=== PATIENT | male | born 1930 | race Caucasian/White ===

== ENCOUNTER 2017-03-02 16:04 | Inpatient (IN) ==
[2017-03-02] MEDS ORDERED: 0.9 % SODIUM CHLORIDE 1,000 ML IV ONE ×2 (16:24→17:22)
--- NOTE | 2017-03-02 16:38 | Emergency Department Note ---
Dizziness HPI - General Chief Complaint: Syncope Stated Complaint: fall Time Seen by Provider: 03/02/17 16:14 Source: patient Mode of arrival: ambulatory Limitations: no limitations - History of Present Illness HPI Narrative: 86-year-old male with a history of dizziness and lightheadedness morning there was no actual syncope but when he tried to stand up became very lightheaded lightheaded and diaphoretic and the color expert arrived. Rise in A. fib RVR approximately blood pressures are decreased at 70 systolically. He is alert and oriented at this time denies any chest pain, been feeling tired all day yesterday and sleep. has been dizzy for months he states but this morning he was more light headed and he became very diaphoretic and lightheaded when color expert to them up. Denies any chest pain to have a history of severe COPD retention and chronic renal insufficiency - Related Data Home Medications Medication Instructions Recorded Confirmed aspirin 81 mg tablet,delayed 81 mg PO .QOD tab 05/26/16 02/28/17 release Lisinopril [Zestril] 20 mg PO DAILY 03/02/17 03/02/17 Previous Rx's Medication Instructions Recorded ipratropium bromide 0.03 % nasal 2 spray INTRANASAL TID #30 ml 03/29/16 spray cyanocobalamin (vit B-12) 1,000 1,000 mcg IM QMONTH #30 ml 07/01/16 mcg/mL injection solution albuterol sulfate HFA 90 2 puff INHALATION .Q4-6H PRN #18 g 07/27/16 mcg/actuation aerosol inhaler budesonide-formoterol HFA 160 2 inh INHALATION BID #10.2 g 07/27/16 mcg-4.5 mcg/actuation aerosol inhaler levothyroxine 25 mcg tablet 25 mcg PO QDAY #90 tab 08/08/16 ipratropium-albuterol 0.5 mg-3 3 ml INHALATION QID PRN #360 ml 09/21/16 mg(2.5 mg base)/3 mL nebulization soln CPAP and supplies #1 each 09/23/16 citalopram 20 mg tablet 10 mg PO QDAY #60 tab 01/06/17 furosemide 20 mg tablet 20 mg PO BID #60 tab 01/16/17 omeprazole 20 mg capsule,delayed 20 mg PO ACB #30 cap 01/16/17 release simvastatin 20 mg tablet 20 mg PO QDAY #90 tab 01/16/17 tamsulosin 0.4 mg capsule 0.4 mg PO QDAY #60 cap 02/28/17 Allergies Allergy/AdvReac Type Severity Reaction Status Date / Time adhesive tape Allergy Severe Blister Verified 02/28/17 15:32 hydrocodone [HYDROCODONE] Allergy Intermediate Hallucinati Verified 02/28/17 15: 32 ons/RASH ciprofloxacin [From CIPRO] AdvReac Severe TENDON Verified 02/28/17 15:32 DETERIORATION fentanyl [FENTANYL] AdvReac Intermediate Hallucinations Verified 02/28/17 15:32 (DURAGESIC) Oxycodone [OXYCODONE] AdvReac Intermediate Itching Verified 02/28/17 15:32 Review of Systems All systems ED: reviewed and negative except as stated. Constitutional: Denies: fever, chills Eyes: Denies: eye pain ENT ED: Denies: ear pain Cardiovascular: Denies: chest pain, palpitations, dyspnea on exertion Respiratory: Reports: cough. Denies: shortness of breath Gastrointestinal: Denies: abdominal pain, nausea, vomiting Genitourinary: Denies: dysuria, frequency, urgency Integumentary: Denies: rash, lesions Neurological: Denies: headache, weakness Psychiatric: Denies: anxiety, depression Endocrine: Denies: fatigue Hematological/Lymphatic: Denies: easy bleeding Allergic/Immunologic: Denies: facial swelling Past Medical History - Past Medical History Medical history: Reports: cancer (renal), COPD, coronary artery disease, GERD, hyperlipidemia, hypertension, renal disease, thyroid disease, other (PETROS, carotid stenosis, psoriasis) Psychiatric history: Reports: no psych history Surgical history ED: Reports: angioplasty/stent, cataract, cholecystectomy, hip replacement (right), orthopedic, other (shoulder, cervical discectomy), other ( cochlear implant, nephrectomy) Family history: Reports: CVA/Stroke (mother) - Social History smoking status: Heavy tobacco smoker Packyears: 40 Alcohol use: Reports: Occasionally, Recent Drug use: Reports: none Physical Exam Limitations: no limitations General appearance: alert Head: atraumatic, normocephalic Eye: Present: normal appearance, PERRL ENT: normal exam, normal oropharynx, mucous membranes dry, other (augustine left ear cochlear implant) Neck: Present: normal inspection, full ROM. Absent: trachea midline Chest: Present: normal inspection, symmetric chest wall rise. Absent: tenderness Respiratory: Present: normal lung sounds bilaterally. Absent: respiratory distress, wheezes, stridor Cardiovascular: Present: regular rate, normal rhythm. Absent: bradycardia, tachycardia, irregular rhythm Abdominal: Present: soft. Absent: distention, tenderness, guarding, rebound, rigidity Extremities: Present: normal inspection, full ROM. Absent: tenderness Back: Present: normal inspection, full ROM. Absent: tenderness, CVA tenderness (R), CVA tenderness (L) Patient oriented to: Present: person, place, time Speech: Present: fluid speech Motor strength - LUE: 4/5 Motor strength - RUE: 4/5 Motor strength - LLE: 4/5 Motor strength - RLE: 4/5 Upper motor neuron exam: Babinski sign: Absent bilaterally Sensory exam upper extremity: Normal: light touch Sensory exam lower extremity: Normal: light touch DTR: 2+: patellar (L), patellar (R) Coma Scale Eye Opening: Spontaneous Coma Scale Motor Response: Obeys Commands Coma Scale Verbal Response: Oriented Coma Scale Total: 15 Psychiatric: Present: normal affect, normal mood Skin: Present: warm Course Vital Signs Temperature 98.0 F 03/02/17 16:05 Pulse Rate 131 H 03/02/17 16:05 Respiratory Rate 20 03/02/17 16:05 Blood Pressure 76/63 03/02/17 16:05 Pulse Oximetry (%) 97 03/02/17 16:05 Temperature 98.0 F 03/02/17 16:05 Pulse Rate 103 H 03/02/17 17:59 Respiratory Rate 16 03/02/17 17:59 Blood Pressure 85/59 03/02/17 17:46 Pulse Oximetry (%) 98 03/02/17 17:59 Dizziness - MDM Narrative Medical decision making narrative: Arrived with atrial fibrillation RVR. Blood pressures systolically 70 and 80 initially. And IV fluids. And amiodarone 150 mg IV followed by drip heart rate is come down to 100 blood pressure holding systolically at 101. flu test neg, wbc 2.5 12.4 hct 35.5 lactic 1.8 na 140 potasium 4.0 bun 53 cr 2.3 Adrienne contacted patient to be admitted - Lab Data Result diagrams: 03/02/17 17:05 03/02/17 17:04 Lab Results 03/02/17 03/02/17 03/02/17 Range/Units 17:04 17:04 17:04 WBC (4.5-11.0) K/mcL RBC (4.50-5.90) M/mcL Hgb (13.5-16.5) g/dL Hct (41.0-55.0) % POC Hct 34.0 L (41.0-55.0) % MCV (80.0-100.0) fL MCH (26.0-34.0) pg MCHC (31.0-36.0) g/dL RDW (11.5-14.5) % Plt Count (140-440) K/mcL MPV (7.4-10.4) fL Gran % (38.0-78.0) % Lymph % (Auto) (15.5-49.0) % Anson % (Auto) (1.0-12.0) % Eos % (Auto) (0.0-7.0) % Baso % (Auto) (0.0-2.0) % Gran # (1.8-8.0) K/mcL Lymph # (Auto) (1.5-4.8) K/mcL Anson # (Auto) (0.1-0.9) K/mcL Eos # (Auto) (0.0-0.7) K/mcL Baso # (Auto) (0.0-0.3) K/mcL VBG Lactic Acid 1.8 (0.5-2.2) mmol/L POC Sodium 140 (133-145) mmol/L Sodium 139 (133-145) mmol/L POC Potassium 4.0 (3.3-5.1) mmol/L Potassium 4.0 (3.3-5.1) mmol/L POC Chloride 105 (96-108) mmol/L Chloride 103 (96-108) mmol/L Carbon Dioxide 20 L (22-30) mmol/L POC Total CO2 23 (22-30) mmol/L Anion Gap 16.0 (8-16) POC BUN 48 H (8-23) mg/dl BUN 53 H (8-23) mg/dl Creatinine 2.3 H (0.7-1.2) mg/dl POC Creatinine 2.6 H (0.7-1.2) mg/dl GFR Calculation 25 Glucose 92 (70-105) mg/dL POC Glucose 90 (70-105) mg/dL Calcium 7.7 L (8.6-10.4) mg/dl POC WB Ioniz Calcium 1.07 L (1.16-1.32) mmol/L Magnesium 1.9 (1.6-2.5) mg/dL Total Bilirubin 0.5 (0.0-1.0) mg/dL AST 47 H (0-37) U/l ALT 19 (0-40) U/l Alkaline Phosphatase 53 (39-117) U/L Total Creatine Kinase 255 H (24-195) IU/L CK-MB (CK-2) 6.5 H (0-4.9) ng/ml Troponin T 0.05 H* (0-0.03) ng/ml NT-Pro-B Natriuret Pep 1474.0 H (0-450) pg/ml Total Protein 5.4 L (5.9-8.4) gm/dL Albumin 3.1 L (3.2-5.2) gm/dL Globulin 2.3 (2.2-3.7) gm/dL Albumin/Globulin Ratio 1.3 (1.0-2.3) Ethyl Alcohol (<0.010) gm/dl 03/02/17 03/02/17 Range/Units 17:04 17:05 WBC 2.5 L (4.5-11.0) K/mcL RBC 3.56 L (4.50-5.90) M/mcL Hgb 12.4 L (13.5-16.5) g/dL Hct 35.5 L (41.0-55.0) % POC Hct (41.0-55.0) % MCV 99.6 (80.0-100.0) fL MCH 34.7 H (26.0-34.0) pg MCHC 34.8 (31.0-36.0) g/dL RDW 12.7 (11.5-14.5) % Plt Count 131 L (140-440) K/mcL MPV 8.8 (7.4-10.4) fL Gran % 56.6 (38.0-78.0) % Lymph % (Auto) 24.6 (15.5-49.0) % Anson % (Auto) 18.4 H (1.0-12.0) % Eos % (Auto) 0.3 (0.0-7.0) % Baso % (Auto) 0.1 (0.0-2.0) % Gran # 1.4 L (1.8-8.0) K/mcL Lymph # (Auto) 0.6 L (1.5-4.8) K/mcL Anson # (Auto) 0.5 (0.1-0.9) K/mcL Eos # (Auto) 0 (0.0-0.7) K/mcL Baso # (Auto) 0 (0.0-0.3) K/mcL VBG Lactic Acid (0.5-2.2) mmol/L POC Sodium (133-145) mmol/L Sodium (133-145) mmol/L POC Potassium (3.3-5.1) mmol/L Potassium (3.3-5.1) mmol/L POC Chloride (96-108) mmol/L Chloride (96-108) mmol/L Carbon Dioxide (22-30) mmol/L POC Total CO2 (22-30) mmol/L Anion Gap (8-16) POC BUN (8-23) mg/dl BUN (8-23) mg/dl Creatinine (0.7-1.2) mg/dl POC Creatinine (0.7-1.2) mg/dl GFR Calculation Glucose (70-105) mg/dL POC Glucose (70-105) mg/dL Calcium (8.6-10.4) mg/dl POC WB Ioniz Calcium (1.16-1.32) mmol/L Magnesium (1.6-2.5) mg/dL Total Bilirubin (0.0-1.0) mg/dL AST (0-37) U/l ALT (0-40) U/l Alkaline Phosphatase (39-117) U/L Total Creatine Kinase (24-195) IU/L CK-MB (CK-2) (0-4.9) ng/ml Troponin T (0-0.03) ng/ml NT-Pro-B Natriuret Pep (0-450) pg/ml Total Protein (5.9-8.4) gm/dL Albumin (3.2-5.2) gm/dL Globulin (2.2-3.7) gm/dL Albumin/Globulin Ratio (1.0-2.3) Ethyl Alcohol < 0.010 (<0.010) gm/dl Disposition Pt seen by ORDER DETAILER/PA only: No Clinical Impression: Atrial fibrillation with RVR Disposition: Xfer As Inpt ([facility]) Condition: Fair Referrals: Jack Browning MD [Primary Care Provider] -
[2017-03-02] MEDS ORDERED: AMIODARONE 150 MG/3 ML VIAL IV ONE (16:40)
[2017-03-02] MEDS ORDERED: AMIODARONE 360 MG in PREMIX 1 BAG IV ONE (16:41)
[2017-03-02] MEDS ORDERED: AMIODARONE 150 MG in DEXTROSE 5% IN WATER 100 ML IV ONE ×2 (17:00→17:15)
[2017-03-02 17:21] LABS: Basophils # (Auto) 0 K/mcL (0.0-0.3); Basophils % (Auto) 0.1 % (0.0-2.0); Eosinophils # (Auto) 0 K/mcL (0.0-0.7); Eosinophils % (Auto) 0.3 % (0.0-7.0); Granulocytes % (Auto) 56.6 % (38.0-78.0); Lymphocytes # (Auto) 0.6 K/mcL (1.5-4.8); Lymphocytes % (Auto) 24.6 % (15.5-49.0); Mean Cell Volume 99.6 fL (80.0-100.0); Mean Corpuscular HGB Conc 34.8 g/dL (31.0-36.0); Mean Corpuscular Hemoglobin 34.7 pg (26.0-34.0); Monocytes # (Auto) 0.5 K/mcL (0.1-0.9); Monocytes % (Auto) 18.4 % (1.0-12.0); Platelet Count 131 K/mcL (140-440); RBC 3.56 M/mcL (4.50-5.90); Red Cell Distribution Width 12.7 % (11.5-14.5)
--- NOTE | 2017-03-02 17:21 | XRay Report ---
CLINICAL INFORMATION: Syncope COMPARISON: None. FINDINGS: Heart size, mediastinum and pulmonary vessels are normal. Minor bibasilar scarring or atelectasis noted. No infiltrates or effusions. Lungs volumes are elevated suggesting chronic bronchitis or asthma. IMPRESSION: Findings suggestive of chronic bronchitis or asthma with minor bibasilar scarring or atelectasis. No acute disease Interpreted and Authenticated by: Carlos Mobley 03/02/17
[2017-03-02 17:40] LABS: ALT/SGPT 19 U/l (0-40); Albumin 3.1 gm/dL (3.2-5.2); Albumin/Globulin Ratio 1.3 (1.0-2.3); Alkaline Phosphatase 53 U/L (39-117); Blood Urea Nitrogen 53 mg/dl (8-23); Creatine Kinase 255 IU/L (24-195); Creatine Kinase MB 6.5 ng/ml (0-4.9)
[2017-03-02 20:21] LABS: Appearance,Urine HAZY; Bacteria,Urine 0 /hpf (0); Bilirubin,Urine NEG (NEG); Color,Urine YELLOW; Glucose,Urine (UA) NEGATIVE (NEG); Leukocyte Esterase,Urine NEG /uL (NEG); Mucus,Urine MOD /hpf (0); Protein,Urine NEG (NEG); Specific Gravity,Urine 1.013 (1.000-1.035); Sperm,Urine PRESENT /hpf (ABSENT); Urine Blood 0.03 mg/dL (<0.03); Urine Hyaline Cast 32 /lpf (0-2); Urine RBC 2 /hpf (0-1); Urine Squamous Epithelial Cell 2 /hpf (0-4); Urine Transitional Epi Cells < 1 /hpf (0-2); Urine WBC 3 /hpf (0-4); Urobilinogen,Urine NEG (NEG)
[2017-03-02] MEDS ORDERED: MAGNESIUM SULFATE 2 GM/50 ML BAG IV PRN (21:37)
[2017-03-02] MEDS ORDERED: OSELTAMIVIR PHOSPHATE 75 MG CAPSULE PO ONE (21:37)
[2017-03-02] MEDS ORDERED: ACETAMINOPHEN 325 MG TABLET PO PRN (21:37)
[2017-03-02] MEDS ORDERED: ACETAMINOPHEN 1,000 MG/100 ML BOTTLE IV PRN (21:37)
[2017-03-02] MEDS ORDERED: ONDANSETRON 4 MG/2 ML VIAL IV PRN (21:37)
[2017-03-02] MEDS ORDERED: IPRATROPIUM/ALBUTEROL 3 ML AMPUL.NEB NEB PRN (22:04)
[2017-03-02] MEDS ORDERED: ALBUTEROL SULFATE 1 PUFF INHALER INH PRN (22:04)
[2017-03-02] MEDS: 0.9 % SODIUM CHLORIDE 1,000 ML IV SCH (22:25)
[2017-03-02] MEDS: HEPARIN 5,000 UNIT/ML VIAL SQ SCH (22:45)
[2017-03-02] MEDS: SENNOSIDES/DOCUSATE SODIUM 1 TAB TABLET PO SCH ×2 (22:46→22:54)
[2017-03-02] MEDS: 0.9 % SODIUM CHLORIDE 10 ML SYRINGE IV SCH (22:46)
[2017-03-02] MEDS: DOCUSATE SODIUM 100 MG CAPSULE PO SCH ×2 (22:46→22:54)
[2017-03-02] MEDS: OSELTAMIVIR PHOSPHATE 75 MG CAPSULE PO SCH (22:46)
--- NOTE | 2017-03-03 | History and Physical Report ---
DATE OF ADMISSION: 03/02/2017 DATE OF ADMISSION: 03/02/2017 REASON FOR ADMISSION: Worsening shortness of breath. PRIMARY CARE PHYSICIAN: Anurag Browning MD HISTORY OF CHIEF COMPLAINT: The patient is an 86-year-old who lives with his Michael in the [place] and has been in his baseline state of health until over the last few days. The patient has been getting progressively weak, short of breath, unable to function. The patient has had dramatic decline in effort tolerance. He endorses to cough along with weakness, diffuse pain, and low grade fever. This morning the patient has been fairly lightheaded and dizzy and unable to ambulate with a remarkable decline in functional status and worsening shortness of breath. EMS was called and was brought into [facility] Emergency Room with atrial fibrillation with RVR. The patient was started on rate controlled modality with amiodarone in light of hypotension with systolics around 80s. After crystalloid administration and amiodarone load patient's heart rate improved to around 100. Influenza A came back positive. Hospitalist Service was consulted in light of atrial fibrillation with RVR and influenza. Initial workup was significant for white count of 2.5 along with creatinine of 2.6 and elevated troponin of 0.05. Hospitalist Service was consulted. At the time of evaluation, the patient is alert. He is moderately distressed from shortness of breath. He remarkably wheezy and unable to talk in full sentences. He, however, denies sick contacts, diarrhea, dysuria, joint pain, swelling, or rash. He further denies chest pain, shaking chills, headache, photophobia, vision changes. REVIEW OF SYSTEMS: Ten-point review of system was performed and is negative except the ones discussed above. PAST MEDICAL HISTORY: 1. Hypothyroidism. 2. COPD. 3. Obstructive sleep apnea. 4. Anxiety disorder. 5. GERD. 6. Hyperlipidemia. 7. BPH. CURRENT MEDICATIONS: 1. Simvastatin 20. 2. Tamsulosin 0.4. 3. Omeprazole 20. 4. Furosemide 20 mg twice a day. 5. Citalopram 20. 6. DuoNebs every 4 hours. 7. Levothyroxine 25. 8. Budesonide/formoterol inhaled twice a day. 9. Albuterol inhaled every 4-6 hours as needed. 10. Ipratropium bromide intranasal 3 times a day. 11. Lisinopril 20. 12. Aspirin 81. SOCIAL HISTORY: and lives with his and has three kids who live out of town. Denies history of substance abuse. Occasional alcohol use. The patient carries over 50-bcsl-ithe history of smoking. FAMILY HISTORY: Significant for mother with reported CVA. SURGICAL HISTORY: 1. History of right hip replacement. 2. Cholecystectomy. 3. Cataract surgery. 4. Angioplasty/stent placement. 5. Cervical discectomy. 6. Cochlear implant. 7. Nephrectomy. PHYSICAL EXAMINATION: GENERAL: The patient is remarkably short of breath, in moderate distress. BMI 21.9. Height 5 feet 8 inches. VITAL SIGNS: Blood pressure, respiration rate 18, temperature 98, pulse down from 131 to 100 and prior to admission until the patient converted to sinus. Respiratory rate 18, sats 98 percent on 2 liters of oxygen. HEENT: Pupils symmetric. Oral cavity is dry. No ear or nose discharge. Head is normocephalic and atraumatic. NECK: No lymphadenopathy. HEART: S1, S2, currently in sinus. Regular ESM grade 1. CHEST: Diminished breath sounds at bases with late inspiratory crackles. ABDOMEN: Soft and nontender. LOWER EXTREMITIES: No cyanosis or clubbing. No joint swelling. SKIN: No suspicious lesions. PSYCHIATRIC: Anxious, but alert and cooperative. NEURO: Nonfocal, moving all four extremities. Minimally confused, abnormal higher function. LABS AND IMAGING: White count 2.5, hemoglobin 12.4, platelets 131. Lactic acid 1.8. Sodium 139, potassium 4, creatinine 2.3, BUN 53, I Roderick 1.07, CK-MB 6.5. Troponin 0.05. CK 255. UA unremarkable. Alcohol level negative. X-ray chest suggestive of chronic bronchitis with minor bibasilar atelectasis/infiltrate. INITIAL EKG: Atrial fibrillation, converted to sinus. ASSESSMENT AND PLAN: An 86-year-old admitted with atrial rapid ventricular response, acute influenza A, pneumonia, with mental status change. 1. Acute influenza. Continue Tamiflu and supportive management, crystalloids and analgesics, antipyretics. 2. Acute mental status changes secondary to acute influenza. Continue close monitoring. 3. Atrial fibrillation, rapid ventricular response, status post amiodarone, converted to sinus. Continue telemetry monitoring for persistent arrhythmias. 4. Deconditioning weakness and shortness of breath. Continue bronchodilators, pulmonary toilet and physical therapy. 5. Other prior medical issues, including history of hypertension. Restart amlodipine once patient is hemodynamically stable and systolics over 130s. 6. History of coronary artery disease. Continue aspirin and statin. 7. History of chronic obstructive pulmonary disease. Continue albuterol/budesonide. continue home CPAP. 8. Anxiety disorder. Continue citalopram. 9. Benign prostatic hypertrophy. Continue tamsulosin. PLAN FOR TODAY: 1. Admit as inpatient in light of mental status change, influenza, afib, RVR. 2. Telemonitoring. 3. Preexisting medical condition management as above. 4. Supportive management, PT and OT. AA:jay Job ID: [id number] Doc ID: [id number] Flip Pena MD MTDD
[2017-03-03] MEDS: IPRATROPIUM/ALBUTEROL 3 ML AMPUL.NEB NEB PRN ×2 (03:16→15:35)
[2017-03-03] MEDS: 0.9 % SODIUM CHLORIDE 10 ML SYRINGE IV SCH ×3 (05:58→20:44)
[2017-03-03 06:00] LABS: Mean Cell Volume 100.3 fL (80.0-100.0); Mean Corpuscular HGB Conc 34.2 g/dL (31.0-36.0); Mean Corpuscular Hemoglobin 34.3 pg (26.0-34.0); Platelet Count 142 K/mcL (140-440); RBC 3.44 M/mcL (4.50-5.90); Red Cell Distribution Width 12.9 % (11.5-14.5)
[2017-03-03 06:14] LABS: ALT/SGPT 19 U/l (0-40); Albumin/Globulin Ratio 1.4 (1.0-2.3); Alkaline Phosphatase 53 U/L (39-117); Bilirubin,Direct < 0.2 mg/dL (0.0-0.3); Blood Urea Nitrogen 52 mg/dl (8-23); Gamma Glutamyl Transpeptidase 15 U/L (8-61); Uric Acid 11.3 mg/dL (2.5-8.0)
[2017-03-03 06:36] LABS: Band Neutrophils % 6 % (0-10); Lymphocytes % 23 % (15-49); Macrocytosis 1+ (NONE SEEN); Metamyelocytes % 1 % (0-0); Monocytes % (Manual) 3 % (1-12); Platelet Estimate NORMAL (NORMAL); RBC Morphology ABNORM (NORMAL); Segmented Neutrophils % 49 % (38-78)
[2017-03-03] MEDS: OMEPRAZOLE 20 MG CAPSULE PO SCH (07:59)
[2017-03-03] MEDS: LEVOTHYROXINE 25 MCG TABLET PO SCH (07:59)
--- NOTE | 2017-03-03 09:00 | Internal Med Progress Note ---
Medical - PN: Subj Patient information: Note initiated : 03/03/17 at 8:57 am Service Date, if different from initiated Date: [] Patient: Carlos Zuniga 87 y/o M admitted on 03/02/17 for fall. Chief Complaint: [] Interval history: 03/02-patient admitted with worsening shortness of breath confusion,dizziness weakness and high-grade fever. influenza A positive. Initially in A. fib with RVR with hypotension and subsequently started on amiodarone in the ER with conversion to sinus rhythm. patient demonstrate fluctuating mental status with confusion. Patient was subsequently admitted to telemetry in light of acute influenza with mental status change H fibrillation with RVR. 03/03-patient remains persistently confused MAXIMUM TEMPERATURE 101. Tachycardia around 110 but in sinus. Status post amiodarone in the ED. On Tamiflu. Continue physical therapy/OT. droplet precautions. restart pre- existing home medications once able to tolerate by mouth and follow commands. no CP/SOB or cardiac arrhythmias on telemetry - Constitutional Vitals: Vital Signs Temp Pulse Resp BP Pulse Ox 99.0 F H 64 18 106/60 95 03/03/17 03:22 03/02/17 21:49 03/03/17 03:22 03/03/17 04:11 03/03/17 04:16 Period Temp Pulse Resp BP Sys/Rhodes Pulse Ox Last 24 Hr 98.0 F-99.0 F 46-131 12-22 75-145/47-75 92-100 Intake and Output 03/02/17 03/03/17 03/03/17 21:59 05:59 13:59 Intake Total 1122 / 1122 1000 / 1000 Output Total 150 / 150 Balance 112 / 1122 850 / 850 Weight 144 lb Intake & Output: Intake & Output 03/02/17 03/03/17 03/03/17 21:59 05:59 13:59 Intake Total 1122 / 1122 1000 / 1000 Output Total 150 / 150 Balance 1122 / 1122 850 / 850 Weight 144 lb Intake: IV 112 / 1122 1000 / 1000 Sodium Chloride 0.9% 1,000 ml @ 1000 / 1000 Wide Open IV BOLUS ONE Rx#: [id number] Cordarone 150 mg In Dextrose 5% 103 / 103 in Water 100 ml @ 600 mls/hr IV ONCE ONE Rx#:[id number] Nexterone 360 mg In Premix 1 Bag @ 0.5 MG/MIN 16.66 mls/hr IV .Q12H1M ONE Rx#:[id number] Output: Void Amount 150 / 150 General appearance: no acute distress Exam: confused Fluctuating mental status no anxiety Nonlabored breathing tachycardia on telemetry now in sinus Minimal lymphedema Medical - PN: Obj Da - Labs CBC & Chem 7: 03/03/17 04:15 03/03/17 04:15 Labs: Abnormal Lab Results 03/03/17 03/03/17 03/02/17 04:15 04:15 19:40 WBC 2.5 L RBC 3.44 L Hgb 11.8 L Hct 34.5 L POC Hct MCV 100.3 H MCH 34.3 H Plt Count [place] % (Auto) Gran # Lymph # (Auto) Metamyelocytes % 1 H Reactive Lymphocytes 18 H RBC Morphology Abnorm A Macrocytosis 1+ A Carbon Dioxide 18 L POC BUN BUN 52 H Creatinine 2.1 H POC Creatinine Glucose 122 H Uric Acid 11.3 H Calcium 7.6 L POC WB Ioniz Calcium AST 49 H Lactate Dehydrogenase 269 H Total Creatine Kinase CK-MB (CK-2) Troponin T NT-Pro-B Natriuret Pep Total Protein 5.2 L Albumin 3.0 L Urine Occult Blood 0.03 A Urine RBC 2 H Hyaline Casts 32 H Urine Sperm Present A 03/02/17 03/02/17 03/02/17 17:05 17:04 17:04 WBC 2.5 L RBC 3.56 L Hgb 12.4 L Hct 35.5 L POC Hct 34.0 L MCV MCH 34.7 H Plt Count 131 L [place] % (Auto) 18.4 H Gran # 1.4 L Lymph # (Auto) 0.6 L Metamyelocytes % Reactive Lymphocytes RBC Morphology Macrocytosis Carbon Dioxide 20 L POC BUN 48 H BUN 53 H Creatinine 2.3 H POC Creatinine 2.6 H Glucose Uric Acid Calcium 7.7 L POC WB Ioniz Calcium 1.07 L AST 47 H Lactate Dehydrogenase Total Creatine Kinase 255 H CK-MB (CK-2) 6.5 H Troponin T 0.05 H* NT-Pro-B Natriuret Pep 1474.0 H Total Protein 5.4 L Albumin 3.1 L Urine Occult Blood Urine RBC Hyaline Casts Urine Sperm Meds: Medications Acetaminophen (Tylenol) 650 mg PO Q4-6HP PRN PRN Reason: PAIN/FEVER > 101 Albuterol Sulfate (Ventolin) 2 puff INH Q4-6HP PRN PRN Reason: Shortness Of Breath Albuterol/Ipratropium (Duoneb) 3 ml NEB Q4HP PRN PRN Reason: Shortness Of Breath Last Admin: 03/03/17 03:16 Dose: 3 ml Citalopram Hydrobromide (Celexa) 10 mg PO QDAY [facility] Docusate Sodium (Colace) 100 mg PO BID [facility] Last Admin: 03/02/17 22:54 Dose: Not Given Furosemide (Lasix) 20 mg PO BID [facility] Heparin Sodium (Porcine) (Heparin) 5,000 unit SQ Q12 [facility] Last Admin: 03/02/17 22:45 Dose: Not Given Magnesium Sulfate (Magnesium Sulfate) 2 gm in 50 mls @ 50 mls/hr IV UD PRN PRN Reason: MG = or < 1.7 Sodium Chloride (Sodium Chloride 0.9%) 1,000 mls @ 50 mls/hr IV .Q20H [facility] Stop: 03/05/17 09:36 Last Admin: 03/02/17 22:25 Dose: 50 mls/hr Acetaminophen (Ofirmev) 1,000 mg in 100 mls @ 200 mls/hr IV Q6HP PRN PRN Reason: PAIN/FEVER > 101 Ipratropium [place] (Atrovent 0.03% Nasal [place]) 2 spray CHRIS TID [facility] Iron Carb/Multivit/Amelia/Folic Acid (Multivitamin W/Minerals) 1 tab PO DAILY [facility] Levothyroxine Sodium (Synthroid) 25 mcg PO QAMAC [facility] Last Admin: 03/03/17 07:59 Dose: 25 mcg Lisinopril (Zestril) 20 mg PO DAILY [facility] Omeprazole (Prilosec) 20 mg PO ACB [facility] Last Admin: 03/03/17 07:59 Dose: 20 mg Ondansetron HCl (Zofran) 4 mg IV Q4-6HP PRN PRN Reason: Nausea And Vomiting Oseltamivir Phosphate (Tamiflu) 75 mg PO BID [facility] Last Admin: 03/02/17 22:46 Dose: 75 mg Budesonide/Formoterol Fumarate [Symbicort] 160-4.5 Mcg Inhaler 2 dose INH BID [facility] Senna/Docusate Sodium (Senna Plus Tablet) 1 tab PO HS [facility] Last Admin: 03/02/17 22:54 Dose: Not Given Simvastatin (Zocor) 20 mg PO HS [facility] Sodium Chloride (Saline Flush) 10 ml IV Q8 [facility] Last Admin: 03/03/17 05:58 Dose: Not Given Trazodone HCl (Desyrel) 50 mg PO HSP PRN PRN Reason: Insomnia Medical - PN: A/P - Time Spent With Patient Total time spent is greater than 50% in coordination of care (as documented) at patient's floor/unit and/or counseling patient: 25 - 35 minutes (1) Influenza A Status: Acute Assessment and plan: * acute influenza A-on conservative management with Tamiflu crystalloids antipyretics and rest * Acute change in mental status secondary to above-continue close monitoring/ frequent reorientation * A. fib with RVR converted to sinus post amiodarone * Severe deconditioning continue physical therapy * History of CAD on aspirin and statin * History of COPD on bronchodilators. start CPAP at night once patient more lucid and following commands * History of Anxiety restart citalopramin 24 hours * BPH continue tamsulosin * Full code for now.needs to be readdressed once patient more lucid. Obtain post form from PCP office plan * supportive management * Telemetry monitoring for arrhythmias * Physical therapy * Contact precautions * Pre-existing medical condition management to start home medications once able to tolerate by mouth and more alert following commands * Case management to arrange SNF transfer if indicated Current Visit: Yes Medical - PN: Qual - VTE Deep Vein Thrombosis/Pulmonary Embolism Present on Admission: No
[2017-03-03] MEDS: DOCUSATE SODIUM 100 MG CAPSULE PO SCH ×2 (09:47→20:42)
[2017-03-03] MEDS: LISINOPRIL 20 MG TABLET PO SCH (09:47)
[2017-03-03] MEDS: MULTIVIT,THER IRON,CA,FA & MIN 1 TABLET PO SCH (09:47)
[2017-03-03] MEDS: OSELTAMIVIR PHOSPHATE 75 MG CAPSULE PO SCH ×2 (09:47→20:43)
[2017-03-03] MEDS: CITALOPRAM 20 MG TABLET PO SCH (09:47)
[2017-03-03] MEDS: HEPARIN 5,000 UNIT/ML VIAL SQ SCH ×2 (09:47→20:43)
[2017-03-03] MEDS: IPRATROPIUM 0.03% NASAL SPRAY BOTTLE 30ML NAS SCH (10:03)
[2017-03-03] MEDS: Budesonide/Formoterol Fumarate [Symbicort] 160-4.5 mcg Inhaler INH SCH ×2 (10:03→20:44)
[2017-03-03] MEDS: MAGNESIUM HYDROXIDE 30 ML ORAL.SUSP PO PRN (17:01)
[2017-03-03] MEDS: 0.9 % SODIUM CHLORIDE 1,000 ML IV SCH (19:03)
[2017-03-03] MEDS: SIMVASTATIN 20 MG TABLET PO SCH (20:42)
[2017-03-03] MEDS: SENNOSIDES/DOCUSATE SODIUM 1 TAB TABLET PO SCH (20:42)
[2017-03-03] MEDS: traZODone HCL 50 MG TABLET PO PRN (20:42)
[2017-03-03] MEDS: IPRATROPIUM 0.06% NASAL SPRAY BOTTLE 30ML NAS SCH (20:42)
[2017-03-03] MEDS ORDERED: LORazepam 2 MG/ML VIAL IV ONE (23:56)
[2017-03-04] MEDS ORDERED: LORazepam 2 MG/ML VIAL ONE ×2 (00:07→21:41)
[2017-03-04] MEDS: 0.9 % SODIUM CHLORIDE 10 ML SYRINGE IV SCH ×3 (05:45→23:27)
[2017-03-04 05:48] LABS: ALT/SGPT 17 U/l (0-40); Albumin/Globulin Ratio 1.4 (1.0-2.3); Alkaline Phosphatase 50 U/L (39-117); Bilirubin,Direct < 0.2 mg/dL (0.0-0.3); Blood Urea Nitrogen 37 mg/dl (8-23); Gamma Glutamyl Transpeptidase 17 U/L (8-61); Uric Acid 9.9 mg/dL (2.5-8.0)
[2017-03-04] MEDS: OMEPRAZOLE 20 MG CAPSULE PO SCH (08:16)
[2017-03-04] MEDS: LEVOTHYROXINE 25 MCG TABLET PO SCH (08:16)
[2017-03-04] MEDS: IPRATROPIUM/ALBUTEROL 3 ML AMPUL.NEB NEB PRN ×2 (08:35→13:30)
[2017-03-04 08:58] LABS: Basophils # (Auto) 0 K/mcL (0.0-0.3); Basophils % (Auto) 0.3 % (0.0-2.0); Eosinophils # (Auto) 0 K/mcL (0.0-0.7); Eosinophils % (Auto) 0.6 % (0.0-7.0); Lymphocytes # (Auto) 0.8 K/mcL (1.5-4.8); Lymphocytes % (Auto) 32.5 % (15.5-49.0); Mean Corpuscular HGB Conc 34.4 g/dL (31.0-36.0); Mean Corpuscular Hemoglobin 34.4 pg (26.0-34.0); Monocytes # (Auto) 0.4 K/mcL (0.1-0.9); Monocytes % (Auto) 14.6 % (1.0-12.0); Platelet Count 119 K/mcL (140-440); RBC 3.45 M/mcL (4.50-5.90); Red Cell Distribution Width 12.6 % (11.5-14.5)
[2017-03-04] MEDS ORDERED: AZITHROMYCIN 500 MG in DEXTROSE 5% IN WATER 250 ML IV ONE (09:39)
[2017-03-04] MEDS: IPRATROPIUM 0.03% NASAL SPRAY BOTTLE 30ML NAS SCH (09:57)
[2017-03-04] MEDS: 0.9 % SODIUM CHLORIDE 1,000 ML IV SCH (10:00)
--- NOTE | 2017-03-04 11:08 | Internal Med Progress Note ---
Medical - PN: Subj Patient information: Note initiated : 03/04/17 at 11:06 am Service Date, if different from initiated Date: [] Patient: Carlos Zuniga 87 y/o M admitted on 03/02/17 for Fall/RVR, Influenza A , Pneumonia. Chief Complaint: [] Interval history: 03/02-patient admitted with worsening shortness of breath confusion,dizziness weakness and high-grade fever. influenza A positive. Initially in A. fib with RVR with hypotension and subsequently started on amiodarone in the ER with conversion to sinus rhythm. patient demonstrate fluctuating mental status with confusion. Patient was subsequently admitted to telemetry in light of acute influenza with mental status change H fibrillation with RVR. 03/03-patient remains persistently confused MAXIMUM TEMPERATURE 101. Tachycardia around 110 but in sinus. Status post amiodarone in the ED. On Tamiflu. Continue physical therapy/OT. droplet precautions. restart pre- existing home medications once able to tolerate by mouth and follow commands. no CP/SOB or cardiac arrhythmias on telemetry Mar 04 Patient seen examined, , patient is afebrile this AM, patient was confused and agitated last night, but slept well after ativan. This AM drowsy and did not talk to me, the patient hemodynamically is stable. Exam has delta exp wheezing at rest after duoneb treatment. Will get X ray chest, start on steroids and zithromax for copd exacerbation? Pertinent ROS: unable - Constitutional Vitals: Vital Signs Temp Pulse Resp BP Pulse Ox 98.3 F 64 20 157/80 96 03/04/17 08:34 03/04/17 08:50 03/04/17 08:50 03/04/17 08:34 03/04/17 08:34 Period Temp Pulse Resp BP Sys/Rhodes Pulse Ox Last 24 Hr 97.3 F-98.4 F 62-88 16-20 109-160/45-80 88-100 Intake and Output 03/03/17 03/04/17 03/04/17 21:59 05:59 13:59 Intake Total 360 / 360 120 / 120 0 / 0 Output Total 250 / 250 1000 / 1000 0 / 0 Balance 110 / 110 -880 / -880 0 / 0 Weight 182 lb 8 oz Intake & Output: Intake & Output 03/03/17 03/04/17 03/04/17 21:59 05:59 13:59 Intake Total 360 / 360 120 / 120 0 / 0 Output Total 250 / 250 1000 / 1000 0 / 0 Balance 110 / 110 -880 / -880 0 / 0 Weight 182 lb 8 oz Intake: Oral 360 / 360 120 / 120 0 / 0 Output: Urine Catheter Amount 1000 / 1000 Void Amount 250 / 250 0 / 0 Exam: Constitutional; Afebrile, drowsy, Eyes- No icterus, No periorbital swelling Ears- Ext ear normal Neck- Midline trachea, supple Respiratory system: Air Entry equal on both sides, delta diminished air entry, delta exp wheezing. CVS- Rate rhythm regular, S1,S2 heard, no gallop, no rub. Abdomen- Soft nontender abdomen, no organomegaly, no tenderness, no guarding or rigidity, [employer]ER- AOOx0 sleepy, Medical - PN: Obj Da - Labs CBC & Chem 7: 03/04/17 08:25 03/04/17 04:00 Labs: Abnormal Lab Results 03/04/17 03/04/17 03/03/17 08:25 04:00 04:15 WBC 2.5 L 2.5 L RBC 3.45 L 3.44 L Hgb 11.9 L 11.8 L Hct 34.5 L 34.5 L POC Hct MCV 100.3 H MCH 34.4 H 34.3 H Plt Count 119 L [place] % (Auto) 14.6 H Gran # 1.3 L Lymph # (Auto) 0.8 L Metamyelocytes % 1 H Reactive Lymphocytes 18 H RBC Morphology Abnorm A Macrocytosis 1+ A Chloride 109 H Carbon Dioxide POC BUN BUN 37 H Creatinine 1.6 H POC Creatinine Glucose Uric Acid 9.9 H Calcium 8.0 L POC WB Ioniz Calcium AST 38 H Lactate Dehydrogenase Total Creatine Kinase CK-MB (CK-2) Troponin T NT-Pro-B Natriuret Pep Total Protein 5.2 L Albumin 3.0 L Urine Occult Blood Urine RBC Hyaline Casts Urine Sperm 03/03/17 03/02/17 03/02/17 04:15 19:40 17:05 WBC 2.5 L RBC 3.56 L Hgb 12.4 L Hct 35.5 L POC Hct MCV MCH 34.7 H Plt Count 131 L [place] % (Auto) 18.4 H Gran # 1.4 L Lymph # (Auto) 0.6 L Metamyelocytes % Reactive Lymphocytes RBC Morphology Macrocytosis Chloride Carbon Dioxide 18 L POC BUN BUN 52 H Creatinine 2.1 H POC Creatinine Glucose 122 H Uric Acid 11.3 H Calcium 7.6 L POC WB Ioniz Calcium AST 49 H Lactate Dehydrogenase 269 H Total Creatine Kinase CK-MB (CK-2) Troponin T NT-Pro-B Natriuret Pep Total Protein 5.2 L Albumin 3.0 L Urine Occult Blood 0.03 A Urine RBC 2 H Hyaline Casts 32 H Urine Sperm Present A 03/02/17 03/02/17 17:04 17:04 WBC RBC Hgb Hct POC Hct 34.0 L MCV MCH Plt Count [place] % (Auto) Gran # Lymph # (Auto) Metamyelocytes % Reactive Lymphocytes RBC Morphology Macrocytosis Chloride Carbon Dioxide 20 L POC BUN 48 H BUN 53 H Creatinine 2.3 H POC Creatinine 2.6 H Glucose Uric Acid Calcium 7.7 L POC WB Ioniz Calcium 1.07 L AST 47 H Lactate Dehydrogenase Total Creatine Kinase 255 H CK-MB (CK-2) 6.5 H Troponin T 0.05 H* NT-Pro-B Natriuret Pep 1474.0 H Total Protein 5.4 L Albumin 3.1 L Urine Occult Blood Urine RBC Hyaline Casts Urine Sperm Meds: Medications Acetaminophen (Tylenol) 650 mg PO Q4-6HP PRN PRN Reason: PAIN/FEVER > 101 Albuterol Sulfate (Ventolin) 2 puff INH Q4-6HP PRN PRN Reason: Shortness Of Breath Albuterol/Ipratropium (Duoneb) 3 ml NEB Q4HP PRN PRN Reason: Shortness Of Breath Last Admin: 03/04/17 08:35 Dose: 3 ml Citalopram Hydrobromide (Celexa) 10 mg PO QDAY [facility] Last Admin: 03/03/17 09:47 Dose: 10 mg Docusate Sodium (Colace) 100 mg PO BID [facility] Last Admin: 03/03/17 20:42 Dose: 100 mg Furosemide (Lasix) 20 mg PO BID [facility] Heparin Sodium (Porcine) (Heparin) 5,000 unit SQ Q12 [facility] Last Admin: 03/03/17 20:43 Dose: 5,000 unit Magnesium Sulfate (Magnesium Sulfate) 2 gm in 50 mls @ 50 mls/hr IV UD PRN PRN Reason: MG = or < 1.7 Sodium Chloride (Sodium Chloride 0.9%) 1,000 mls @ 50 mls/hr IV .Q20H [facility] Stop: 03/05/17 09:36 Last Admin: 03/03/17 19:03 Dose: Not Given Acetaminophen (Ofirmev) 1,000 mg in 100 mls @ 200 mls/hr IV Q6HP PRN PRN Reason: PAIN/FEVER > 101 Azithromycin 250 mg/ Dextrose 250 mls @ 250 mls/hr IV Q24H [facility] Stop: 03/08/17 09:59 Ipratropium [place] (Atrovent 0.06% Nasal Srpay) 2 spray CHRIS TID [facility] Last Admin: 03/03/17 20:42 Dose: 2 spr Iron Carb/Multivit/[place]/Folic Acid (Multivitamin W/Minerals) 1 tab PO DAILY [facility] Last Admin: 03/03/17 09:47 Dose: 1 tab Levothyroxine Sodium (Synthroid) 25 mcg PO QAMAC [facility] Last Admin: 03/04/17 08:16 Dose: 25 mcg Lisinopril (Zestril) 20 mg PO DAILY [facility] Last Admin: 03/03/17 09:47 Dose: 20 mg Magnesium Hydroxide (Milk Of Magnesia) 30 ml PO DAILYP PRN PRN Reason: Constipation Last Admin: 03/03/17 17:01 Dose: 30 ml Methylprednisolone Sodium Succinate (Solu-Medrol) 62.5 mg IV Q8 [facility] Omeprazole (Prilosec) 20 mg PO ACB [facility] Last Admin: 03/04/17 08:16 Dose: 20 mg Ondansetron HCl (Zofran) 4 mg IV Q4-6HP PRN PRN Reason: Nausea And Vomiting Oseltamivir Phosphate (Tamiflu) 75 mg PO BID [facility] Last Admin: 03/03/17 20:43 Dose: 75 mg Budesonide/Formoterol Fumarate [Symbicort] 160-4.5 Mcg Inhaler 2 dose INH BID [facility] Last Admin: 03/03/17 20:44 Dose: 2 dose Senna/Docusate Sodium (Senna Plus Tablet) 1 tab PO HS [facility] Last Admin: 03/03/17 20:42 Dose: 1 tab Simvastatin (Zocor) 20 mg PO HS [facility] Last Admin: 03/03/17 20:42 Dose: 20 mg Sodium Chloride (Saline Flush) 10 ml IV Q8 [facility] Last Admin: 03/04/17 05:45 Dose: Not Given Trazodone HCl (Desyrel) 50 mg PO HSP PRN PRN Reason: Insomnia Last Admin: 03/03/17 20:42 Dose: 50 mg Medical - PN: A/P - Time Spent With Patient Total time spent is greater than 50% in coordination of care (as documented) at patient's floor/unit and/or counseling patient: - Narrative A/P Narrative: A/P Acute INfluenza A: on tamiflu, continue same Acute c opd exacerbtion: Duonebs, repeat Chest x ray, zithromax and sterois ( steroids and antibiotics started today) Afib with RVR: rate controlled after amiodarone, given in the ER, monitor on tele walker cytopenmia: due to viral infection, get peripheral smear. Altered mental status: ABG does not show significnt co2 retention, likely a factor of flu and delirum, plan to get CT head if does not improve CAD/ HTN/ HLD: Resume statin, aspirin, and lisinopril, Hypothyroidsim: on levothyroxine, continue same yoan on ckd, creat is improving today is 1.6 Anxiety ,on citalopram continue same. BPH on flomax, continue same, h/o urinary retention needing straight cath, bladder scan q6 for now. Contiue contact precautions DVT heq sq Cardiac Diet Full Code Medical - PN: Qual - VTE Deep Vein Thrombosis/Pulmonary Embolism Present on Admission: No
[2017-03-04] MEDS: methylPREDNISolone SOD SUCC 125 MG/2 ML VIAL IV SCH ×3 (11:09→23:27)
--- NOTE | 2017-03-04 11:48 | XRay Report ---
CLINICAL INFORMATION: Shortness of breath COMPARISON: 03/02/2017 FINDINGS: The heart is now mildly enlarged and mediastinum is unremarkable. Pulmonary vessels are mildly distended there is mild interstitial edema throughout both lungs. Small infiltrate involving the left base IMPRESSION: 1. Mild CHF - new 2. Small patchy left base - new Interpreted and Authenticated by: Carlos Mobley 03/04/17
[2017-03-04] MEDS: MULTIVIT,THER IRON,CA,FA & MIN 1 TABLET PO SCH (11:52)
[2017-03-04] MEDS: OSELTAMIVIR PHOSPHATE 75 MG CAPSULE PO SCH ×2 (11:52→21:36)
[2017-03-04] MEDS: DOCUSATE SODIUM 100 MG CAPSULE PO SCH ×2 (11:52→21:36)
[2017-03-04] MEDS: LISINOPRIL 20 MG TABLET PO SCH (11:53)
[2017-03-04] MEDS: HEPARIN 5,000 UNIT/ML VIAL SQ SCH ×2 (11:53→21:35)
[2017-03-04] MEDS: FUROSEMIDE 20 MG TABLET PO SCH ×2 (11:53→21:36)
[2017-03-04] MEDS: CITALOPRAM 20 MG TABLET PO SCH (11:53)
[2017-03-04] MEDS: IPRATROPIUM 0.06% NASAL SPRAY BOTTLE 30ML NAS SCH ×3 (11:54→21:37)
[2017-03-04] MEDS: Budesonide/Formoterol Fumarate [Symbicort] 160-4.5 mcg Inhaler INH SCH ×2 (11:54→21:36)
[2017-03-04] MEDS: TAMSULOSIN 0.4 MG CAPSULE PO SCH (12:46)
[2017-03-04] MEDS: SENNOSIDES/DOCUSATE SODIUM 1 TAB TABLET PO SCH (21:36)
[2017-03-04] MEDS: SIMVASTATIN 20 MG TABLET PO SCH (21:36)
[2017-03-05] MEDS: IPRATROPIUM/ALBUTEROL 3 ML AMPUL.NEB NEB PRN ×3 (01:38→17:00)
[2017-03-05] MEDS: 0.9 % SODIUM CHLORIDE 10 ML SYRINGE IV SCH ×5 (05:45→22:33)
[2017-03-05] MEDS: methylPREDNISolone SOD SUCC 125 MG/2 ML VIAL IV SCH ×3 (05:46→22:33)
[2017-03-05 06:53] LABS: ALT/SGPT 21 U/l (0-40); Albumin 3.4 gm/dL (3.2-5.2); Albumin/Globulin Ratio 1.4 (1.0-2.3); Alkaline Phosphatase 58 U/L (39-117); Bilirubin,Direct < 0.2 mg/dL (0.0-0.3); Blood Urea Nitrogen 29 mg/dl (8-23); Gamma Glutamyl Transpeptidase 24 U/L (8-61); Uric Acid 8.8 mg/dL (2.5-8.0)
[2017-03-05] MEDS: LORazepam 2 MG/ML VIAL IV PRN ×2 (08:00→18:34)
[2017-03-05] MEDS: LEVOTHYROXINE 25 MCG TABLET PO SCH (08:14)
[2017-03-05] MEDS: OMEPRAZOLE 20 MG CAPSULE PO SCH (08:14)
[2017-03-05] MEDS: AZITHROMYCIN 250 MG TABLET PO SCH (08:20)
[2017-03-05] MEDS: LISINOPRIL 20 MG TABLET PO SCH (08:20)
[2017-03-05] MEDS: OSELTAMIVIR PHOSPHATE 75 MG CAPSULE PO SCH ×2 (08:20→21:32)
[2017-03-05] MEDS: FUROSEMIDE 20 MG TABLET PO SCH ×2 (08:20→21:31)
[2017-03-05] MEDS: MULTIVIT,THER IRON,CA,FA & MIN 1 TABLET PO SCH (08:20)
[2017-03-05] MEDS: HEPARIN 5,000 UNIT/ML VIAL SQ SCH ×2 (08:21→21:30)
[2017-03-05] MEDS: DOCUSATE SODIUM 100 MG CAPSULE PO SCH ×2 (08:21→21:30)
[2017-03-05] MEDS: CITALOPRAM 20 MG TABLET PO SCH (08:21)
[2017-03-05] MEDS: TAMSULOSIN 0.4 MG CAPSULE PO SCH (08:21)
[2017-03-05] MEDS: Budesonide/Formoterol Fumarate [Symbicort] 160-4.5 mcg Inhaler INH SCH ×2 (08:59→21:31)
[2017-03-05] MEDS: IPRATROPIUM 0.06% NASAL SPRAY BOTTLE 30ML NAS SCH ×3 (08:59→21:30)
[2017-03-05] MEDS ORDERED: AZITHROMYCIN 250 MG in DEXTROSE 5% IN WATER 250 ML IV SCH (09:00)
--- NOTE | 2017-03-05 09:51 | Internal Med Progress Note ---
Medical - PN: Subj Patient information: Note initiated : 03/05/17 at 9:48 am Service Date, if different from initiated Date: [] Patient: Carlos Zuniga 87 y/o M admitted on 03/02/17 for Fall/RVR, Influenza A , Pneumonia. Chief Complaint: [] Interval history: 03/02-patient admitted with worsening shortness of breath confusion,dizziness weakness and high-grade fever. influenza A positive. Initially in A. fib with RVR with hypotension and subsequently started on amiodarone in the ER with conversion to sinus rhythm. patient demonstrate fluctuating mental status with confusion. Patient was subsequently admitted to telemetry in light of acute influenza with mental status change H fibrillation with RVR. 03/03-patient remains persistently confused MAXIMUM TEMPERATURE 101. Tachycardia around 110 but in sinus. Status post amiodarone in the ED. On Tamiflu. Continue physical therapy/OT. droplet precautions. restart pre- existing home medications once able to tolerate by mouth and follow commands. no CP/SOB or cardiac arrhythmias on telemetry Mar 04 Patient seen examined, , patient is afebrile this AM, patient was confused and agitated last night, but slept well after ativan. This AM drowsy and did not talk to me, the patient hemodynamically is stable. Exam has delta exp wheezing at rest after duoneb treatment. Will get X ray chest, start on steroids and zithromax for copd exacerbation? Mar 05 Patient seen examined, sitting in the chair comfortably, planning to hav breakfast, aoox1, quite confused, but was able to answer some questions, not able to hold a meaning ful conversation. Labs show pancytopenia, path smear is neg, seems to be improving clinically. Chest X ray shows mild CHF, ? left infiltrates mild? Pertinent ROS: Denies headache, dizziness Denies chest pain, palpitations Denies cough or shortness of breath Denies abdominal pain, nausea or vomiting. not sure how reliable ROS is - Constitutional Vitals: Vital Signs Temp Pulse Resp BP Pulse Ox 97.2 F 74 28 H 142/58 92 03/05/17 07:34 03/05/17 07:02 03/05/17 07:34 03/05/17 07:34 03/05/17 07:34 Period Temp Pulse Resp BP Sys/Rhodes Pulse Ox Last 24 Hr 97.2 F-98.4 F 62-74 16-28 141-194/58-97 92-99 Intake and Output 03/04/17 03/05/17 03/05/17 21:59 05:59 13:59 Intake Total 410 / 410 150 / 150 Output Total 1400 / 1400 275 / 275 Balance -990 / -990 -125 / -125 Weight 181 lb 6.4 oz Intake & Output: Intake & Output 03/04/17 03/05/17 03/05/17 21:59 05:59 13:59 Intake Total 410 / 410 150 / 150 Output Total 1400 / 1400 275 / 275 Balance -990 / -990 -125 / -125 Weight 181 lb 6.4 oz Intake: Oral 410 / 410 150 / 150 Output: Urine Catheter Amount 700 / 700 275 / 275 Void Amount 700 / 700 Uretheral (Garza) 700 / 700 Other: Meal Dinner Percent of Meal Consumed 25% Feeding Ability Total Assistance # Bowel Movements 1 Exam: Constitutional; Afebrile, cooperative, alert, not in distress. Eyes- No icterus, , No periorbital swelling Ears- Ext ear normal, hearing hard to conversation. (needs to use hearing aids) Neck- Midline trachea, supple Respiratory system: Air Entry equal on both sides, poor entry delta, delta mild exp wheezing, improved since yesterday. CVS- Rate rhythm regular, S1,S2 heard, no gallop, no rub. Abdomen- Soft nontender abdomen, no organomegaly, no tenderness, no guarding or rigidity, TEST ENG- AOOx1, moving all extremities, no gross focal deficit noted. Medical - PN: Obj Da - Labs CBC & Chem 7: 03/04/17 08:25 03/05/17 04:10 Labs: Abnormal Lab Results 03/05/17 03/04/17 03/04/17 04:10 08:25 04:00 WBC 2.5 L RBC 3.45 L Hgb 11.9 L Hct 34.5 L POC Hct MCV MCH 34.4 H Plt Count 119 L [place] % (Auto) 14.6 H Gran # 1.3 L Lymph # (Auto) 0.8 L Metamyelocytes % Reactive Lymphocytes RBC Morphology Macrocytosis Chloride 109 H Carbon Dioxide POC BUN BUN 29 H 37 H Creatinine 1.5 H 1.6 H POC Creatinine Glucose 143 H Uric Acid 8.8 H 9.9 H Calcium 8.3 L 8.0 L POC WB Ioniz Calcium AST 38 H Lactate Dehydrogenase Total Creatine Kinase CK-MB (CK-2) Troponin T NT-Pro-B Natriuret Pep Total Protein 5.8 L 5.2 L Albumin 3.0 L Urine Occult Blood Urine RBC Hyaline Casts Urine Sperm 03/03/17 03/03/17 03/02/17 04:15 04:15 19:40 WBC 2.5 L RBC 3.44 L Hgb 11.8 L Hct 34.5 L POC Hct MCV 100.3 H MCH 34.3 H Plt Count [place] % (Auto) Gran # Lymph # (Auto) Metamyelocytes % 1 H Reactive Lymphocytes 18 H RBC Morphology Abnorm A Macrocytosis 1+ A Chloride Carbon Dioxide 18 L POC BUN BUN 52 H Creatinine 2.1 H POC Creatinine Glucose 122 H Uric Acid 11.3 H Calcium 7.6 L POC WB Ioniz Calcium AST 49 H Lactate Dehydrogenase 269 H Total Creatine Kinase CK-MB (CK-2) Troponin T NT-Pro-B Natriuret Pep Total Protein 5.2 L Albumin 3.0 L Urine Occult Blood 0.03 A Urine RBC 2 H Hyaline Casts 32 H Urine Sperm Present A 03/02/17 03/02/17 03/02/17 17:05 17:04 17:04 WBC 2.5 L RBC 3.56 L Hgb 12.4 L Hct 35.5 L POC Hct 34.0 L MCV MCH 34.7 H Plt Count 131 L [place] % (Auto) 18.4 H Gran # 1.4 L Lymph # (Auto) 0.6 L Metamyelocytes % Reactive Lymphocytes RBC Morphology Macrocytosis Chloride Carbon Dioxide 20 L POC BUN 48 H BUN 53 H Creatinine 2.3 H POC Creatinine 2.6 H Glucose Uric Acid Calcium 7.7 L POC WB Ioniz Calcium 1.07 L AST 47 H Lactate Dehydrogenase Total Creatine Kinase 255 H CK-MB (CK-2) 6.5 H Troponin T 0.05 H* NT-Pro-B Natriuret Pep 1474.0 H Total Protein 5.4 L Albumin 3.1 L Urine Occult Blood Urine RBC Hyaline Casts Urine Sperm Meds: Medications Acetaminophen (Tylenol) 650 mg PO Q4-6HP PRN PRN Reason: PAIN/FEVER > 101 Albuterol Sulfate (Ventolin) 2 puff INH Q4-6HP PRN PRN Reason: Shortness Of Breath Albuterol/Ipratropium (Duoneb) 3 ml NEB Q4HP PRN PRN Reason: Shortness Of Breath Last Admin: 03/05/17 06:59 Dose: 3 ml Azithromycin (Zithromax) 250 mg PO DAILY [facility] Stop: 03/08/17 09:01 Last Admin: 03/05/17 08:20 Dose: 250 mg Citalopram Hydrobromide (Celexa) 10 mg PO QDAY [facility] Last Admin: 03/05/17 08:21 Dose: 10 mg Docusate Sodium (Colace) 100 mg PO BID [facility] Last Admin: 03/05/17 08:21 Dose: 100 mg Furosemide (Lasix) 20 mg PO BID [facility] Last Admin: 03/05/17 08:20 Dose: 20 mg Heparin Sodium (Porcine) (Heparin) 5,000 unit SQ Q12 [facility] Last Admin: 03/05/17 08:21 Dose: 5,000 unit Magnesium Sulfate (Magnesium Sulfate) 2 gm in 50 mls @ 50 mls/hr IV UD PRN PRN Reason: MG = or < 1.7 Acetaminophen (Ofirmev) 1,000 mg in 100 mls @ 200 mls/hr IV Q6HP PRN PRN Reason: PAIN/FEVER > 101 Ipratropium [place] (Atrovent 0.06% Nasal Srpay) 2 spray CHRIS TID [facility] Last Admin: 03/05/17 08:59 Dose: 2 spr Iron Carb/Multivit/[place]/Folic Acid (Multivitamin W/Minerals) 1 tab PO DAILY [facility] Last Admin: 03/05/17 08:20 Dose: 1 tab Levothyroxine Sodium (Synthroid) 25 mcg PO QAMAC [facility] Last Admin: 03/05/17 08:14 Dose: 25 mcg Lisinopril (Zestril) 20 mg PO DAILY [facility] Last Admin: 03/05/17 08:20 Dose: 20 mg Lorazepam (Ativan) 0 mg IV Q6HP PRN PRN Reason: ANXIETY/SEDATION Last Admin: 03/05/17 08:00 Dose: 0.5 mg Magnesium Hydroxide (Milk Of Magnesia) 30 ml PO DAILYP PRN PRN Reason: Constipation Last Admin: 03/03/17 17:01 Dose: 30 ml Methylprednisolone Sodium Succinate (Solu-Medrol) 62.5 mg IV Q8 [facility] Last Admin: 03/05/17 05:46 Dose: 62.5 mg Omeprazole (Prilosec) 20 mg PO ACB [facility] Last Admin: 03/05/17 08:14 Dose: 20 mg Ondansetron HCl (Zofran) 4 mg IV Q4-6HP PRN PRN Reason: Nausea And Vomiting Oseltamivir Phosphate (Tamiflu) 75 mg PO BID [facility] Last Admin: 03/05/17 08:20 Dose: 75 mg Budesonide/Formoterol Fumarate [Symbicort] 160-4.5 Mcg Inhaler 2 dose INH BID [facility] Last Admin: 03/05/17 08:59 Dose: 2 dose Senna/Docusate Sodium (Senna Plus Tablet) 1 tab PO HS [facility] Last Admin: 03/04/17 21:36 Dose: 1 tab Simvastatin (Zocor) 20 mg PO HS [facility] Last Admin: 03/04/17 21:36 Dose: 20 mg Sodium Chloride (Saline Flush) 10 ml IV Q8 [facility] Last Admin: 03/05/17 05:45 Dose: 10 ml Tamsulosin HCl (Flomax) 0.4 mg PO DAILY [facility] Last Admin: 03/05/17 08:21 Dose: 0.4 mg Trazodone HCl (Desyrel) 50 mg PO HSP PRN PRN Reason: Insomnia Last Admin: 03/03/17 20:42 Dose: 50 mg Medical - PN: A/P - Time Spent With Patient Total time spent is greater than 50% in coordination of care (as documented) at patient's floor/unit and/or counseling patient: - Narrative A/P Narrative: A/P Acute INfluenza A: on tamiflu, continue same Acute copd exacerbtion: Duonebs, steroids and zithormax, ? pna on x ray, Afib with RVR: s/p amiodarone, given in the ER, monitor on tele, rate well controlled walker cytopenia: due to viral infection, path smear is neg, Altered mental status: hospital delirum, / ICU delirum at baseline has dementia it seems. Monitor closely. CAD/ HTN/ HLD: Resume statin, aspirin, and lisinopril, Hypothyroidism: on levothyroxine, continue same yoan on ckd, creat is improving today is 1. 5 Anxiety ,on citalopram continue same. BPH on flomax, continue same, h/o urinary retention needing frequent straight cath, garza in place now. Continue contact precautions DVT heq sq Cardiac Diet Full Code Medical - PN: Qual - VTE Deep Vein Thrombosis/Pulmonary Embolism Present on Admission: No
[2017-03-05] MEDS: SENNOSIDES/DOCUSATE SODIUM 1 TAB TABLET PO SCH (21:31)
[2017-03-05] MEDS: SIMVASTATIN 20 MG TABLET PO SCH (21:32)
[2017-03-05] MEDS ORDERED: FUROSEMIDE 20 MG/2 ML VIAL IV ONE (21:59)
[2017-03-06] MEDS: methylPREDNISolone SOD SUCC 125 MG/2 ML VIAL IV SCH ×3 (05:49→23:17)
[2017-03-06] MEDS: 0.9 % SODIUM CHLORIDE 10 ML SYRINGE IV SCH ×3 (05:49→23:18)
[2017-03-06 06:05] LABS: ALT/SGPT 25 U/l (0-40); Albumin 3.5 gm/dL (3.2-5.2); Albumin/Globulin Ratio 1.4 (1.0-2.3); Alkaline Phosphatase 55 U/L (39-117); Bilirubin,Direct < 0.2 mg/dL (0.0-0.3); Blood Urea Nitrogen 30 mg/dl (8-23); Gamma Glutamyl Transpeptidase 23 U/L (8-61)
[2017-03-06] MEDS: IPRATROPIUM/ALBUTEROL 3 ML AMPUL.NEB NEB PRN (07:45)
[2017-03-06] MEDS: LEVOTHYROXINE 25 MCG TABLET PO SCH (08:13)
[2017-03-06] MEDS: OMEPRAZOLE 20 MG CAPSULE PO SCH (08:13)
[2017-03-06 08:29] LABS: Basophils # (Auto) 0 K/mcL (0.0-0.3); Basophils % (Auto) 0 % (0.0-2.0); Eosinophils # (Auto) 0.1 K/mcL (0.0-0.7); Eosinophils % (Auto) 2.1 % (0.0-7.0); Granulocytes % (Auto) 86.7 % (38.0-78.0); Lymphocytes # (Auto) 0.4 K/mcL (1.5-4.8); Lymphocytes % (Auto) 6.2 % (15.5-49.0); Mean Cell Volume 99.5 fL (80.0-100.0); Mean Corpuscular HGB Conc 34.5 g/dL (31.0-36.0); Mean Corpuscular Hemoglobin 34.3 pg (26.0-34.0); Monocytes # (Auto) 0.3 K/mcL (0.1-0.9); Platelet Count 131 K/mcL (140-440); RBC 3.75 M/mcL (4.50-5.90); Red Cell Distribution Width 12.5 % (11.5-14.5)
--- NOTE | 2017-03-06 08:56 | XRay Report ---
HISTORY: Reason for Exam:shortness of breath FINDINGS: There is mild pulmonary fibrosis in both lung bases. The suspected congestive heart failure seen on 03/04/17 is no longer present. The patchy infiltrate described in the left lung base on the prior study is scar tissue which has remained stable since 02/25/16. The heart size is normal. There is no pulmonary vascular congestion or pleural effusion. IMPRESSION: Chronic mild pulmonary fibrosis, predominantly involving the lung bases Interpreted and Authenticated by: Wilson Joyce 03/06/17
[2017-03-06] MEDS: LISINOPRIL 20 MG TABLET PO SCH (09:15)
[2017-03-06] MEDS: CITALOPRAM 20 MG TABLET PO SCH (09:15)
[2017-03-06] MEDS: AZITHROMYCIN 250 MG TABLET PO SCH (09:15)
[2017-03-06] MEDS: FUROSEMIDE 20 MG TABLET PO SCH ×2 (09:15→23:39)
[2017-03-06] MEDS: HEPARIN 5,000 UNIT/ML VIAL SQ SCH ×2 (09:16→23:39)
[2017-03-06] MEDS: TAMSULOSIN 0.4 MG CAPSULE PO SCH (09:16)
[2017-03-06] MEDS: DOCUSATE SODIUM 100 MG CAPSULE PO SCH ×2 (09:16→23:39)
[2017-03-06] MEDS: MULTIVIT,THER IRON,CA,FA & MIN 1 TABLET PO SCH (09:17)
[2017-03-06] MEDS: OSELTAMIVIR PHOSPHATE 75 MG CAPSULE PO SCH ×2 (09:17→23:40)
[2017-03-06] MEDS: LORazepam 2 MG/ML VIAL IV PRN (10:11)
[2017-03-06] MEDS: Budesonide/Formoterol Fumarate [Symbicort] 160-4.5 mcg Inhaler INH SCH ×2 (10:15→23:40)
[2017-03-06] MEDS: IPRATROPIUM 0.06% NASAL SPRAY BOTTLE 30ML NAS SCH ×3 (10:15→23:38)
--- NOTE | 2017-03-06 11:28 | Internal Med Progress Note ---
Medical - PN: Subj Patient information: Note initiated : 03/06/17 at 11:25 am Service Date, if different from initiated Date: [] Patient: Carlos Zuniga 87 y/o M admitted on 03/02/17 for Fall/RVR, Influenza A , Pneumonia. Chief Complaint: [] Interval history: 03/02-patient admitted with worsening shortness of breath confusion,dizziness weakness and high-grade fever. influenza A positive. Initially in A. fib with RVR with hypotension and subsequently started on amiodarone in the ER with conversion to sinus rhythm. patient demonstrate fluctuating mental status with confusion. Patient was subsequently admitted to telemetry in light of acute influenza with mental status change H fibrillation with RVR. 03/03-patient remains persistently confused MAXIMUM TEMPERATURE 101. Tachycardia around 110 but in sinus. Status post amiodarone in the ED. On Tamiflu. Continue physical therapy/OT. droplet precautions. restart pre- existing home medications once able to tolerate by mouth and follow commands. no CP/SOB or cardiac arrhythmias on telemetry Mar 04 Patient seen examined, , patient is afebrile this AM, patient was confused and agitated last night, but slept well after ativan. This AM drowsy and did not talk to me, the patient hemodynamically is stable. Exam has delta exp wheezing at rest after duoneb treatment. Will get X ray chest, start on steroids and zithromax for copd exacerbation? Mar 05 Patient seen examined, sitting in the chair comfortably, planning to hav breakfast, aoox1, quite confused, but was able to answer some questions, not able to hold a meaning ful conversation. Labs show pancytopenia, path smear is neg, seems to be improving clinically. Chest X ray shows mild CHF, ? left infiltrates mild? mar 06 patient seen examined, drowsy this AM opens eyes to verbal commands, but did not talk much with me, agitated overnight, trying to get out of bed and trying to remove lines and catheters.Plan to start him on respiridone 0.25mg bid. The patient chest x ray today shows delta fibrosis? no chf, monitor Pertinent ROS: unable to get ROS - Constitutional Vitals: Vital Signs Temp Pulse Resp BP Pulse Ox 98.2 F 65 22 149/99 95 03/06/17 04:40 03/06/17 07:45 03/06/17 07:45 03/05/17 21:16 03/06/17 04:40 Period Temp Pulse Resp BP Sys/Rhodes Pulse Ox Last 24 Hr 97.2 F-98.2 F 62-65 18-25 145-179/62-99 95-97 Intake and Output 03/05/17 03/06/17 03/06/17 21:59 05:59 13:59 Intake Total 560 / 560 360 / 360 300 / 300 Output Total 1175 / 1175 1450 / 1450 Balance -615 / -615 -1090 / -1090 300 / 300 Weight 177 lb 1.6 oz Intake & Output: Intake & Output 03/05/17 03/06/17 03/06/17 21:59 05:59 13:59 Intake Total 560 / 560 360 / 360 300 / 300 Output Total 1175 / 1175 1450 / 1450 Balance -615 / -615 -1090 / -1090 300 / 300 Weight 177 lb 1.6 oz Intake: Oral 560 / 560 360 / 360 300 / 300 Output: Urine Catheter Amount 1175 / 1175 1450 / 1450 Other: Meal Dinner Breakfast Percent of Meal Consumed 25% 75% Feeding Ability Total Assistance Exam: Constitutional; Afebrile, drowsy, confused. Eyes- No icterus, , No periorbital swelling Ears- Ext ear normal, uses hearing aid, very hard of hearing. Neck- Midline trachea, supple Respiratory system: Air Entry equal on both sides, delta diminished air entry, delta exp wheezing. worse today. CVS- Rate rhythm regular, S1,S2 heard, no gallop, no rub. Abdomen- Soft nontender abdomen, no organomegaly, no tenderness, no guarding or rigidity, [employer]- AOOx0, moving all extremities, no gross focal deficit noted. Medical - PN: Obj Da - Labs CBC & Chem 7: 03/06/17 07:44 03/06/17 03:40 Labs: Abnormal Lab Results 03/06/17 03/06/17 03/05/17 07:44 03:40 04:10 WBC RBC 3.75 L Hgb 12.9 L Hct 37.3 L MCH 34.3 H Plt Count 131 L Gran % 86.7 H Lymph % (Auto) 6.2 L [place] % (Auto) Gran # Lymph # (Auto) 0.4 L Chloride BUN 30 H 29 H Creatinine 1.5 H 1.5 H Glucose 139 H 143 H Uric Acid 9.0 H 8.8 H Calcium 8.3 L AST Lactate Dehydrogenase 279 H Total Protein 5.8 L Albumin 03/04/17 03/04/17 08:25 04:00 WBC 2.5 L RBC 3.45 L Hgb 11.9 L Hct 34.5 L MCH 34.4 H Plt Count 119 L Gran % Lymph % (Auto) [place] % (Auto) 14.6 H Gran # 1.3 L Lymph # (Auto) 0.8 L Chloride 109 H BUN 37 H Creatinine 1.6 H Glucose Uric Acid 9.9 H Calcium 8.0 L AST 38 H Lactate Dehydrogenase Total Protein 5.2 L Albumin 3.0 L Meds: Medications Acetaminophen (Tylenol) 650 mg PO Q4-6HP PRN PRN Reason: PAIN/FEVER > 101 Albuterol Sulfate (Ventolin) 2 puff INH Q4-6HP PRN PRN Reason: Shortness Of Breath Albuterol/Ipratropium (Duoneb) 3 ml NEB Q4HP PRN PRN Reason: Shortness Of Breath Last Admin: 03/06/17 07:45 Dose: 3 ml Azithromycin (Zithromax) 250 mg PO DAILY [facility] Stop: 03/08/17 09:01 Last Admin: 03/06/17 09:15 Dose: 250 mg Citalopram Hydrobromide (Celexa) 10 mg PO QDAY [facility] Last Admin: 03/06/17 09:15 Dose: 10 mg Docusate Sodium (Colace) 100 mg PO BID [facility] Last Admin: 03/06/17 09:16 Dose: 100 mg Furosemide (Lasix) 20 mg PO BID [facility] Last Admin: 03/06/17 09:15 Dose: 20 mg Heparin Sodium (Porcine) (Heparin) 5,000 unit SQ Q12 [facility] Last Admin: 03/06/17 09:16 Dose: 5,000 unit Magnesium Sulfate (Magnesium Sulfate) 2 gm in 50 mls @ 50 mls/hr IV UD PRN PRN Reason: MG = or < 1.7 Acetaminophen (Ofirmev) 1,000 mg in 100 mls @ 200 mls/hr IV Q6HP PRN PRN Reason: PAIN/FEVER > 101 Ipratropium [place] (Atrovent 0.06% Nasal Srpay) 2 spray CHRIS TID [facility] Last Admin: 03/06/17 10:15 Dose: 2 spr Iron Carb/Multivit/[place]/Folic Acid (Multivitamin W/Minerals) 1 tab PO DAILY [facility] Last Admin: 03/06/17 09:17 Dose: 1 tab Levothyroxine Sodium (Synthroid) 25 mcg PO QAMAC [facility] Last Admin: 03/06/17 08:13 Dose: 25 mcg Lisinopril (Zestril) 20 mg PO DAILY [facility] Last Admin: 03/06/17 09:15 Dose: 20 mg Lorazepam (Ativan) 0 mg IV Q6HP PRN PRN Reason: ANXIETY/SEDATION Last Admin: 03/06/17 10:11 Dose: 0.25 mg Magnesium Hydroxide (Milk Of Magnesia) 30 ml PO DAILYP PRN PRN Reason: Constipation Last Admin: 03/03/17 17:01 Dose: 30 ml Methylprednisolone Sodium Succinate (Solu-Medrol) 62.5 mg IV Q8 [facility] Last Admin: 03/06/17 05:49 Dose: 62.5 mg Omeprazole (Prilosec) 20 mg PO ACB [facility] Last Admin: 03/06/17 08:13 Dose: 20 mg Ondansetron HCl (Zofran) 4 mg IV Q4-6HP PRN PRN Reason: Nausea And Vomiting Oseltamivir Phosphate (Tamiflu) 75 mg PO BID [facility] Last Admin: 03/06/17 09:17 Dose: 75 mg Budesonide/Formoterol Fumarate [Symbicort] 160-4.5 Mcg Inhaler 2 dose INH BID [facility] Last Admin: 03/06/17 10:15 Dose: Not Given Risperidone (Risperdal) 0.25 mg PO BID [facility] Senna/Docusate Sodium (Senna Plus Tablet) 1 tab PO HS [facility] Last Admin: 03/05/17 21:31 Dose: Not Given Simvastatin (Zocor) 20 mg PO HS [facility] Last Admin: 03/05/17 21:32 Dose: Not Given Sodium Chloride (Saline Flush) 10 ml IV Q8 [facility] Last Admin: 03/06/17 05:49 Dose: 10 ml Tamsulosin HCl (Flomax) 0.4 mg PO DAILY [facility] Last Admin: 03/06/17 09:16 Dose: 0.4 mg Trazodone HCl (Desyrel) 50 mg PO HSP PRN PRN Reason: Insomnia Last Admin: 03/03/17 20:42 Dose: 50 mg Medical - PN: A/P - Time Spent With Patient Total time spent is greater than 50% in coordination of care (as documented) at patient's floor/unit and/or counseling patient: - Narrative A/P Narrative: A/P Acute INfluenza A: on tamiflu, continue same, day 4 today Acute copd exacerbtion: Duonebs, steroids and zithormax, ? no pna on x ray today , worse today than yesterday, continue with present treatment. Afib with RVR: s/p amiodarone, given in the ER, monitor on tele, rate well controlled walker cytopenia: due to viral infection, path smear is neg, continue to monitor. wbc normal today, platlet counts improved. Altered mental status: hospital delirum, / ICU delirum at baseline has dementia it seems. Monitor closely. start on risperidone 0.25mg bid. CAD/ HTN/ HLD: Resume statin, aspirin, and lisinopril, Hypothyroidism: on levothyroxine, continue same yoan on ckd, creat is improving today is 1. 5 Anxiety ,on citalopram continue same. BPH on flomax, continue same, h/o urinary retention needing frequent straight cath, garza in place now. Continue contact precautions DVT heq sq Cardiac Diet Full Code Medical - PN: Qual - VTE Deep Vein Thrombosis/Pulmonary Embolism Present on Admission: No
[2017-03-06] MEDS: risperiDONE 0.25 MG TABLET PO SCH ×2 (17:23→23:40)
[2017-03-06] MEDS ORDERED: FUROSEMIDE 20 MG/2 ML VIAL IV ONE ×2 (22:34→23:23)
[2017-03-06] MEDS: SIMVASTATIN 20 MG TABLET PO SCH (23:40)
[2017-03-06] MEDS: SENNOSIDES/DOCUSATE SODIUM 1 TAB TABLET PO SCH (23:40)
[2017-03-07] MEDS: methylPREDNISolone SOD SUCC 125 MG/2 ML VIAL IV SCH ×3 (06:01→22:25)
[2017-03-07] MEDS: 0.9 % SODIUM CHLORIDE 10 ML SYRINGE IV SCH ×3 (06:02→22:26)
[2017-03-07 06:07] LABS: ALT/SGPT 32 U/l (0-40); Albumin 3.7 gm/dL (3.2-5.2); Albumin/Globulin Ratio 1.5 (1.0-2.3); Alkaline Phosphatase 56 U/L (39-117); Bilirubin,Direct < 0.2 mg/dL (0.0-0.3); Blood Urea Nitrogen 36 mg/dl (8-23); Gamma Glutamyl Transpeptidase 25 U/L (8-61); Uric Acid 9.5 mg/dL (2.5-8.0)
[2017-03-07] MEDS: LEVOTHYROXINE 25 MCG TABLET PO SCH (07:02)
[2017-03-07] MEDS: OMEPRAZOLE 20 MG CAPSULE PO SCH (07:02)
[2017-03-07] MEDS: Budesonide/Formoterol Fumarate [Symbicort] 160-4.5 mcg Inhaler INH SCH ×2 (09:00→20:06)
[2017-03-07] MEDS: IPRATROPIUM 0.06% NASAL SPRAY BOTTLE 30ML NAS SCH ×3 (09:00→20:06)
--- NOTE | 2017-03-07 11:38 | Internal Med Progress Note ---
Medical - PN: Subj Patient information: Note initiated : 03/07/17 at 11:35 am Service Date, if different from initiated Date: [] Patient: Carlos Zuniga 87 y/o M admitted on 03/02/17 for Fall/RVR, Influenza A , Pneumonia. Chief Complaint: [] Interval history: 03/02-patient admitted with worsening shortness of breath confusion,dizziness weakness and high-grade fever. influenza A positive. Initially in A. fib with RVR with hypotension and subsequently started on amiodarone in the ER with conversion to sinus rhythm. patient demonstrate fluctuating mental status with confusion. Patient was subsequently admitted to telemetry in light of acute influenza with mental status change H fibrillation with RVR. 03/03-patient remains persistently confused MAXIMUM TEMPERATURE 101. Tachycardia around 110 but in sinus. Status post amiodarone in the ED. On Tamiflu. Continue physical therapy/OT. droplet precautions. restart pre- existing home medications once able to tolerate by mouth and follow commands. no CP/SOB or cardiac arrhythmias on telemetry Mar 04 Patient seen examined, , patient is afebrile this AM, patient was confused and agitated last night, but slept well after ativan. This AM drowsy and did not talk to me, the patient hemodynamically is stable. Exam has delta exp wheezing at rest after duoneb treatment. Will get X ray chest, start on steroids and zithromax for copd exacerbation? Mar 05 Patient seen examined, sitting in the chair comfortably, planning to hav breakfast, aoox1, quite confused, but was able to answer some questions, not able to hold a meaning ful conversation. Labs show pancytopenia, path smear is neg, seems to be improving clinically. Chest X ray shows mild CHF, ? left infiltrates mild? mar 06 patient seen examined, drowsy this AM opens eyes to verbal commands, but did not talk much with me, agitated overnight, trying to get out of bed and trying to remove lines and catheters.Plan to start him on respiridone 0.25mg bid. The patient chest x ray today shows delta fibrosis? no chf, monitor 03/07-persistent confusion. During my evaluation patient was disoriented to time place and person. He said his will be coming today from [place]. I reviewed labs which appears stable with white count of 6.2, and anemia normal bicarbonate profile with a creatinine down to 1.5.patient has been afebrile overnight. Currently on 3 L oxygen up from 2. He is sitting up in chair eating breakfast but has had intermittent episodes of agitation and confusion last night. Interval chest imaging only shows pulmonary fibrosis. Currently on Tamiflu/azithromycin.plan is to continue frequent reorientation/bright lights and avoidsedative hypnotics.continue risperidone. MRI today for further evaluation of mental status change. Also case discussed with patient's daughter Suzie on phone. Informed of clinical deterioration and discuss labs and imaging and hospital course. Also informed of treatment plan including MRI/possible lumbar puncture studies. - Constitutional Vitals: Vital Signs Temp Pulse Resp BP Pulse Ox 98.7 F 57 L 18 165/83 95 03/07/17 07:28 03/07/17 07:28 03/07/17 07:26 03/07/17 07:28 03/07/17 07:28 Period Temp Pulse Resp BP Sys/Rhodes Pulse Ox Last 24 Hr 98.1 F-98.7 F 57 16-24 165-176/80-83 93-95 Intake and Output 03/06/17 03/07/17 03/07/17 21:59 05:59 13:59 Intake Total 200 / 200 0 / 0 Output Total 1050 / 1050 1550 / 1550 Balance -1050 / -1050 -1350 / -1350 0 / 0 Weight 165 lb 14.4 oz Intake & Output: Intake & Output 03/06/17 03/07/17 03/07/17 21:59 05:59 13:59 Intake Total 200 / 200 0 / 0 Output Total 1050 / 1050 1550 / 1550 Balance -1050 / -1050 -1350 / -1350 0 / 0 Weight 165 lb 14.4 oz Intake: Oral 200 / 200 0 / 0 Output: Urine Catheter Amount 1050 / 1050 1550 / 1550 Other: # Bowel Movements 0 General appearance: cooperative, no acute distress Exam: confused however no signs of agitation on 3 L oxygen nonlabored breathing Minimal lymphedema no telemetry events Medical - PN: Obj Da - Labs CBC & Chem 7: 03/06/17 07:44 03/07/17 03:57 Labs: Abnormal Lab Results 03/07/17 03/06/17 03/06/17 03:57 07:44 03:40 RBC 3.75 L Hgb 12.9 L Hct 37.3 L MCH 34.3 H Plt Count 131 L Gran % 86.7 H Lymph % (Auto) 6.2 L Lymph # (Auto) 0.4 L Carbon Dioxide 33 H BUN 36 H 30 H Creatinine 1.5 H 1.5 H Glucose 128 H 139 H Uric Acid 9.5 H 9.0 H Calcium Lactate Dehydrogenase 253 H 279 H Total Protein 03/05/17 04:10 RBC Hgb Hct MCH Plt Count Gran % Lymph % (Auto) Lymph # (Auto) Carbon Dioxide BUN 29 H Creatinine 1.5 H Glucose 143 H Uric Acid 8.8 H Calcium 8.3 L Lactate Dehydrogenase Total Protein 5.8 L Meds: Medications Acetaminophen (Tylenol) 650 mg PO Q4-6HP PRN PRN Reason: PAIN/FEVER > 101 Albuterol Sulfate (Ventolin) 2 puff INH Q4-6HP PRN PRN Reason: Shortness Of Breath Albuterol/Ipratropium (Duoneb) 3 ml NEB Q4HP PRN PRN Reason: Shortness Of Breath Last Admin: 03/06/17 07:45 Dose: 3 ml Azithromycin (Zithromax) 250 mg PO DAILY [facility] Stop: 03/08/17 09:01 Last Admin: 03/06/17 09:15 Dose: 250 mg Citalopram Hydrobromide (Celexa) 10 mg PO QDAY [facility] Last Admin: 03/06/17 09:15 Dose: 10 mg Docusate Sodium (Colace) 100 mg PO BID [facility] Last Admin: 03/06/17 23:39 Dose: Not Given Furosemide (Lasix) 20 mg PO BID [facility] Last Admin: 03/06/17 23:39 Dose: Not Given Heparin Sodium (Porcine) (Heparin) 5,000 unit SQ Q12 [facility] Last Admin: 03/06/17 23:39 Dose: Not Given Magnesium Sulfate (Magnesium Sulfate) 2 gm in 50 mls @ 50 mls/hr IV UD PRN PRN Reason: MG = or < 1.7 Acetaminophen (Ofirmev) 1,000 mg in 100 mls @ 200 mls/hr IV Q6HP PRN PRN Reason: PAIN/FEVER > 101 Ipratropium [place] (Atrovent 0.06% Nasal Srpay) 2 spray CHRIS TID [facility] Last Admin: 03/06/17 23:38 Dose: Not Given Iron Carb/Multivit/[place]/Folic Acid (Multivitamin W/Minerals) 1 tab PO DAILY [facility] Last Admin: 03/06/17 09:17 Dose: 1 tab Levothyroxine Sodium (Synthroid) 25 mcg PO QAMAC [facility] Last Admin: 03/07/17 07:02 Dose: 25 mcg Lisinopril (Zestril) 20 mg PO DAILY [facility] Last Admin: 03/06/17 09:15 Dose: 20 mg Lorazepam (Ativan) 0 mg IV Q6HP PRN PRN Reason: ANXIETY/SEDATION Last Admin: 03/06/17 10:11 Dose: 0.25 mg Magnesium Hydroxide (Milk Of Magnesia) 30 ml PO DAILYP PRN PRN Reason: Constipation Last Admin: 03/03/17 17:01 Dose: 30 ml Methylprednisolone Sodium Succinate (Solu-Medrol) 62.5 mg IV Q8 [facility] Last Admin: 03/07/17 06:01 Dose: 62.5 mg Omeprazole (Prilosec) 20 mg PO ACB [facility] Last Admin: 03/07/17 07:02 Dose: 20 mg Ondansetron HCl (Zofran) 4 mg IV Q4-6HP PRN PRN Reason: Nausea And Vomiting Oseltamivir Phosphate (Tamiflu) 75 mg PO BID [facility] Last Admin: 03/06/17 23:40 Dose: Not Given Budesonide/Formoterol Fumarate [Symbicort] 160-4.5 Mcg Inhaler 2 dose INH BID [facility] Last Admin: 03/06/17 23:40 Dose: Not Given Risperidone (Risperdal) 0.25 mg PO BID [facility] Last Admin: 03/06/17 23:40 Dose: Not Given Senna/Docusate Sodium (Senna Plus Tablet) 1 tab PO HS [facility] Last Admin: 03/06/17 23:40 Dose: Not Given Simvastatin (Zocor) 20 mg PO HS [facility] Last Admin: 03/06/17 23:40 Dose: Not Given Sodium Chloride (Saline Flush) 10 ml IV Q8 [facility] Last Admin: 03/07/17 06:02 Dose: 10 ml Tamsulosin HCl (Flomax) 0.4 mg PO DAILY [facility] Last Admin: 03/06/17 09:16 Dose: 0.4 mg Trazodone HCl (Desyrel) 50 mg PO HSP PRN PRN Reason: Insomnia Last Admin: 03/03/17 20:42 Dose: 50 mg Medical - PN: A/P - Time Spent With Patient Total time spent is greater than 50% in coordination of care (as documented) at patient's floor/unit and/or counseling patient: 25 - 35 minutes (1) Influenza A Status: Acute Assessment and plan: * Acute influenza A-continuing conservative management with Tamiflu crystalloids antipyretics and rest * hypoxic respiratory insufficiency currently on 3 L oxygen. Possibly secondary influenza however interval chest imaging shows pulmonary fibrosis without infiltrates. * COPD exacerbation on steroids/bronchodilators/Zithromax * Acute change in mental status secondary to above-continue close monitoring/ frequent reorientation. MRI brain today. Lumbar puncture if MRI negative. On risperidone 25 twice a day * A. fib with RVR converted to sinus post amiodarone * pancytopenia clinically improving.secondary to influenza * Severe deconditioning continue physical therapy * History of CAD on aspirin and statin * History of Anxiety on Celexa * BPH continue tamsulosin * Full code for now.needs to be readdressed once patient more lucid. Obtain polst form from PCP office plan * MRI brain * Blood cultures * telemetry monitoring * CSF studies his MRI negative * Physical therapy * pre-existing medical condition management on home meds Current Visit: Yes Medical - PN: Qual - VTE Deep Vein Thrombosis/Pulmonary Embolism Present on Admission: No
[2017-03-07] MEDS: DOCUSATE SODIUM 100 MG CAPSULE PO SCH ×2 (12:22→20:03)
[2017-03-07] MEDS: CITALOPRAM 20 MG TABLET PO SCH (12:22)
[2017-03-07] MEDS: FUROSEMIDE 20 MG TABLET PO SCH ×2 (12:22→20:03)
[2017-03-07] MEDS: risperiDONE 0.25 MG TABLET PO SCH ×2 (12:22→20:03)
[2017-03-07] MEDS: AZITHROMYCIN 250 MG TABLET PO SCH (12:23)
[2017-03-07] MEDS: TAMSULOSIN 0.4 MG CAPSULE PO SCH (12:23)
[2017-03-07] MEDS: LISINOPRIL 20 MG TABLET PO SCH (12:23)
[2017-03-07] MEDS: MULTIVIT,THER IRON,CA,FA & MIN 1 TABLET PO SCH (12:23)
[2017-03-07] MEDS: HEPARIN 5,000 UNIT/ML VIAL SQ SCH ×2 (12:24→20:03)
[2017-03-07] MEDS: OSELTAMIVIR PHOSPHATE 75 MG CAPSULE PO SCH ×2 (12:24→20:03)
[2017-03-07] MEDS: SENNOSIDES/DOCUSATE SODIUM 1 TAB TABLET PO SCH (20:03)
[2017-03-07] MEDS: SIMVASTATIN 20 MG TABLET PO SCH (20:03)
[2017-03-07] MEDS: traZODone HCL 50 MG TABLET PO PRN (22:26)
[2017-03-08] MEDS: methylPREDNISolone SOD SUCC 125 MG/2 ML VIAL IV SCH (05:43)
[2017-03-08] MEDS: 0.9 % SODIUM CHLORIDE 10 ML SYRINGE IV SCH ×3 (05:43→20:48)
[2017-03-08] MEDS: LEVOTHYROXINE 25 MCG TABLET PO SCH (06:30)
[2017-03-08] MEDS: OMEPRAZOLE 20 MG CAPSULE PO SCH (06:30)
[2017-03-08] MEDS: TAMSULOSIN 0.4 MG CAPSULE PO SCH ×2 (06:46→07:29)
[2017-03-08] MEDS: risperiDONE 0.25 MG TABLET PO SCH ×3 (06:46→20:45)
[2017-03-08] MEDS: DOCUSATE SODIUM 100 MG CAPSULE PO SCH ×3 (06:46→22:34)
[2017-03-08] MEDS: CITALOPRAM 20 MG TABLET PO SCH ×2 (06:46→07:29)
[2017-03-08] MEDS: HEPARIN 5,000 UNIT/ML VIAL SQ SCH ×3 (06:47→22:34)
[2017-03-08] MEDS: FUROSEMIDE 20 MG TABLET PO SCH ×3 (06:47→20:46)
[2017-03-08] MEDS: AZITHROMYCIN 250 MG TABLET PO SCH ×2 (06:47→13:02)
[2017-03-08] MEDS: MULTIVIT,THER IRON,CA,FA & MIN 1 TABLET PO SCH ×2 (06:47→07:30)
[2017-03-08 07:14] LABS: ALT/SGPT 33 U/l (0-40); Albumin 3.2 gm/dL (3.2-5.2); Albumin/Globulin Ratio 1.1 (1.0-2.3); Alkaline Phosphatase 60 U/L (39-117); Bilirubin,Direct < 0.2 mg/dL (0.0-0.3); Blood Urea Nitrogen 43 mg/dl (8-23); Gamma Glutamyl Transpeptidase 25 U/L (8-61); Uric Acid 9.4 mg/dL (2.5-8.0)
[2017-03-08] MEDS: Budesonide/Formoterol Fumarate [Symbicort] 160-4.5 mcg Inhaler INH SCH ×2 (07:24→20:49)
[2017-03-08] MEDS: IPRATROPIUM 0.06% NASAL SPRAY BOTTLE 30ML NAS SCH ×3 (07:25→22:32)
[2017-03-08] MEDS: LISINOPRIL 20 MG TABLET PO SCH (07:31)
[2017-03-08] MEDS: OSELTAMIVIR PHOSPHATE 75 MG CAPSULE PO SCH ×2 (07:53→20:44)
[2017-03-08] MEDS: IPRATROPIUM/ALBUTEROL 3 ML AMPUL.NEB NEB PRN (07:53)
--- NOTE | 2017-03-08 09:04 | Internal Med Progress Note ---
Medical - PN: Subj Patient information: Note initiated : 03/08/17 at 9:02 am Service Date, if different from initiated Date: [] Patient: Carlos Zuniga 87 y/o M admitted on 03/02/17 for Fall/RVR, Influenza A , Pneumonia. Chief Complaint: [] Interval history: 03/02-patient admitted with worsening shortness of breath confusion,dizziness weakness and high-grade fever. influenza A positive. Initially in A. fib with RVR with hypotension and subsequently started on amiodarone in the ER with conversion to sinus rhythm. patient demonstrate fluctuating mental status with confusion. Patient was subsequently admitted to telemetry in light of acute influenza with mental status change H fibrillation with RVR. 03/03-patient remains persistently confused MAXIMUM TEMPERATURE 101. Tachycardia around 110 but in sinus. Status post amiodarone in the ED. On Tamiflu. Continue physical therapy/OT. droplet precautions. restart pre- existing home medications once able to tolerate by mouth and follow commands. no CP/SOB or cardiac arrhythmias on telemetry Mar 04 Patient seen examined, , patient is afebrile this AM, patient was confused and agitated last night, but slept well after ativan. This AM drowsy and did not talk to me, the patient hemodynamically is stable. Exam has delta exp wheezing at rest after duoneb treatment. Will get X ray chest, start on steroids and zithromax for copd exacerbation? Mar 05 Patient seen examined, sitting in the chair comfortably, planning to hav breakfast, aoox1, quite confused, but was able to answer some questions, not able to hold a meaning ful conversation. Labs show pancytopenia, path smear is neg, seems to be improving clinically. Chest X ray shows mild CHF, ? left infiltrates mild? mar 06 patient seen examined, drowsy this AM opens eyes to verbal commands, but did not talk much with me, agitated overnight, trying to get out of bed and trying to remove lines and catheters.Plan to start him on respiridone 0.25mg bid. The patient chest x ray today shows delta fibrosis? no chf, monitor 03/07-persistent confusion. During my evaluation patient was disoriented to time place and person. He said his will be coming today from [place]. I reviewed labs which appears stable with white count of 6.2, and anemia normal bicarbonate profile with a creatinine down to 1.5.patient has been afebrile overnight. Currently on 3 L oxygen up from 2. He is sitting up in chair eating breakfast but has had intermittent episodes of agitation and confusion last night. Interval chest imaging only shows pulmonary fibrosis. Currently on Tamiflu/azithromycin.plan is to continue frequent reorientation/bright lights and avoidsedative hypnotics.continue risperidone. MRI today for further evaluation of mental status change. Also case discussed with patient's daughter Suzie on phone. Informed of clinical deterioration and discuss labs and imaging and hospital course. Also informed of treatment plan including MRI/possible lumbar puncture studies. 03/08-patient doing well.no overnight events. No concerns per staff other than persistent confusion.no signs of agitation. Mister family friend in room. Discuss patient's baseline and friend confirm that patient has had a gradual deterioration in mental status over the last few months. Also reviewed her IV care doctor's office notes with cognitive decline over the last visit. MRI could not be performed due to cough. Implant. I don't see any signs of encephalitis/fever/photophobia and neck stiffness that would mandate a lumbar puncture study at this time. Transfer to medical floor on watch bed. Anticipate transfer her dementia care unit in 24-48 hours. Discontinue steroids - Constitutional Vitals: Vital Signs Temp Pulse Resp BP Pulse Ox 98.0 F 68 22 130/62 97 03/08/17 07:51 03/08/17 08:27 03/08/17 08:27 03/08/17 07:51 03/08/17 08:00 Period Temp Pulse Resp BP Sys/Rhodes Pulse Ox Last 24 Hr 98.0 F-99.3 F 57-70 18-23 130-198/61-76 91-97 Intake and Output 03/07/17 03/08/17 03/08/17 21:59 05:59 13:59 Intake Total 960 / 960 240 / 240 340 / 340 Output Total 700 / 700 1175 / 1175 Balance 260 / 260 -935 / -935 340 / 340 Weight 171 lb 11.2 oz Intake & Output: Intake & Output 03/07/17 03/08/17 03/08/17 21:59 05:59 13:59 Intake Total 960 / 960 240 / 240 340 / 340 Output Total 700 / 700 1175 / 1175 Balance 260 / 260 -935 / -935 340 / 340 Weight 171 lb 11.2 oz Intake: Oral 960 / 960 240 / 240 340 / 340 Output: Urine Catheter Amount 700 / 700 1175 / 1175 Other: Meal Dinner Breakfast Percent of Meal Consumed 100% 50% General appearance: cooperative, no acute distress Exam: alert but confused No anxiety nonlabored breathing Ambulating and participate in physical therapy no lymphedema Medical - PN: Obj Da - Labs CBC & Chem 7: 03/06/17 07:44 03/08/17 04:20 Labs: Abnormal Lab Results 03/08/17 03/07/17 03/06/17 04:20 03:57 07:44 RBC 3.75 L Hgb 12.9 L Hct 37.3 L MCH 34.3 H Plt Count 131 L Gran % 86.7 H Lymph % (Auto) 6.2 L Lymph # (Auto) 0.4 L Carbon Dioxide 33 H 33 H BUN 43 H 36 H Creatinine 1.5 H 1.5 H Glucose 136 H 128 H Uric Acid 9.4 H 9.5 H Phosphorus 2.6 L Lactate Dehydrogenase 253 H 03/06/17 03:40 RBC Hgb Hct MCH Plt Count Gran % Lymph % (Auto) Lymph # (Auto) Carbon Dioxide BUN 30 H Creatinine 1.5 H Glucose 139 H Uric Acid 9.0 H Phosphorus Lactate Dehydrogenase 279 H Meds: Medications Acetaminophen (Tylenol) 650 mg PO Q4-6HP PRN PRN Reason: PAIN/FEVER > 101 Albuterol Sulfate (Ventolin) 2 puff INH Q4-6HP PRN PRN Reason: Shortness Of Breath Albuterol/Ipratropium (Duoneb) 3 ml NEB Q4HP PRN PRN Reason: Shortness Of Breath Last Admin: 03/08/17 07:53 Dose: 3 ml Citalopram Hydrobromide (Celexa) 10 mg PO QDAY [facility] Last Admin: 03/08/17 07:29 Dose: Not Given Docusate Sodium (Colace) 100 mg PO BID [facility] Last Admin: 03/08/17 07:29 Dose: Not Given Furosemide (Lasix) 20 mg PO BID [facility] Last Admin: 03/08/17 07:29 Dose: Not Given Heparin Sodium (Porcine) (Heparin) 5,000 unit SQ Q12 [facility] Last Admin: 01/31/18 07:29 Dose: 5,000 unit Magnesium Sulfate (Magnesium Sulfate) 2 gm in 50 mls @ 50 mls/hr IV UD PRN PRN Reason: MG = or < 1.7 Acetaminophen (Ofirmev) 1,000 mg in 100 mls @ 200 mls/hr IV Q6HP PRN PRN Reason: PAIN/FEVER > 101 Ipratropium [place] (Atrovent 0.06% Nasal Srpay) 2 spray CHRIS TID [facility] Last Admin: 03/08/17 07:25 Dose: 2 spr Iron Carb/Multivit/[place]/Folic Acid (Multivitamin W/Minerals) 1 tab PO DAILY [facility] Last Admin: 03/08/17 07:30 Dose: Not Given Levothyroxine Sodium (Synthroid) 25 mcg PO QAMAC [facility] Last Admin: 03/08/17 06:30 Dose: 25 mcg Lisinopril (Zestril) 20 mg PO DAILY [facility] Last Admin: 03/08/17 07:31 Dose: 20 mg Magnesium Hydroxide (Milk Of Magnesia) 30 ml PO DAILYP PRN PRN Reason: Constipation Last Admin: 03/03/17 17:01 Dose: 30 ml Methylprednisolone Sodium Succinate (Solu-Medrol) 62.5 mg IV Q8 [facility] Last Admin: 03/08/17 05:43 Dose: 62.5 mg Omeprazole (Prilosec) 20 mg PO ACB [facility] Last Admin: 03/08/17 06:30 Dose: 20 mg Ondansetron HCl (Zofran) 4 mg IV Q4-6HP PRN PRN Reason: Nausea And Vomiting Oseltamivir Phosphate (Tamiflu) 75 mg PO BID [facility] Last Admin: 03/08/17 07:53 Dose: 75 mg Budesonide/Formoterol Fumarate [Symbicort] 160-4.5 Mcg Inhaler 2 dose INH BID [facility] Last Admin: 03/08/17 07:24 Dose: 2 dose Risperidone (Risperdal) 0.25 mg PO BID [facility] Last Admin: 03/08/17 07:30 Dose: Not Given Senna/Docusate Sodium (Senna Plus Tablet) 1 tab PO HS [facility] Last Admin: 03/07/17 20:03 Dose: 1 tab Simvastatin (Zocor) 20 mg PO HS [facility] Last Admin: 03/07/17 20:03 Dose: 20 mg Sodium Chloride (Saline Flush) 10 ml IV Q8 [facility] Last Admin: 03/08/17 05:43 Dose: 10 ml Tamsulosin HCl (Flomax) 0.4 mg PO DAILY [facility] Last Admin: 03/08/17 07:29 Dose: Not Given Trazodone HCl (Desyrel) 50 mg PO HSP PRN PRN Reason: Insomnia Last Admin: 03/07/17 22:26 Dose: 50 mg Medical - PN: A/P - Time Spent With Patient Total time spent is greater than 50% in coordination of care (as documented) at patient's floor/unit and/or counseling patient: 25 - 35 minutes (1) Influenza A Status: Acute Assessment and plan: * Acute influenza A-clinically resolved. Status post five-day Tamiflu * hypoxic respiratory insufficiency currently on 1 L oxygen. clinical improvement noted. Interval chest imaging resolution of infiltrates. * COPD exacerbation -continue bronchodilators. DC Zithromax today * Acute change in mental status- baseline cognitive dysfunction noted. current exacerbation secondary to hospitalization/influenza. Patient however nonagitated and rapidly reorients.MRI could not be performed due to cochlear implant. On risperidone 25 twice a day. no indications for lumbar puncture as low probability of encephalitis in the absence of fever photophobia, neck stiffness * A. fib with RVR converted to sinus post amiodarone * pancytopenia clinically improving.secondary to influenza * History of chronic kidney disease-creatinine 1.5 * Severe deconditioning ongoing physical therapy * History of CAD on aspirin and statin * History of Anxiety on Celexa * BPH continue tamsulosin * full code plan * DC antibiotics and steroids * transfer to medical floor * anticipate discharge to dementia care facility * pre-existing medical condition management on home meds Current Visit: Yes Medical - PN: Qual - VTE Deep Vein Thrombosis/Pulmonary Embolism Present on Admission: No
[2017-03-08] MEDS: MAGNESIUM HYDROXIDE 30 ML ORAL.SUSP PO PRN (09:17)
[2017-03-08] MEDS ORDERED: ACETAMINOPHEN 1,000 MG/100 ML BOTTLE IV PRN (12:19)
[2017-03-08] MEDS ORDERED: ONDANSETRON 4 MG/2 ML VIAL IV PRN (12:19)
[2017-03-08] MEDS ORDERED: MAGNESIUM HYDROXIDE 30 ML ORAL.SUSP PO PRN (12:19)
[2017-03-08] MEDS ORDERED: MAGNESIUM SULFATE 2 GM/50 ML BAG IV PRN (12:19)
[2017-03-08] MEDS ORDERED: IPRATROPIUM/ALBUTEROL 3 ML AMPUL.NEB NEB PRN (12:19)
[2017-03-08] MEDS ORDERED: ALBUTEROL SULFATE 1 PUFF INHALER INH PRN (12:19)
--- NOTE | 2017-03-08 15:24 | Cat Scan Report ---
History: Fell Findings: The brain was imaged without contrast at 2.5 mm intervals. No skull fracture is present. There is no intracranial hemorrhage or cerebral edema. Moderate atrophy is present above the tentorium and there is milder atrophy of the cerebellum. 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 Is also a small lacunar infarct in the left globus pallidus. The lesion in the globus pallidus was not seen on 11/09/16. The involvement in the external capsule, beneath the insula is a stable finding. Patchy areas of decreased attenuation are present in the centrum semiovale in the frontal and parietal lobes due to age-related ischemia or degeneration. This has remained stable. There is a cochlear implant in the left ear. The power pack is adjacent to left parietal bone and creates streak artifact. Patient has chronic sphenoid sinusitis with air-fluid levels. 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 Stable cerebral atrophy with white matter degeneration Interpreted and Authenticated by: Wilson Joyce 03/08/17
[2017-03-08] MEDS: traZODone HCL 50 MG TABLET PO PRN (20:46)
[2017-03-08] MEDS: SENNOSIDES/DOCUSATE SODIUM 1 TAB TABLET PO SCH (20:47)
[2017-03-08] MEDS: SIMVASTATIN 20 MG TABLET PO SCH (20:47)
[2017-03-08] MEDS ORDERED: LORazepam 2 MG/ML VIAL ONE (23:12)
[2017-03-08] MEDS ORDERED: LORazepam 2 MG/ML VIAL IV ONE (23:15)
[2017-03-09 05:57] LABS: Basophils # (Auto) 0 K/mcL (0.0-0.3); Basophils % (Auto) 0 % (0.0-2.0); Eosinophils # (Auto) 0 K/mcL (0.0-0.7); Eosinophils % (Auto) 0 % (0.0-7.0); Granulocytes % (Auto) 93.5 % (38.0-78.0); Lymphocytes # (Auto) 0.4 K/mcL (1.5-4.8); Lymphocytes % (Auto) 3.2 % (15.5-49.0); Mean Cell Volume 100.7 fL (80.0-100.0); Mean Corpuscular HGB Conc 34.1 g/dL (31.0-36.0); Mean Corpuscular Hemoglobin 34.3 pg (26.0-34.0); Monocytes # (Auto) 0.5 K/mcL (0.1-0.9); Monocytes % (Auto) 3.3 % (1.0-12.0); Platelet Count 169 K/mcL (140-440); RBC 3.76 M/mcL (4.50-5.90); Red Cell Distribution Width 12.5 % (11.5-14.5)
[2017-03-09] MEDS: 0.9 % SODIUM CHLORIDE 10 ML SYRINGE IV SCH ×3 (05:58→22:51)
[2017-03-09] MEDS: FUROSEMIDE 20 MG TABLET PO SCH ×3 (09:00→22:50)
[2017-03-09] MEDS: LEVOTHYROXINE 25 MCG TABLET PO SCH ×2 (09:00→11:05)
[2017-03-09] MEDS: risperiDONE 0.25 MG TABLET PO SCH ×3 (09:00→22:50)
[2017-03-09] MEDS: TAMSULOSIN 0.4 MG CAPSULE PO SCH ×2 (09:00→11:04)
[2017-03-09] MEDS: OSELTAMIVIR PHOSPHATE 75 MG CAPSULE PO SCH ×3 (09:00→22:50)
[2017-03-09] MEDS: CITALOPRAM 20 MG TABLET PO SCH ×2 (09:00→11:13)
[2017-03-09] MEDS: LISINOPRIL 20 MG TABLET PO SCH ×2 (09:00→11:13)
[2017-03-09] MEDS: MULTIVIT,THER IRON,CA,FA & MIN 1 TABLET PO SCH ×2 (09:00→11:07)
[2017-03-09] MEDS: OMEPRAZOLE 20 MG CAPSULE PO SCH ×2 (09:00→11:12)
[2017-03-09] MEDS: DOCUSATE SODIUM 100 MG CAPSULE PO SCH ×3 (09:00→22:50)
[2017-03-09] MEDS: 0.9 % SODIUM CHLORIDE 1,000 ML IV SCH ×2 (10:30→21:12)
--- NOTE | 2017-03-09 10:48 | XRay Report ---
HISTORY: Reason for Exam:Hypoxia, influenza FINDINGS: There is mild bibasilar pneumonia, left greater than right. This is superimposed upon underlying pulmonary fibrosis. The infiltrates are new since 03/06/17. There is no pleural effusion. The heart size, mediastinum and jaya are normal. IMPRESSION: Mild bibasilar pneumonia, left worse than right Interpreted and Authenticated by: Wilson Joyce 03/09/17
[2017-03-09] MEDS: HEPARIN 5,000 UNIT/ML VIAL SQ SCH ×2 (11:04→22:00)
[2017-03-09] MEDS: IPRATROPIUM 0.06% NASAL SPRAY BOTTLE 30ML NAS SCH ×3 (11:04→22:50)
[2017-03-09] MEDS: Budesonide/Formoterol Fumarate [Symbicort] 160-4.5 mcg Inhaler INH SCH ×2 (11:04→22:50)
[2017-03-09 11:16] LABS: ALT/SGPT 28 U/l (0-40); Albumin/Globulin Ratio 1.2 (1.0-2.3); Alkaline Phosphatase 56 U/L (39-117); Bilirubin,Direct < 0.2 mg/dL (0.0-0.3); Blood Urea Nitrogen 43 mg/dl (8-23); Gamma Glutamyl Transpeptidase 24 U/L (8-61); Uric Acid 9.3 mg/dL (2.5-8.0)
[2017-03-09 11:42] LABS: Appearance,Urine HAZY; Bacteria,Urine 0 /hpf (0); Bilirubin,Urine NEG (NEG); Color,Urine YELLOW; Glucose,Urine (UA) NEGATIVE (NEG); Leukocyte Esterase,Urine NEG /uL (NEG); Protein,Urine NEG (NEG); Specific Gravity,Urine 1.015 (1.000-1.035); Urine Blood 0.2 mg/dL (<0.03); Urine RBC 1 /hpf (0-1); Urine Squamous Epithelial Cell 0 /hpf (0-4); Urine WBC < 1 /hpf (0-4); Urobilinogen,Urine NEG (NEG)
[2017-03-09] MEDS: PIPERACILLIN SODIUM/TAZOBACTAM 2.25 GM in DEXTROSE 5% IN WATER 50 ML IV SCH ×3 (15:08→23:31)
--- NOTE | 2017-03-09 19:30 | Internal Med Progress Note ---
Medical - PN: Subj Patient information: Note initiated : 03/09/17 at 7:27 pm Service Date, if different from initiated Date: [] Patient: Carlos Zuniga 87 y/o M admitted on 03/02/17 for Fall/RVR, Influenza A , Pneumonia. Chief Complaint: follow up influenza Interval history: 03/02-patient admitted with worsening shortness of breath confusion,dizziness weakness and high-grade fever. influenza A positive. Initially in A. fib with RVR with hypotension and subsequently started on amiodarone in the ER with conversion to sinus rhythm. patient demonstrate fluctuating mental status with confusion. Patient was subsequently admitted to telemetry in light of acute influenza with mental status change H fibrillation with RVR. 03/03-patient remains persistently confused MAXIMUM TEMPERATURE 101. Tachycardia around 110 but in sinus. Status post amiodarone in the ED. On Tamiflu. Continue physical therapy/OT. droplet precautions. restart pre- existing home medications once able to tolerate by mouth and follow commands. no CP/SOB or cardiac arrhythmias on telemetry Mar 04 Patient seen examined, , patient is afebrile this AM, patient was confused and agitated last night, but slept well after ativan. This AM drowsy and did not talk to me, the patient hemodynamically is stable. Exam has delta exp wheezing at rest after duoneb treatment. Will get X ray chest, start on steroids and zithromax for copd exacerbation? Mar 05 Patient seen examined, sitting in the chair comfortably, planning to hav breakfast, aoox1, quite confused, but was able to answer some questions, not able to hold a meaning ful conversation. Labs show pancytopenia, path smear is neg, seems to be improving clinically. Chest X ray shows mild CHF, ? left infiltrates mild? mar 06 patient seen examined, drowsy this AM opens eyes to verbal commands, but did not talk much with me, agitated overnight, trying to get out of bed and trying to remove lines and catheters.Plan to start him on respiridone 0.25mg bid. The patient chest x ray today shows delta fibrosis? no chf, monitor 03/07-persistent confusion. During my evaluation patient was disoriented to time place and person. He said his will be coming today from [place]. I reviewed labs which appears stable with white count of 6.2, and anemia normal bicarbonate profile with a creatinine down to 1.5.patient has been afebrile overnight. Currently on 3 L oxygen up from 2. He is sitting up in chair eating breakfast but has had intermittent episodes of agitation and confusion last night. Interval chest imaging only shows pulmonary fibrosis. Currently on Tamiflu/azithromycin.plan is to continue frequent reorientation/bright lights and avoidsedative hypnotics.continue risperidone. MRI today for further evaluation of mental status change. Also case discussed with patient's daughter Suzie on phone. Informed of clinical deterioration and discuss labs and imaging and hospital course. Also informed of treatment plan including MRI/possible lumbar puncture studies. 03/08-patient doing well.no overnight events. No concerns per staff other than persistent confusion.no signs of agitation. Mister family friend in room. Discuss patient's baseline and friend confirm that patient has had a gradual deterioration in mental status over the last few months. Also reviewed her IV care doctor's office notes with cognitive decline over the last visit. MRI could not be performed due to cough. Implant. I don't see any signs of encephalitis/fever/photophobia and neck stiffness that would mandate a lumbar puncture study at this time. Transfer to medical floor on watch bed. Anticipate transfer her dementia care unit in 24-48 hours. Discontinue steroids 03/09 Became quite agitated Monday evening, almost swinging at the staff. Received 1 mg of lorazepam, is quiet throughout the night, quite somnolent throughout most of the day today. 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 Old ischemic changes. Oxygen requirements are increasing, white count up to 13,000 along with fevers overnight. Urinalysis unremarkable, chest radiograph showing bibasilar infiltrates now, not present on March 06. Antibiotics started. Updated his daughter Suzie on the phone. Concerned about prognosis of influenza with delirium at baseline over the last several days now superimposed pneumonia as a complication of influenza. - Constitutional Vitals: Vital Signs Temp Pulse Resp BP Pulse Ox 98.4 F 67 20 133/53 95 03/09/17 16:00 03/09/17 16:00 03/09/17 16:00 03/09/17 16:00 03/09/17 16:00 Period Temp Pulse Resp BP Sys/Rhodes Pulse Ox Last 24 Hr 98.1 F-99.0 F 60-68 18-20 113-140/49-61 91-95 Intake and Output 03/09/17 03/09/17 03/09/17 05:59 13:59 21:59 Intake Total 0 / 0 100 / 100 Output Total 500 / 500 525 / 525 Balance -500 / -500 0 / 0 -425 / -425 Weight 151 lb 6 oz Intake & Output: Intake & Output 03/09/17 03/09/17 03/09/17 05:59 13:59 21:59 Intake Total 0 / 0 100 / 100 Output Total 500 / 500 525 / 525 Balance -500 / -500 0 / 0 -425 / -425 Weight 151 lb 6 oz Intake: IV 100 / 100 Zosyn 2.25 gm In Dextrose 5% in 100 / 100 Water 50 ml @ 100 mls/hr IV Q6H [facility] Rx#:[id number] Oral 0 / 0 Output: Urine Catheter Amount 500 / 500 525 / 525 Other: Meal Lunch Percent of Meal Consumed 0% Exam: General: Quite somnolent, arouses somewhat to shaking and voice Chest: Few rales bibasilarly, respirations unlabored Cardiovascular: Regular, a bit distant Abdomen: Soft, no apparent tenderness Neuro: Quite somnolent, was moving all extremities equally last evening. Medical - PN: Obj Da - Labs CBC & Chem 7: 03/09/17 03:58 03/09/17 10:17 Labs: Abnormal Lab Results 03/09/17 03/09/17 03/09/17 10:44 10:17 03:58 WBC 13.8 H RBC 3.76 L Hgb 12.9 L Hct 37.9 L MCV 100.7 H MCH 34.3 H Gran % 93.5 H Lymph % (Auto) 3.2 L Gran # 12.9 H Lymph # (Auto) 0.4 L Carbon Dioxide 36 H BUN 43 H Creatinine 1.6 H Glucose 110 H Uric Acid 9.3 H Calcium 8.5 L Phosphorus Lactate Dehydrogenase Total Protein 5.6 L Albumin 3.0 L Urine Occult Blood 0.2 A 03/08/17 03/07/17 04:20 03:57 WBC RBC Hgb Hct MCV MCH Gran % Lymph % (Auto) Gran # Lymph # (Auto) Carbon Dioxide 33 H 33 H BUN 43 H 36 H Creatinine 1.5 H 1.5 H Glucose 136 H 128 H Uric Acid 9.4 H 9.5 H Calcium Phosphorus 2.6 L Lactate Dehydrogenase 253 H Total Protein Albumin Urine Occult Blood Meds: Medications Acetaminophen (Tylenol) 650 mg PO Q4-6HP PRN PRN Reason: PAIN/FEVER > 101 Albuterol Sulfate (Ventolin) 2 puff INH Q4-6HP PRN PRN Reason: Shortness Of Breath Albuterol/Ipratropium (Duoneb) 3 ml NEB Q4HP PRN PRN Reason: Shortness Of Breath Citalopram Hydrobromide (Celexa) 10 mg PO QDAY [facility] Last Admin: 03/09/17 09:00 Dose: Not Given Docusate Sodium (Colace) 100 mg PO BID [facility] Last Admin: 03/09/17 09:00 Dose: Not Given Furosemide (Lasix) 20 mg PO BID [facility] Last Admin: 03/09/17 09:00 Dose: Not Given Heparin Sodium (Porcine) (Heparin) 5,000 unit SQ Q12 [facility] Last Admin: 03/09/17 11:04 Dose: 5,000 unit Magnesium Sulfate (Magnesium Sulfate) 2 gm in 50 mls @ 50 mls/hr IV UD PRN PRN Reason: MG = or < 1.7 Acetaminophen (Ofirmev) 1,000 mg in 100 mls @ 200 mls/hr IV Q6HP PRN PRN Reason: PAIN/FEVER > 101 Sodium Chloride (Sodium Chloride 0.9%) 1,000 mls @ 100 mls/hr IV .Q10H [facility] Last Admin: 03/09/17 10:30 Dose: 100 mls/hr Piperacillin Sod/Tazobactam (Sod 2.25 gm/ Dextrose) 50 mls @ 100 mls/hr IV Q6H [facility] Last Infusion: 03/09/17 19:15 Dose: Infused Ipratropium [place] (Atrovent 0.06% Nasal Srpay) 2 spray CHRIS TID [facility] Last Admin: 03/09/17 15:08 Dose: 1 spray Iron Carb/Multivit/Operating Room Assistant/Folic Acid (Multivitamin W/Minerals) 1 tab PO DAILY [facility] Last Admin: 03/09/17 09:00 Dose: Not Given Levothyroxine Sodium (Synthroid) 25 mcg PO QAMAC [facility] Last Admin: 03/09/17 09:00 Dose: Not Given Lisinopril (Zestril) 20 mg PO DAILY [facility] Last Admin: 03/09/17 09:00 Dose: Not Given Magnesium Hydroxide (Milk Of Magnesia) 30 ml PO DAILYP PRN PRN Reason: Constipation Omeprazole (Prilosec) 20 mg PO ACB [facility] Last Admin: 03/09/17 09:00 Dose: Not Given Ondansetron HCl (Zofran) 4 mg IV Q4-6HP PRN PRN Reason: Nausea And Vomiting Oseltamivir Phosphate (Tamiflu) 75 mg PO BID [facility] Last Admin: 03/09/17 09:00 Dose: Not Given Budesonide/Formoterol Fumarate [Symbicort] 160-4.5 Mcg Inhaler 2 dose INH BID [facility] Last Admin: 03/09/17 11:04 Dose: 2 dose Risperidone (Risperdal) 0.25 mg PO BID [facility] Last Admin: 03/09/17 09:00 Dose: Not Given Senna/Docusate Sodium (Senna Plus Tablet) 1 tab PO HS [facility] Last Admin: 03/08/17 20:47 Dose: 1 tab Simvastatin (Zocor) 20 mg PO HS [facility] Last Admin: 03/08/17 20:47 Dose: 20 mg Sodium Chloride (Saline Flush) 10 ml IV Q8 [facility] Last Admin: 03/09/17 13:17 Dose: 10 ml Tamsulosin HCl (Flomax) 0.4 mg PO DAILY [facility] Last Admin: 03/09/17 09:00 Dose: Not Given Trazodone HCl (Desyrel) 50 mg PO HSP PRN PRN Reason: Insomnia Last Admin: 03/08/17 20:46 Dose: 50 mg - Imaging and cardiology Chest x-ray Status: image reviewed by me Additional comments: IMPRESSION: Mild bibasilar pneumonia, left worse than right CT scan - head Status: image reviewed by me Additional comments: Impression: -No skull fracture or evidence of acute brain injury -Small subacute infarct in left globus pallidus -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 -Stable cerebral atrophy with white matter degeneration Medical - PN: A/P - Time Spent With Patient Total time spent is greater than 50% in coordination of care (as documented) at patient's floor/unit and/or counseling patient: Greater than 35 minutes - Narrative A/P Narrative: A/P Acute Influenza A, POA: remains on Tamiflu Pneumonia/HAP as complication of influenza: begin vancomycin and Zosyn on 03/09 Acute copd exacerbtion: Improved. Duoneb, pulmocort; s/p steroids and azithromycin. Afib with RVR: s/p amiodarone, given in the ER, monitor on tele, rate well controlled [place]-cytopenia: due to viral infection; now developing leukocytosis and PNA; follow. Altered mental status: Hospital delirium/ICU delirium; some mild dementia at baseline, but driving and taking care of ADL's up until just before admission. Continue to monitor closely. Risperidone 0.25mg bid. CAD/ HTN/ HLD: Resume statin, aspirin, and lisinopril. Hypothyroidism: on levothyroxine, continue same ATTILA on CKD, resolved. Creatinine stable in 1.5-16. range, but BUN increasing--> begin IVF. Anxiety, on citalopram; continue same. BPH on Flomax, continue same, h/o urinary retention needing frequent straight cath, Fletcher in place now. DVT hep sq Cardiac Diet Full Code Medical - PN: Qual - VTE Deep Vein Thrombosis/Pulmonary Embolism Present on Admission: No
[2017-03-09] MEDS: SENNOSIDES/DOCUSATE SODIUM 1 TAB TABLET PO SCH (22:50)
[2017-03-09] MEDS: SIMVASTATIN 20 MG TABLET PO SCH (22:50)
[2017-03-10] MEDS: PIPERACILLIN SODIUM/TAZOBACTAM 2.25 GM in DEXTROSE 5% IN WATER 50 ML IV SCH ×3 (05:20→18:15)
[2017-03-10] MEDS: 0.9 % SODIUM CHLORIDE 10 ML SYRINGE IV SCH ×3 (05:41→21:55)
[2017-03-10 06:03] LABS: Mean Cell Volume 100.9 fL (80.0-100.0); Mean Corpuscular HGB Conc 33.5 g/dL (31.0-36.0); Mean Corpuscular Hemoglobin 33.8 pg (26.0-34.0); Platelet Count 178 K/mcL (140-440); RBC 3.87 M/mcL (4.50-5.90); Red Cell Distribution Width 12.7 % (11.5-14.5)
[2017-03-10 06:39] LABS: ALT/SGPT 25 U/l (0-40); Albumin 2.8 gm/dL (3.2-5.2); Albumin/Globulin Ratio 0.9 (1.0-2.3); Alkaline Phosphatase 63 U/L (39-117); Bilirubin,Direct < 0.2 mg/dL (0.0-0.3); Blood Urea Nitrogen 39 mg/dl (8-23); Gamma Glutamyl Transpeptidase 24 U/L (8-61); Uric Acid 7.9 mg/dL (2.5-8.0)
[2017-03-10 07:38] LABS: Lymphocytes % 5 % (15-49); Macrocytosis 1+ (NONE SEEN); Monocytes % (Manual) 3 % (1-12); Platelet Estimate NORMAL (NORMAL); RBC Morphology ABNORM (NORMAL); Segmented Neutrophils % 92 % (38-78)
[2017-03-10] MEDS: 0.9 % SODIUM CHLORIDE 1,000 ML IV SCH ×2 (08:29→18:19)
[2017-03-10] MEDS: LEVOTHYROXINE 25 MCG TABLET PO SCH (10:40)
[2017-03-10] MEDS: OSELTAMIVIR PHOSPHATE 75 MG CAPSULE PO SCH ×2 (10:42→19:48)
[2017-03-10] MEDS: FUROSEMIDE 20 MG TABLET PO SCH ×2 (10:43→19:48)
[2017-03-10] MEDS: CITALOPRAM 20 MG TABLET PO SCH (10:43)
[2017-03-10] MEDS: LISINOPRIL 20 MG TABLET PO SCH (10:46)
[2017-03-10] MEDS: OMEPRAZOLE 20 MG CAPSULE PO SCH (10:46)
[2017-03-10] MEDS: DOCUSATE SODIUM 100 MG CAPSULE PO SCH ×2 (10:47→19:48)
[2017-03-10] MEDS: TAMSULOSIN 0.4 MG CAPSULE PO SCH (10:47)
[2017-03-10] MEDS: HEPARIN 5,000 UNIT/ML VIAL SQ SCH ×2 (10:47→19:48)
[2017-03-10] MEDS: MULTIVIT,THER IRON,CA,FA & MIN 1 TABLET PO SCH (10:47)
[2017-03-10] MEDS: IPRATROPIUM 0.06% NASAL SPRAY BOTTLE 30ML NAS SCH ×3 (10:47→19:47)
[2017-03-10] MEDS: risperiDONE 0.25 MG TABLET PO SCH ×2 (10:48→19:48)
[2017-03-10] MEDS: Budesonide/Formoterol Fumarate [Symbicort] 160-4.5 mcg Inhaler INH SCH ×2 (10:48→19:47)
[2017-03-10] MEDS: traZODone HCL 50 MG TABLET PO PRN (19:48)
[2017-03-10] MEDS: SIMVASTATIN 20 MG TABLET PO SCH (19:48)
[2017-03-10] MEDS: SENNOSIDES/DOCUSATE SODIUM 1 TAB TABLET PO SCH (19:48)
--- NOTE | 2017-03-10 21:10 | Internal Med Progress Note ---
Medical - PN: Subj Patient information: Note initiated : 03/10/17 at 9:01 pm Service Date, if different from initiated Date: [] Patient: Carlos Zuniga 87 y/o M admitted on 03/02/17 for Fall/RVR, Influenza A , Pneumonia. Chief Complaint: follow-up influenza and pneumonia Interval history: 03/02-patient admitted with worsening shortness of breath confusion,dizziness weakness and high-grade fever. influenza A positive. Initially in A. fib with RVR with hypotension and subsequently started on amiodarone in the ER with conversion to sinus rhythm. patient demonstrate fluctuating mental status with confusion. Patient was subsequently admitted to telemetry in light of acute influenza with mental status change H fibrillation with RVR. 03/03-patient remains persistently confused MAXIMUM TEMPERATURE 101. Tachycardia around 110 but in sinus. Status post amiodarone in the ED. On Tamiflu. Continue physical therapy/OT. droplet precautions. restart pre- existing home medications once able to tolerate by mouth and follow commands. no CP/SOB or cardiac arrhythmias on telemetry Mar 04 Patient seen examined, , patient is afebrile this AM, patient was confused and agitated last night, but slept well after ativan. This AM drowsy and did not talk to me, the patient hemodynamically is stable. Exam has delta exp wheezing at rest after duoneb treatment. Will get X ray chest, start on steroids and zithromax for copd exacerbation? Mar 05 Patient seen examined, sitting in the chair comfortably, planning to hav breakfast, aoox1, quite confused, but was able to answer some questions, not able to hold a meaning ful conversation. Labs show pancytopenia, path smear is neg, seems to be improving clinically. Chest X ray shows mild CHF, ? left infiltrates mild? mar 06 patient seen examined, drowsy this AM opens eyes to verbal commands, but did not talk much with me, agitated overnight, trying to get out of bed and trying to remove lines and catheters.Plan to start him on respiridone 0.25mg bid. The patient chest x ray today shows delta fibrosis? no chf, monitor 03/07-persistent confusion. During my evaluation patient was disoriented to time place and person. He said his will be coming today from [place]. I reviewed labs which appears stable with white count of 6.2, and anemia normal bicarbonate profile with a creatinine down to 1.5.patient has been afebrile overnight. Currently on 3 L oxygen up from 2. He is sitting up in chair eating breakfast but has had intermittent episodes of agitation and confusion last night. Interval chest imaging only shows pulmonary fibrosis. Currently on Tamiflu/azithromycin.plan is to continue frequent reorientation/bright lights and avoidsedative hypnotics.continue risperidone. MRI today for further evaluation of mental status change. Also case discussed with patient's daughter Suzie on phone. Informed of clinical deterioration and discuss labs and imaging and hospital course. Also informed of treatment plan including MRI/possible lumbar puncture studies. 03/08-patient doing well.no overnight events. No concerns per staff other than persistent confusion.no signs of agitation. Mister family friend in room. Discuss patient's baseline and friend confirm that patient has had a gradual deterioration in mental status over the last few months. Also reviewed her IV care doctor's office notes with cognitive decline over the last visit. MRI could not be performed due to cough. Implant. I don't see any signs of encephalitis/fever/photophobia and neck stiffness that would mandate a lumbar puncture study at this time. Transfer to medical floor on watch bed. Anticipate transfer her dementia care unit in 24-48 hours. Discontinue steroids 03/09 Became quite agitated Monday evening, almost swinging at the staff. Received 1 mg of lorazepam, is quiet throughout the night, quite somnolent throughout most of the day today. 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 Old ischemic changes. Oxygen requirements are increasing, white count up to 13,000 along with fevers overnight. Urinalysis unremarkable, chest radiograph showing bibasilar infiltrates now, not present on March 06. Antibiotics started. Updated his daughter Suzie on the phone. Concerned about prognosis of influenza with delirium at baseline over the last several days now superimposed pneumonia as a complication of influenza. 03/10 Alert today, oriented to self. Was up to chair. Need assistance with lunch. Still quite confused though significantly improved from yesterday. Tolerating antibiotics. White count decreasing. - Constitutional Vitals: Vital Signs Temp Pulse Resp BP Pulse Ox 99.6 F H 64 20 155/64 95 03/10/17 15:00 03/10/17 03:35 03/10/17 15:00 03/10/17 15:00 03/10/17 15:00 Period Temp Pulse Resp BP Sys/Rhodes Pulse Ox Last 24 Hr 98.0 F-99.6 F 64-70 12-22 103-155/49-84 92-98 Intake and Output 03/10/17 03/10/17 03/10/17 05:59 13:59 21:59 Intake Total 50 / 50 1230 / 1230 1253 / 1253 Output Total 600 / 600 500 / 500 Balance -550 / -550 1230 / 1230 753 / 753 Weight 165 lb 9.6 oz Intake & Output: Intake & Output 03/10/17 03/10/17 03/10/17 05:59 13:59 21:59 Intake Total 50 / 50 1230 / 1230 1253 / 1253 Output Total 600 / 600 500 / 500 Balance -550 / -550 1230 / 1230 753 / 753 Weight 165 lb 9.6 oz Intake: IV 50 / 50 1050 / 1050 1083 / 1083 Sodium Chloride 0.9% 1,000 ml @ 1000 / 1000 983 / 983 100 mls/hr IV .Q10H [facility] Rx#: [id number] Zosyn 2.25 gm In Dextrose 5% in 50 / 50 50 / 50 100 / 100 Water 50 ml @ 100 mls/hr IV Q6H KAYLA Rx#:[id number] Oral 180 / 180 170 / 170 Output: Urine Catheter Amount 600 / 600 500 / 500 Other: Meal Lunch Dinner Percent of Meal Consumed 100% 95 Feeding Ability Total Assistance Needs Supervision Exam: General: Elderly, ill-appearing, sitting up in chair Chest: Bibasilar crackles, respirations mildly labored Cardiovascular: Regular, no edema Abdomen: Soft Neuro: Alert, hard of hearing. Responds to his name, focuses and tracks. Responses are often mumbled. Generally weak needing assistance to get up. Medical - PN: Obj Da - Labs CBC & Chem 7: 03/10/17 04:36 03/10/17 04:36 Labs: Abnormal Lab Results 03/10/17 03/10/17 03/09/17 04:36 04:36 10:44 WBC 12.0 H RBC 3.87 L Hgb 13.1 L Hct 39.1 L MCV 100.9 H MCH Gran % Lymph % (Auto) Gran # Lymph # (Auto) Seg Neutrophils % 92 H Lymphocytes % 5 L RBC Morphology Abnorm A Macrocytosis 1+ A Sodium 147 H Carbon Dioxide BUN 39 H Creatinine 1.5 H Glucose Uric Acid Calcium 8.3 L Phosphorus Total Protein 5.8 L Albumin 2.8 L Albumin/Globulin Ratio 0.9 L Urine Occult Blood 0.2 A 03/09/17 03/09/17 03/08/17 10:17 03:58 04:20 WBC 13.8 H RBC 3.76 L Hgb 12.9 L Hct 37.9 L MCV 100.7 H MCH 34.3 H Gran % 93.5 H Lymph % (Auto) 3.2 L Gran # 12.9 H Lymph # (Auto) 0.4 L Seg Neutrophils % Lymphocytes % RBC Morphology Macrocytosis Sodium Carbon Dioxide 36 H 33 H BUN 43 H 43 H Creatinine 1.6 H 1.5 H Glucose 110 H 136 H Uric Acid 9.3 H 9.4 H Calcium 8.5 L Phosphorus 2.6 L Total Protein 5.6 L Albumin 3.0 L Albumin/Globulin Ratio Urine Occult Blood Meds: Medications Acetaminophen (Tylenol) 650 mg PO Q4-6HP PRN PRN Reason: PAIN/FEVER > 101 Albuterol Sulfate (Ventolin) 2 puff INH Q4-6HP PRN PRN Reason: Shortness Of Breath Albuterol/Ipratropium (Duoneb) 3 ml NEB Q4HP PRN PRN Reason: Shortness Of Breath Citalopram Hydrobromide (Celexa) 10 mg PO QDAY [facility] Last Admin: 03/10/17 10:43 Dose: 10 mg Docusate Sodium (Colace) 100 mg PO BID [facility] Last Admin: 03/10/17 19:48 Dose: 100 mg Furosemide (Lasix) 20 mg PO BID [facility] Last Admin: 03/10/17 19:48 Dose: 20 mg Heparin Sodium (Porcine) (Heparin) 5,000 unit SQ Q12 [facility] Last Admin: 03/10/17 19:48 Dose: 5,000 unit Magnesium Sulfate (Magnesium Sulfate) 2 gm in 50 mls @ 50 mls/hr IV UD PRN PRN Reason: MG = or < 1.7 Acetaminophen (Ofirmev) 1,000 mg in 100 mls @ 200 mls/hr IV Q6HP PRN PRN Reason: PAIN/FEVER > 101 Sodium Chloride (Sodium Chloride 0.9%) 1,000 mls @ 100 mls/hr IV .Q10H [facility] Last Admin: 03/10/17 18:19 Dose: 100 mls/hr Piperacillin Sod/Tazobactam (Sod 2.25 gm/ Dextrose) 50 mls @ 100 mls/hr IV Q6H [facility] Last Infusion: 03/10/17 20:07 Dose: Infused Ipratropium [place] (Atrovent 0.06% Nasal Srpay) 2 spray CHRIS TID [facility] Last Admin: 03/10/17 19:47 Dose: 2 spray Iron Carb/Multivit/[place]/Folic Acid (Multivitamin W/Minerals) 1 tab PO DAILY [facility] Last Admin: 03/10/17 10:47 Dose: Not Given Levothyroxine Sodium (Synthroid) 25 mcg PO QAMAC [facility] Last Admin: 03/10/17 10:40 Dose: 25 mcg Lisinopril (Zestril) 20 mg PO DAILY [facility] Last Admin: 03/10/17 10:46 Dose: 20 mg Magnesium Hydroxide (Milk Of Magnesia) 30 ml PO DAILYP PRN PRN Reason: Constipation Omeprazole (Prilosec) 20 mg PO ACB [facility] Last Admin: 03/10/17 10:46 Dose: Not Given Ondansetron HCl (Zofran) 4 mg IV Q4-6HP PRN PRN Reason: Nausea And Vomiting Oseltamivir Phosphate (Tamiflu) 75 mg PO BID [facility] Last Admin: 03/10/17 19:48 Dose: 75 mg Budesonide/Formoterol Fumarate [Symbicort] 160-4.5 Mcg Inhaler 2 dose INH BID [facility] Last Admin: 03/10/17 19:47 Dose: 2 dose Risperidone (Risperdal) 0.25 mg PO BID [facility] Last Admin: 03/10/17 19:48 Dose: 0.25 mg Senna/Docusate Sodium (Senna Plus Tablet) 1 tab PO HS [facility] Last Admin: 03/10/17 19:48 Dose: Not Given Simvastatin (Zocor) 20 mg PO HS [facility] Last Admin: 03/10/17 19:48 Dose: 20 mg Sodium Chloride (Saline Flush) 10 ml IV Q8 [facility] Last Admin: 03/10/17 18:17 Dose: 10 ml Tamsulosin HCl (Flomax) 0.4 mg PO DAILY [facility] Last Admin: 03/10/17 10:47 Dose: Not Given Trazodone HCl (Desyrel) 50 mg PO HSP PRN PRN Reason: Insomnia Last Admin: 03/10/17 19:48 Dose: 50 mg Medical - PN: A/P - Time Spent With Patient Total time spent is greater than 50% in coordination of care (as documented) at patient's floor/unit and/or counseling patient: Greater than 35 minutes - Narrative A/P Narrative: A/P Acute Influenza A, present at admission: Will stop Tamiflu, has received full course Pneumonia/HAP as complication of influenza: Some improvement. Began vancomycin and Zosyn on 03/09 Acute copd exacerbtion: Improved. Duoneb, pulmocort; s/p steroids and azithromycin. Afib with RVR: s/p amiodarone, given in the ER, regular now, off tele. [place]on-cytopenia: due to viral infection; now developing leukocytosis and PNA; follow-->improvement 03/10. Altered mental status: Hospital delirium/ICU delirium; some mild dementia at baseline, but driving and taking care of ADL's up until just before admission. Continue to monitor closely. Risperidone 0.25mg bid. Avoid BZD as they oversedate. CAD/ HTN/ HLD: Resume statin, aspirin, and lisinopril. Hypothyroidism: on levothyroxine, continue same ATTILA on CKD, resolved. Creatinine stable in 1.5-16. range, but BUN increasing--> begin IVF. Anxiety, on citalopram; continue same. BPH on Flomax, continue same, h/o urinary retention needing frequent straight cath, Fletcher in place now. DVT hep sq Cardiac Diet Full Code Medical - PN: Qual - VTE Deep Vein Thrombosis/Pulmonary Embolism Present on Admission: No
[2017-03-11] MEDS: PIPERACILLIN SODIUM/TAZOBACTAM 2.25 GM in DEXTROSE 5% IN WATER 50 ML IV SCH ×4 (00:33→18:08)
[2017-03-11] MEDS: 0.9 % SODIUM CHLORIDE 1,000 ML IV SCH ×2 (02:13→07:14)
[2017-03-11] MEDS: 0.9 % SODIUM CHLORIDE 10 ML SYRINGE IV SCH ×3 (05:27→21:43)
[2017-03-11 05:40] LABS: Mean Cell Volume 100.7 fL (80.0-100.0); Mean Corpuscular HGB Conc 33.9 g/dL (31.0-36.0); Mean Corpuscular Hemoglobin 34.1 pg (26.0-34.0); Platelet Count 187 K/mcL (140-440); RBC 3.42 M/mcL (4.50-5.90); Red Cell Distribution Width 12.9 % (11.5-14.5)
[2017-03-11 06:04] LABS: ALT/SGPT 21 U/l (0-40); Albumin 2.6 gm/dL (3.2-5.2); Albumin/Globulin Ratio 0.9 (1.0-2.3); Alkaline Phosphatase 71 U/L (39-117); Bilirubin,Direct < 0.2 mg/dL (0.0-0.3); Blood Urea Nitrogen 38 mg/dl (8-23); Gamma Glutamyl Transpeptidase 24 U/L (8-61); Uric Acid 6.8 mg/dL (2.5-8.0)
[2017-03-11 07:35] LABS: Lymphocytes % 1 % (15-49); Macrocytosis 1+ (NONE SEEN); Monocytes % (Manual) 5 % (1-12); Platelet Estimate NORMAL (NORMAL); RBC Morphology ABNORM (NORMAL); Segmented Neutrophils % 94 % (38-78)
[2017-03-11] MEDS: 0.45 % SODIUM CHLORIDE 1,000 ML IV SCH ×2 (09:17→21:42)
[2017-03-11] MEDS ORDERED: POTASSIUM CHLORIDE 40 MEQ in DEXTROSE 5% IN WATER 500 ML IV ONE (09:30)
--- NOTE | 2017-03-11 09:41 | Internal Med Progress Note ---
Medical - PN: Subj Patient information: Note initiated : 03/11/17 at 9:39 am Service Date, if different from initiated Date: [] Patient: Carlos Zuniga 87 y/o M admitted on 03/02/17 for Fall/RVR, Influenza A , Pneumonia. Chief Complaint: f/u PNA, delirium Interval history: 03/02-patient admitted with worsening shortness of breath confusion,dizziness weakness and high-grade fever. influenza A positive. Initially in A. fib with RVR with hypotension and subsequently started on amiodarone in the ER with conversion to sinus rhythm. patient demonstrate fluctuating mental status with confusion. Patient was subsequently admitted to telemetry in light of acute influenza with mental status change H fibrillation with RVR. 03/03-patient remains persistently confused MAXIMUM TEMPERATURE 101. Tachycardia around 110 but in sinus. Status post amiodarone in the ED. On Tamiflu. Continue physical therapy/OT. droplet precautions. restart pre- existing home medications once able to tolerate by mouth and follow commands. no CP/SOB or cardiac arrhythmias on telemetry Mar 04 Patient seen examined, , patient is afebrile this AM, patient was confused and agitated last night, but slept well after ativan. This AM drowsy and did not talk to me, the patient hemodynamically is stable. Exam has delta exp wheezing at rest after duoneb treatment. Will get X ray chest, start on steroids and zithromax for copd exacerbation? Mar 05 Patient seen examined, sitting in the chair comfortably, planning to hav breakfast, aoox1, quite confused, but was able to answer some questions, not able to hold a meaning ful conversation. Labs show pancytopenia, path smear is neg, seems to be improving clinically. Chest X ray shows mild CHF, ? left infiltrates mild? mar 06 patient seen examined, drowsy this AM opens eyes to verbal commands, but did not talk much with me, agitated overnight, trying to get out of bed and trying to remove lines and catheters.Plan to start him on respiridone 0.25mg bid. The patient chest x ray today shows delta fibrosis? no chf, monitor 03/07-persistent confusion. During my evaluation patient was disoriented to time place and person. He said his will be coming today from [place]. I reviewed labs which appears stable with white count of 6.2, and anemia normal bicarbonate profile with a creatinine down to 1.5.patient has been afebrile overnight. Currently on 3 L oxygen up from 2. He is sitting up in chair eating breakfast but has had intermittent episodes of agitation and confusion last night. Interval chest imaging only shows pulmonary fibrosis. Currently on Tamiflu/azithromycin.plan is to continue frequent reorientation/bright lights and avoidsedative hypnotics.continue risperidone. MRI today for further evaluation of mental status change. Also case discussed with patient's daughter Suzie on phone. Informed of clinical deterioration and discuss labs and imaging and hospital course. Also informed of treatment plan including MRI/possible lumbar puncture studies. 03/08-patient doing well.no overnight events. No concerns per staff other than persistent confusion.no signs of agitation. Mister family friend in room. Discuss patient's baseline and friend confirm that patient has had a gradual deterioration in mental status over the last few months. Also reviewed her IV care doctor's office notes with cognitive decline over the last visit. MRI could not be performed due to cough. Implant. I don't see any signs of encephalitis/fever/photophobia and neck stiffness that would mandate a lumbar puncture study at this time. Transfer to medical floor on watch bed. Anticipate transfer her dementia care unit in 24-48 hours. Discontinue steroids 03/09 Became quite agitated Monday evening, almost swinging at the staff. Received 1 mg of lorazepam, is quiet throughout the night, quite somnolent throughout most of the day today. 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 Old ischemic changes. Oxygen requirements are increasing, white count up to 13,000 along with fevers overnight. Urinalysis unremarkable, chest radiograph showing bibasilar infiltrates now, not present on March 06. Antibiotics started. Updated his daughter Suzie on the phone. Concerned about prognosis of influenza with delirium at baseline over the last several days now superimposed pneumonia as a complication of influenza. 2/2 Alert today, oriented to self. Was up to chair. Need assistance with lunch. Still quite confused though significantly improved from yesterday. Tolerating antibiotics. White count decreasing. 2/3-restless at times last night, staff had him up walking in the halls, subsequently slept. Have blood in Fletcher bag yesterday, has cleared up, suspect Fletcher trauma. Patient dozing, arouses, does not know where he is. Mental status improved, but not near baseline. Still requiring some oxygen to maintain saturations. Still requiring close staff supervision. - Constitutional Vitals: Vital Signs Temp Pulse Resp BP Pulse Ox 97.9 F 68 16 149/68 100 03/11/17 07:00 03/10/17 23:44 03/11/17 07:00 03/11/17 07:00 03/11/17 07:00 Period Temp Pulse Resp BP Sys/Rhodes Pulse Ox Last 24 Hr 97.9 F-99.6 F 66-68 12-20 110-155/49-69 95-100 Intake and Output 03/10/17 03/11/17 03/11/17 21:59 05:59 13:59 Intake Total 1253 / 1253 350 / 350 1228 / 1228 Output Total 500 / 500 1400 / 1400 Balance 753 / 753 -1050 / -1050 1228 / 1228 Weight 166 lb 8 oz Intake & Output: Intake & Output 03/10/17 03/11/17 03/11/17 21:59 05:59 13:59 Intake Total 1253 / 1253 350 / 350 1228 / 1228 Output Total 500 / 500 1400 / 1400 Balance 753 / 753 -1050 / -1050 1228 / 1228 Weight 166 lb 8 oz Intake: IV 1083 / 1083 50 / 50 1228 / 1228 Sodium Chloride 0.9% 1,000 ml @ 983 / 983 1178 / 1178 100 mls/hr IV .Q10H KAYLA Rx#: [id number] Zosyn 2.25 gm In Dextrose 5% in 100 / 100 50 / 50 50 / 50 Water 50 ml @ 100 mls/hr IV Q6H KAYLA Rx#:[id number] Oral 170 / 170 300 / 300 Output: Urine Catheter Amount 500 / 500 1400 / 1400 Other: Meal Dinner Percent of Meal Consumed 95 Feeding Ability Needs Supervision Exam: General: Dozing, wakes, asks "what's going on" Chest: Coarse bilateral breath sounds with upper airway sounds Cardiovascular: Irregularly irregular, distant, partially covered by breath sounds Abdomen: Soft, nontender Extremities: Warm, no cyanosis or clubbing, trace edema Neuro: Sleeping, then awake, oriented to self. Medical - PN: Obj Da - Labs CBC & Chem 7: 02/03/18 03:52 03/11/17 03:52 Labs: Abnormal Lab Results 03/11/17 03/11/17 03/10/17 03:52 03:52 04:36 WBC RBC 3.42 L Hgb 11.7 L Hct 34.5 L MCV 100.7 H MCH 34.1 H Gran % Lymph % (Auto) Gran # Lymph # (Auto) Seg Neutrophils % 94 H Lymphocytes % 1 L RBC Morphology Abnorm A Macrocytosis 1+ A Sodium 149 H 147 H Potassium 3.1 L Carbon Dioxide BUN 38 H 39 H Creatinine 1.7 H 1.5 H Glucose 119 H Uric Acid Calcium 8.0 L 8.3 L Phosphorus 2.0 L Total Protein 5.6 L 5.8 L Albumin 2.6 L 2.8 L Albumin/Globulin Ratio 0.9 L 0.9 L Urine Occult Blood 03/10/17 03/09/17 03/09/17 04:36 10:44 10:17 WBC 12.0 H RBC 3.87 L Hgb 13.1 L Hct 39.1 L MCV 100.9 H MCH Gran % Lymph % (Auto) Gran # Lymph # (Auto) Seg Neutrophils % 92 H Lymphocytes % 5 L RBC Morphology Abnorm A Macrocytosis 1+ A Sodium Potassium Carbon Dioxide 36 H BUN 43 H Creatinine 1.6 H Glucose 110 H Uric Acid 9.3 H Calcium 8.5 L Phosphorus Total Protein 5.6 L Albumin 3.0 L Albumin/Globulin Ratio Urine Occult Blood 0.2 A 03/09/17 03:58 WBC 13.8 H RBC 3.76 L Hgb 12.9 L Hct 37.9 L MCV 100.7 H MCH 34.3 H Gran % 93.5 H Lymph % (Auto) 3.2 L Gran # 12.9 H Lymph # (Auto) 0.4 L Seg Neutrophils % Lymphocytes % RBC Morphology Macrocytosis Sodium Potassium Carbon Dioxide BUN Creatinine Glucose Uric Acid Calcium Phosphorus Total Protein Albumin Albumin/Globulin Ratio Urine Occult Blood Meds: Medications Acetaminophen (Tylenol) 650 mg PO Q4-6HP PRN PRN Reason: PAIN/FEVER > 101 Albuterol Sulfate (Ventolin) 2 puff INH Q4-6HP PRN PRN Reason: Shortness Of Breath Albuterol/Ipratropium (Duoneb) 3 ml NEB Q4HP PRN PRN Reason: Shortness Of Breath Citalopram Hydrobromide (Celexa) 10 mg PO QDAY [facility] Last Admin: 03/10/17 10:43 Dose: 10 mg Docusate Sodium (Colace) 100 mg PO BID [facility] Last Admin: 03/10/17 19:48 Dose: 100 mg Furosemide (Lasix) 20 mg PO BID [facility] Last Admin: 03/10/17 19:48 Dose: 20 mg Heparin Sodium (Porcine) (Heparin) 5,000 unit SQ Q12 [facility] Last Admin: 03/10/17 19:48 Dose: 5,000 unit Magnesium Sulfate (Magnesium Sulfate) 2 gm in 50 mls @ 50 mls/hr IV UD PRN PRN Reason: MG = or < 1.7 Acetaminophen (Ofirmev) 1,000 mg in 100 mls @ 200 mls/hr IV Q6HP PRN PRN Reason: PAIN/FEVER > 101 Piperacillin Sod/Tazobactam (Sod 2.25 gm/ Dextrose) 50 mls @ 100 mls/hr IV Q6H [facility] Last Infusion: 03/11/17 06:00 Dose: Infused Sodium Chloride (Sodium Chloride 0.45%) 1,000 mls @ 100 mls/hr IV .Q10H [facility] Last Admin: 03/11/17 09:17 Dose: 100 mls/hr Potassium Chloride 40 meq/ (Dextrose) 520 mls @ 130 mls/hr IV ONCE ONE Stop: 03/11/17 13:29 Last Admin: 03/11/17 09:37 Dose: 130 mls/hr Ipratropium [place] (Atrovent 0.06% Nasal Srpay) 2 spray CHRIS TID [facility] Last Admin: 03/10/17 19:47 Dose: 2 spray Iron Carb/Multivit/Assembler Product/Folic Acid (Multivitamin W/Minerals) 1 tab PO DAILY [facility] Last Admin: 03/10/17 10:47 Dose: Not Given Levothyroxine Sodium (Synthroid) 25 mcg PO QAMAC [facility] Last Admin: 03/10/17 10:40 Dose: 25 mcg Lisinopril (Zestril) 20 mg PO DAILY [facility] Last Admin: 03/10/17 10:46 Dose: 20 mg Magnesium Hydroxide (Milk Of Magnesia) 30 ml PO DAILYP PRN PRN Reason: Constipation Omeprazole (Prilosec) 20 mg PO ACB [facility] Last Admin: 03/10/17 10:46 Dose: Not Given Ondansetron HCl (Zofran) 4 mg IV Q4-6HP PRN PRN Reason: Nausea And Vomiting Oseltamivir Phosphate (Tamiflu) 75 mg PO BID [facility] Last Admin: 03/10/17 19:48 Dose: 75 mg Budesonide/Formoterol Fumarate [Symbicort] 160-4.5 Mcg Inhaler 2 dose INH BID [facility] Last Admin: 03/10/17 19:47 Dose: 2 dose Risperidone (Risperdal) 0.25 mg PO BID [facility] Last Admin: 03/10/17 19:48 Dose: 0.25 mg Senna/Docusate Sodium (Senna Plus Tablet) 1 tab PO HS [facility] Last Admin: 03/10/17 19:48 Dose: Not Given Simvastatin (Zocor) 20 mg PO HS [facility] Last Admin: 03/10/17 19:48 Dose: 20 mg Sodium Chloride (Saline Flush) 10 ml IV Q8 [facility] Last Admin: 03/11/17 05:27 Dose: Not Given Tamsulosin HCl (Flomax) 0.4 mg PO DAILY [facility] Last Admin: 03/10/17 10:47 Dose: Not Given Trazodone HCl (Desyrel) 50 mg PO HSP PRN PRN Reason: Insomnia Last Admin: 03/10/17 19:48 Dose: 50 mg Medical - PN: A/P - Narrative A/P Narrative: 87-year-old gentleman presented with worsening shortness of breath, increasing weakness. He had generalized weakness, diffuse pain and low-grade fever. He was hospitalized with acute influenza. Acute influenza A. Resolving. Status post Tamiflu therapy. Plan: Supportive care Pneumonia/healthcare acquired pneumonia. Suspected complication of influenza. Developed low-grade fevers, leukocytosis, radiograph from 2 days ago showed bibasilar infiltrates, new since March 06. White count improving on antibiotics. Plan: Continue vancomycin and Zosyn, antibiotic day 3 Acute exacerbation of COPD, present on admission, generally resolved. Remains on Pulmicort and DuoNeb. Status post steroids and azithromycin. Plan: Continue Pulmicort and DuoNeb. Delirium. Patient was confused and minimally at the time of presentation. Has developed delirium. Suspected multi-factorial, Hospital/ICU delirium, affect of acute infectious illness, delayed effects of benzodiazepines which she has received for agitation in the setting of prior ischemic cerebrovascular disease. CT of the head with intercurrent lacunar infarct since November, do not suspect that fully explains his symptoms. Plan: Supportive care, reorientation, risperidone 0.25 mg twice a day, avoid benzodiazepines. Atrial fibrillation with rapid ventricular response. Present in the emergency room. Received amiodarone, had improvement in rate control. Currently her regular today, rate controlled. Plan: Monitor [place]-cytopenia. Particularly leukopenia presentation, presumptively secondary to viral infection, resolved, subsequent leukocytosis due to pneumonia, which is now normalizing. Plan: Continue to monitor CAD/ HTN/ HLD: Resume statin, aspirin, and lisinopril. Hypothyroidism: on levothyroxine, continue same ATTILA on CKD, resolved. Creatinine stable in 1.5-16. range, but BUN increasing--> begin IVF. Anxiety, on citalopram; continue same. BPH on Flomax, continue same, h/o urinary retention needing frequent straight cath, Fletcher in place now. DVT hep sq Cardiac Diet Full Code Medical - PN: Qual - VTE Deep Vein Thrombosis/Pulmonary Embolism Present on Admission: No
[2017-03-11] MEDS: LEVOTHYROXINE 25 MCG TABLET PO SCH (11:07)
[2017-03-11] MEDS: IPRATROPIUM 0.06% NASAL SPRAY BOTTLE 30ML NAS SCH ×3 (11:07→21:43)
[2017-03-11] MEDS: CITALOPRAM 20 MG TABLET PO SCH (11:07)
[2017-03-11] MEDS: OMEPRAZOLE 20 MG CAPSULE PO SCH (11:07)
[2017-03-11] MEDS: TAMSULOSIN 0.4 MG CAPSULE PO SCH (11:08)
[2017-03-11] MEDS: DOCUSATE SODIUM 100 MG CAPSULE PO SCH ×3 (11:08→21:32)
[2017-03-11] MEDS: MULTIVIT,THER IRON,CA,FA & MIN 1 TABLET PO SCH (11:08)
[2017-03-11] MEDS: FUROSEMIDE 20 MG TABLET PO SCH ×3 (11:08→21:32)
[2017-03-11] MEDS: Budesonide/Formoterol Fumarate [Symbicort] 160-4.5 mcg Inhaler INH SCH ×2 (11:09→21:32)
[2017-03-11] MEDS: OSELTAMIVIR PHOSPHATE 75 MG CAPSULE PO SCH ×2 (11:10→21:32)
[2017-03-11] MEDS: LISINOPRIL 20 MG TABLET PO SCH ×2 (11:10→17:28)
[2017-03-11] MEDS: HEPARIN 5,000 UNIT/ML VIAL SQ SCH ×2 (11:39→21:39)
[2017-03-11] MEDS: risperiDONE 0.25 MG TABLET PO SCH ×3 (17:23→21:32)
[2017-03-11] MEDS: SENNOSIDES/DOCUSATE SODIUM 1 TAB TABLET PO SCH (21:32)
[2017-03-11] MEDS: SIMVASTATIN 20 MG TABLET PO SCH (21:32)
[2017-03-12] MEDS: PIPERACILLIN SODIUM/TAZOBACTAM 2.25 GM in DEXTROSE 5% IN WATER 50 ML IV SCH ×5 (00:10→23:44)
[2017-03-12 06:51] LABS: Mean Cell Volume 100.1 fL (80.0-100.0); Mean Corpuscular HGB Conc 33.7 g/dL (31.0-36.0); Mean Corpuscular Hemoglobin 33.7 pg (26.0-34.0); Platelet Count 214 K/mcL (140-440)
[2017-03-12] MEDS: LEVOTHYROXINE 25 MCG TABLET PO SCH (07:27)
[2017-03-12] MEDS: OMEPRAZOLE 20 MG CAPSULE PO SCH (07:27)
[2017-03-12] MEDS: 0.9 % SODIUM CHLORIDE 10 ML SYRINGE IV SCH ×2 (07:29→14:11)
[2017-03-12 07:46] LABS: ALT/SGPT 25 U/l (0-40); Albumin 2.8 gm/dL (3.2-5.2); Albumin/Globulin Ratio 0.9 (1.0-2.3); Alkaline Phosphatase 64 U/L (39-117); Bilirubin,Direct 0.3 mg/dL (0.0-0.3); Blood Urea Nitrogen 32 mg/dl (8-23); Gamma Glutamyl Transpeptidase 27 U/L (8-61); Uric Acid 5.2 mg/dL (2.5-8.0)
[2017-03-12] MEDS: LISINOPRIL 20 MG TABLET PO SCH (08:37)
[2017-03-12] MEDS: FUROSEMIDE 20 MG TABLET PO SCH (08:37)
[2017-03-12] MEDS: TAMSULOSIN 0.4 MG CAPSULE PO SCH (08:37)
[2017-03-12] MEDS: MULTIVIT,THER IRON,CA,FA & MIN 1 TABLET PO SCH (08:37)
[2017-03-12] MEDS: CITALOPRAM 20 MG TABLET PO SCH (08:37)
[2017-03-12] MEDS: Budesonide/Formoterol Fumarate [Symbicort] 160-4.5 mcg Inhaler INH SCH (08:38)
[2017-03-12] MEDS: IPRATROPIUM 0.06% NASAL SPRAY BOTTLE 30ML NAS SCH ×2 (08:38→17:14)
[2017-03-12] MEDS: HEPARIN 5,000 UNIT/ML VIAL SQ SCH (08:39)
[2017-03-12] MEDS: DOCUSATE SODIUM 100 MG CAPSULE PO SCH (08:39)
[2017-03-12] MEDS: risperiDONE 0.25 MG TABLET PO SCH (08:43)
[2017-03-12 09:02] LABS: Lymphocytes % 5 % (15-49); Macrocytosis 1+ (NONE SEEN); Monocytes % (Manual) 4 % (1-12); Platelet Estimate NORMAL (NORMAL); RBC Morphology ABNORM (NORMAL); Segmented Neutrophils % 91 % (38-78)
[2017-03-12] MEDS: 0.45 % SODIUM CHLORIDE 1,000 ML IV SCH ×3 (10:48→22:18)
--- NOTE | 2017-03-12 18:51 | Internal Med Progress Note ---
Medical - PN: Subj Patient information: Note initiated : 03/12/17 at 6:49 pm Service Date, if different from initiated Date: [] Patient: Carlos Zuniga 87 y/o M admitted on 03/02/17 for Fall/RVR, Influenza A , Pneumonia. Chief Complaint: f/u pneumonia, influenza Interval history: 03/02-patient admitted with worsening shortness of breath confusion,dizziness weakness and high-grade fever. influenza A positive. Initially in A. fib with RVR with hypotension and subsequently started on amiodarone in the ER with conversion to sinus rhythm. patient demonstrate fluctuating mental status with confusion. Patient was subsequently admitted to telemetry in light of acute influenza with mental status change H fibrillation with RVR. 03/03-patient remains persistently confused MAXIMUM TEMPERATURE 101. Tachycardia around 110 but in sinus. Status post amiodarone in the ED. On Tamiflu. Continue physical therapy/OT. droplet precautions. restart pre- existing home medications once able to tolerate by mouth and follow commands. no CP/SOB or cardiac arrhythmias on telemetry Mar 04 Patient seen examined, , patient is afebrile this AM, patient was confused and agitated last night, but slept well after ativan. This AM drowsy and did not talk to me, the patient hemodynamically is stable. Exam has delta exp wheezing at rest after duoneb treatment. Will get X ray chest, start on steroids and zithromax for copd exacerbation? Mar 05 Patient seen examined, sitting in the chair comfortably, planning to hav breakfast, aoox1, quite confused, but was able to answer some questions, not able to hold a meaning ful conversation. Labs show pancytopenia, path smear is neg, seems to be improving clinically. Chest X ray shows mild CHF, ? left infiltrates mild? mar 06 patient seen examined, drowsy this AM opens eyes to verbal commands, but did not talk much with me, agitated overnight, trying to get out of bed and trying to remove lines and catheters.Plan to start him on respiridone 0.25mg bid. The patient chest x ray today shows delta fibrosis? no chf, monitor 03/07-persistent confusion. During my evaluation patient was disoriented to time place and person. He said his will be coming today from [place]. I reviewed labs which appears stable with white count of 6.2, and anemia normal bicarbonate profile with a creatinine down to 1.5.patient has been afebrile overnight. Currently on 3 L oxygen up from 2. He is sitting up in chair eating breakfast but has had intermittent episodes of agitation and confusion last night. Interval chest imaging only shows pulmonary fibrosis. Currently on Tamiflu/azithromycin.plan is to continue frequent reorientation/bright lights and avoidsedative hypnotics.continue risperidone. MRI today for further evaluation of mental status change. Also case discussed with patient's daughter Suzie on phone. Informed of clinical deterioration and discuss labs and imaging and hospital course. Also informed of treatment plan including MRI/possible lumbar puncture studies. 03/08-patient doing well.no overnight events. No concerns per staff other than persistent confusion.no signs of agitation. Mister family friend in room. Discuss patient's baseline and friend confirm that patient has had a gradual deterioration in mental status over the last few months. Also reviewed her IV care doctor's office notes with cognitive decline over the last visit. MRI could not be performed due to cough. Implant. I don't see any signs of encephalitis/fever/photophobia and neck stiffness that would mandate a lumbar puncture study at this time. Transfer to medical floor on watch bed. Anticipate transfer her dementia care unit in 24-48 hours. Discontinue steroids 03/09 Became quite agitated Monday evening, almost swinging at the staff. Received 1 mg of lorazepam, is quiet throughout the night, quite somnolent throughout most of the day today. 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 Old ischemic changes. Oxygen requirements are increasing, white count up to 13,000 along with fevers overnight. Urinalysis unremarkable, chest radiograph showing bibasilar infiltrates now, not present on March 06. Antibiotics started. Updated his daughter Suzie on the phone. Concerned about prognosis of influenza with delirium at baseline over the last several days now superimposed pneumonia as a complication of influenza. 2/2 Alert today, oriented to self. Was up to chair. Need assistance with lunch. Still quite confused though significantly improved from yesterday. Tolerating antibiotics. White count decreasing. 2/3-restless at times last night, staff had him up walking in the halls, subsequently slept. Have blood in Fletcher bag yesterday, has cleared up, suspect Fletcher trauma. Patient dozing, arouses, does not know where he is. Mental status improved, but not near baseline. Still requiring some oxygen to maintain saturations. Still requiring close staff supervision. 2/-Remains restless at night at times. Walking and reorientation helped. During the day today, he is up in the chair, had times of lucidity. No real complaints. States he is in [place], he has a car out there, points out the window, and [place] - Constitutional Vitals: Vital Signs Temp Pulse Resp BP Pulse Ox 98.8 F 56 L 14 114/58 95 03/12/17 15:27 03/12/17 15:27 03/12/17 15:27 03/12/17 15:27 03/12/17 15:27 Period Temp Pulse Resp BP Sys/Rhodes Pulse Ox Last 24 Hr 97.2 F-98.9 F 56-120 14-30 114-144/58-89 95-99 Intake and Output 03/12/17 03/12/17 03/12/17 05:59 13:59 21:59 Intake Total 50 / 50 1350 / 1350 100 / 100 Output Total 1000 / 1000 800 / 800 Balance -950 / -950 1350 / 1350 -700 / -700 Weight 170 lb Intake & Output: Intake & Output 03/12/17 03/12/17 03/12/17 05:59 13:59 21:59 Intake Total 50 / 50 1350 / 1350 100 / 100 Output Total 1000 / 1000 800 / 800 Balance -950 / -950 1350 / 1350 -700 / -700 Weight 170 lb Intake: IV 50 / 50 1050 / 1050 50 / 50 Sodium Chloride 0.45% 1,000 ml 1000 / 1000 @ 100 mls/hr IV .Q10H KAYLA Rx#: [id number] Zosyn 2.25 gm In Dextrose 5% in 50 / 50 50 / 50 50 / 50 Water 50 ml @ 100 mls/hr IV Q6H KAYLA Rx#:[id number] Oral 300 / 300 50 / 50 Output: Urine Catheter Amount 1000 / 1000 800 / 800 Other: Meal Lunch Dinner Percent of Meal Consumed 10% 90 Feeding Ability Needs Supervision Assist with Tray Set Up Exam: General: Elderly, ill-appearing Chest: Few basal rales, otherwise clear Cardiovascular: Irregular, distant, no edema Abdomen: Soft nontender Neuro: Alert, oriented to self. Generally weak, is up walking with a walker with PT however. Medical - PN: Obj Da - Labs CBC & Chem 7: 03/12/17 03:50 03/12/17 03:50 Labs: Abnormal Lab Results 03/12/17 03/12/17 03/11/17 03:50 03:50 03:52 WBC RBC 3.70 L Hgb 12.5 L Hct 37.1 L MCV 100.1 H MCH Seg Neutrophils % 91 H Lymphocytes % 5 L RBC Morphology Abnorm A Macrocytosis 1+ A Sodium 146 H 149 H Potassium 3.1 L BUN 32 H 38 H Creatinine 1.5 H 1.7 H Glucose 119 H Calcium 8.0 L Phosphorus 1.7 L 2.0 L Total Bilirubin 1.1 H Total Protein 5.6 L Albumin 2.8 L 2.6 L Albumin/Globulin Ratio 0.9 L 0.9 L 03/11/17 03/10/17 03/10/17 03:52 04:36 04:36 WBC 12.0 H RBC 3.42 L 3.87 L Hgb 11.7 L 13.1 L Hct 34.5 L 39.1 L MCV 100.7 H 100.9 H MCH 34.1 H Seg Neutrophils % 94 H 92 H Lymphocytes % 1 L 5 L RBC Morphology Abnorm A Abnorm A Macrocytosis 1+ A 1+ A Sodium 147 H Potassium BUN 39 H Creatinine 1.5 H Glucose Calcium 8.3 L Phosphorus Total Bilirubin Total Protein 5.8 L Albumin 2.8 L Albumin/Globulin Ratio 0.9 L Microbiology 03/07/17 11:35 Blood Culture - Final Blood 03/07/17 11:28 Blood Culture - Final Blood Meds: Medications Acetaminophen (Tylenol) 650 mg PO Q4-6HP PRN PRN Reason: PAIN/FEVER > 101 Albuterol Sulfate (Ventolin) 2 puff INH Q4-6HP PRN PRN Reason: Shortness Of Breath Albuterol/Ipratropium (Duoneb) 3 ml NEB Q4HP PRN PRN Reason: Shortness Of Breath Citalopram Hydrobromide (Celexa) 10 mg PO QDAY [facility] Last Admin: 03/12/17 08:37 Dose: 10 mg Docusate Sodium (Colace) 100 mg PO BID [facility] Last Admin: 03/12/17 08:39 Dose: 100 mg Furosemide (Lasix) 20 mg PO BID [facility] Last Admin: 03/12/17 08:37 Dose: 20 mg Heparin Sodium (Porcine) (Heparin) 5,000 unit SQ Q12 [facility] Last Admin: 03/12/17 08:39 Dose: 5,000 unit Magnesium Sulfate (Magnesium Sulfate) 2 gm in 50 mls @ 50 mls/hr IV UD PRN PRN Reason: MG = or < 1.7 Acetaminophen (Ofirmev) 1,000 mg in 100 mls @ 200 mls/hr IV Q6HP PRN PRN Reason: PAIN/FEVER > 101 Piperacillin Sod/Tazobactam (Sod 2.25 gm/ Dextrose) 50 mls @ 100 mls/hr IV Q6H [facility] Last Admin: 03/12/17 17:34 Dose: 100 mls/hr Sodium Chloride (Sodium Chloride 0.45%) 1,000 mls @ 100 mls/hr IV .Q10H [facility] Last Admin: 03/12/17 17:13 Dose: Not Given Ipratropium [place] (Atrovent 0.06% Nasal Srpay) 2 spray CHRIS TID [facility] Last Admin: 03/12/17 17:14 Dose: Not Given Iron Carb/Multivit/Shrinking Machine Operator/Folic Acid (Multivitamin W/Minerals) 1 tab PO DAILY [facility] Last Admin: 03/12/17 08:37 Dose: 1 tab Levothyroxine Sodium (Synthroid) 25 mcg PO QAMAC [facility] Last Admin: 03/12/17 07:27 Dose: 25 mcg Lisinopril (Zestril) 20 mg PO DAILY [facility] Last Admin: 03/12/17 08:37 Dose: 20 mg Magnesium Hydroxide (Milk Of Magnesia) 30 ml PO DAILYP PRN PRN Reason: Constipation Omeprazole (Prilosec) 20 mg PO ACB [facility] Last Admin: 03/12/17 07:27 Dose: 20 mg Ondansetron HCl (Zofran) 4 mg IV Q4-6HP PRN PRN Reason: Nausea And Vomiting Budesonide/Formoterol Fumarate [Symbicort] 160-4.5 Mcg Inhaler 2 dose INH BID [facility] Last Admin: 03/12/17 08:38 Dose: 2 dose Risperidone (Risperdal) 0.25 mg PO BID [facility] Last Admin: 03/12/17 08:43 Dose: 0.25 mg Senna/Docusate Sodium (Senna Plus Tablet) 1 tab PO HS [facility] Last Admin: 03/11/17 21:32 Dose: Not Given Simvastatin (Zocor) 20 mg PO HS [facility] Last Admin: 03/11/17 21:32 Dose: Not Given Sodium Chloride (Saline Flush) 10 ml IV Q8 [facility] Last Admin: 03/12/17 14:11 Dose: Not Given Tamsulosin HCl (Flomax) 0.4 mg PO DAILY [facility] Last Admin: 03/12/17 08:37 Dose: 0.4 mg Trazodone HCl (Desyrel) 50 mg PO HSP PRN PRN Reason: Insomnia Last Admin: 03/10/17 19:48 Dose: 50 mg Medical - PN: A/P - Time Spent With Patient Total time spent is greater than 50% in coordination of care (as documented) at patient's floor/unit and/or counseling patient: 25 - 35 minutes - Narrative A/P Narrative: 87-year-old gentleman presented with worsening shortness of breath, increasing weakness. He had generalized weakness, diffuse pain and low-grade fever. He was hospitalized with acute influenza. Acute influenza A. Resolving. Status post Tamiflu therapy. Plan: Supportive care Pneumonia/healthcare acquired pneumonia. Suspected complication of influenza. Developed low-grade fevers, leukocytosis, radiograph from 3 days ago showed new bibasilar infiltrates since March 06. White count normalized on antibiotics. Plan: Continue vancomycin and Zosyn, antibiotic day 4 Delirium. Patient was confused and minimally at the time of presentation. Has developed delirium. Suspected multi-factorial, Hospital/ICU delirium, affect of acute infectious illness, delayed effects of benzodiazepines which she has received for agitation in the setting of prior ischemic cerebrovascular disease. CT of the head with intercurrent lacunar infarct since November, do not suspect that fully explains his symptoms. Plan: Supportive care, reorientation, risperidone 0.25 mg twice a day, avoid benzodiazepines. Acute exacerbation of COPD, present on admission, generally resolved. Remains on Pulmicort and DuoNeb. Status post steroids and azithromycin. Plan: Continue Pulmicort and DuoNeb. Atrial fibrillation with rapid ventricular response. Present in the emergency room. Received amiodarone, had improvement in rate control. Currently her regular today, rate controlled. Plan: Monitor [place]-cytopenia. Resolved. Particularly leukopenia presentation, presumptively secondary to viral infection, subsequent leukocytosis due to pneumonia, now normalized. Plan: Continue to monitor CAD/ HTN/ HLD: Resume statin, aspirin, and lisinopril. Hypothyroidism: on levothyroxine, continue same ATTILA on CKD, resolved. Creatinine stable in 1.5-16. range, but BUN increasing--> begin IVF. Anxiety, on citalopram; continue same. BPH on Flomax, continue same, h/o urinary retention needing frequent straight cath, Fletcher in place now. DVT hep sq Cardiac Diet Full Code Medical - PN: Qual - VTE Deep Vein Thrombosis/Pulmonary Embolism Present on Admission: No
[2017-03-13] MEDS: IPRATROPIUM 0.06% NASAL SPRAY BOTTLE 30ML NAS SCH ×4 (00:08→21:33)
[2017-03-13] MEDS: Budesonide/Formoterol Fumarate [Symbicort] 160-4.5 mcg Inhaler INH SCH ×3 (00:08→21:34)
[2017-03-13] MEDS: risperiDONE 0.25 MG TABLET PO SCH ×4 (00:10→21:34)
[2017-03-13] MEDS: traZODone HCL 50 MG TABLET PO PRN ×2 (00:10→18:49)
[2017-03-13] MEDS: FUROSEMIDE 20 MG TABLET PO SCH ×4 (00:11→21:34)
[2017-03-13] MEDS: HEPARIN 5,000 UNIT/ML VIAL SQ SCH ×4 (00:12→21:34)
[2017-03-13] MEDS: DOCUSATE SODIUM 100 MG CAPSULE PO SCH ×4 (00:12→21:33)
[2017-03-13] MEDS: SENNOSIDES/DOCUSATE SODIUM 1 TAB TABLET PO SCH ×3 (00:13→21:34)
[2017-03-13] MEDS: 0.9 % SODIUM CHLORIDE 10 ML SYRINGE IV SCH ×3 (00:13→18:11)
[2017-03-13] MEDS: SIMVASTATIN 20 MG TABLET PO SCH ×3 (00:13→21:35)
[2017-03-13 05:19] LABS: Mean Corpuscular HGB Conc 34.3 g/dL (31.0-36.0); Mean Corpuscular Hemoglobin 34.3 pg (26.0-34.0); Platelet Count 279 K/mcL (140-440); RBC 3.71 M/mcL (4.50-5.90); Red Cell Distribution Width 12.8 % (11.5-14.5)
[2017-03-13] MEDS: PIPERACILLIN SODIUM/TAZOBACTAM 2.25 GM in DEXTROSE 5% IN WATER 50 ML IV SCH ×3 (05:38→18:11)
[2017-03-13 05:49] LABS: ALT/SGPT 21 U/l (0-40); Albumin 2.6 gm/dL (3.2-5.2); Albumin/Globulin Ratio 0.8 (1.0-2.3); Alkaline Phosphatase 57 U/L (39-117); Bilirubin,Direct 0.2 mg/dL (0.0-0.3); Blood Urea Nitrogen 29 mg/dl (8-23); Gamma Glutamyl Transpeptidase 25 U/L (8-61); Uric Acid 4.8 mg/dL (2.5-8.0)
[2017-03-13] MEDS: 0.45 % SODIUM CHLORIDE 1,000 ML IV SCH ×2 (05:58→15:39)
[2017-03-13 06:26] LABS: Lymphocytes % 16 % (15-49); Monocytes % (Manual) 8 % (1-12); Platelet Estimate NORMAL (NORMAL); RBC Morphology NORMAL (NORMAL); Segmented Neutrophils % 76 % (38-78)
[2017-03-13] MEDS: OMEPRAZOLE 20 MG CAPSULE PO SCH (07:58)
[2017-03-13] MEDS: LEVOTHYROXINE 25 MCG TABLET PO SCH (07:58)
[2017-03-13] MEDS: MULTIVIT,THER IRON,CA,FA & MIN 1 TABLET PO SCH (08:55)
[2017-03-13] MEDS: TAMSULOSIN 0.4 MG CAPSULE PO SCH (08:55)
[2017-03-13] MEDS: CITALOPRAM 20 MG TABLET PO SCH (08:55)
[2017-03-13] MEDS: LISINOPRIL 20 MG TABLET PO SCH (10:12)
--- NOTE | 2017-03-13 11:45 | Internal Med Progress Note ---
Medical - PN: Subj Patient information: Note initiated : 03/13/17 at 11:41 am Service Date, if different from initiated Date: [] Patient: Carlos Zuniga 87 y/o M admitted on 03/02/17 for Fall/RVR, Influenza A , Pneumonia. Chief Complaint: follow-up pneumonia, delirium Interval history: 03/02-patient admitted with worsening shortness of breath confusion,dizziness weakness and high-grade fever. influenza A positive. Initially in A. fib with RVR with hypotension and subsequently started on amiodarone in the ER with conversion to sinus rhythm. patient demonstrate fluctuating mental status with confusion. Patient was subsequently admitted to telemetry in light of acute influenza with mental status change H fibrillation with RVR. 03/03-patient remains persistently confused MAXIMUM TEMPERATURE 101. Tachycardia around 110 but in sinus. Status post amiodarone in the ED. On Tamiflu. Continue physical therapy/OT. droplet precautions. restart pre- existing home medications once able to tolerate by mouth and follow commands. no CP/SOB or cardiac arrhythmias on telemetry Mar 04 Patient seen examined, , patient is afebrile this AM, patient was confused and agitated last night, but slept well after ativan. This AM drowsy and did not talk to me, the patient hemodynamically is stable. Exam has delta exp wheezing at rest after duoneb treatment. Will get X ray chest, start on steroids and zithromax for copd exacerbation? Mar 05 Patient seen examined, sitting in the chair comfortably, planning to hav breakfast, aoox1, quite confused, but was able to answer some questions, not able to hold a meaning ful conversation. Labs show pancytopenia, path smear is neg, seems to be improving clinically. Chest X ray shows mild CHF, ? left infiltrates mild? mar 06 patient seen examined, drowsy this AM opens eyes to verbal commands, but did not talk much with me, agitated overnight, trying to get out of bed and trying to remove lines and catheters.Plan to start him on respiridone 0.25mg bid. The patient chest x ray today shows delta fibrosis? no chf, monitor 03/07-persistent confusion. During my evaluation patient was disoriented to time place and person. He said his will be coming today from [place]. I reviewed labs which appears stable with white count of 6.2, and anemia normal bicarbonate profile with a creatinine down to 1.5.patient has been afebrile overnight. Currently on 3 L oxygen up from 2. He is sitting up in chair eating breakfast but has had intermittent episodes of agitation and confusion last night. Interval chest imaging only shows pulmonary fibrosis. Currently on Tamiflu/azithromycin.plan is to continue frequent reorientation/bright lights and avoidsedative hypnotics.continue risperidone. MRI today for further evaluation of mental status change. Also case discussed with patient's daughter Suzie on phone. Informed of clinical deterioration and discuss labs and imaging and hospital course. Also informed of treatment plan including MRI/possible lumbar puncture studies. 03/08-patient doing well.no overnight events. No concerns per staff other than persistent confusion.no signs of agitation. Mister family friend in room. Discuss patient's baseline and friend confirm that patient has had a gradual deterioration in mental status over the last few months. Also reviewed her IV care doctor's office notes with cognitive decline over the last visit. MRI could not be performed due to cough. Implant. I don't see any signs of encephalitis/fever/photophobia and neck stiffness that would mandate a lumbar puncture study at this time. Transfer to medical floor on watch bed. Anticipate transfer her dementia care unit in 24-48 hours. Discontinue steroids 03/09 Became quite agitated Monday evening, almost swinging at the staff. Received 1 mg of lorazepam, is quiet throughout the night, quite somnolent throughout most of the day today. 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 Old ischemic changes. Oxygen requirements are increasing, white count up to 13,000 along with fevers overnight. Urinalysis unremarkable, chest radiograph showing bibasilar infiltrates now, not present on March 06. Antibiotics started. Updated his daughter Suzie on the phone. Concerned about prognosis of influenza with delirium at baseline over the last several days now superimposed pneumonia as a complication of influenza. 2/2 Alert today, oriented to self. Was up to chair. Need assistance with lunch. Still quite confused though significantly improved from yesterday. Tolerating antibiotics. White count decreasing. 2/3-restless at times last night, staff had him up walking in the halls, subsequently slept. Have blood in Fletcher bag yesterday, has cleared up, suspect Fletcher trauma. Patient dozing, arouses, does not know where he is. Mental status improved, but not near baseline. Still requiring some oxygen to maintain saturations. Still requiring close staff supervision. 2/-Remains restless at night at times. Walking and reorientation helped. During the day today, he is up in the chair, had times of lucidity. No real complaints. States he is in [place], he has a car out there, points out the window, and [place]. 2-situation stabilizing. Lungs are getting clear, able to cough well and clear up her secretions. Continues to have times of impulsivity and agitation needing redirection, followed by times of lucidity. On risperidone 0.5 mg twice a day. Benzodiazepines of been avoided for the last several days, they profoundly sedate the patient. - Constitutional Vitals: Vital Signs Temp Pulse Resp BP Pulse Ox 98.2 F 74 18 88/64 94 03/13/17 08:00 03/13/17 08:00 03/13/17 08:00 03/13/17 08:00 03/13/17 08:00 Period Temp Pulse Resp BP Sys/Rhodes Pulse Ox Last 24 Hr 97.2 F-98.8 F 56-114 14-28 88-139/58-98 92-95 Intake and Output 03/12/17 03/13/17 03/13/17 21:59 05:59 13:59 Intake Total 150 / 150 1050 / 1050 1240 / 1240 Output Total 1025 / 1025 225 / 225 Balance -875 / -875 825 / 825 1240 / 1240 Weight 171 lb 4 oz 171 lb 4 oz Intake & Output: Intake & Output 03/12/17 03/13/17 03/13/17 21:59 05:59 13:59 Intake Total 150 / 150 1050 / 1050 1240 / 1240 Output Total 1025 / 1025 225 / 225 Balance -875 / -875 825 / 825 1240 / 1240 Weight 171 lb 4 oz 171 lb 4 oz Intake: IV 100 / 100 1050 / 1050 1040 / 1040 Sodium Chloride 0.45% 1,000 ml 1000 / 1000 990 / 990 @ 100 mls/hr IV .Q10H [facility] Rx#: [id number] Zosyn 2.25 gm In Dextrose 5% in 100 / 100 50 / 50 50 / 50 Water 50 ml @ 100 mls/hr IV Q6H [facility] Rx#:[id number] Oral 50 / 50 200 / 200 Output: Urine Catheter Amount 1025 / 1025 225 / 225 Other: Meal Dinner Breakfast Percent of Meal Consumed 90 25% Feeding Ability Assist with Tray Set Up Exam: General: Sleeping, arouses, pleasant Chest: Few scattered rhonchi, otherwise clear Cardiovascular: Irregular, bit distant, no edema Abdomen: Soft, nontender Neuro: Alert, oriented to self, occasionally displays periods of more awareness. Able to get up and work with PT Medical - PN: Obj Da - Labs CBC & Chem 7: 03/13/17 04:15 03/13/17 04:15 Labs: Abnormal Lab Results 03/13/17 03/13/17 03/12/17 04:15 04:15 03:50 RBC 3.71 L Hgb 12.7 L Hct 37.1 L MCV MCH 34.3 H Seg Neutrophils % Lymphocytes % RBC Morphology Macrocytosis Sodium 146 H Potassium Carbon Dioxide 31 H BUN 29 H 32 H Creatinine 1.5 H 1.5 H Glucose Calcium 8.2 L Phosphorus 1.7 L 1.7 L Total Bilirubin 1.1 H 1.1 H Total Protein Albumin 2.6 L 2.8 L Albumin/Globulin Ratio 0.8 L 0.9 L 03/12/17 03/11/17 03/11/17 03:50 03:52 03:52 RBC 3.70 L 3.42 L Hgb 12.5 L 11.7 L Hct 37.1 L 34.5 L MCV 100.1 H 100.7 H MCH 34.1 H Seg Neutrophils % 91 H 94 H Lymphocytes % 5 L 1 L RBC Morphology Abnorm A Abnorm A Macrocytosis 1+ A 1+ A Sodium 149 H Potassium 3.1 L Carbon Dioxide BUN 38 H Creatinine 1.7 H Glucose 119 H Calcium 8.0 L Phosphorus 2.0 L Total Bilirubin Total Protein 5.6 L Albumin 2.6 L Albumin/Globulin Ratio 0.9 L Meds: Medications Acetaminophen (Tylenol) 650 mg PO Q4-6HP PRN PRN Reason: PAIN/FEVER > 101 Albuterol Sulfate (Ventolin) 2 puff INH Q4-6HP PRN PRN Reason: Shortness Of Breath Albuterol/Ipratropium (Duoneb) 3 ml NEB Q4HP PRN PRN Reason: Shortness Of Breath Citalopram Hydrobromide (Celexa) 10 mg PO QDAY [facility] Last Admin: 03/13/17 08:55 Dose: 10 mg Docusate Sodium (Colace) 100 mg PO BID [facility] Last Admin: 03/13/17 08:56 Dose: 100 mg Furosemide (Lasix) 20 mg PO BID [facility] Last Admin: 03/13/17 10:12 Dose: Not Given Heparin Sodium (Porcine) (Heparin) 5,000 unit SQ Q12 [facility] Last Admin: 03/13/17 08:56 Dose: 5,000 unit Magnesium Sulfate (Magnesium Sulfate) 2 gm in 50 mls @ 50 mls/hr IV UD PRN PRN Reason: MG = or < 1.7 Acetaminophen (Ofirmev) 1,000 mg in 100 mls @ 200 mls/hr IV Q6HP PRN PRN Reason: PAIN/FEVER > 101 Piperacillin Sod/Tazobactam (Sod 2.25 gm/ Dextrose) 50 mls @ 100 mls/hr IV Q6H [facility] Last Infusion: 03/13/17 06:20 Dose: Infused Sodium Chloride (Sodium Chloride 0.45%) 1,000 mls @ 100 mls/hr IV .Q10H [facility] Last Infusion: 03/13/17 08:12 Dose: 0 mls/hr Ipratropium [place] (Atrovent 0.06% Nasal Srpay) 2 spray CHRIS TID [facility] Last Admin: 03/13/17 10:12 Dose: 2 spray Iron Carb/Multivit/[place]/Folic Acid (Multivitamin W/Minerals) 1 tab PO DAILY [facility] Last Admin: 03/13/17 08:55 Dose: 1 tab Levothyroxine Sodium (Synthroid) 25 mcg PO QAMAC [facility] Last Admin: 03/13/17 07:58 Dose: 25 mcg Lisinopril (Zestril) 20 mg PO DAILY [facility] Last Admin: 03/13/17 10:12 Dose: Not Given Magnesium Hydroxide (Milk Of Magnesia) 30 ml PO DAILYP PRN PRN Reason: Constipation Omeprazole (Prilosec) 20 mg PO ACB [facility] Last Admin: 03/13/17 07:58 Dose: 20 mg Ondansetron HCl (Zofran) 4 mg IV Q4-6HP PRN PRN Reason: Nausea And Vomiting Budesonide/Formoterol Fumarate [Symbicort] 160-4.5 Mcg Inhaler 2 dose INH BID [facility] Last Admin: 03/13/17 10:12 Dose: 2 dose Risperidone (Risperdal) 0.25 mg PO BID [facility] Last Admin: 03/13/17 08:55 Dose: 0.25 mg Senna/Docusate Sodium (Senna Plus Tablet) 1 tab PO [facility] Last Admin: 03/13/17 00:13 Dose: Not Given Simvastatin (Zocor) 20 mg PO HS [facility] Last Admin: 03/13/17 00:13 Dose: Not Given Sodium Chloride (Saline Flush) 10 ml IV Q8 [facility] Last Admin: 03/13/17 06:20 Dose: Not Given Tamsulosin HCl (Flomax) 0.4 mg PO DAILY [facility] Last Admin: 03/13/17 08:55 Dose: 0.4 mg Trazodone HCl (Desyrel) 50 mg PO HSP PRN PRN Reason: Insomnia Last Admin: 03/13/17 00:10 Dose: 50 mg Medical - PN: A/P - Narrative A/P Narrative: 87-year-old gentleman presented with worsening shortness of breath, increasing weakness. He had generalized weakness, diffuse pain and low-grade fever. He was hospitalized with acute influenza. Acute influenza A. Resolving. Status post Tamiflu therapy. Plan: Supportive care Pneumonia/healthcare acquired pneumonia. Suspected complication of influenza. Developed low-grade fevers, leukocytosis, radiograph from last , showed new bibasilar infiltrates since March 06. White count normalized on antibiotics. Plan: Continue vancomycin and Zosyn, antibiotic day 5 Delirium. Patient was confused and minimally at the time of presentation. Has developed delirium. Suspected multi-factorial, Hospital/ICU delirium, affect of acute infectious illness, delayed effects of benzodiazepines which she has received for agitation in the setting of prior ischemic cerebrovascular disease. CT of the head with intercurrent lacunar infarct since November, do not suspect that fully explains his symptoms. Plan: Supportive care, reorientation, risperidone 0.25 mg twice a day, avoid benzodiazepines (if needed suggest 0.25 mg lorazepam). Acute exacerbation of COPD, present on admission, generally resolved. Remains on Pulmicort and DuoNeb. Status post steroids and azithromycin. Plan: Continue Pulmicort and DuoNeb. Atrial fibrillation with rapid ventricular response. Present in the emergency room. Received amiodarone, had improvement in rate control. Currently irregular today, rate controlled. Plan: Monitor [place]-cytopenia. Resolved. Particularly leukopenia presentation, presumptively secondary to viral infection, subsequent leukocytosis due to pneumonia, now normalized. Plan: Continue to monitor CAD/ HTN/ HLD: Resume statin, aspirin, and lisinopril. Hypothyroidism: on levothyroxine, continue same ATTIAL on CKD, resolved. Creatinine stable in 1.5-16. range, but BUN increasing--> begin IVF. Anxiety, on citalopram; continue same. BPH on Flomax, continue same, h/o urinary retention needing frequent straight cath, Fletcher in place now. DVT hep sq Cardiac Diet Full Code Medical - PN: Qual - VTE Deep Vein Thrombosis/Pulmonary Embolism Present on Admission: No
[2017-03-14] MEDS: 0.9 % SODIUM CHLORIDE 10 ML SYRINGE IV SCH ×4 (00:08→23:48)
[2017-03-14] MEDS: PIPERACILLIN SODIUM/TAZOBACTAM 2.25 GM in DEXTROSE 5% IN WATER 50 ML IV SCH ×5 (00:08→23:48)
[2017-03-14] MEDS: IPRATROPIUM 0.06% NASAL SPRAY BOTTLE 30ML NAS SCH ×3 (09:08→20:05)
[2017-03-14] MEDS: Budesonide/Formoterol Fumarate [Symbicort] 160-4.5 mcg Inhaler INH SCH ×2 (09:08→20:02)
[2017-03-14] MEDS: HEPARIN 5,000 UNIT/ML VIAL SQ SCH ×2 (09:08→20:02)
[2017-03-14] MEDS: LEVOTHYROXINE 25 MCG TABLET PO SCH (09:09)
[2017-03-14] MEDS: TAMSULOSIN 0.4 MG CAPSULE PO SCH ×2 (09:09→20:03)
[2017-03-14] MEDS: CITALOPRAM 20 MG TABLET PO SCH (09:09)
[2017-03-14] MEDS: ACETAMINOPHEN 325 MG TABLET PO PRN (09:09)
[2017-03-14] MEDS: DOCUSATE SODIUM 100 MG CAPSULE PO SCH ×2 (09:09→20:03)
[2017-03-14] MEDS: OMEPRAZOLE 20 MG CAPSULE PO SCH (09:09)
[2017-03-14] MEDS: FUROSEMIDE 20 MG TABLET PO SCH ×2 (09:09→20:03)
[2017-03-14] MEDS: MULTIVIT,THER IRON,CA,FA & MIN 1 TABLET PO SCH (09:09)
[2017-03-14] MEDS: LISINOPRIL 20 MG TABLET PO SCH (09:16)
[2017-03-14] MEDS: risperiDONE 0.25 MG TABLET PO SCH ×2 (09:16→20:03)
[2017-03-14 10:12] LABS: Basophils # (Auto) 0 K/mcL (0.0-0.3); Basophils % (Auto) 0.3 % (0.0-2.0); Eosinophils # (Auto) 0.2 K/mcL (0.0-0.7); Eosinophils % (Auto) 3.7 % (0.0-7.0); Granulocytes % (Auto) 68.5 % (38.0-78.0); Lymphocytes % (Auto) 20.4 % (15.5-49.0); Mean Cell Volume 99.1 fL (80.0-100.0); Mean Corpuscular HGB Conc 34.3 g/dL (31.0-36.0); Monocytes # (Auto) 0.4 K/mcL (0.1-0.9); Monocytes % (Auto) 7.1 % (1.0-12.0); Platelet Count 248 K/mcL (140-440); RBC 3.38 M/mcL (4.50-5.90); Red Cell Distribution Width 12.8 % (11.5-14.5)
[2017-03-14 10:35] LABS: ALT/SGPT 37 U/l (0-40); Albumin 2.4 gm/dL (3.2-5.2); Albumin/Globulin Ratio 0.7 (1.0-2.3); Alkaline Phosphatase 54 U/L (39-117); Bilirubin,Direct 0.2 mg/dL (0.0-0.3); Blood Urea Nitrogen 29 mg/dl (8-23); Gamma Glutamyl Transpeptidase 31 U/L (8-61); Uric Acid 5.3 mg/dL (2.5-8.0)
--- NOTE | 2017-03-14 10:45 | Internal Med Progress Note ---
Medical - PN: Subj Patient information: Note initiated : 03/14/17 at 10:43 am Service Date, if different from initiated Date: [] Patient: Carlos Zuniga 87 y/o M admitted on 03/02/17 for Fall/RVR, Influenza A , Pneumonia. Chief Complaint: [] Interval history: 03/02-patient admitted with worsening shortness of breath confusion,dizziness weakness and high-grade fever. influenza A positive. Initially in A. fib with RVR with hypotension and subsequently started on amiodarone in the ER with conversion to sinus rhythm. patient demonstrate fluctuating mental status with confusion. Patient was subsequently admitted to telemetry in light of acute influenza with mental status change H fibrillation with RVR. 03/03-patient remains persistently confused MAXIMUM TEMPERATURE 101. Tachycardia around 110 but in sinus. Status post amiodarone in the ED. On Tamiflu. Continue physical therapy/OT. droplet precautions. restart pre- existing home medications once able to tolerate by mouth and follow commands. no CP/SOB or cardiac arrhythmias on telemetry Mar 04 Patient seen examined, , patient is afebrile this AM, patient was confused and agitated last night, but slept well after ativan. This AM drowsy and did not talk to me, the patient hemodynamically is stable. Exam has delta exp wheezing at rest after duoneb treatment. Will get X ray chest, start on steroids and zithromax for copd exacerbation? Mar 05 Patient seen examined, sitting in the chair comfortably, planning to hav breakfast, aoox1, quite confused, but was able to answer some questions, not able to hold a meaning ful conversation. Labs show pancytopenia, path smear is neg, seems to be improving clinically. Chest X ray shows mild CHF, ? left infiltrates mild? mar 06 patient seen examined, drowsy this AM opens eyes to verbal commands, but did not talk much with me, agitated overnight, trying to get out of bed and trying to remove lines and catheters.Plan to start him on respiridone 0.25mg bid. The patient chest x ray today shows delta fibrosis? no chf, monitor 03/07-persistent confusion. During my evaluation patient was disoriented to time place and person. He said his will be coming today from [place]. I reviewed labs which appears stable with white count of 6.2, and anemia normal bicarbonate profile with a creatinine down to 1.5.patient has been afebrile overnight. Currently on 3 L oxygen up from 2. He is sitting up in chair eating breakfast but has had intermittent episodes of agitation and confusion last night. Interval chest imaging only shows pulmonary fibrosis. Currently on Tamiflu/azithromycin.plan is to continue frequent reorientation/bright lights and avoidsedative hypnotics.continue risperidone. MRI today for further evaluation of mental status change. Also case discussed with patient's daughter Suzie on phone. Informed of clinical deterioration and discuss labs and imaging and hospital course. Also informed of treatment plan including MRI/possible lumbar puncture studies. 03/08-patient doing well.no overnight events. No concerns per staff other than persistent confusion.no signs of agitation. Mister family friend in room. Discuss patient's baseline and friend confirm that patient has had a gradual deterioration in mental status over the last few months. Also reviewed her IV care doctor's office notes with cognitive decline over the last visit. MRI could not be performed due to cough. Implant. I don't see any signs of encephalitis/fever/photophobia and neck stiffness that would mandate a lumbar puncture study at this time. Transfer to medical floor on watch bed. Anticipate transfer her dementia care unit in 24-48 hours. Discontinue steroids 03/09 Became quite agitated Monday evening, almost swinging at the staff. Received 1 mg of lorazepam, is quiet throughout the night, quite somnolent throughout most of the day today. 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 Old ischemic changes. Oxygen requirements are increasing, white count up to 13,000 along with fevers overnight. Urinalysis unremarkable, chest radiograph showing bibasilar infiltrates now, not present on March 06. Antibiotics started. Updated his daughter Suzie on the phone. Concerned about prognosis of influenza with delirium at baseline over the last several days now superimposed pneumonia as a complication of influenza. 2/2 Alert today, oriented to self. Was up to chair. Need assistance with lunch. Still quite confused though significantly improved from yesterday. Tolerating antibiotics. White count decreasing. 2/3-restless at times last night, staff had him up walking in the halls, subsequently slept. Have blood in Fletcher bag yesterday, has cleared up, suspect Fletcher trauma. Patient dozing, arouses, does not know where he is. Mental status improved, but not near baseline. Still requiring some oxygen to maintain saturations. Still requiring close staff supervision. 03/12-Remains restless at night at times. Walking and reorientation helped. During the day today, he is up in the chair, had times of lucidity. No real complaints. States he is in [place], he has a car out there, points out the window, and [place]. 03/13-situation stabilizing. Lungs are getting clear, able to cough well and clear up her secretions. Continues to have times of impulsivity and agitation needing redirection, followed by times of lucidity. On risperidone 0.5 mg twice a day. Benzodiazepines of been avoided for the last several days, they profoundly sedate the patient. 03/14: The patient seen examined, stable today, slept well last night, this AM was able to work with rehab, continues to have intermittent impulse issues, but no agitation so far. Remains on risperidone 0.25mg bid, which he seems to be tolerating well. Pertinent ROS: Denies headache, dizziness Denies chest pain, palpitations Denies cough or shortness of breath Denies abdominal pain, nausea or vomiting. - Constitutional Vitals: Vital Signs Temp Pulse Resp BP Pulse Ox 98.5 F 77 17 151/61 92 03/14/17 04:00 03/14/17 04:00 03/14/17 04:00 03/14/17 04:00 03/14/17 04:00 Period Temp Pulse Resp BP Sys/Rhodes Pulse Ox Last 24 Hr 98.3 F-99.0 F 66-77 12-20 116-151/52-76 92-96 Intake and Output 03/13/17 03/14/17 03/14/17 21:59 05:59 13:59 Intake Total 750 / 750 50 / 50 50 / 50 Output Total 0 / 0 525 / 525 Balance 750 / 750 -475 / -475 50 / 50 Weight 171 lb 9.6 oz Intake & Output: Intake & Output 03/13/17 03/14/17 03/14/17 21:59 05:59 13:59 Intake Total 750 / 750 50 / 50 50 / 50 Output Total 0 / 0 525 / 525 Balance 750 / 750 -475 / -475 50 / 50 Weight 171 lb 9.6 oz Intake: IV 50 / 50 50 / 50 50 / 50 Zosyn 2.25 gm In Dextrose 5% in 50 / 50 50 / 50 50 / 50 Water 50 ml @ 100 mls/hr IV Q6H [facility] Rx#:[id number] Oral 700 / 700 0 / 0 Output: Urine Catheter Amount 525 / 525 Void Amount 0 / 0 Exam: Constitutional; Afebrile, cooperative, alert, not in distress. Eyes- No icterus, , No periorbital swelling Ears- Ext ear normal, hearing hard to conversation. Neck- Midline trachea, supple Respiratory system: Air Entry equal on both sides, right basilar crackles, no wheeze. CVS- Rate rhythm regular, S1,S2 heard, no gallop, no rub. Abdomen- Soft nontender abdomen, no organomegaly, no tenderness, no guarding or rigidity, SIMULATION EDUCATOR- AOOx2, moving all extremities, no gross focal deficit noted. Medical - PN: Obj Da - Labs CBC & Chem 7: 03/14/17 09:00 03/14/17 09:00 Labs: Abnormal Lab Results 03/14/17 03/14/17 03/13/17 09:00 09:00 04:15 RBC 3.38 L Hgb 11.5 L Hct 33.4 L MCV MCH Lymph # (Auto) 1.0 L Seg Neutrophils % Lymphocytes % RBC Morphology Macrocytosis Sodium Carbon Dioxide 31 H 31 H BUN 29 H 29 H Creatinine 1.6 H 1.5 H Calcium 8.3 L 8.2 L Phosphorus 1.7 L Total Bilirubin 1.1 H AST 45 H Total Protein 5.7 L Albumin 2.4 L 2.6 L Albumin/Globulin Ratio 0.7 L 0.8 L 03/13/17 03/12/17 03/12/17 04:15 03:50 03:50 RBC 3.71 L 3.70 L Hgb 12.7 L 12.5 L Hct 37.1 L 37.1 L MCV 100.1 H MCH 34.3 H Lymph # (Auto) Seg Neutrophils % 91 H Lymphocytes % 5 L RBC Morphology Abnorm A Macrocytosis 1+ A Sodium 146 H Carbon Dioxide BUN 32 H Creatinine 1.5 H Calcium Phosphorus 1.7 L Total Bilirubin 1.1 H AST Total Protein Albumin 2.8 L Albumin/Globulin Ratio 0.9 L Meds: Medications Acetaminophen (Tylenol) 650 mg PO Q4-6HP PRN PRN Reason: PAIN/FEVER > 101 Last Admin: 03/14/17 09:09 Dose: 650 mg Albuterol Sulfate (Ventolin) 2 puff INH Q4-6HP PRN PRN Reason: Shortness Of Breath Albuterol/Ipratropium (Duoneb) 3 ml NEB Q4HP PRN PRN Reason: Shortness Of Breath Citalopram Hydrobromide (Celexa) 10 mg PO QDAY [facility] Last Admin: 03/14/17 09:09 Dose: 10 mg Docusate Sodium (Colace) 100 mg PO BID [facility] Last Admin: 03/14/17 09:09 Dose: 100 mg Furosemide (Lasix) 20 mg PO BID [facility] Last Admin: 03/14/17 09:09 Dose: 20 mg Heparin Sodium (Porcine) (Heparin) 5,000 unit SQ Q12 [facility] Last Admin: 03/14/17 09:08 Dose: 5,000 unit Magnesium Sulfate (Magnesium Sulfate) 2 gm in 50 mls @ 50 mls/hr IV UD PRN PRN Reason: MG = or < 1.7 Acetaminophen (Ofirmev) 1,000 mg in 100 mls @ 200 mls/hr IV Q6HP PRN PRN Reason: PAIN/FEVER > 101 Piperacillin Sod/Tazobactam (Sod 2.25 gm/ Dextrose) 50 mls @ 100 mls/hr IV Q6H [facility] Last Infusion: 03/14/17 06:00 Dose: Infused Ipratropium Radnor (Atrovent 0.06% Nasal Srpay) 2 spray CHRIS TID [facility] Last Admin: 03/14/17 09:08 Dose: 2 spray Iron Carb/Multivit/Sehili/Folic Acid (Multivitamin W/Minerals) 1 tab PO DAILY [facility] Last Admin: 03/14/17 09:09 Dose: 1 tab Levothyroxine Sodium (Synthroid) 25 mcg PO QAMAC [facility] Last Admin: 03/14/17 09:09 Dose: 25 mcg Lisinopril (Zestril) 20 mg PO DAILY [facility] Last Admin: 03/14/17 09:16 Dose: 20 mg Magnesium Hydroxide (Milk Of Magnesia) 30 ml PO DAILYP PRN PRN Reason: Constipation Omeprazole (Prilosec) 20 mg PO ACB [facility] Last Admin: 03/14/17 09:09 Dose: 20 mg Ondansetron HCl (Zofran) 4 mg IV Q4-6HP PRN PRN Reason: Nausea And Vomiting Budesonide/Formoterol Fumarate [Symbicort] 160-4.5 Mcg Inhaler 2 dose INH BID [facility] Last Admin: 03/14/17 09:08 Dose: 2 dose Risperidone (Risperdal) 0.25 mg PO BID [facility] Last Admin: 03/14/17 09:16 Dose: 0.25 mg Senna/Docusate Sodium (Senna Plus Tablet) 1 tab PO HS [facility] Last Admin: 03/13/17 21:34 Dose: Not Given Simvastatin (Zocor) 20 mg PO HS [facility] Last Admin: 03/13/17 21:35 Dose: Not Given Sodium Chloride (Saline Flush) 10 ml IV Q8 [facility] Last Admin: 03/14/17 05:24 Dose: 10 ml Tamsulosin HCl (Flomax) 0.4 mg PO DAILY [facility] Last Admin: 03/14/17 09:09 Dose: 0.4 mg Trazodone HCl (Desyrel) 50 mg PO HSP PRN PRN Reason: Insomnia Last Admin: 03/13/17 18:49 Dose: 50 mg Medical - PN: A/P - Time Spent With Patient Total time spent is greater than 50% in coordination of care (as documented) at patient's floor/unit and/or counseling patient: - Narrative A/P Narrative: 87-year-old gentleman presented with worsening shortness of breath, increasing weakness. He had generalized weakness, diffuse pain and low-grade fever. He was hospitalized with acute influenza. Acute influenza A. Resolving. Status post Tamiflu therapy. Plan: Supportive care Pneumonia/healthcare acquired pneumonia. Suspected complication of influenza. Developed low-grade fevers, leukocytosis, radiograph from last , showed new bibasilar infiltrates since March 06. White count normalized on antibiotics. Plan: Continue vancomycin and Zosyn, antibiotic day 6 today, last day of antibiotic tomorrow. Delirium. Patient was confused and minimally at the time of presentation. Has developed delirium. Suspected multi-factorial, Hospital/ICU delirium, affect of acute infectious illness, delayed effects of benzodiazepines which she has received for agitation in the setting of prior ischemic cerebrovascular disease. CT of the head with intercurrent lacunar infarct since November, do not suspect that fully explains his symptoms. Plan: Supportive care, reorientation, risperidone 0.25 mg twice a day, avoid benzodiazepines (if needed suggest 0.25 mg lorazepam). Pt seems to be doing well with current regime, and his stable. Acute exacerbation of COPD, present on admission, generally resolved. Remains on Pulmicort and DuoNeb. Status post steroids and azithromycin. Plan: Continue Pulmicort and DuoNeb., no wheezing on exam, Atrial fibrillation with rapid ventricular response. Present in the emergency room. Received amiodarone, had improvement in rate control. Currently irregular today, rate controlled. Plan: Monitor [place]-cytopenia. Resolved. Particularly leukopenia presentation, presumptively secondary to viral infection, subsequent leukocytosis due to pneumonia, now normalized. Plan: Continue to monitor CAD/ HTN/ HLD: Resume statin, aspirin, and lisinopril. Hypothyroidism: on levothyroxine, continue same ATTILA on CKD, resolved. Creatinine stable in 1.5-16. range, Anxiety, on citalopram; continue same. BPH on Flomax, continue same, h/o urinary retention needing frequent straight cath, Fletcher in place now. DVT hep sq Cardiac Diet Full Code Medical - PN: Qual - VTE Deep Vein Thrombosis/Pulmonary Embolism Present on Admission: No
[2017-03-14] MEDS: SIMVASTATIN 20 MG TABLET PO SCH (20:03)
[2017-03-14] MEDS: SENNOSIDES/DOCUSATE SODIUM 1 TAB TABLET PO SCH (20:03)
[2017-03-14] MEDS: traZODone HCL 50 MG TABLET PO PRN (20:04)
[2017-03-15] MEDS: PIPERACILLIN SODIUM/TAZOBACTAM 2.25 GM in DEXTROSE 5% IN WATER 50 ML IV SCH ×2 (05:32→11:13)
[2017-03-15] MEDS: 0.9 % SODIUM CHLORIDE 10 ML SYRINGE IV SCH ×2 (05:33→14:05)
[2017-03-15 05:53] LABS: Basophils # (Auto) 0 K/mcL (0.0-0.3); Basophils % (Auto) 0.2 % (0.0-2.0); Eosinophils # (Auto) 0.2 K/mcL (0.0-0.7); Eosinophils % (Auto) 2.8 % (0.0-7.0); Granulocytes % (Auto) 72.1 % (38.0-78.0); Lymphocytes # (Auto) 1.1 K/mcL (1.5-4.8); Mean Cell Volume 99.8 fL (80.0-100.0); Mean Corpuscular HGB Conc 33.8 g/dL (31.0-36.0); Mean Corpuscular Hemoglobin 33.7 pg (26.0-34.0); Monocytes # (Auto) 0.3 K/mcL (0.1-0.9); Monocytes % (Auto) 4.9 % (1.0-12.0); Platelet Count 298 K/mcL (140-440); RBC 3.62 M/mcL (4.50-5.90); Red Cell Distribution Width 12.5 % (11.5-14.5)
[2017-03-15 05:55] LABS: ALT/SGPT 56 U/l (0-40); Albumin 2.9 gm/dL (3.2-5.2); Albumin/Globulin Ratio 0.9 (1.0-2.3); Alkaline Phosphatase 63 U/L (39-117); Bilirubin,Direct 0.2 mg/dL (0.0-0.3); Blood Urea Nitrogen 30 mg/dl (8-23); Gamma Glutamyl Transpeptidase 43 U/L (8-61); Uric Acid 5.6 mg/dL (2.5-8.0)
[2017-03-15] MEDS: risperiDONE 0.25 MG TABLET PO SCH (08:53)
[2017-03-15] MEDS: IPRATROPIUM 0.06% NASAL SPRAY BOTTLE 30ML NAS SCH ×2 (08:53→15:43)
[2017-03-15] MEDS: HEPARIN 5,000 UNIT/ML VIAL SQ SCH (08:53)
[2017-03-15] MEDS: LISINOPRIL 20 MG TABLET PO SCH (08:54)
[2017-03-15] MEDS: ACETAMINOPHEN 325 MG TABLET PO PRN (08:54)
[2017-03-15] MEDS: OMEPRAZOLE 20 MG CAPSULE PO SCH (08:54)
[2017-03-15] MEDS: Budesonide/Formoterol Fumarate [Symbicort] 160-4.5 mcg Inhaler INH SCH (08:54)
[2017-03-15] MEDS: MULTIVIT,THER IRON,CA,FA & MIN 1 TABLET PO SCH (08:55)
[2017-03-15] MEDS: CITALOPRAM 20 MG TABLET PO SCH (08:55)
[2017-03-15] MEDS: TAMSULOSIN 0.4 MG CAPSULE PO SCH (08:55)
[2017-03-15] MEDS: LEVOTHYROXINE 25 MCG TABLET PO SCH (08:55)
[2017-03-15] MEDS: DOCUSATE SODIUM 100 MG CAPSULE PO SCH (08:55)
[2017-03-15] MEDS ORDERED: FUROSEMIDE 20 MG TABLET PO SCH (09:00)
--- NOTE | 2017-03-15 12:42 | Internal Med Progress Note ---
Medical - PN: Subj Patient information: Note initiated : 03/15/17 at 12:38 pm Service Date, if different from initiated Date: [] Patient: Carlos Zuniga 87 y/o M admitted on 03/02/17 for Fall/RVR, Influenza A , Pneumonia. Chief Complaint: [] Interval history: 03/02-patient admitted with worsening shortness of breath confusion,dizziness weakness and high-grade fever. influenza A positive. Initially in A. fib with RVR with hypotension and subsequently started on amiodarone in the ER with conversion to sinus rhythm. patient demonstrate fluctuating mental status with confusion. Patient was subsequently admitted to telemetry in light of acute influenza with mental status change H fibrillation with RVR. 03/03-patient remains persistently confused MAXIMUM TEMPERATURE 101. Tachycardia around 110 but in sinus. Status post amiodarone in the ED. On Tamiflu. Continue physical therapy/OT. droplet precautions. restart pre- existing home medications once able to tolerate by mouth and follow commands. no CP/SOB or cardiac arrhythmias on telemetry Mar 04 Patient seen examined, , patient is afebrile this AM, patient was confused and agitated last night, but slept well after ativan. This AM drowsy and did not talk to me, the patient hemodynamically is stable. Exam has delta exp wheezing at rest after duoneb treatment. Will get X ray chest, start on steroids and zithromax for copd exacerbation? Mar 05 Patient seen examined, sitting in the chair comfortably, planning to hav breakfast, aoox1, quite confused, but was able to answer some questions, not able to hold a meaning ful conversation. Labs show pancytopenia, path smear is neg, seems to be improving clinically. Chest X ray shows mild CHF, ? left infiltrates mild? mar 06 patient seen examined, drowsy this AM opens eyes to verbal commands, but did not talk much with me, agitated overnight, trying to get out of bed and trying to remove lines and catheters.Plan to start him on respiridone 0.25mg bid. The patient chest x ray today shows delta fibrosis? no chf, monitor 03/07-persistent confusion. During my evaluation patient was disoriented to time place and person. He said his will be coming today from [place]. I reviewed labs which appears stable with white count of 6.2, and anemia normal bicarbonate profile with a creatinine down to 1.5.patient has been afebrile overnight. Currently on 3 L oxygen up from 2. He is sitting up in chair eating breakfast but has had intermittent episodes of agitation and confusion last night. Interval chest imaging only shows pulmonary fibrosis. Currently on Tamiflu/azithromycin.plan is to continue frequent reorientation/bright lights and avoidsedative hypnotics.continue risperidone. MRI today for further evaluation of mental status change. Also case discussed with patient's daughter Suzie on phone. Informed of clinical deterioration and discuss labs and imaging and hospital course. Also informed of treatment plan including MRI/possible lumbar puncture studies. 03/08-patient doing well.no overnight events. No concerns per staff other than persistent confusion.no signs of agitation. Mister family friend in room. Discuss patient's baseline and friend confirm that patient has had a gradual deterioration in mental status over the last few months. Also reviewed her IV care doctor's office notes with cognitive decline over the last visit. MRI could not be performed due to cough. Implant. I don't see any signs of encephalitis/fever/photophobia and neck stiffness that would mandate a lumbar puncture study at this time. Transfer to medical floor on watch bed. Anticipate transfer her dementia care unit in 24-48 hours. Discontinue steroids 03/09 Became quite agitated Monday evening, almost swinging at the staff. Received 1 mg of lorazepam, is quiet throughout the night, quite somnolent throughout most of the day today. 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 Old ischemic changes. Oxygen requirements are increasing, white count up to 13,000 along with fevers overnight. Urinalysis unremarkable, chest radiograph showing bibasilar infiltrates now, not present on March 06. Antibiotics started. Updated his daughter Suzie on the phone. Concerned about prognosis of influenza with delirium at baseline over the last several days now superimposed pneumonia as a complication of influenza. 2/2 Alert today, oriented to self. Was up to chair. Need assistance with lunch. Still quite confused though significantly improved from yesterday. Tolerating antibiotics. White count decreasing. 2/3-restless at times last night, staff had him up walking in the halls, subsequently slept. Have blood in Garza bag yesterday, has cleared up, suspect Garza trauma. Patient dozing, arouses, does not know where he is. Mental status improved, but not near baseline. Still requiring some oxygen to maintain saturations. Still requiring close staff supervision. 2-Remains restless at night at times. Walking and reorientation helped. During the day today, he is up in the chair, had times of lucidity. No real complaints. States he is in [place], he has a car out there, points out the window, and [place]. 2-situation stabilizing. Lungs are getting clear, able to cough well and clear up her secretions. Continues to have times of impulsivity and agitation needing redirection, followed by times of lucidity. On risperidone 0.5 mg twice a day. Benzodiazepines of been avoided for the last several days, they profoundly sedate the patient. 03/14: The patient seen examined, stable today, slept well last night, this AM was able to work with rehab, continues to have intermittent impulse issues, but no agitation so far. Remains on risperidone 0.25mg bid, which he seems to be tolerating well. 03/15: pt seen examined, unable to pass urine, garza placed, dose of flomax incrased to 0.4mg bid, pt still is aoox 1, confused, but cooperative. awaiting snf placement dose of furosemide cut to 20mg qam from bid now, given pt is euvolumic. d/c antibiotics today Pt has no other complaints. Pertinent ROS: Denies headache, dizziness Denies chest pain, palpitations Denies cough or shortness of breath Denies abdominal pain, nausea or vomiting. - Constitutional Vitals: Vital Signs Temp Pulse Resp BP Pulse Ox 97.7 F 59 L 18 115/57 98 03/15/17 12:00 03/15/17 12:00 03/15/17 12:00 03/15/17 12:00 03/15/17 12:00 Period Temp Pulse Resp BP Sys/Rhodes Pulse Ox Last 24 Hr 97.3 F-98.6 F 59-96 16-18 108-161/48-57 92-98 Intake and Output 03/14/17 03/15/17 03/15/17 21:59 05:59 13:59 Intake Total 630 / 630 50 / 50 450 / 450 Output Total 1050 / 1050 625 / 625 Balance -420 / -420 -575 / -575 450 / 450 Weight 170 lb 11.2 oz Intake & Output: Intake & Output 03/14/17 03/15/17 03/15/17 21:59 05:59 13:59 Intake Total 630 / 630 50 / 50 450 / 450 Output Total 1050 / 1050 625 / 625 Balance -420 / -420 -575 / -575 450 / 450 Weight 170 lb 11.2 oz Intake: IV 50 / 50 50 / 50 50 / 50 Zosyn 2.25 gm In Dextrose 5% in 50 / 50 50 / 50 50 / 50 Water 50 ml @ 100 mls/hr IV Q6H [facility] Rx#:[id number] Oral 580 / 580 400 / 400 Output: Urine Catheter Amount 1050 / 1050 625 / 625 Void Amount 0 / 0 Other: Meal Dinner Breakfast Percent of Meal Consumed 100% 100% Feeding Ability Independent Assist with Tray Set Up # Bowel Movements 1 Exam: Constitutional; Afebrile, cooperative, alert, not in distress. Eyes- No icterus, , No periorbital swelling Ears- Ext ear normal, hearing very hard to conversation. Neck- Midline trachea, supple Respiratory system: Air Entry equal on both sides, No crackles or wheezing, no rhonchi. CVS- Rate rhythm irregular, S1,S2 heard, no gallop, no rub. Abdomen- Soft nontender abdomen, no organomegaly, no tenderness, no guarding or rigidity, MEDICAL OFFICE REP- AOOx1, moving all extremities, no gross focal deficit noted. Medical - PN: Obj Da - Labs CBC & Chem 7: 03/15/17 04:06 03/15/17 04:06 Labs: Abnormal Lab Results 03/15/17 03/15/17 03/14/17 04:06 04:06 09:00 RBC 3.62 L Hgb 12.2 L Hct 36.1 L MCH Lymph # (Auto) 1.1 L Carbon Dioxide 31 H BUN 30 H 29 H Creatinine 1.8 H 1.6 H Calcium 8.5 L 8.3 L Phosphorus 2.6 L Total Bilirubin AST 54 H 45 H ALT 56 H Total Protein 5.7 L Albumin 2.9 L 2.4 L Albumin/Globulin Ratio 0.9 L 0.7 L 03/14/17 03/13/17 03/13/17 09:00 04:15 04:15 RBC 3.38 L 3.71 L Hgb 11.5 L 12.7 L Hct 33.4 L 37.1 L MCH 34.3 H Lymph # (Auto) 1.0 L Carbon Dioxide 31 H BUN 29 H Creatinine 1.5 H Calcium 8.2 L Phosphorus 1.7 L Total Bilirubin 1.1 H AST ALT Total Protein Albumin 2.6 L Albumin/Globulin Ratio 0.8 L Meds: Medications Acetaminophen (Tylenol) 650 mg PO Q4-6HP PRN PRN Reason: PAIN/FEVER > 101 Last Admin: 03/15/17 08:54 Dose: 650 mg Albuterol Sulfate (Ventolin) 2 puff INH Q4-6HP PRN PRN Reason: Shortness Of Breath Albuterol/Ipratropium (Duoneb) 3 ml NEB Q4HP PRN PRN Reason: Shortness Of Breath Citalopram Hydrobromide (Celexa) 10 mg PO QDAY [facility] Last Admin: 03/15/17 08:55 Dose: 10 mg Docusate Sodium (Colace) 100 mg PO BID [facility] Last Admin: 03/15/17 08:55 Dose: 100 mg Furosemide (Lasix) 20 mg PO QAM [facility] Last Admin: 03/15/17 08:55 Dose: 20 mg Heparin Sodium (Porcine) (Heparin) 5,000 unit SQ Q12 [facility] Last Admin: 03/15/17 08:53 Dose: 5,000 unit Magnesium Sulfate (Magnesium Sulfate) 2 gm in 50 mls @ 50 mls/hr IV UD PRN PRN Reason: MG = or < 1.7 Acetaminophen (Ofirmev) 1,000 mg in 100 mls @ 200 mls/hr IV Q6HP PRN PRN Reason: PAIN/FEVER > 101 Piperacillin Sod/Tazobactam (Sod 2.25 gm/ Dextrose) 50 mls @ 100 mls/hr IV Q6H [facility] Last Admin: 03/15/17 11:13 Dose: 100 mls/hr Ipratropium [place] (Atrovent 0.06% Nasal Srpay) 2 spray CHRIS TID [facility] Last Admin: 03/15/17 08:53 Dose: 2 spray Iron Carb/Multivit/[place]/Folic Acid (Multivitamin W/Minerals) 1 tab PO DAILY [facility] Last Admin: 03/15/17 08:55 Dose: 1 tab Levothyroxine Sodium (Synthroid) 25 mcg PO QAMAC [facility] Last Admin: 03/15/17 08:55 Dose: 25 mcg Lisinopril (Zestril) 20 mg PO DAILY [facility] Last Admin: 03/15/17 08:54 Dose: 20 mg Magnesium Hydroxide (Milk Of Magnesia) 30 ml PO DAILYP PRN PRN Reason: Constipation Omeprazole (Prilosec) 20 mg PO ACB [facility] Last Admin: 03/15/17 08:54 Dose: 20 mg Ondansetron HCl (Zofran) 4 mg IV Q4-6HP PRN PRN Reason: Nausea And Vomiting Budesonide/Formoterol Fumarate [Symbicort] 160-4.5 Mcg Inhaler 2 dose INH BID [facility] Last Admin: 03/15/17 08:54 Dose: 2 dose Risperidone (Risperdal) 0.25 mg PO BID [facility] Last Admin: 03/15/17 08:53 Dose: 0.25 mg Senna/Docusate Sodium (Senna Plus Tablet) 1 tab PO HS [facility] Last Admin: 03/14/17 20:03 Dose: 1 tab Simvastatin (Zocor) 20 mg PO HS [facility] Last Admin: 03/14/17 20:03 Dose: 20 mg Sodium Chloride (Saline Flush) 10 ml IV Q8 [facility] Last Admin: 03/15/17 05:33 Dose: 10 ml Tamsulosin HCl (Flomax) 0.4 mg PO BID [facility] Last Admin: 03/15/17 08:55 Dose: 0.4 mg Trazodone HCl (Desyrel) 50 mg PO HSP PRN PRN Reason: Insomnia Last Admin: 03/14/17 20:04 Dose: 50 mg Medical - PN: A/P - Time Spent With Patient Total time spent is greater than 50% in coordination of care (as documented) at patient's floor/unit and/or counseling patient: - Narrative A/P Narrative: 87-year-old gentleman presented with worsening shortness of breath, increasing weakness. He had generalized weakness, diffuse pain and low-grade fever. He was hospitalized with acute influenza. Acute influenza A. Resolving. Status post Tamiflu therapy. Plan: Supportive care Pneumonia/healthcare acquired pneumonia. Suspected complication of influenza. Developed low-grade fevers, leukocytosis, radiograph from last , showed new bibasilar infiltrates since March 06. White count normalized on antibiotics. Plan: Completed course of vanco and zosyn, antibiotic day 7 today, discontinue IV antibiotics. Delirium. Patient was confused and minimally at the time of presentation. Has developed delirium. Suspected multi-factorial, Hospital/ICU delirium, affect of acute infectious illness, delayed effects of benzodiazepines which she has received for agitation in the setting of prior ischemic cerebrovascular disease. CT of the head with intercurrent lacunar infarct since November, do not suspect that fully explains his symptoms. Plan: Supportive care, reorientation, risperidone 0.25 mg twice a day, avoid benzodiazepines (if needed suggest 0.25 mg lorazepam). Pt seems to be doing well with current regime, and his stable. Acute exacerbation of COPD, present on admission, generally resolved. Remains on Pulmicort and DuoNeb. Status post steroids and azithromycin. Plan: Continue Pulmicort and DuoNeb., no wheezing on exam, on room air. Atrial fibrillation with rapid ventricular response. Present in the emergency room. Received amiodarone, had improvement in rate control. Currently irregular today, rate controlled. Plan: Monitor Pabon-cytopenia. Resolved. Particularly leukopenia presentation, presumptively secondary to viral infection, subsequent leukocytosis due to pneumonia, now normalized. Plan: Continue to monitor CAD/ HTN/ HLD: Resume statin, aspirin, and lisinopril. Hypothyroidism: on levothyroxine, continue same ATTILA on CKD, resolved. Creatinine stable in 1.5-16. range, Anxiety, on citalopram; continue same. BPH on Flomax, continue same, h/o urinary retention needing frequent straight cath, Garza in place now. dose of flomax is 0.4mg bid, will give voiding trial in another 1-2 weeks. DVT hep sq Cardiac Diet Full Code Medical - PN: Qual - VTE Deep Vein Thrombosis/Pulmonary Embolism Present on Admission: No
--- NOTE | 2017-03-15 14:11 | Discharge Summary ---
Medical - DS: Prov Patient information: Note initiated : 03/15/17 at 2:05 pm Service Date, if different from initiated Date: [] Patient: Carlos Zuniga 87 y/o M admitted on 03/02/17 for Fall/RVR, Influenza A , Pneumonia. Chief Complaint: [] Date of admission: 03/02/17 21:35 Discharge date: 03/15/17 Primary care physician: Anurag Browning Admitting clinician: Flip Pena Consults: 03/02/17 18:06 Consult to Physician [CONS] Stat Comment: Consulting Provider: Flip Pena Reason For Exam: Physician to Consult 03/08/17 13:40 Consult to Physician [CONS] Routine Comment: Consulting Provider: [facility] Reason For Exam: Physician to Consult 03/15/17 13:32 Consult to Physician [CONS] Routine Comment: Consulting Provider: [place] Reason For Exam: Physician to Consult Discharging clinician: Adele Gandara Medical - DS: Meds - Discharge Medications Prescriptions: risperiDONE [Risperdal] 0.25 mg PO BID #60 tab Tamsulosin [Flomax] 0.4 mg PO BID #60 cap Active and Home Medications: Home Medications ipratropium bromide 0.03 % nasal spray 2 spray INTRANASAL TID #30 ml 03/29/16 [ Rx Confirmed 03/02/17 Last Taken Unknown] cyanocobalamin (vit B-12) 1,000 mcg/mL injection solution 1,000 mcg IM QMONTH # 30 ml 07/01/16 [Rx Confirmed 03/09/17 Last Taken Unknown] albuterol sulfate HFA 90 mcg/actuation aerosol inhaler 2 puff INHALATION .Q4-6H PRN #18 g 07/27/16 [Rx Confirmed 03/02/17 Last Taken Unknown] budesonide-formoterol HFA 160 mcg-4.5 mcg/actuation aerosol inhaler 2 inh INHALATION BID #10.2 g 07/27/16 [Rx Confirmed 03/02/17 Last Taken Unknown] levothyroxine 25 mcg tablet 25 mcg PO QDAY #90 tab 08/08/16 [Rx Confirmed Last Taken Unknown] ipratropium-albuterol 0.5 mg-3 mg(2.5 mg base)/3 mL nebulization soln 3 ml INHALATION QID PRN #360 ml 09/21/16 [Rx Confirmed 03/02/17 Last Taken Unknown] citalopram 20 mg tablet 10 mg PO QDAY #60 tab 01/06/17 [Rx Confirmed 03/02/17 Last Taken Unknown] furosemide 20 mg tablet 20 mg PO BID #60 tab 01/16/17 [Rx Confirmed 03/02/17 Last Taken Unknown] omeprazole 20 mg capsule,delayed release 20 mg PO ACB #30 cap 01/16/17 [Rx Confirmed 03/02/17 Last Taken Unknown] simvastatin 20 mg tablet 20 mg PO QDAY #90 tab 01/16/17 [Rx Confirmed 03/02/17 Last Taken Unknown] Lisinopril [Zestril] 20 mg PO DAILY 03/02/17 [History Confirmed 03/02/17 Last Taken Unknown] CPAP and supplies 1 unit DAILY 03/09/17 [History Confirmed 03/09/17 Last Taken Unknown] Medical - DS: Hosp Hospital course: The patient is an 86-year-old who lives with his / Girlfriend Michael in the [place] and has been in his baseline state of health until over the last few days before admission to the hospital. The patient has been getting progressively weak, short of breath, unable to function. The patient has had dramatic decline in effort tolerance. He endorses to cough along with weakness , diffuse pain, and low grade fever. On the day of admission the patient has been fairly lightheaded and dizzy and unable to ambulate with a remarkable decline in functional status and worsening shortness of breath. EMS was called and was brought into [facility] Room with atrial fibrillation with RVR. The patient was started on rate controlled modality with amiodarone in light of hypotension with systolics around 80s. After crystalloid administration and amiodarone load patient's heart rate improved to around 100. Influenza A came back positive. Hospitalist Service was consulted in light of atrial fibrillation with RVR and influenza. Initial workup was significant for white count of 2.5 along with creatinine of 2.6 and elevated troponin of 0.05. The patient was admitted to the hospital for further management. Influenza A: Treated with tamiflu, patient completed the course of treatment while in the hospital and has no further symptoms. Hospital Acquired Pneumonia: The hospital course was complicated with HCAP pna, and patient was treated with 7 days course of IV antibiotics. Last day of antibiotic was on 03/15/17 Altered mental status: Patient was confused since admission, and remained confused, with waxing and waning periods during the hospital stay, his Confusion was attributed to Delirum secondary to hospital stay as well as related to infection. his condition has improved at the time of discharge, but patient is hard of hearing, and is only aoox1, he does obey commands and is not aggressive or agitated. He was started on risperidone 0.25mg bid, which I am planning on continuing while outpatient, this medication can be weaned off over the next few days as his symptoms improve. BPH/ Urinary retention: The hospital stay was complicated by urinary retention, he failed voiding trials, he will be discharged to snf with a garza catheter, he has been started on flomax 0.4mg bid, he will need to follow up with urology as outpatient for voiding trial. Acute exacerbation of COPD, present on admission, generally resolved. Remains on Pulmicort and DuoNeb. Status post steroids and azithromycin. Continue symbicort and DuoNebs at discharge . Atrial fibrillation with rapid ventricular response. Present in the emergency room. Received amiodarone, had improvement in rate, and also back to sinus. Pabon-cytopenia. Resolved. Particularly leukopenia presentation, presumptively secondary to viral infection, subsequent leukocytosis due to pneumonia, now normalized. CAD/ HTN/ HLD: Resume statin, aspirin, and lisinopril. Hypothyroidism: on levothyroxine, continue same at discharge. ATTILA on CKD, resolved. Creatinine stable , at the time of discharge creat is 1.8 , his dose of lasix has been cut from 20mg bid to 20mg once daily. Anxiety, on citalopram, no changes made. At the time of discharge patient is aoox1, but able to follow commands, participates in rehab, not aggresive. He will follow up with his PCP and urology as outpatient. Discharge diagnosis: influenza, copd exacerbation, HCAP pneumoina, Delerium. - Time Spent with Patient Total time spent providing and/or coordinating discharge services: Greater than 30 minutes Medical - DS: Exam - Constitutional Vitals: Vital Signs Temp Pulse Resp BP BP Pulse Ox 03/15/17 12:00 97.7 F 59 L 18 115/57 98 03/15/17 08:00 97.3 F 73 16 108/55 96 03/15/17 03:17 98.0 F 77 18 93 03/14/17 23:56 98.0 F 68 16 92 03/14/17 20:00 97.9 F 18 140/48 94 03/14/17 19:38 94 03/14/17 16:00 98.6 F 96 H 18 161/53 96 Intake and Output 03/15/17 03/15/17 03/15/17 05:59 13:59 21:59 Intake Total 50 / 50 450 / 450 Output Total 625 / 625 Balance -575 / -575 450 / 450 Intake: IV 50 / 50 50 / 50 Zosyn 2.25 gm In Dextrose 5% in 50 / 50 50 / 50 Water 50 ml @ 100 mls/hr IV Q6H [facility] Rx#:[id number] Oral 400 / 400 Output: Urine Catheter Amount 625 / 625 Void Amount 0 / 0 Other: Meal Breakfast Percent of Meal Consumed 100% Feeding Ability Assist with Tray Set Up Additional comments: Constitutional; Afebrile, cooperative, alert, not in distress. Eyes- No icterus, , No periorbital swelling Ears- Ext ear normal, hearing very hard conversation. Neck- Midline trachea, supple Respiratory system: Air Entry equal on both sides, No crackles or wheezing, no rhonchi. CVS- Rate rhythm regular, S1,S2 heard, no gallop, no rub. Abdomen- Soft nontender abdomen, no organomegaly, no tenderness, no guarding or rigidity, STOCKLAYER- AOOx1, moving all extremities, no gross focal deficit noted. Medical - DS: Data Labs on day of discharge: Labs from last 24 hours 03/15/17 03/15/17 04:06 04:06 WBC 5.6 RBC 3.62 L Hgb 12.2 L Hct 36.1 L MCV 99.8 MCH 33.7 MCHC 33.8 RDW 12.5 Plt Count 298 MPV 8.0 Gran % 72.1 Lymph % (Auto) 20.0 Nash % (Auto) 4.9 Eos % (Auto) 2.8 Baso % (Auto) 0.2 Gran # 4.1 Lymph # (Auto) 1.1 L Nash # (Auto) 0.3 Eos # (Auto) 0.2 Baso # (Auto) 0 Sodium 144 Potassium 3.8 Chloride 104 Carbon Dioxide 29 Anion Gap 11.0 BUN 30 H Creatinine 1.8 H GFR Calculation 33 Glucose 89 Uric Acid 5.6 Calcium 8.5 L Phosphorus 2.6 L Magnesium 2.3 Total Bilirubin 0.8 Direct Bilirubin 0.2 GGT 43 AST 54 H ALT 56 H Alkaline Phosphatase 63 Lactate Dehydrogenase 211 Total Protein 6.0 Albumin 2.9 L Globulin 3.1 Albumin/Globulin Ratio 0.9 L Triglycerides 110 Medical - DS: A/P - Patient/Caregiver Discharge Instructions Activity: as per physical therapy, increase activity as tolerated Diet: Cardiac Additional Instructions: Take medications as prescribed Follow up with PCP in 1 week Follow up with Urology/ Dr Govea in 2 weeks for voiding trial Go to the ER if fever, chest pain, shortness of breath or any other concerning symptom. - Follow up Plan Follow up with: Jack Browning MD [Primary Care Provider] - Perez Govea MD [Physician] - Disposition: Xfer SNF Prognosis: Fair Rehab Potential: Fair I certify that the patient requires SNF services: No Overall status at discharge: patient is progressing back to baseline Medical - DS: Qual - VTE Deep Vein Thrombosis/Pulmonary Embolism Present on Admission: No
== END 2017-03-15 14:45 | DRG 190 ==
LOC: ED 16:04 → ICU 21:25
PROVIDERS: ADMIT Internal Medicine; ATTEND Internal Medicine

== ENCOUNTER 2017-07-19 17:49 | Inpatient (IN) ==
--- NOTE | 2017-07-19 18:27 | Emergency Department Note ---
General Adult HPI - General Chief complaint: Bleeding Other Stated complaint: right arm hematoma, moist cough, Time Seen by Provider: 07/19/17 17:58 Source: other Mode of arrival: wheelchair Limitations: altered mental status - History of Present Illness HPI Narrative: Patient with outpatient transfusion, undisclosed indication. Patient became agitated, remove the IV. Hematoma in the IV site, right forearm. Patient suggested agitated, brought over for further evaluation. Patient alert, oriented to person and place as well as circumstance. Reviews his past history as well as his current doctor.That he had a fall earlier this week, demonstrates skin slips on his left forearm. Cooperative, states that he is "tired of being in the hospital and getting blood draws". Denies headache blurred vision. States chronic cough unchanged. - Related Data Home Medications Medication Instructions Recorded Confirmed CPAP and supplies 1 unit DAILY 03/09/17 07/18/17 ipratropium bromide 0.03 % nasal 2 spray INTRANASAL BID-TID PRN 05/01/17 spray aspirin 81 mg tablet,delayed 81 mg PO QDAY 05/02/17 07/18/17 release bisacodyl 10 mg rectal suppository 10 mg W[place] QDAY PRN 05/02/17 07/18/17 magnesium hydroxide 400 mg/5 mL 30 ml PO ONCE PRN ml 06/07/17 07/18/17 oral suspension sodium phosphates 19 gram-7 118 ml WV ONCE PRN 06/07/17 07/18/17 gram/118 mL enema amiodarone 200 mg tablet 200 mg PO BID tab 07/18/17 07/18/17 Previous Rx's Medication Instructions Recorded cyanocobalamin (vit B-12) 1,000 1,000 mcg IM QMONTH #30 ml 07/01/16 mcg/mL injection solution levothyroxine 25 mcg tablet 25 mcg PO QDAY #90 tab 08/08/16 citalopram 20 mg tablet 10 mg PO QDAY #60 tab 01/06/17 omeprazole 20 mg capsule,delayed 20 mg PO ACB #30 cap 01/16/17 release simvastatin 20 mg tablet 20 mg PO QDAY #90 tab 01/16/17 Tamsulosin [Flomax] 0.4 mg PO BID #60 cap 03/15/17 fluticasone 100 mcg-umeclid 62.5 1 inh INHALATION QDAY #60 each 04/03/17 mcg-vilant 25 mcg powd for inhalation cholecalciferol (vitamin D3) 2,000 2,000 unit PO QDAY #30 cap 05/02/17 unit capsule ipratropium-albuterol 0.5 mg-3 3 ml INHALATION Q4H PRN #360 ml 06/15/17 mg(2.5 mg base)/3 mL nebulization soln risperidone 0.25 mg tablet 0.25 mg PO QDAY PRN #30 tab 07/14/17 lisinopril 10 mg tablet 10 mg PO QDAY #60 tab 07/18/17 furosemide 40 mg tablet 40 mg PO .QOD #60 tab 07/19/17 Allergies Allergy/AdvReac Type Severity Reaction Status Date / Time adhesive tape Allergy Severe Blister Verified 07/19/17 17:53 hydrocodone [HYDROCODONE] Allergy Intermediate Hallucinati Verified 07/19/17 17: 53 ons/RASH ciprofloxacin [From CIPRO] AdvReac Severe TENDON Verified 07/19/17 17:53 DETERIORATION fentanyl [FENTANYL] AdvReac Intermediate Hallucinations Verified 07/19/17 17:53 (DURAGESIC) Oxycodone [OXYCODONE] AdvReac Intermediate Itching Verified 07/19/17 17:53 acetaminophen AdvReac Unknown unknown Verified 07/19/17 17:53 Quinolones AdvReac Unknown unknown Verified 07/19/17 17:53 Review of Systems All systems ED: reviewed and negative except as stated. Constitutional: Denies: fever, chills Cardiovascular: Denies: chest pain, palpitations Respiratory: Reports: shortness of breath (chronic) Past Medical History - Past Medical History Attestation: Yes: The following information was validated with the patient. Medical history: Reports: cancer, COPD, coronary artery disease, GERD, hyperlipidemia, hypertension, renal disease, thyroid disease, other (hx of a fib in past) Psychiatric history: Reports: no psych history Surgical history ED: Reports: angioplasty/stent, cataract, cholecystectomy, hip replacement, orthopedic, other, other - Social History smoking status: Former smoker Alcohol use: Reports: Occasionally Drug use: Reports: none Physical Exam Limitations: altered mental status General appearance: alert, in no apparent distress Head: atraumatic, normocephalic Eye: Present: normal appearance ENT: normal exam, mucous membranes moist Neck: Absent: lymphadenopathy Chest: Present: normal inspection Respiratory: Present: other (diffuse coarse breath sound). Absent: respiratory distress Cardiovascular: Present: regular rate Abdominal: Present: soft. Absent: tenderness Extremities: Present: other (wrapped left arm, normal distal pulses; skin slip healing lateral left upper arm; chronic hemosiderin findings of the right forearm, small hematoma right antecubital) Course - Reevaluation(s) Reevaluation #1: Discussed with patient mildly worsening anemia. Patient acknowledges, states that "I feel just fine". Has dressed himself and is pacing in the room without limitations. No hypoxia or hemodynamic instabilities identified. No active bleeding. Patient advised for observational stay for additional attempt at transfusion. Patient adamantly declines states "I feel fine and wanted to home". Reassessment without active confusion or confabulation, mild dementia but no active memory issues currently, of full reiteration of today's events as well as the advice given, again states his expectation to discharge home and refusal to stay. Time: 19:12 Reevaluation #2: Discussion with Aaliyah, daughter by phone. Active power of commercial litigation paralegal since patient was admitted and severely ill with influenza earlier this spring. POA states has never returned to independent baseline, significantly confused and unable to care for self or make judgments for self. Patient actively stating that he wants to leave and that he needs to "drive my truck downtown". Confirmed that he actually was transported here from his assisted living. Patient does not have keys on his person. Discussed patient with Dr. Gandara, agreed with admission Time: 19:49 Vital Signs Temperature 97.8 F 07/19/17 17:50 Pulse Rate 106 H 07/19/17 17:50 Respiratory Rate 07/19/17 17:50 Blood Pressure 128/71 07/19/17 17:50 Pulse Oximetry (%) 98 07/19/17 17:50 Temperature 97.8 F 07/19/17 17:50 Pulse Rate 106 H 07/19/17 17:50 Respiratory Rate 07/19/17 17:50 Blood Pressure 128/71 07/19/17 17:50 Pulse Oximetry (%) 98 07/19/17 17:50 Medical Decision Making - Medical Records Medical records reviewed: Yes I reviewed the patient's medical records. ER visit, recent, reviewed as well as chest x-ray. Labs were assays post-ER stay as well as Dr. Frias's clinic note from yesterday reviewed. - Lab Data Lab results reviewed: Yes I reviewed the patient's lab results. Lab Results 07/19/17 Range/Units 18:30 POC Hct 26.0 L (41.0-55.0) % POC Sodium 140 (133-145) mmol/L POC Potassium 4.1 (3.3-5.1) mmol/L POC Chloride 105 (96-108) mmol/L POC Total CO2 21 L (22-30) mmol/L POC BUN 41 H (8-23) mg/dl POC Creatinine 3.0 H (0.7-1.2) mg/dl POC Glucose 106 H (70-105) mg/dL POC WB Ioniz Calcium 0.97 L (1.16-1.32) mmol/L - Radiology Data Radiology results reviewed: Yes I reviewed the patient's radiology results. No acute infiltrate or process him a no volume overload Disposition Pt seen by [employer]/PA only: No Clinical Impression: Hematoma, Anemia Summary: Increasing blood loss with developing near critical anemia; worsening prerenal status Attempt at transfusion earlier unsuccessful Conferred with POA, admission with transfusion in spite of patient's desire elsewise Disposition: Xfer As Outpt/Obs ([facility]) Condition: Fair Referrals: Jack Browning MD [Primary Care Provider] -
--- NOTE | 2017-07-19 20:58 | Internal Med History&Physical ---
Medical - H&P: HPI Patient information: Note initiated : 07/19/17 at 8:51 pm Service Date, if different from initiated Date: [] Patient: Carlos Zuniga 87 y/o M admitted on for right arm hematoma, moist cough,. Chief Complaint: [] History of present illness: Mr. Zuniga is a 87 year old Male with multiple medical comorbidites, dementia, who has been in the ER 3 times over the last 4 days. The patient was in the ER on 07/14/17, that time he had a mechanical fall and I believe he lacerated his arm this bled extensively according to the notes, left arm deep subcutaneous laceration, according to the notes it was 20 cm in length. Required 30 4 sutures. Patient was subsequently discharged. The patient presented to the emergency room again on the same day with symptoms of passing out, was found to be in A. fib with RVR, he was given amiodarone rate improved and then subsequently discharged on p.o. amiodarone. It is my understanding that he was not committed to the hospital because there were no beds available. CT head was done which was negative CT spine was negative. The patient was subsequently seen by the primary care provider who noted the patient had borderline low blood pressure but otherwise appeared stable, blood work was ordered it seems that the patient had a significant drop in his hemoglobin and therefore blood transfusions were ordered as an outpatient for the patient. While receiving blood transfusions, the patient became agitated ripped out the IV access. The patient did not get the full ordered 2 units, her some of the blood infiltrated in the arm, and I am not sure how much blood he totally received. The patient was sent to the emergency room because of his agitated behavior. The patient did not wish to be admitted to the hospital he noted that he was feeling fine, the ED physician noted that the patient does have significant dementia, he did talk with the patient's daughter who noted that the patient would not be in the position to make any medical judgments at this time and the patient if needs blood transfusion should be admitted. The patient was therefore admitted to the hospital for further management. [id number] hematocrit was done and was 26. Labs are pending. The patient did not provide any history to me, he opened his eyes laughed made a joke and went back to sleep, the patient seems was tired, according to the nurse in the ER has not received any sedative medication. Based on the recent blood test, the patient's hemoglobin was 8. 1, a drop from 10.9, platelets 165, INR is 1, patient has worsening renal function, creatinine was 1.8 recently and is 2.7 now. BUN is 40. There is no history of acute GI bleed. The patient has according to the history and extensive bleeding from the site of laceration, on exam he also has extensive bruising on his gluteal region. It is thought that the patient's blood loss is secondary to the recent fall. ROS unobtainable: due to mental status Medical - H&P: PMH Medical history: Medical History (Last Reviewed 07/04/17 @ 11:33 by Carlos Nguyen PA-C) COPD with acute exacerbation (Acute) Hematuria (Acute) Chronic kidney disease (CKD) stage G2/A1, mildly decreased glomerular filtration rate (GFR) between 60-89 mL/min/1.73 square meter and albuminuria creatinine ratio less than 30 mg/g (Acute) Skin tear (Acute) Rib contusion (Acute) Altered mental status (Acute) Hyperkalemia (Acute) C1 cervical fracture (Acute) Chronic bronchitis with acute exacerbation (Acute) CAD (coronary artery disease) (Chronic) Renal cell carcinoma (Chronic) Anemia (Chronic) Hypertension, essential (Chronic) COPD (chronic obstructive pulmonary disease) (Chronic) Psoriasis (Chronic) Obstructive sleep apnea (Chronic) Hypothyroidism (Chronic) Hyperlipemia (Chronic) Esophageal reflux (Chronic) Diverticulosis of colon (Chronic) Depressive disorder (Chronic) Surgical history: Past Surgical History (Last Reviewed 07/04/17 @ 11:33 by Carlos Nguyen PA-C) History of coronary artery stent placement (Acute) History of nephrectomy (Acute) History of cochlear implant (Acute) Hx of shoulder surgery (Acute) Hx of neck surgery (Acute) History of right hip replacement (Acute) Hx of cholecystectomy (Acute) Hx of cataract surgery (Acute) Pertinent family history: Family History (Last Reviewed 07/04/17 @ 11:33 by Carlos Nguyen PA-C) mother Cerebrovascular accident (CVA) Malignant neoplasm Cardiovascular disease Medical - H&P: Meds Home Medications Medication Instructions Recorded Confirmed Type cyanocobalamin (vit B-12) 1,000 1,000 mcg IM QMONTH #30 ml 07/01/16 07/19/17 Rx mcg/mL injection solution levothyroxine 25 mcg tablet 25 mcg PO QDAY #90 tab 08/08/16 07/19/17 Rx citalopram 20 mg tablet 10 mg PO QDAY #60 tab 01/06/17 07/19/17 Rx omeprazole 20 mg capsule,delayed 20 mg PO ACB #30 cap 01/16/17 07/19/17 Rx release simvastatin 20 mg tablet 20 mg PO QDAY #90 tab 01/16/17 07/19/17 Rx CPAP and supplies 1 unit DAILY 03/09/17 07/18/17 History Tamsulosin [Flomax] 0.4 mg PO BID #60 cap 03/15/17 07/19/17 Rx fluticasone 100 mcg-umeclid 62.5 1 inh INHALATION QDAY #60 each 04/03/17 Rx mcg-vilant 25 mcg powd for inhalation ipratropium bromide 0.03 % nasal 2 spray INTRANASAL BID-TID PRN 05/01/17 History spray aspirin 81 mg tablet,delayed 81 mg PO QDAY 05/02/17 07/19/17 History release bisacodyl 10 mg rectal suppository 10 mg ID QDAY PRN 05/02/17 07/19/17 History cholecalciferol (vitamin D3) 2,000 2,000 unit PO QDAY #30 cap 05/02/17 07/19/17 Rx unit capsule magnesium hydroxide 400 mg/5 mL 30 ml PO ONCE PRN ml 06/07/17 07/19/17 History oral suspension sodium phosphates 19 gram-7 118 ml ID ONCE PRN 06/07/17 07/19/17 History gram/118 mL enema ipratropium-albuterol 0.5 mg-3 3 ml INHALATION Q4H PRN #360 ml 06/15/17 Rx mg(2.5 mg base)/3 mL nebulization soln risperidone 0.25 mg tablet 0.25 mg PO QDAY PRN #30 tab 07/14/17 07/19/17 Rx amiodarone 200 mg tablet 200 mg PO BID tab 07/18/17 07/19/17 History lisinopril 10 mg tablet 10 mg PO QDAY #60 tab 07/18/17 07/19/17 Rx furosemide 40 mg tablet 40 mg PO .QOD #60 tab 07/19/17 07/19/17 Rx Allergies Allergy/AdvReac Type Severity Reaction Status Date / Time adhesive tape Allergy Severe Blister Verified 07/19/17 17:53 hydrocodone [HYDROCODONE] Allergy Intermediate Hallucinati Verified 07/19/17 17: 53 ons/RASH ciprofloxacin [From CIPRO] AdvReac Severe TENDON Verified 07/19/17 17:53 DETERIORATION fentanyl [FENTANYL] AdvReac Intermediate Hallucinations Verified 07/19/17 17:53 (DURAGESIC) Oxycodone [OXYCODONE] AdvReac Intermediate Itching Verified 07/19/17 17:53 acetaminophen AdvReac Unknown unknown Verified 07/19/17 17:53 Quinolones AdvReac Unknown unknown Verified 07/19/17 17:53 Medical - H&P: Exam - Constitutional Vitals: Temp Pulse Resp BP Pulse Ox 97.8 F 73 18 147/100 97 07/19/17 17:50 07/19/17 20:36 07/19/17 17:50 07/19/17 19:52 07/19/17 20:36 Exam: GENERAL: The patient is a well-developed, well-nourished in no apparent distress. Is alert and oriented x1. VITAL SIGNS: Reviewed and as noted elsewhere. HEENT: Head is normocephalic and atraumatic. Extraocular muscles are intact. Pupils are equal, round, and reactive to light. Nares appeared normal. Mouth appears any without lesions. Mucous membranes are moist. NECK: Normal to inspection, Supple, No lymphadenopathy or thyromegaly. LUNGS: Air entry equal on both sides, no wheezing, crackles or rhonchi noted. No accessory muscles of respiration, ant exam only due to limited pt cooperation. HEART: rate normay, rhythm irregular, no rub noted, systolic murmur aortic region 4/6, s1,s2 heard ABDOMEN: Soft, nontender, and nondistended. Positive bowel sounds. No hepatosplenomegaly was noted. EXTREMITIES: No cyanosis, clubbing, rash, l, edema present +++ NEUROLOGIC: Cranial nerves II through XII are grossly intact, pt was pacing up and down the ER as per the notes, did not cooperate with OSD CLERK exam PSYCHIATRIC: Normal affect, Normal Mood. Appropriate Behavior. SKIN: bruising noted extensive left gluteal region, both hands wrapped in Gregor bandage, Medical - H&P: Reslt - Labs CBC & Chem 7: 07/19/17 20:00 07/19/17 20:00 Medical - H&P: A/P - Narrative A/P Narrative: A/P Acute Blood loss anemia: likely due to fall, and blood loss from laceration, he does have significant depended discoloration in the left gluteal region, will get pelvis CT to ensure no fracture or trauma. x fuse 2 units today and monitor Atrial fibrillation: continue amiodarone 200mg bid for rate control Coronary artery disease/ Severe Aortic Stenosis/ carotid stensois/ HTN/ HLD : Hold bp meds, hold ASA for now given severe bleed, continue statin, pt does not endorse CP at thsi time. Acute on Chr Renal failure: LIkely secondary to dehydration/ volume loss and low bp, pt will ge 2 units blood will monitor Advanced Dementia, likely Vascular: H/o ams and agitated behvisavita, at baseline does not seem to be very cognitive, has some lucid intervals. Laceration to arm: s/p sutures, in the ER chr bronchittis/ Bronchiatesis / COPD: No wheezing on my exam, cxr ? pna vs ateletasis, monitor. Obstructive sleep apnea: cpap at night DVT SCD Full code for now Cardiac diet. Social History - Tobacco smoking status: Former smoker - Quit Details quit date: 04/08/95 pack-years: 40 - Alcohol alcohol intake frequency: 2+ drinks per day - Substance use substance use type: does not use
[2017-07-19 21:06] LABS: Basophils # (Auto) 0 K/mcL (0.0-0.3); Basophils % (Auto) 0.1 % (0.0-2.0); Eosinophils # (Auto) 0.1 K/mcL (0.0-0.7); Eosinophils % (Auto) 1.8 % (0.0-7.0); Granulocytes % (Auto) 82.8 % (38.0-78.0); Lymphocytes # (Auto) 0.6 K/mcL (1.5-4.8); Lymphocytes % (Auto) 8.8 % (15.5-49.0); Mean Cell Volume 93.3 fL (80.0-100.0); Mean Corpuscular HGB Conc 35.3 g/dL (31.0-36.0); Mean Corpuscular Hemoglobin 32.9 pg (26.0-34.0); Monocytes # (Auto) 0.5 K/mcL (0.1-0.9); Monocytes % (Auto) 6.5 % (1.0-12.0); Platelet Count 180 K/mcL (140-440); RBC 3.01 M/mcL (4.50-5.90); Red Cell Distribution Width 14.7 % (11.5-14.5); Retic Absolute 2.3 % (0.5-1.5)
[2017-07-19 21:19] LABS: ALT/SGPT 12 U/l (0-40); Albumin 3.6 gm/dL (3.2-5.2); Albumin/Globulin Ratio 1.5 (1.0-2.3); Alkaline Phosphatase 77 U/L (39-117); Blood Urea Nitrogen 42 mg/dl (8-23)
[2017-07-19] MEDS ORDERED: LORazepam 2 MG/ML VIAL IV PRN (21:47)
[2017-07-19] MEDS ORDERED: ONDANSETRON ODT 4 MG TABLET SL PRN (21:47)
[2017-07-19] MEDS ORDERED: NALOXONE HCL 0.4 MG/ML VIAL IV PRN (21:47)
[2017-07-19 21:58] LABS: Iron 232 mcg/dl (61-157)
[2017-07-19 22:00] LABS: Transferrin % Saturation 92 % (20-50); Unsaturated Iron Binding < 20 mcg/dL (112-346)
[2017-07-19] MEDS: HEPARIN 5,000 UNIT/ML VIAL SQ SCH (22:26)
[2017-07-19] MEDS: TAMSULOSIN 0.4 MG CAPSULE PO SCH (22:26)
[2017-07-19] MEDS: AMIODARONE HCL 200 MG TABLET PO SCH (22:26)
[2017-07-19] MEDS: risperiDONE 0.25 MG TABLET PO SCH (22:26)
[2017-07-19] MEDS: 0.9 % SODIUM CHLORIDE 10 ML SYRINGE IV SCH (22:27)
[2017-07-20] MEDS ORDERED: HALOPERIDOL LACTATE 5 MG/ML VIAL ONE ×2 (01:07→01:51)
[2017-07-20] MEDS ORDERED: HALOPERIDOL LACTATE 5 MG/ML VIAL IV ONE ×2 (01:20→01:45)
[2017-07-20] MEDS: IPRATROPIUM/ALBUTEROL 3 ML AMPUL.NEB NEB SCH ×7 (03:43→23:12)
[2017-07-20] MEDS: 0.9 % SODIUM CHLORIDE 10 ML SYRINGE IV SCH ×4 (05:36→20:06)
--- NOTE | 2017-07-20 08:09 | XRay Report ---
HISTORY: Reason for Exam:moist cough, coarse lung sounds FINDINGS: Thin bands of discoid atelectasis have formed above the left costophrenic sulcus, compared with the prior study from 07/14/17. There is no evidence of pneumonia, mass or pleural effusion. Heart size is within normal limits. IMPRESSION: Mild discoid atelectasis in the left lower lobe Interpreted and Authenticated by: Wilson Joyce 07/20/17
--- NOTE | 2017-07-20 08:20 | Cat Scan Report ---
History: Fell with pelvic injury and hematoma TECHNIQUE: The pelvis was imaged without contrast scanning in 2.5 mm intervals from above the iliac crests to the proximal femurs. Sagittal and coronal reformats were created. Patient has bilateral well positioned total hip prosthesis. No pelvic or hip fracture are present. There is no reabsorption of bone around the hardware. The hardware does create significant beam hardening artifact. There is a moderate-sized lobulated subcutaneous hematoma lateral to the left hip. Measures approximately 2.5 x 8.5 x 12 cm in size. There is edema around the hematoma and tracking inferiorly into the mid thigh. There are large spurs arising from the greater trochanters bilaterally. There is also some myositis ossificans adjacent to the prosthetic left femoral neck. A moderately severe scoliotic curvature is present in the lumbar spine. There is severe disc space narrowing from L2-3 through L5-S1. There are spurs and posterior bulges. Severe spinal canal stenosis is present at L3-4 and there is moderately severe stenosis at L4-5. No intrapelvic hematoma or mass are present. There are scattered diverticula in the descending and sigmoid colon but there is no evidence of diverticulitis. Patient has fecal impaction in the rectum. IMPRESSION: No fracture or intrapelvic hematoma Moderate sized subcutaneous hematoma lateral to the left hip Interpreted and Authenticated by: Wilson Joyce 07/20/17
[2017-07-20] MEDS: methylPREDNISolone SOD SUCC 125 MG/2 ML VIAL IV SCH ×3 (08:22→23:20)
[2017-07-20 08:23] LABS: Basophils # (Auto) 0 K/mcL (0.0-0.3); Basophils % (Auto) 0.1 % (0.0-2.0); Eosinophils # (Auto) 0 K/mcL (0.0-0.7); Eosinophils % (Auto) 0.4 % (0.0-7.0); Granulocytes % (Auto) 86.7 % (38.0-78.0); Lymphocytes # (Auto) 0.3 K/mcL (1.5-4.8); Lymphocytes % (Auto) 5.4 % (15.5-49.0); Mean Cell Volume 93.7 fL (80.0-100.0); Mean Corpuscular Hemoglobin 31.9 pg (26.0-34.0); Monocytes # (Auto) 0.4 K/mcL (0.1-0.9); Monocytes % (Auto) 7.4 % (1.0-12.0); Platelet Count 155 K/mcL (140-440); Red Cell Distribution Width 14.6 % (11.5-14.5)
[2017-07-20] MEDS ORDERED: FUROSEMIDE 40 MG/4 ML VIAL IV ONE (08:26)
[2017-07-20 08:43] LABS: ALT/SGPT 13 U/l (0-40); Albumin 3.4 gm/dL (3.2-5.2); Albumin/Globulin Ratio 1.5 (1.0-2.3); Alkaline Phosphatase 69 U/L (39-117); Bilirubin,Direct 0.8 mg/dL (0.0-0.3); Blood Urea Nitrogen 39 mg/dl (8-23); Gamma Glutamyl Transpeptidase 20 U/L (8-61)
--- NOTE | 2017-07-20 08:59 | XRay Report ---
HISTORY: Reason for Exam:shortness of breath FINDINGS: There are mild generalized interstitial infiltrates in both lungs. Dayna B-lines developed laterally in both lung bases. The heart is increased in size. No pleural effusion is detected. IMPRESSION: Bilateral interstitial infiltrates which could be due to pneumonia or congestive heart failure. Interpreted and Authenticated by: Wilson Joyce 07/20/17
[2017-07-20] MEDS ORDERED: FLUTICASONE INHALATION SCH (09:00)
[2017-07-20] MEDS ORDERED: AZITHROMYCIN 500 MG in DEXTROSE 5% IN WATER 250 ML IV ONE (09:00)
[2017-07-20] MEDS: LEVOTHYROXINE 25 MCG TABLET PO SCH ×2 (10:32→11:48)
[2017-07-20] MEDS: TAMSULOSIN 0.4 MG CAPSULE PO SCH ×3 (10:32→20:04)
[2017-07-20] MEDS: AMIODARONE HCL 200 MG TABLET PO SCH ×2 (10:33→20:04)
[2017-07-20] MEDS: CITALOPRAM 20 MG TABLET PO SCH (10:33)
[2017-07-20] MEDS: HEPARIN 5,000 UNIT/ML VIAL SQ SCH ×2 (10:34→20:04)
[2017-07-20] MEDS: ASPIRIN 81 MG TAB.CHEW PO SCH ×2 (10:35→11:48)
[2017-07-20] MEDS: SIMVASTATIN 20 MG TABLET PO SCH ×2 (10:38→11:48)
[2017-07-20] MEDS ORDERED: OLANZapine 10 MG VIAL IM ONE (12:24)
[2017-07-20] MEDS: DIVALPROEX 125 MG CAP.SPRINK PO SCH ×2 (12:33→20:04)
--- NOTE | 2017-07-20 13:41 | Internal Med Progress Note ---
Medical - PN: Subj Patient information: Note initiated : 07/20/17 at 1:39 pm Service Date, if different from initiated Date: [] Patient: Carlos Zuniga 87 y/o M admitted on 07/20/17 for Right Arm Hematoma, Moist Cough/Blood Loss Anemia. Chief Complaint: [] Interval history: Mr. Zuniga is a 87 year old Male with multiple medical comorbidites, dementia, who has been in the ER 3 times over the last 4 days. The patient was in the ER on 07/14/17, that time he had a mechanical fall and I believe he lacerated his arm this bled extensively according to the notes, left arm deep subcutaneous laceration, according to the notes it was 20 cm in length. Required 30 4 sutures. Patient was subsequently discharged. The patient presented to the emergency room again on the same day with symptoms of passing out, was found to be in A. fib with RVR, he was given amiodarone rate improved and then subsequently discharged on p.o. amiodarone. It is my understanding that he was not committed to the hospital because there were no beds available. CT head was done which was negative CT spine was negative. The patient was subsequently seen by the primary care provider who noted the patient had borderline low blood pressure but otherwise appeared stable, blood work was ordered it seems that the patient had a significant drop in his hemoglobin and therefore blood transfusions were ordered as an outpatient for the patient. While receiving blood transfusions, the patient became agitated ripped out the IV access. The patient did not get the full ordered 2 units, her some of the blood infiltrated in the arm, and I am not sure how much blood he totally received. The patient was sent to the emergency room because of his agitated behavior. The patient did not wish to be admitted to the hospital he noted that he was feeling fine, the ED physician noted that the patient does have significant dementia, he did talk with the patient's daughter who noted that the patient would not be in the position to make any medical judgments at this time and the patient if needs blood transfusion should be admitted. The patient was therefore admitted to the hospital for further management. [id number] hematocrit was done and was 26. Labs are pending. The patient did not provide any history to me, he opened his eyes laughed made a joke and went back to sleep, the patient seems was tired, according to the nurse in the ER has not received any sedative medication. Based on the recent blood test, the patient's hemoglobin was 8. 1, a drop from 10.9, platelets 165, INR is 1, patient has worsening renal function, creatinine was 1.8 recently and is 2.7 now. BUN is 40. There is no history of acute GI bleed. The patient has according to the history and extensive bleeding from the site of laceration, on exam he also has extensive bruising on his gluteal region. It is thought that the patient's blood loss is secondary to the recent fall. 07/20 Seen and examined, overnight events noted. Patient had been agitated intermittently throughout the night. He did not get the full blood transfusion as he broke the IV line that was administering blood then he ripped off the IV access. Patient required Haldol and restraints for safety. This morning he was sleeping but was notably short of breath. Exam revealed bilateral wheezing , chest x-ray showed congestion versus possible aspiration pneumonia. Started on IV steroids, IV antibiotics, IV Lasix given. Status changed to inpatient status. Labs show stable hemoglobin. I do not feel the patient needs any more blood transfusions at this point. The patient unfortunately because of his agitation yesterday ripped open the sutures on the left elbow, there is a significant laceration on the left arm, I do not feel that at this point in time there is any point in the suturing this wound, most likely will heal with secondary intention. I will have wound care evaluate the patient. Pertinent ROS: unable - Constitutional Vitals: Vital Signs Temp Pulse Resp BP Pulse Ox 98.6 F 94 H 24 H 155/71 95 07/20/17 12:29 07/20/17 12:29 07/20/17 12:29 07/20/17 12:29 07/20/17 12:29 Period Temp Pulse Resp BP Sys/Rhodes Pulse Ox Last 24 Hr 97.5 F-98.7 F 73-106 18-24 101-155/61-100 90-99 Intake and Output 07/19/17 07/20/17 07/20/17 21:59 05:59 13:59 Intake Total 200 / 200 250 / 250 Output Total 1400 / 1400 Balance 200 / 200 -1400 / -1400 250 / 250 Weight 181 lb 1.6 oz Intake & Output: Intake & Output 07/19/17 07/20/17 07/20/17 21:59 05:59 13:59 Intake Total 200 / 200 250 / 250 Output Total 1400 / 1400 Balance 200 / 200 -1400 / -1400 250 / 250 Weight 181 lb 1.6 oz Intake: IV 250 / 250 Zithromax 500 mg In Dextrose 5% 250 / 250 in Water 250 ml @ 250 mls/hr IV ONCE ONE Rx#:[id number] Blood Product 200 / 200 Output: Urine Catheter Amount 1400 / 1400 Uretheral (Garza) 650 / 650 Exam: Constitutional; Afebrile,intermittely agitated, not in distress. Eyes- No icterus, , No periorbital swelling Ears- Ext ear normal, hearing normal to conversation. Neck- Midline trachea, supple Respiratory system: Air Entry equal on both sides, prolonged exp phase, delta exp wheezing, no crackles anteriorly CVS- Rate rhythm regular, S1,S2 heard, no gallop, no rub. Abdomen- Soft nontender abdomen, no organomegaly, no tenderness, no guarding or rigidity, [employer]- AOOx0, moving all extremities, no gross focal deficit noted. right arm: noted large laceration, 6 cms of laceration on the proximal aspect, sutures have come off, with sifniciant ivania of the skin., no e/o infection. Medical - PN: Obj Da - Labs CBC & Chem 7: 07/20/17 07:57 07/20/17 07:57 Labs: Abnormal Lab Results 07/20/17 07/20/17 07/19/17 07:57 07:57 20:00 RBC 3.10 L Hgb 9.9 L Hct 29.1 L POC Hct RDW 14.6 H Gran % 86.7 H Lymph % (Auto) 5.4 L Lymph # (Auto) 0.3 L Absolute Retic Carbon Dioxide 19 L POC Total CO2 Anion Gap 18.0 H POC BUN BUN 39 H 42 H Creatinine 2.2 H 2.5 H POC Creatinine Glucose 109 H POC Glucose Uric Acid 10.0 H Calcium 8.3 L 8.4 L POC WB Ioniz Calcium Iron 232 H Unsat Iron Binding < 20 L Transferrin % Sat 92 H Total Bilirubin 2.4 H 2.5 H Direct Bilirubin 0.8 H Total Protein 5.7 L 07/19/17 07/19/17 20:00 18:30 RBC 3.01 L Hgb 9.9 L Hct 28.1 L POC Hct 26.0 L RDW 14.7 H Gran % 82.8 H Lymph % (Auto) 8.8 L Lymph # (Auto) 0.6 L Absolute Retic 2.3 H Carbon Dioxide POC Total CO2 21 L Anion Gap POC BUN 41 H BUN Creatinine POC Creatinine 3.0 H Glucose POC Glucose 106 H Uric Acid Calcium POC WB Ioniz Calcium 0.97 L Iron Unsat Iron Binding Transferrin % Sat Total Bilirubin Direct Bilirubin Total Protein Meds: Medications Albuterol/Ipratropium (Duoneb) 3 ml NEB Q4HRT [facility] Last Admin: 07/20/17 10:27 Dose: 3 ml Amiodarone HCl (Cordarone) 200 mg PO BID [facility] Last Admin: 07/20/17 10:33 Dose: 200 mg Aspirin (Aspirin) 81 mg PO DAILY [facility] Last Admin: 07/20/17 11:48 Dose: Not Given Citalopram Hydrobromide (Celexa) 10 mg PO QDAY [facility] Last Admin: 07/20/17 10:33 Dose: 10 mg Divalproex Sodium (Depakote Sprinkles) 250 mg PO BID [facility] Last Admin: 07/20/17 12:33 Dose: 250 mg Heparin Sodium (Porcine) (Heparin) 5,000 unit SQ Q12 [facility] Last Admin: 07/20/17 10:34 Dose: 5,000 unit Azithromycin 500 mg/ Dextrose 250 mls @ 250 mls/hr IV Q24H [facility] Stop: 07/23/17 09:59 Piperacillin Sod/Tazobactam (Sod 3.375 gm/ Dextrose) 50 mls @ 100 mls/hr IV Q8H [facility] Levothyroxine Sodium (Synthroid) 25 mcg PO ACB [facility] Last Admin: 07/20/17 11:48 Dose: Not Given Methylprednisolone Sodium Succinate (Solu-Medrol) 62.5 mg IV Q8 [facility] Last Admin: 07/20/17 08:22 Dose: 62.5 mg Naloxone HCl (Narcan) 0.1 mg IV Q2MIN PRN PRN Reason: Opiate Reversal Ondansetron HCl (Zofran Odt) 4 mg SL Q4HP PRN PRN Reason: Nausea And Vomiting Risperidone (Risperdal) 0.5 mg PO HS [facility] Last Admin: 06/13/18 22:26 Dose: 0.5 mg Simvastatin (Zocor) 20 mg PO QDAY [facility] Last Admin: 07/20/17 11:48 Dose: Not Given Sodium Chloride (Saline Flush) 10 ml IV Q8 [facility] Last Admin: 07/20/17 08:22 Dose: 10 ml Tamsulosin HCl (Flomax) 0.4 mg PO BID [facility] Last Admin: 07/20/17 11:38 Dose: Not Given Medical - PN: A/P - Time Spent With Patient Total time spent is greater than 50% in coordination of care (as documented) at patient's floor/unit and/or counseling patient: - Narrative A/P Narrative: A/P Acute Blood loss anemia: he likely did get approx 1.5 Units yesterday, and another 150-200cc of blood last night, hb stable, no need for further transfusion Atrial fibrillation: continue amiodarone 200mg bid for rate control Coronary artery disease/ Severe Aortic Stenosis/ carotid stensois/ HTN/ HLD : Hold bp meds, hold ASA for now given severe bleed, continue statin, pt does not endorse CP at thsi time. Chf exacerbation : on cxr, iv lasix given, garza in place, Possible PNA: Given mental status, its possible he may have aspirated, but chf is more likely, will start on zosyn and monitor Acute on Chr Renal failure: LIkely secondary to dehydration/ volume loss and low bp, pt will ge 2 units blood will monitor Advanced Dementia, likely Vascular: H/o ams and agitated behviour, at baseline does not seem to be very cognitive, has some lucid intervals. Laceration to arm: s/p sutures, in the ER , some of the sutures have come off, will see if wound care can help evaluate this chr bronchittis/ Bronchiatesis / COPD: No wheezing on my exam, cxr ? pna vs ateletasis, monitor. Obstructive sleep apnea: cpap at night DVT SCD Full code for now Cardiac diet. Medical - PN: Qual - VTE Deep Vein Thrombosis/Pulmonary Embolism Present on Admission: No
[2017-07-20] MEDS: PIPERACILLIN SODIUM/TAZOBACTAM 2.25 GM in DEXTROSE 5% IN WATER 50 ML IV SCH ×3 (15:30→23:29)
--- NOTE | 2017-07-20 19:09 | General Surgery Consult Note ---
History of Present Illness Patient information: Note initiated : 07/20/17 at 7:07 pm Service Date, if different from initiated Date: [] Patient: Carlos Zuniga 87 y/o M admitted on 07/20/17 for Right Arm Hematoma, Moist Cough/Blood Loss Anemia. Chief Complaint: [] Consult date: 07/20/17 Requesting physician: Adele Gandara ([facility]oundCare Left arm laceration and other wounds) History of present illness: I reviewed his EHR and saw this patient in ICU. He is established at wound care clinic. patient admitted to ICU with agitation, altered mental status and anemia. NO history or information can be obtained from patient. Medications and Allergies Home Medications Medication Instructions Recorded Confirmed Type cyanocobalamin (vit B-12) 1,000 1,000 mcg IM QMONTH #30 ml 07/01/16 07/19/17 Rx mcg/mL injection solution levothyroxine 25 mcg tablet 25 mcg PO QDAY #90 tab 08/08/16 07/19/17 Rx citalopram 20 mg tablet 10 mg PO QDAY #60 tab 01/06/17 07/19/17 Rx omeprazole 20 mg capsule,delayed 20 mg PO ACB #30 cap 01/16/17 07/19/17 Rx release simvastatin 20 mg tablet 20 mg PO QDAY #90 tab 01/16/17 07/19/17 Rx CPAP and supplies 1 unit DAILY 03/09/17 07/18/17 History Tamsulosin [Flomax] 0.4 mg PO BID #60 cap 03/15/17 07/19/17 Rx fluticasone 100 mcg-umeclid 62.5 1 inh INHALATION QDAY #60 each 04/03/17 Rx mcg-vilant 25 mcg powd for inhalation ipratropium bromide 0.03 % nasal 2 spray INTRANASAL BID-TID PRN 05/01/17 History spray aspirin 81 mg tablet,delayed 81 mg PO QDAY 05/02/17 07/19/17 History release bisacodyl 10 mg rectal suppository 10 mg SC QDAY PRN 05/02/17 07/19/17 History cholecalciferol (vitamin D3) 2,000 2,000 unit PO QDAY #30 cap 05/02/17 07/19/17 Rx unit capsule magnesium hydroxide 400 mg/5 mL 30 ml PO ONCE PRN ml 06/07/17 07/19/17 History oral suspension sodium phosphates 19 gram-7 118 ml SC ONCE PRN 06/07/17 07/19/17 History gram/118 mL enema ipratropium-albuterol 0.5 mg-3 3 ml INHALATION Q4H PRN #360 ml 06/15/17 Rx mg(2.5 mg base)/3 mL nebulization soln risperidone 0.25 mg tablet 0.25 mg PO QDAY PRN #30 tab 07/14/17 07/19/17 Rx amiodarone 200 mg tablet 200 mg PO BID tab 07/18/17 07/19/17 History lisinopril 10 mg tablet 10 mg PO QDAY #60 tab 07/18/17 07/19/17 Rx furosemide 40 mg tablet 40 mg PO .QOD #60 tab 07/19/17 07/19/17 Rx Allergies Allergy/AdvReac Type Severity Reaction Status Date / Time adhesive tape Allergy Severe Blister Verified 07/19/17 17:53 hydrocodone [HYDROCODONE] Allergy Intermediate Hallucinati Verified 07/19/17 17: 53 ons/RASH ciprofloxacin [From CIPRO] AdvReac Severe TENDON Verified 07/19/17 17:53 DETERIORATION fentanyl [FENTANYL] AdvReac Intermediate Hallucinations Verified 07/19/17 17:53 (DURAGESIC) Oxycodone [OXYCODONE] AdvReac Intermediate Itching Verified 07/19/17 17:53 acetaminophen AdvReac Unknown unknown Verified 07/19/17 17:53 Quinolones AdvReac Unknown unknown Verified 07/19/17 17:53 Exam Temp Pulse Resp BP Pulse Ox 97.8 F 62 20 157/54 96 07/20/17 16:11 07/20/17 18:50 07/20/17 18:50 07/20/17 16:11 07/20/17 17:00 - General physical appearance well developed, well nourished, no distress, other (Sleepy) - Head Head exam IM: Present: atraumatic, normal inspection, normocephalic - Neck no masses, trachea midline, no venous distension - Cardiovascular Cardiovascular exam IM: Present: irregular rhythm - Respiratory dullness: bilateral (Diminished air entry bothlung bases) - Abdomen Abdomen: Present: soft, non tender, bowel sounds - Integumentary Present: other (Superficial scattered skintears both UE arm and forearms. Epidermal Covered with Mepilex bordereed foam. Large open and dehisced wound outer lateral aspect of LEFT forearm covering upper 1/3 7 x3 x 1.5 CM size, Wound base is covered with granulations and sough. ) - Neurologic Present: other (Did NOT examine neurological status. ) - Musculoskeletal Present: other (Resting in bed. NO gross deformities . ) - Psychiatric Present: other (NOT tested, ) Results - Labs 07/21/17 03:40 07/21/17 03:40 Abnormal lab results 07/19/17 07/19/17 07/20/17 Range/Units 20:00 20:00 07:57 RBC 3.01 L 3.10 L (4.50-5.90) M/mcL Hgb 9.9 L 9.9 L (13.5-16.5) g/dL Hct 28.1 L 29.1 L (41.0-55.0) % RDW 14.7 H 14.6 H (11.5-14.5) % Gran % 82.8 H 86.7 H (38.0-78.0) % Lymph % (Auto) 8.8 L 5.4 L (15.5-49.0) % Lymph # (Auto) 0.6 L 0.3 L (1.5-4.8) K/mcL Absolute Retic 2.3 H (0.5-1.5) % Carbon Dioxide 19 L (22-30) mmol/L Anion Gap 18.0 H (8-16) BUN 42 H (8-23) mg/dl Creatinine 2.5 H (0.7-1.2) mg/dl Glucose (70-105) mg/dL Uric Acid (2.5-8.0) mg/dL Calcium 8.4 L (8.6-10.4) mg/dl Iron 232 H (61-157) mcg/dl Unsat Iron Binding < 20 L (112-346) mcg/dL Transferrin % Sat 92 H (20-50) % Total Bilirubin 2.5 H (0.0-1.0) mg/dL Direct Bilirubin (0.0-0.3) mg/dL Total Protein (5.9-8.4) gm/dL 07/20/17 Range/Units 07:57 RBC (4.50-5.90) M/mcL Hgb (13.5-16.5) g/dL Hct (41.0-55.0) % RDW (11.5-14.5) % Gran % (38.0-78.0) % Lymph % (Auto) (15.5-49.0) % Lymph # (Auto) (1.5-4.8) K/mcL Absolute Retic (0.5-1.5) % Carbon Dioxide (22-30) mmol/L Anion Gap (8-16) BUN 39 H (8-23) mg/dl Creatinine 2.2 H (0.7-1.2) mg/dl Glucose 109 H (70-105) mg/dL Uric Acid 10.0 H (2.5-8.0) mg/dL Calcium 8.3 L (8.6-10.4) mg/dl Iron (61-157) mcg/dl Unsat Iron Binding (112-346) mcg/dL Transferrin % Sat (20-50) % Total Bilirubin 2.4 H (0.0-1.0) mg/dL Direct Bilirubin 0.8 H (0.0-0.3) mg/dL Total Protein 5.7 L (5.9-8.4) gm/dL Diabetes panel 07/19/17 07/20/17 Range/Units 20:00 07:57 Sodium 136 140 (133-145) mmol/L Potassium 4.3 4.1 (3.3-5.1) mmol/L Chloride 99 103 (96-108) mmol/L Carbon Dioxide 19 L 24 (22-30) mmol/L BUN 42 H 39 H (8-23) mg/dl Creatinine 2.5 H 2.2 H (0.7-1.2) mg/dl Glucose 101 109 H (70-105) mg/dL Calcium 8.4 L 8.3 L (8.6-10.4) mg/dl AST 17 13 (0-37) U/l ALT 12 13 (0-40) U/l Alkaline Phosphatase 77 69 (39-117) U/L Total Protein 6.0 5.7 L (5.9-8.4) gm/dL Albumin 3.6 3.4 (3.2-5.2) gm/dL Triglycerides 93 (<150) mg/dl Calcium panel 07/19/17 07/20/17 Range/Units 20:00 07:57 Calcium 8.4 L 8.3 L (8.6-10.4) mg/dl Phosphorus 4.5 (2.7-4.5) mg/dL Albumin 3.6 3.4 (3.2-5.2) gm/dL Pituitary panel 07/19/17 07/20/17 Range/Units 20:00 07:57 Sodium 136 140 (133-145) mmol/L Potassium 4.3 4.1 (3.3-5.1) mmol/L Chloride 99 103 (96-108) mmol/L Carbon Dioxide 19 L 24 (22-30) mmol/L BUN 42 H 39 H (8-23) mg/dl Creatinine 2.5 H 2.2 H (0.7-1.2) mg/dl Glucose 101 109 H (70-105) mg/dL Calcium 8.4 L 8.3 L (8.6-10.4) mg/dl Adrenal panel 07/19/17 07/20/17 Range/Units 20:00 07:57 Sodium 136 140 (133-145) mmol/L Potassium 4.3 4.1 (3.3-5.1) mmol/L Chloride 99 103 (96-108) mmol/L Carbon Dioxide 19 L 24 (22-30) mmol/L BUN 42 H 39 H (8-23) mg/dl Creatinine 2.5 H 2.2 H (0.7-1.2) mg/dl Glucose 101 109 H (70-105) mg/dL Calcium 8.4 L 8.3 L (8.6-10.4) mg/dl Total Bilirubin 2.5 H 2.4 H (0.0-1.0) mg/dL AST 17 13 (0-37) U/l ALT 12 13 (0-40) U/l Alkaline Phosphatase 77 69 (39-117) U/L Total Protein 6.0 5.7 L (5.9-8.4) gm/dL Albumin 3.6 3.4 (3.2-5.2) gm/dL All other labs normal. Assessment and Plan (1) Wound dehiscence Status: Acute Priority: Medium (2) Abscess of skin or subcutaneous tissue Assessment : Mainly abrasions and epidermal tears of both upper arms and right forearm. Dehisced skin ans sub cutaneous wound left upper lateral and posterior forearm. Wound base covered with slough. Patient is NOT a suitable candidate for aggressive debridement at this time. Plan: Conservative management for both upper arm and Right forearm abrasions with Mepilex bordered foam dressings. Open dehisced wound of Left forearm to be cleaned with NS and dressed with GCB solution and covered with gauze and bandage BID I discussed this plan with Sandy and ICU Nurse Anjali GROVES . All Qs answered. Will see patient intermittently,whilst he is still in hospital. Status: Acute Priority: Low Qualifiers: Site of cutaneous abscess: extremity Site of cutaneous abscess of extremity : upper extremity (3) Altered mental status Status: Acute Qualifiers: Altered mental status type: disorientation Qualified Code(s): R41.0 - Disorientation, unspecified (4) Atrial fibrillation with RVR Status: Acute
[2017-07-20] MEDS: risperiDONE 0.25 MG TABLET PO SCH (20:04)
[2017-07-21] MEDS: IPRATROPIUM/ALBUTEROL 3 ML AMPUL.NEB NEB SCH ×6 (03:01→21:34)
[2017-07-21 05:26] LABS: Basophils # (Auto) 0 K/mcL (0.0-0.3); Basophils % (Auto) 0 % (0.0-2.0); Eosinophils # (Auto) 0 K/mcL (0.0-0.7); Eosinophils % (Auto) 0 % (0.0-7.0); Granulocytes % (Auto) 93.8 % (38.0-78.0); Lymphocytes # (Auto) 0.1 K/mcL (1.5-4.8); Lymphocytes % (Auto) 3.9 % (15.5-49.0); Mean Cell Volume 93.9 fL (80.0-100.0); Mean Corpuscular HGB Conc 33.9 g/dL (31.0-36.0); Mean Corpuscular Hemoglobin 31.8 pg (26.0-34.0); Monocytes # (Auto) 0.1 K/mcL (0.1-0.9); Monocytes % (Auto) 2.3 % (1.0-12.0); Platelet Count 162 K/mcL (140-440); Red Cell Distribution Width 14.5 % (11.5-14.5)
[2017-07-21] MEDS: PIPERACILLIN SODIUM/TAZOBACTAM 2.25 GM in DEXTROSE 5% IN WATER 50 ML IV SCH ×4 (05:47→23:30)
[2017-07-21] MEDS: 0.9 % SODIUM CHLORIDE 10 ML SYRINGE IV SCH ×3 (05:48→23:31)
[2017-07-21] MEDS: methylPREDNISolone SOD SUCC 125 MG/2 ML VIAL IV SCH ×2 (05:48→15:54)
[2017-07-21 05:58] LABS: ALT/SGPT 13 U/l (0-40); Albumin 3.1 gm/dL (3.2-5.2); Albumin/Globulin Ratio 1.3 (1.0-2.3); Alkaline Phosphatase 74 U/L (39-117); Bilirubin,Direct 0.5 mg/dL (0.0-0.3); Blood Urea Nitrogen 41 mg/dl (8-23); Gamma Glutamyl Transpeptidase 26 U/L (8-61); Uric Acid 10.6 mg/dL (2.5-8.0)
[2017-07-21] MEDS: LEVOTHYROXINE 25 MCG TABLET PO SCH (08:14)
[2017-07-21] MEDS: HEPARIN 5,000 UNIT/ML VIAL SQ SCH ×2 (08:14→20:28)
[2017-07-21] MEDS: CITALOPRAM 20 MG TABLET PO SCH (08:14)
[2017-07-21] MEDS: DIVALPROEX 125 MG CAP.SPRINK PO SCH ×2 (08:19→20:17)
[2017-07-21] MEDS: TAMSULOSIN 0.4 MG CAPSULE PO SCH ×2 (08:19→20:17)
[2017-07-21] MEDS: ASPIRIN 81 MG TAB.CHEW PO SCH (08:19)
[2017-07-21] MEDS: AMIODARONE HCL 200 MG TABLET PO SCH ×2 (08:19→20:16)
[2017-07-21] MEDS: SIMVASTATIN 20 MG TABLET PO SCH ×2 (08:19→20:15)
--- NOTE | 2017-07-21 08:27 | XRay Report ---
HISTORY: Reason for Exam:pna follow up FINDINGS: There are mild interstitial infiltrates throughout both lungs. There may be tiny bilateral pleural effusions. Heart size is normal. The infiltrates have improved and the heart is smaller today than it was on 07/20/17. IMPRESSION: Improving aeration in both lungs. This could be resolving congestive heart failure or improving pneumonia. Interpreted and Authenticated by: Wilson Joyce 07/21/17
[2017-07-21] MEDS ORDERED: OLANZapine 10 MG VIAL IM ONE ×2 (08:30→22:13)
[2017-07-21] MEDS ORDERED: AZITHROMYCIN 500 MG in DEXTROSE 5% IN WATER 250 ML IV SCH (09:00)
[2017-07-21] MEDS ORDERED: GENTAMICIN SULFATE 40 MG, CLINDAMYCIN 300 MG, BACITRACIN 25,000 UNIT in SODIUM CHLORIDE... IRR SCH (09:00)
[2017-07-21] MEDS ORDERED: MINERAL OIL 1 DOSE ENEMA PR ONE (13:27)
--- NOTE | 2017-07-21 14:44 | Internal Med Progress Note ---
Medical - PN: Subj Patient information: Note initiated : 07/21/17 at 2:42 pm Service Date, if different from initiated Date: [] Patient: Carlos Zuniga 87 y/o M admitted on 07/20/17 for Right Arm Hematoma, Moist Cough/Blood Loss Anemia. Chief Complaint: [] Interval history: Mr. Zuniga is a 87 year old Male with multiple medical comorbidites, dementia, who has been in the ER 3 times over the last 4 days. The patient was in the ER on 07/14/17, that time he had a mechanical fall and I believe he lacerated his arm this bled extensively according to the notes, left arm deep subcutaneous laceration, according to the notes it was 20 cm in length. Required 30 4 sutures. Patient was subsequently discharged. The patient presented to the emergency room again on the same day with symptoms of passing out, was found to be in A. fib with RVR, he was given amiodarone rate improved and then subsequently discharged on p.o. amiodarone. It is my understanding that he was not committed to the hospital because there were no beds available. CT head was done which was negative CT spine was negative. The patient was subsequently seen by the primary care provider who noted the patient had borderline low blood pressure but otherwise appeared stable, blood work was ordered it seems that the patient had a significant drop in his hemoglobin and therefore blood transfusions were ordered as an outpatient for the patient. While receiving blood transfusions, the patient became agitated ripped out the IV access. The patient did not get the full ordered 2 units, her some of the blood infiltrated in the arm, and I am not sure how much blood he totally received. The patient was sent to the emergency room because of his agitated behavior. The patient did not wish to be admitted to the hospital he noted that he was feeling fine, the ED physician noted that the patient does have significant dementia, he did talk with the patient's daughter who noted that the patient would not be in the position to make any medical judgments at this time and the patient if needs blood transfusion should be admitted. The patient was therefore admitted to the hospital for further management. [id number] hematocrit was done and was 26. Labs are pending. The patient did not provide any history to me, he opened his eyes laughed made a joke and went back to sleep, the patient seems was tired, according to the nurse in the ER has not received any sedative medication. Based on the recent blood test, the patient's hemoglobin was 8. 1, a drop from 10.9, platelets 165, INR is 1, patient has worsening renal function, creatinine was 1.8 recently and is 2.7 now. BUN is 40. There is no history of acute GI bleed. The patient has according to the history and extensive bleeding from the site of laceration, on exam he also has extensive bruising on his gluteal region. It is thought that the patient's blood loss is secondary to the recent fall. 07/20 Seen and examined, overnight events noted. Patient had been agitated intermittently throughout the night. He did not get the full blood transfusion as he broke the IV line that was administering blood then he ripped off the IV access. Patient required Haldol and restraints for safety. This morning he was sleeping but was notably short of breath. Exam revealed bilateral wheezing , chest x-ray showed congestion versus possible aspiration pneumonia. Started on IV steroids, IV antibiotics, IV Lasix given. Status changed to inpatient status. Labs show stable hemoglobin. I do not feel the patient needs any more blood transfusions at this point. The patient unfortunately because of his agitation yesterday ripped open the sutures on the left elbow, there is a significant laceration on the left arm, I do not feel that at this point in time there is any point in the suturing this wound, most likely will heal with secondary intention. I will have wound care evaluate the patient. 07/21 Pt seen examined, no acute overnight issues, slept well, this AM again was agitated, confused, and had broken the garza catheter, thep atient cxr is improved today, his wbc count has dropped. on iv abx, IM zyprexa given started on risperidone 1mg bid, also on divalproex labs otherwise stable. wound care consulted for left elbow laceration. Pertinent ROS: unable - Constitutional Vitals: Vital Signs Temp Pulse Resp BP Pulse Ox 97.7 F 71 20 148/76 95 07/21/17 12:00 07/21/17 06:54 07/21/17 12:00 07/21/17 12:00 07/21/17 12:00 Period Temp Pulse Resp BP Sys/Rhodes Pulse Ox Last 24 Hr 97.4 F-99.2 F 62-71 16-22 97-157/48-119 91-100 Intake and Output 07/21/17 07/21/17 07/21/17 05:59 13:59 21:59 Intake Total 50 / 50 50 / 50 Output Total 750 / 750 Balance -700 / -700 50 / 50 Weight 174 lb 9.6 oz Patient Weight 07/22/17 05:59 Weight 174 lb 9.6 oz Intake & Output: Intake & Output 07/21/17 07/21/17 07/21/17 05:59 13:59 21:59 Intake Total 50 / 50 50 / 50 Output Total 750 / 750 Balance -700 / -700 50 / 50 Weight 174 lb 9.6 oz Intake: IV 50 / 50 50 / 50 Zosyn 2.25 gm In Dextrose 5% in 50 / 50 50 / 50 Water 50 ml @ 100 mls/hr IV Q6H [facility] Rx#:[id number] Output: Urine Catheter Amount 750 / 750 Exam: Constitutional; Afebrile, intermittently cooperative. Eyes- No icterus, , No periorbital swelling Ears- Ext ear normal, lvery hard of hearing. Neck- Midline trachea, supple Respiratory system: Air Entry equal on both sides, no wheeze, ant exam only. CVS- Rate rhythm regular, S1,S2 heard, no gallop, no rub. Abdomen- Soft nontender abdomen, no organomegaly, no tenderness, no guarding or rigidity, STONECUTTER HAND- AOOx0, moving all extremities, no gross focal deficit noted. Medical - PN: Obj Da - Labs CBC & Chem 7: 07/21/17 03:40 07/21/17 03:40 Labs: Abnormal Lab Results 07/21/17 07/21/17 07/20/17 03:40 03:40 07:57 WBC 2.9 L RBC 3.00 L Hgb 9.6 L Hct 28.2 L POC Hct RDW Gran % 93.8 H Lymph % (Auto) 3.9 L Lymph # (Auto) 0.1 L Absolute Retic Carbon Dioxide POC Total CO2 Anion Gap POC BUN BUN 41 H 39 H Creatinine 2.3 H 2.2 H POC Creatinine Glucose 141 H 109 H POC Glucose Uric Acid 10.6 H 10.0 H Calcium 8.3 L 8.3 L POC WB Ioniz Calcium Phosphorus 5.1 H Iron Unsat Iron Binding Transferrin % Sat Total Bilirubin 1.5 H 2.4 H Direct Bilirubin 0.5 H 0.8 H Total Protein 5.5 L 5.7 L Albumin 3.1 L 07/20/17 07/19/17 07/19/17 07:57 20:00 20:00 WBC RBC 3.10 L 3.01 L Hgb 9.9 L 9.9 L Hct 29.1 L 28.1 L POC Hct RDW 14.6 H 14.7 H Gran % 86.7 H 82.8 H Lymph % (Auto) 5.4 L 8.8 L Lymph # (Auto) 0.3 L 0.6 L Absolute Retic 2.3 H Carbon Dioxide 19 L POC Total CO2 Anion Gap 18.0 H POC BUN BUN 42 H Creatinine 2.5 H POC Creatinine Glucose POC Glucose Uric Acid Calcium 8.4 L POC WB Ioniz Calcium Phosphorus Iron 232 H Unsat Iron Binding < 20 L Transferrin % Sat 92 H Total Bilirubin 2.5 H Direct Bilirubin Total Protein Albumin 07/19/17 18:30 WBC RBC Hgb Hct POC Hct 26.0 L RDW Gran % Lymph % (Auto) Lymph # (Auto) Absolute Retic Carbon Dioxide POC Total CO2 21 L Anion Gap POC BUN 41 H BUN Creatinine POC Creatinine 3.0 H Glucose POC Glucose 106 H Uric Acid Calcium POC WB Ioniz Calcium 0.97 L Phosphorus Iron Unsat Iron Binding Transferrin % Sat Total Bilirubin Direct Bilirubin Total Protein Albumin Meds: Medications Albuterol/Ipratropium (Duoneb) 3 ml NEB Q4HRT [facility] Last Admin: 07/21/17 11:17 Dose: Not Given Amiodarone HCl (Cordarone) 200 mg PO BID [facility] Last Admin: 07/21/17 08:19 Dose: 200 mg Aspirin (Aspirin) 81 mg PO DAILY [facility] Last Admin: 07/21/17 08:19 Dose: 81 mg Citalopram Hydrobromide (Celexa) 10 mg PO QDAY [facility] Last Admin: 07/21/17 08:14 Dose: 10 mg Divalproex Sodium (Depakote Sprinkles) 250 mg PO BID [facility] Last Admin: 07/21/17 08:19 Dose: 250 mg Heparin Sodium (Porcine) (Heparin) 5,000 unit SQ Q12 [facility] Last Admin: 07/21/17 08:14 Dose: 5,000 unit Azithromycin 500 mg/ Dextrose 250 mls @ 250 mls/hr IV Q24H [facility] Stop: 07/23/17 09:59 Last Admin: 07/21/17 09:35 Dose: 250 mls/hr Piperacillin Sod/Tazobactam (Sod 2.25 gm/ Dextrose) 50 mls @ 100 mls/hr IV Q6H [facility] Last Admin: 07/21/17 12:18 Dose: 100 mls/hr Gentamicin Sulfate 40 mg/Clindamycin Phosphate 300 mg/Bacitracin 25,000 unit/ Sodium Chloride 503 mls @ 0 mls/hr IRR Q24H [facility] PRN Reason: As Directed Last Admin: 07/21/17 09:32 Dose: 1 mls/hr Levothyroxine Sodium (Synthroid) 25 mcg PO ACB [facility] Last Admin: 07/21/17 08:14 Dose: 25 mcg Methylprednisolone Sodium Succinate (Solu-Medrol) 62.5 mg IV Q8 [facility] Last Admin: 07/21/17 05:48 Dose: 62.5 mg Naloxone HCl (Narcan) 0.1 mg IV Q2MIN PRN PRN Reason: Opiate Reversal Ondansetron HCl (Zofran Odt) 4 mg SL Q4HP PRN PRN Reason: Nausea And Vomiting Risperidone (Risperdal) 1 mg PO BID [facility] Simvastatin (Zocor) 20 mg PO HS [facility] Sodium Chloride (Saline Flush) 10 ml IV Q8 [facility] Last Admin: 07/21/17 05:48 Dose: 10 ml Tamsulosin HCl (Flomax) 0.4 mg PO BID [facility] Last Admin: 07/21/17 08:19 Dose: 0.4 mg Medical - PN: A/P - Time Spent With Patient Total time spent is greater than 50% in coordination of care (as documented) at patient's floor/unit and/or counseling patient: - Narrative A/P Narrative: A/P Acute Blood loss anemia: due to fall, and laceration, hb stable. Atrial fibrillation: continue amiodarone 200mg bid for rate control, rate well controlled at present. Coronary artery disease/ Severe Aortic Stenosis/ carotid stenosis/ HTN/ HLD : will resume home meds. Chf exacerbation : on cxr, iv lasix given, garza in place, Possible PNA: Given mental status, its possible he may have aspirated, but chf is more likely, will start on zosyn and monitor, x ray better today. Acute on Chr Renal failure: creat is stable at 2.3, monitor, he ripped out the garza today, difficult to monitor output. Advanced Dementia, likely Vascular: H/o ams and agitated behviour, at baseline does not seem to be very cognitive, has some lucid intervals. presently on IM Zyprexa prn, risperidone 1mg bid started, also on divalproex 250mg bid. Laceration to arm: s/p sutures, in the ER , some of the sutures have come off, likey to be head by secondary intention, Dr Gutiérrez following. chr bronchitis/ Bronchiectasis / COPD: No wheezing on my exam,, stable, monitor. continue duonebs. cHF on x ray yesterday, s/p lasix with improvement in xray chest today, monitor closely for now. Obstructive sleep apnea: cpap at night DVT SCD Full code for now. Cardiac diet. Medical - PN: Qual - VTE Deep Vein Thrombosis/Pulmonary Embolism Present on Admission: No
[2017-07-21] MEDS ORDERED: NALOXONE HCL 0.4 MG/ML VIAL IV PRN (19:23)
[2017-07-21] MEDS ORDERED: ONDANSETRON ODT 4 MG TABLET SL PRN (19:23)
[2017-07-21] MEDS ORDERED: PIPERACILLIN SODIUM/TAZOBACTAM 2.25 GM in DEXTROSE 5% IN WATER 50 ML IV SCH (20:00)
[2017-07-21] MEDS: risperiDONE 1 MG TABLET PO SCH (20:15)
[2017-07-21] MEDS ORDERED: SIMVASTATIN 20 MG TABLET PO SCH (21:00)
[2017-07-21] MEDS ORDERED: risperiDONE 1 MG TABLET PO SCH (21:00)
[2017-07-22] MEDS: IPRATROPIUM/ALBUTEROL 3 ML AMPUL.NEB NEB SCH ×7 (03:25→22:50)
[2017-07-22 05:15] LABS: Basophils # (Auto) 0 K/mcL (0.0-0.3); Basophils % (Auto) 0 % (0.0-2.0); Eosinophils # (Auto) 0 K/mcL (0.0-0.7); Eosinophils % (Auto) 0 % (0.0-7.0); Granulocytes % (Auto) 90.4 % (38.0-78.0); Lymphocytes # (Auto) 0.2 K/mcL (1.5-4.8); Lymphocytes % (Auto) 3.2 % (15.5-49.0); Mean Cell Volume 95.4 fL (80.0-100.0); Mean Corpuscular HGB Conc 33.6 g/dL (31.0-36.0); Monocytes # (Auto) 0.4 K/mcL (0.1-0.9); Monocytes % (Auto) 6.4 % (1.0-12.0); Platelet Count 191 K/mcL (140-440); Red Cell Distribution Width 14.3 % (11.5-14.5)
[2017-07-22 05:36] LABS: ALT/SGPT 17 U/l (0-40); Albumin 3.3 gm/dL (3.2-5.2); Albumin/Globulin Ratio 1.4 (1.0-2.3); Alkaline Phosphatase 67 U/L (39-117); Bilirubin,Direct 0.4 mg/dL (0.0-0.3); Blood Urea Nitrogen 59 mg/dl (8-23); Gamma Glutamyl Transpeptidase 27 U/L (8-61); Uric Acid 10.4 mg/dL (2.5-8.0)
[2017-07-22] MEDS: PIPERACILLIN SODIUM/TAZOBACTAM 2.25 GM in DEXTROSE 5% IN WATER 50 ML IV SCH ×3 (06:06→17:26)
[2017-07-22] MEDS ORDERED: OMEPRAZOLE 20 MG CAPSULE PO SCH (07:30)
[2017-07-22] MEDS: predniSONE 20 MG TABLET PO SCH (08:00)
[2017-07-22] MEDS ORDERED: predniSONE 20 MG TABLET PO SCH (08:00)
[2017-07-22] MEDS: OMEPRAZOLE 20 MG CAPSULE PO SCH ×2 (08:00→08:24)
[2017-07-22] MEDS: 0.9 % SODIUM CHLORIDE 10 ML SYRINGE IV SCH ×3 (08:00→20:38)
[2017-07-22] MEDS: LISINOPRIL 10 MG TABLET PO SCH (08:01)
[2017-07-22] MEDS: TAMSULOSIN 0.4 MG CAPSULE PO SCH ×3 (08:01→20:29)
[2017-07-22] MEDS: LEVOTHYROXINE 25 MCG TABLET PO SCH ×2 (08:01→08:23)
[2017-07-22] MEDS: AMIODARONE HCL 200 MG TABLET PO SCH ×3 (08:02→20:31)
[2017-07-22] MEDS: risperiDONE 1 MG TABLET PO SCH ×3 (08:02→20:30)
[2017-07-22] MEDS: CITALOPRAM 20 MG TABLET PO SCH (08:02)
[2017-07-22] MEDS: DIVALPROEX 125 MG CAP.SPRINK PO SCH ×3 (08:03→20:26)
[2017-07-22] MEDS: HEPARIN 5,000 UNIT/ML VIAL SQ SCH ×2 (08:03→20:37)
[2017-07-22] MEDS: ASPIRIN 81 MG TAB.CHEW PO SCH (08:03)
[2017-07-22] MEDS: methylPREDNISolone SOD SUCC 125 MG/2 ML VIAL IV SCH ×2 (08:44→20:25)
[2017-07-22] MEDS: AZITHROMYCIN 500 MG in DEXTROSE 5% IN WATER 250 ML IV SCH (08:57)
[2017-07-22] MEDS ORDERED: FUROSEMIDE 40 MG TABLET PO SCH ×2 (09:00)
[2017-07-22] MEDS ORDERED: FUROSEMIDE 40 MG/4 ML VIAL IV SCH (09:00)
[2017-07-22] MEDS ORDERED: LISINOPRIL 10 MG TABLET PO SCH (09:00)
[2017-07-22] MEDS: OLANZapine 10 MG VIAL IM PRN (09:33)
--- NOTE | 2017-07-22 10:47 | Internal Med Progress Note ---
Medical - PN: Subj Patient information: Note initiated : 07/22/17 at 10:44 am Service Date, if different from initiated Date: [] Patient: Carlos Zuniga 87 y/o M admitted on 07/20/17 for Right Arm Hematoma, Moist Cough/Blood Loss Anemia. Chief Complaint: [] Interval history: Mr. Zuniga is a 87 year old Male with multiple medical comorbidites, dementia, who has been in the ER 3 times over the last 4 days. The patient was in the ER on 07/14/17, that time he had a mechanical fall and I believe he lacerated his arm this bled extensively according to the notes, left arm deep subcutaneous laceration, according to the notes it was 20 cm in length. Required 30 4 sutures. Patient was subsequently discharged. The patient presented to the emergency room again on the same day with symptoms of passing out, was found to be in A. fib with RVR, he was given amiodarone rate improved and then subsequently discharged on p.o. amiodarone. It is my understanding that he was not committed to the hospital because there were no beds available. CT head was done which was negative CT spine was negative. The patient was subsequently seen by the primary care provider who noted the patient had borderline low blood pressure but otherwise appeared stable, blood work was ordered it seems that the patient had a significant drop in his hemoglobin and therefore blood transfusions were ordered as an outpatient for the patient. While receiving blood transfusions, the patient became agitated ripped out the IV access. The patient did not get the full ordered 2 units, her some of the blood infiltrated in the arm, and I am not sure how much blood he totally received. The patient was sent to the emergency room because of his agitated behavior. The patient did not wish to be admitted to the hospital he noted that he was feeling fine, the ED physician noted that the patient does have significant dementia, he did talk with the patient's daughter who noted that the patient would not be in the position to make any medical judgments at this time and the patient if needs blood transfusion should be admitted. The patient was therefore admitted to the hospital for further management. [id number] hematocrit was done and was 26. Labs are pending. The patient did not provide any history to me, he opened his eyes laughed made a joke and went back to sleep, the patient seems was tired, according to the nurse in the ER has not received any sedative medication. Based on the recent blood test, the patient's hemoglobin was 8. 1, a drop from 10.9, platelets 165, INR is 1, patient has worsening renal function, creatinine was 1.8 recently and is 2.7 now. BUN is 40. There is no history of acute GI bleed. The patient has according to the history and extensive bleeding from the site of laceration, on exam he also has extensive bruising on his gluteal region. It is thought that the patient's blood loss is secondary to the recent fall. 07/20 Seen and examined, overnight events noted. Patient had been agitated intermittently throughout the night. He did not get the full blood transfusion as he broke the IV line that was administering blood then he ripped off the IV access. Patient required Haldol and restraints for safety. This morning he was sleeping but was notably short of breath. Exam revealed bilateral wheezing , chest x-ray showed congestion versus possible aspiration pneumonia. Started on IV steroids, IV antibiotics, IV Lasix given. Status changed to inpatient status. Labs show stable hemoglobin. I do not feel the patient needs any more blood transfusions at this point. The patient unfortunately because of his agitation yesterday ripped open the sutures on the left elbow, there is a significant laceration on the left arm, I do not feel that at this point in time there is any point in the suturing this wound, most likely will heal with secondary intention. I will have wound care evaluate the patient. 07/21 Pt seen examined, no acute overnight issues, slept well, this AM again was agitated, confused, and had broken the garza catheter, thep atient cxr is improved today, his wbc count has dropped. on iv abx, IM zyprexa given started on risperidone 1mg bid, also on divalproex labs otherwise stable. wound care consulted for left elbow laceration. Pt seen examined, still quite confused, delirious, agitated was wheezing this AM, IV lasix, duonebs ordreed switched back to IV steroids Plan to get CT head try to see if we can establish contact with family today need to look at goals of care. Pertinent ROS: unable. - Constitutional Vitals: Vital Signs Temp Pulse Resp BP Pulse Ox 98.1 F 60 22 112/62 90 07/22/17 07:18 07/22/17 08:46 07/22/17 08:46 07/22/17 07:18 07/22/17 07:18 Period Temp Pulse Resp BP Sys/Rhodes Pulse Ox Last 24 Hr 97.6 F-98.8 F 60-85 16-22 112-163/47-76 90-100 Intake and Output 07/21/17 07/22/17 07/22/17 21:59 05:59 13:59 Intake Total 140 / 140 Output Total 500 / 500 0 / 0 325 / 325 Balance -500 / -500 140 / 140 -325 / -325 Weight 170 lb Intake & Output: Intake & Output 07/21/17 07/22/17 07/22/17 21:59 05:59 13:59 Intake Total 140 / 140 Output Total 500 / 500 0 / 0 325 / 325 Balance -500 / -500 140 / 140 -325 / -325 Weight 170 lb Intake: IV 50 / 50 Zosyn 2.25 gm In Dextrose 5% in 50 / 50 Water 50 ml @ 100 mls/hr IV Q6H [facility] Rx#:[id number] Oral 90 / 90 Output: Urine Catheter Amount 500 / 500 325 / 325 Uretheral (Garza) 500 / 500 325 / 325 Void Amount 0 / 0 Other: Meal Dinner Percent of Meal Consumed 25% Feeding Ability Total Assistance Exam: Constitutional; Afebrile, agitated, not cooperative. Eyes- No icterus, , No periorbital swelling Ears- Ext ear normal, very hard hearing. Neck- Midline trachea, supple Respiratory system: Air Entry equal on both sides, delta exp wheezing, CVS- Rate rhythm regular, S1,S2 heard, Abdomen- Soft nontender abdomen, no organomegaly, no tenderness, no guarding or rigidity, PHOTOGRAPHIC DOUBLE- AOOx1, moving all extremities Medical - PN: Obj Da - Labs CBC & Chem 7: 07/22/17 03:50 07/22/17 03:50 Labs: Abnormal Lab Results 07/22/17 07/22/17 07/21/17 03:50 03:50 03:40 WBC RBC 3.10 L Hgb 9.9 L Hct 29.6 L POC Hct RDW Gran % 90.4 H Lymph % (Auto) 3.2 L Lymph # (Auto) 0.2 L Absolute Retic Carbon Dioxide POC Total CO2 Anion Gap POC BUN BUN 59 H 41 H Creatinine 2.2 H 2.3 H POC Creatinine Glucose 118 H 141 H POC Glucose Uric Acid 10.4 H 10.6 H Calcium 8.5 L 8.3 L POC WB Ioniz Calcium Phosphorus 5.1 H Iron Unsat Iron Binding Transferrin % Sat Total Bilirubin 1.5 H 1.5 H Direct Bilirubin 0.4 H 0.5 H Lactate Dehydrogenase 318 H Total Protein 5.6 L 5.5 L Albumin 3.1 L 07/21/17 07/20/17 07/20/17 03:40 07:57 07:57 WBC 2.9 L RBC 3.00 L 3.10 L Hgb 9.6 L 9.9 L Hct 28.2 L 29.1 L POC Hct RDW 14.6 H Gran % 93.8 H 86.7 H Lymph % (Auto) 3.9 L 5.4 L Lymph # (Auto) 0.1 L 0.3 L Absolute Retic Carbon Dioxide POC Total CO2 Anion Gap POC BUN BUN 39 H Creatinine 2.2 H POC Creatinine Glucose 109 H POC Glucose Uric Acid 10.0 H Calcium 8.3 L POC WB Ioniz Calcium Phosphorus Iron Unsat Iron Binding Transferrin % Sat Total Bilirubin 2.4 H Direct Bilirubin 0.8 H Lactate Dehydrogenase Total Protein 5.7 L Albumin 07/19/17 07/19/17 07/19/17 20:00 20:00 18:30 WBC RBC 3.01 L Hgb 9.9 L Hct 28.1 L POC Hct 26.0 L RDW 14.7 H Gran % 82.8 H Lymph % (Auto) 8.8 L Lymph # (Auto) 0.6 L Absolute Retic 2.3 H Carbon Dioxide 19 L POC Total CO2 21 L Anion Gap 18.0 H POC BUN 41 H BUN 42 H Creatinine 2.5 H POC Creatinine 3.0 H Glucose POC Glucose 106 H Uric Acid Calcium 8.4 L POC WB Ioniz Calcium 0.97 L Phosphorus Iron 232 H Unsat Iron Binding < 20 L Transferrin % Sat 92 H Total Bilirubin 2.5 H Direct Bilirubin Lactate Dehydrogenase Total Protein Albumin Meds: Medications Albuterol/Ipratropium (Duoneb) 3 ml NEB Q4HRT [facility] Last Admin: 07/22/17 08:46 Dose: 3 ml Amiodarone HCl (Cordarone) 200 mg PO BID [facility] Last Admin: 07/22/17 08:35 Dose: Not Given Aspirin (Aspirin) 81 mg PO DAILY [facility] Last Admin: 07/22/17 08:03 Dose: 81 mg Citalopram Hydrobromide (Celexa) 10 mg PO QDAY [facility] Last Admin: 07/22/17 08:02 Dose: 10 mg Divalproex Sodium (Depakote Sprinkles) 250 mg PO BID [facility] Last Admin: 07/22/17 08:49 Dose: Not Given Furosemide (Lasix) 40 mg IV DAILY [facility] Last Admin: 07/22/17 08:44 Dose: 40 mg Heparin Sodium (Porcine) (Heparin) 5,000 unit SQ Q12 [facility] Last Admin: 07/22/17 08:03 Dose: 5,000 unit Azithromycin 500 mg/ Dextrose 250 mls @ 250 mls/hr IV Q24H [facility] Stop: 07/23/17 09:59 Last Admin: 07/22/17 08:57 Dose: 250 mls/hr Gentamicin Sulfate 40 mg/Clindamycin Phosphate 300 mg/Bacitracin 25,000 unit/ Sodium Chloride 503 mls @ 0 mls/hr IRR Q24H [facility] PRN Reason: As Directed Piperacillin Sod/Tazobactam (Sod 2.25 gm/ Dextrose) 50 mls @ 100 mls/hr IV Q6H [facility] Last Admin: 07/22/17 06:06 Dose: 100 mls/hr Levothyroxine Sodium (Synthroid) 25 mcg PO ACB [facility] Last Admin: 07/22/17 08:23 Dose: Not Given Lisinopril (Zestril) 10 mg PO QDAY [facility] Last Admin: 07/22/17 08:01 Dose: 10 mg Methylprednisolone Sodium Succinate (Solu-Medrol) 62.5 mg IV Q12 [facility] Last Admin: 07/22/17 08:44 Dose: 62.5 mg Naloxone HCl (Narcan) 0.1 mg IV Q2MIN PRN PRN Reason: Opiate Reversal Olanzapine (Zyprexa) 10 mg IM Q12HP PRN PRN Reason: Agitation Last Admin: 07/22/17 09:33 Dose: 10 mg Omeprazole (Prilosec) 20 mg PO ACB [facility] Last Admin: 07/22/17 08:24 Dose: Not Given Ondansetron HCl (Zofran Odt) 4 mg SL Q4HP PRN PRN Reason: Nausea And Vomiting Risperidone (Risperdal) 1 mg PO BID [facility] Last Admin: 07/22/17 09:01 Dose: Not Given Simvastatin (Zocor) 20 mg PO HS [facility] Last Admin: 07/21/17 20:15 Dose: 20 mg Sodium Chloride (Saline Flush) 10 ml IV Q8 [facility] Last Admin: 07/22/17 08:00 Dose: 10 ml Tamsulosin HCl (Flomax) 0.4 mg PO BID [facility] Last Admin: 07/22/17 08:26 Dose: Not Given Medical - PN: A/P - Time Spent With Patient Total time spent is greater than 50% in coordination of care (as documented) at patient's floor/unit and/or counseling patient: - Narrative A/P Narrative: A/P Acute Blood loss anemia: due to fall, and laceration, hb stable. Atrial fibrillation: continue amiodarone 200mg bid for rate control, rate well controlled at present. Coronary artery disease/ Severe Aortic Stenosis/ carotid stenosis/ HTN/ HLD : continue home meds Chf exacerbation : on cxr, IV lasix to repeat today, Possible PNA: Given mental status, its possible he may have aspirated, but chf is more likely, on zosyn, cxr yesterday was better. Acute on Chr Renal failure: creat is stable at 2.2 monitor, he ripped out the garza today, difficult to monitor output. Advanced Dementia, likely Vascular: H/o ams and agitated behavior, at baseline does not seem to be very cognitive, has some lucid intervals. presently on IM Zyprexa prn, risperidone 1mg bid started, also on divalproex 250mg bid. Pt behavior still not controlled, will get Head CT. Laceration to arm: s/p sutures, in the ER , some of the sutures have come off, likely to be healed by secondary intention, Dr Gutiérrez following. COPD exacerbation. - On IV steroids, duonebs and zithromax Obstructive sleep apnea: cpap at night DVT SCD Full code for now. / very poor prognosis gien advanced dementia, behavorial issues limiting care that can be rendered. Cardiac diet. Medical - PN: Qual - VTE Deep Vein Thrombosis/Pulmonary Embolism Present on Admission: No
[2017-07-22] MEDS: GENTAMICIN SULFATE 40 MG, CLINDAMYCIN 300 MG, BACITRACIN 25,000 UNIT in SODIUM CHLORIDE... IRR SCH (11:00)
--- NOTE | 2017-07-22 11:42 | Cat Scan Report ---
Reason: Altered mental status TECHNIQUE: The brain was imaged without contrast at 2.5 mm intervals. Radiation exposure was limited using dose reduction technology. FINDINGS: Patient has a left cochlear implant. The power pack is in the scalp adjacent to the left parietal bone. The power pack is creating significant beam hardening artifact in the brain. Left-sided mastoidectomy has been performed. There are age-related degenerative changes with moderate atrophy of the frontal lobes and to a lesser extent the temporal and parietal lobes. Patchy areas of decreased attenuation are present in the white matter in the frontal and parietal lobes and left hebert radiata. There is no apparent infarct. No hemorrhage or mass effect are present. The ventricles are normal in size allowing for the generalized atrophy. There are moderate size air-fluid levels in both maxillary sinuses and small air-fluid levels in the sphenoid sinuses. Mucosal thickening is seen along the saavedra of a few ethmoid air cells. IMPRESSION: Cerebral atrophy with mild to moderate white matter ischemia or degeneration above the tentorium. Sinusitis No acute intracranial abnormality is detected. Interpreted and Authenticated by: Wilson Joyce 07/22/17
--- NOTE | 2017-07-22 12:33 | General Surgery Progress Note ---
Subjective Narrative: Note initiated : 07/22/17 at 12:31 pm Service Date, if different from initiated Date: [] Patient: Carlos Zuniga 87 y/o M admitted on 07/20/17 for Right Arm Hematoma, Moist Cough/Blood Loss Anemia. Chief Complaint: [] Patient's progress reviewed with Dr. Gandara, Hospitalist physician and [facility] GR[facility]ES Objective Temp Pulse Resp BP Pulse Ox 98.1 F 60 18 112/62 90 07/22/17 07:18 07/22/17 11:40 07/22/17 11:40 07/22/17 07:18 07/22/17 07:18 AVSS. Still irritable and wants to be left alone. No interval changes in [place]. Skin wounds left forearm examined. Stable and responding to current treatment. - Additional Data Intake & Output - Last 24 hours: Intake & Output 07/20/17 07/21/17 07/22/17 07/23/17 05:59 05:59 05:59 05:59 Intake Total 200 / 200 400 / 400 590 / 590 330 / 330 Output Total 1400 / 1400 2300 / 2300 500 / 500 325 / 325 Balance -1200 / -1200 -1900 / -1900 90 / 90 5 / 5 Weight 181 lb 1.6 oz 174 lb 9.6 oz 170 lb - Labs 07/22/17 03:50 07/22/17 03:50 Diabetes panel 07/22/17 Range/Units 03:50 Sodium 143 (133-145) mmol/L Potassium 4.4 (3.3-5.1) mmol/L Chloride 103 (96-108) mmol/L Carbon Dioxide 25 (22-30) mmol/L BUN 59 H (8-23) mg/dl Creatinine 2.2 H (0.7-1.2) mg/dl Glucose 118 H (70-105) mg/dL Calcium 8.5 L (8.6-10.4) mg/dl AST 21 (0-37) U/l ALT 17 (0-40) U/l Alkaline Phosphatase 67 (39-117) U/L Total Protein 5.6 L (5.9-8.4) gm/dL Albumin 3.3 (3.2-5.2) gm/dL Triglycerides 82 (<150) mg/dl Calcium panel 06/16/18 Range/Units 03:50 Calcium 8.5 L (8.6-10.4) mg/dl Phosphorus 4.1 (2.7-4.5) mg/dL Albumin 3.3 (3.2-5.2) gm/dL Pituitary panel 07/22/17 Range/Units 03:50 Sodium 143 (133-145) mmol/L Potassium 4.4 (3.3-5.1) mmol/L Chloride 103 (96-108) mmol/L Carbon Dioxide 25 (22-30) mmol/L BUN 59 H (8-23) mg/dl Creatinine 2.2 H (0.7-1.2) mg/dl Glucose 118 H (70-105) mg/dL Calcium 8.5 L (8.6-10.4) mg/dl Adrenal panel 07/22/17 Range/Units 03:50 Sodium 143 (133-145) mmol/L Potassium 4.4 (3.3-5.1) mmol/L Chloride 103 (96-108) mmol/L Carbon Dioxide 25 (22-30) mmol/L BUN 59 H (8-23) mg/dl Creatinine 2.2 H (0.7-1.2) mg/dl Glucose 118 H (70-105) mg/dL Calcium 8.5 L (8.6-10.4) mg/dl Total Bilirubin 1.5 H (0.0-1.0) mg/dL AST 21 (0-37) U/l ALT 17 (0-40) U/l Alkaline Phosphatase 67 (39-117) U/L Total Protein 5.6 L (5.9-8.4) gm/dL Albumin 3.3 (3.2-5.2) gm/dL Assessment and Plan (1) Wound dehiscence Status: Acute Current Visit: Yes (2) Abscess of skin or subcutaneous tissue Status: Acute Current Visit: No (3) Altered mental status Status: Acute Current Visit: No (4) Atrial fibrillation with RVR Status: Acute Current Visit: No - Time Spent With Patient Total time spent is greater than 50% in coordination of care (as documented) at patient's floor/unit and/or counseling patient: Assessment: Stable from wound care point of view. Plan: Continue current treatment. 15 - 24 minutes
[2017-07-22] MEDS ORDERED: DEXTROSE 5%-LR W/20MEQ KCL 1,000 ML IV SCH (19:15)
[2017-07-22] MEDS: THIAMINE 100 MG in 0.9 % SODIUM CHLORIDE 50 ML IV SCH (20:22)
[2017-07-22] MEDS: SIMVASTATIN 20 MG TABLET PO SCH (20:30)
[2017-07-22] MEDS: morphine 20 MG/ML ORAL.CONC SL PRN ×2 (21:25→23:28)
[2017-07-23] MEDS: PIPERACILLIN SODIUM/TAZOBACTAM 2.25 GM in DEXTROSE 5% IN WATER 50 ML IV SCH ×5 (00:01→23:47)
[2017-07-23] MEDS: OLANZapine 10 MG VIAL IM PRN ×2 (00:01→17:06)
[2017-07-23] MEDS: IPRATROPIUM/ALBUTEROL 3 ML AMPUL.NEB NEB SCH ×6 (02:49→23:11)
[2017-07-23 05:18] LABS: Basophils # (Auto) 0 K/mcL (0.0-0.3); Basophils % (Auto) 0 % (0.0-2.0); Eosinophils # (Auto) 0 K/mcL (0.0-0.7); Eosinophils % (Auto) 0 % (0.0-7.0); Granulocytes % (Auto) 93.4 % (38.0-78.0); Lymphocytes # (Auto) 0.1 K/mcL (1.5-4.8); Lymphocytes % (Auto) 2.5 % (15.5-49.0); Mean Cell Volume 95.1 fL (80.0-100.0); Mean Corpuscular HGB Conc 32.8 g/dL (31.0-36.0); Mean Corpuscular Hemoglobin 31.1 pg (26.0-34.0); Monocytes # (Auto) 0.2 K/mcL (0.1-0.9); Monocytes % (Auto) 4.1 % (1.0-12.0); Platelet Count 192 K/mcL (140-440); RBC 3.08 M/mcL (4.50-5.90); Red Cell Distribution Width 14.3 % (11.5-14.5)
[2017-07-23 05:39] LABS: ALT/SGPT 18 U/l (0-40); Albumin 3.4 gm/dL (3.2-5.2); Albumin/Globulin Ratio 1.7 (1.0-2.3); Alkaline Phosphatase 56 U/L (39-117); Bilirubin,Direct 0.4 mg/dL (0.0-0.3); Blood Urea Nitrogen 56 mg/dl (8-23); Gamma Glutamyl Transpeptidase 23 U/L (8-61); Uric Acid 9.8 mg/dL (2.5-8.0)
[2017-07-23] MEDS ORDERED: DEXTROSE 5%-1/2NS W/20MEQ KCL 1,000 ML IV SCH (08:00)
[2017-07-23] MEDS: DEXTROSE 5%-1/2NS W/20MEQ KCL 1,000 ML IV SCH (08:00)
[2017-07-23] MEDS: HEPARIN 5,000 UNIT/ML VIAL SQ SCH ×2 (08:02→20:34)
[2017-07-23] MEDS: methylPREDNISolone SOD SUCC 125 MG/2 ML VIAL IV SCH ×2 (08:03→20:22)
[2017-07-23] MEDS: 0.9 % SODIUM CHLORIDE 10 ML SYRINGE IV SCH ×3 (08:08→21:13)
[2017-07-23] MEDS: THIAMINE 100 MG in 0.9 % SODIUM CHLORIDE 50 ML IV SCH (08:09)
--- NOTE | 2017-07-23 09:04 | XRay Report ---
HISTORY: Reason for Exam: pneumonia follow up FINDINGS: Increased interstitial lung markings are present in both lower lobes and around the jaya, affecting the left side greater than right. There is minor blunting of left costophrenic sulcus. The heart size is normal. The mediastinum and hilar normal. There has been no significant change since 07/24/17. IMPRESSION: Stable interstitial lung disease bilaterally. This may be a combination of persistent inflammation and evolving pulmonary fibrosis. Patient has known emphysema based upon a prior chest CT. Interpreted and Authenticated by: Wilson Joyce 07/23/17
[2017-07-23] MEDS: AZITHROMYCIN 500 MG in DEXTROSE 5% IN WATER 250 ML IV SCH (09:17)
[2017-07-23] MEDS: OMEPRAZOLE 20 MG CAPSULE PO SCH (13:27)
[2017-07-23] MEDS: LEVOTHYROXINE 25 MCG TABLET PO SCH (13:27)
[2017-07-23] MEDS: TAMSULOSIN 0.4 MG CAPSULE PO SCH ×2 (13:28→20:30)
[2017-07-23] MEDS: AMIODARONE HCL 200 MG TABLET PO SCH ×2 (13:28→20:31)
[2017-07-23] MEDS: CITALOPRAM 20 MG TABLET PO SCH (13:28)
[2017-07-23] MEDS: ASPIRIN 81 MG TAB.CHEW PO SCH (13:28)
[2017-07-23] MEDS: DIVALPROEX 125 MG CAP.SPRINK PO SCH ×2 (13:28→20:28)
[2017-07-23] MEDS: risperiDONE 1 MG TABLET PO SCH ×2 (13:29→20:26)
[2017-07-23] MEDS: LISINOPRIL 10 MG TABLET PO SCH (13:29)
[2017-07-23] MEDS: GENTAMICIN SULFATE 40 MG, CLINDAMYCIN 300 MG, BACITRACIN 25,000 UNIT in SODIUM CHLORIDE... IRR SCH (13:30)
--- NOTE | 2017-07-23 14:50 | Internal Med Progress Note ---
Medical - PN: Subj Patient information: Note initiated : 07/23/17 at 2:42 pm Service Date, if different from initiated Date: [] Patient: Carlos Zuniga 87 y/o M admitted on 07/20/17 for Right Arm Hematoma, Moist Cough/Blood Loss Anemia. Chief Complaint: [] Interval history: Mr. Zuniga is a 87 year old Male with multiple medical comorbidites, dementia, who has been in the ER 3 times over the last 4 days. The patient was in the ER on 07/14/17, that time he had a mechanical fall and I believe he lacerated his arm this bled extensively according to the notes, left arm deep subcutaneous laceration, according to the notes it was 20 cm in length. Required 30 4 sutures. Patient was subsequently discharged. The patient presented to the emergency room again on the same day with symptoms of passing out, was found to be in A. fib with RVR, he was given amiodarone rate improved and then subsequently discharged on p.o. amiodarone. It is my understanding that he was not committed to the hospital because there were no beds available. CT head was done which was negative CT spine was negative. The patient was subsequently seen by the primary care provider who noted the patient had borderline low blood pressure but otherwise appeared stable, blood work was ordered it seems that the patient had a significant drop in his hemoglobin and therefore blood transfusions were ordered as an outpatient for the patient. While receiving blood transfusions, the patient became agitated ripped out the IV access. The patient did not get the full ordered 2 units, her some of the blood infiltrated in the arm, and I am not sure how much blood he totally received. The patient was sent to the emergency room because of his agitated behavior. The patient did not wish to be admitted to the hospital he noted that he was feeling fine, the ED physician noted that the patient does have significant dementia, he did talk with the patient's daughter who noted that the patient would not be in the position to make any medical judgments at this time and the patient if needs blood transfusion should be admitted. The patient was therefore admitted to the hospital for further management. [id number] hematocrit was done and was 26. Labs are pending. The patient did not provide any history to me, he opened his eyes laughed made a joke and went back to sleep, the patient seems was tired, according to the nurse in the ER has not received any sedative medication. Based on the recent blood test, the patient's hemoglobin was 8. 1, a drop from 10.9, platelets 165, INR is 1, patient has worsening renal function, creatinine was 1.8 recently and is 2.7 now. BUN is 40. There is no history of acute GI bleed. The patient has according to the history and extensive bleeding from the site of laceration, on exam he also has extensive bruising on his gluteal region. It is thought that the patient's blood loss is secondary to the recent fall. 07/20 Seen and examined, overnight events noted. Patient had been agitated intermittently throughout the night. He did not get the full blood transfusion as he broke the IV line that was administering blood then he ripped off the IV access. Patient required Haldol and restraints for safety. This morning he was sleeping but was notably short of breath. Exam revealed bilateral wheezing , chest x-ray showed congestion versus possible aspiration pneumonia. Started on IV steroids, IV antibiotics, IV Lasix given. Status changed to inpatient status. Labs show stable hemoglobin. I do not feel the patient needs any more blood transfusions at this point. The patient unfortunately because of his agitation yesterday ripped open the sutures on the left elbow, there is a significant laceration on the left arm, I do not feel that at this point in time there is any point in the suturing this wound, most likely will heal with secondary intention. I will have wound care evaluate the patient. 07/21 Pt seen examined, no acute overnight issues, slept well, this AM again was agitated, confused, and had broken the garza catheter, thep atient cxr is improved today, his wbc count has dropped. on iv abx, IM zyprexa given started on risperidone 1mg bid, also on divalproex labs otherwise stable. wound care consulted for left elbow laceration. Pt seen examined, still quite confused, delirious, agitated was wheezing this AM, IV lasix, duonebs ordreed switched back to IV steroids Plan to get CT head try to see if we can establish contact with family today need to look at goals of care. 07/23 Pt seen examined, overnight started on IV thiamine, and po morphine for pain. The patietn needed garza again, for retention. He has mitts placed on both his hads now, to avoid removal of lines. He has been sleeping today, without any s/o distress He has had a Chest x ray which shows chr copd, no acute findings. His sodium level was up, so started on gentle hydration. I spoke with the 2 daughters, who have the POA, we had planned a conference on phone today, however I did not have the legal document to verify pts wishes, therefore we canceled same. Suzie, will be coming to visit on Monday. Pt will be DNR as per my discussions with the 2 daughters, and its also my recommendation that he be DNR given his overall poor prognosis. Looking at his will I would interpret that given his present condition,worsening dementia, inability to care for self, CPR would not be very helpful. Case management will try to talk with the third POA, the patients son to see if he has any input. Pertinent ROS: unable. - Constitutional Vitals: Vital Signs Temp Pulse Resp BP Pulse Ox 97.9 F 57 L 18 144/57 99 07/23/17 11:34 07/23/17 11:34 07/23/17 11:34 07/23/17 11:34 07/23/17 07:22 Period Temp Pulse Resp BP Sys/Rhodes Pulse Ox Last 24 Hr 97.9 F-98.9 F 54-83 16-24 133-177/57-79 91-100 Intake and Output 07/23/17 07/23/17 07/23/17 05:59 13:59 21:59 Intake Total 50 / 50 151 / 151 Output Total 350 / 350 450 / 450 Balance -300 / -300 -299 / -299 Intake & Output: Intake & Output 07/23/17 07/23/17 07/23/17 05:59 13:59 21:59 Intake Total 50 / 50 151 / 151 Output Total 350 / 350 450 / 450 Balance -300 / -300 -299 / -299 Intake: IV 50 / 50 151 / 151 Zosyn 2.25 gm In Dextrose 5% in 50 / 50 100 / 100 Water 50 ml @ 100 mls/hr IV Q6H [facility] Rx#:[id number] Vitamin B1 100 mg In Sodium 51 / 51 Chloride 0.9% 50 ml @ 50 mls/hr IV DAILY [facility] Rx#:[id number] Oral 0 / 0 Output: Urine Catheter Amount 350 / 350 450 / 450 Other: Meal Lunch Percent of Meal Consumed 100% Exam: Constitutional; Afebrile, not cooperative, atlered, Eyes- No icterus, , No periorbital swelling Ears- Ext ear normal, Neck- Midline trachea, supple Respiratory system: Air Entry equal on both sides, No crackles or wheezing, no rhonchi. on anterior exam today, had rhonchi yesterday. CVS- Rate rhythm regular, S1,S2 heard, no gallop, no rub. Abdomen- Soft nontender abdomen, no organomegaly, no tenderness, no guarding or rigidity, [employer]- AOOx0, moving all extremities Medical - PN: Obj Da - Labs CBC & Chem 7: 07/23/17 03:40 07/23/17 03:40 Labs: Abnormal Lab Results 07/23/17 07/23/17 07/22/17 03:40 03:40 03:50 WBC RBC 3.08 L Hgb 9.6 L Hct 29.2 L Gran % 93.4 H Lymph % (Auto) 2.5 L Lymph # (Auto) 0.1 L Sodium 148 H Carbon Dioxide 31 H BUN 56 H 59 H Creatinine 2.1 H 2.2 H Glucose 158 H 118 H Uric Acid 9.8 H 10.4 H Calcium 8.5 L Phosphorus Total Bilirubin 1.4 H 1.5 H Direct Bilirubin 0.4 H 0.4 H Lactate Dehydrogenase 349 H 318 H Total Protein 5.4 L 5.6 L Albumin Globulin 2.0 L 07/22/17 07/21/17 07/21/17 03:50 03:40 03:40 WBC 2.9 L RBC 3.10 L 3.00 L Hgb 9.9 L 9.6 L Hct 29.6 L 28.2 L Gran % 90.4 H 93.8 H Lymph % (Auto) 3.2 L 3.9 L Lymph # (Auto) 0.2 L 0.1 L Sodium Carbon Dioxide BUN 41 H Creatinine 2.3 H Glucose 141 H Uric Acid 10.6 H Calcium 8.3 L Phosphorus 5.1 H Total Bilirubin 1.5 H Direct Bilirubin 0.5 H Lactate Dehydrogenase Total Protein 5.5 L Albumin 3.1 L Globulin Meds: Medications Albuterol/Ipratropium (Duoneb) 3 ml NEB Q4HRT [facility] Last Admin: 07/23/17 11:28 Dose: 3 ml Amiodarone HCl (Cordarone) 200 mg PO BID [facility] Last Admin: 07/23/17 13:28 Dose: Not Given Aspirin (Aspirin) 81 mg PO DAILY [facility] Last Admin: 07/23/17 13:28 Dose: Not Given Citalopram Hydrobromide (Celexa) 10 mg PO QDAY [facility] Last Admin: 07/23/17 13:28 Dose: Not Given Divalproex Sodium (Depakote Sprinkles) 250 mg PO BID [facility] Last Admin: 07/23/17 13:28 Dose: Not Given Heparin Sodium (Porcine) (Heparin) 5,000 unit SQ Q12 [facility] Last Admin: 07/23/17 08:02 Dose: 5,000 unit Gentamicin Sulfate 40 mg/Clindamycin Phosphate 300 mg/Bacitracin 25,000 unit/ Sodium Chloride 503 mls @ 0 mls/hr IRR Q24H [facility] PRN Reason: As Directed Last Admin: 07/22/17 11:00 Dose: 50 mls/hr Piperacillin Sod/Tazobactam (Sod 2.25 gm/ Dextrose) 50 mls @ 100 mls/hr IV Q6H [facility] Last Infusion: 07/23/17 13:29 Dose: Infused Thiamine HCl 100 mg/ Sodium (Chloride) 51 mls @ 50 mls/hr IV DAILY [facility] Stop: 07/28/17 10:02 Last Infusion: 07/23/17 10:35 Dose: Infused Potassium Chloride/Dextrose/Sod Cl (Dextrose 5%-1/2ns W/20meq Kcl) 1,000 mls @ 50 mls/hr IV .Q20H [facility] Stop: 07/24/17 23:59 Last Admin: 07/23/17 08:00 Dose: 50 mls/hr Levothyroxine Sodium (Synthroid) 25 mcg PO ACB [facility] Last Admin: 07/23/17 13:27 Dose: Not Given Lisinopril (Zestril) 10 mg PO QDAY [facility] Last Admin: 07/23/17 13:29 Dose: Not Given Methylprednisolone Sodium Succinate (Solu-Medrol) 62.5 mg IV Q12 [facility] Last Admin: 07/23/17 08:03 Dose: 62.5 mg Morphine Sulfate (Morphine) 2 mg SL Q2HP PRN PRN Reason: Pain Last Admin: 07/22/17 23:28 Dose: 2 mg Naloxone HCl (Narcan) 0.1 mg IV Q2MIN PRN PRN Reason: Opiate Reversal Olanzapine (Zyprexa) 10 mg IM Q12HP PRN PRN Reason: Agitation Last Admin: 07/23/17 00:01 Dose: 10 mg Omeprazole (Prilosec) 20 mg PO ACB [facility] Last Admin: 07/23/17 13:27 Dose: Not Given Ondansetron HCl (Zofran Odt) 4 mg SL Q4HP PRN PRN Reason: Nausea And Vomiting Risperidone (Risperdal) 1 mg PO BID [facility] Last Admin: 07/23/17 13:29 Dose: Not Given Simvastatin (Zocor) 20 mg PO HS [facility] Last Admin: 07/22/17 20:30 Dose: 20 mg Sodium Chloride (Saline Flush) 10 ml IV Q8 [facility] Last Admin: 07/23/17 13:29 Dose: Not Given Tamsulosin HCl (Flomax) 0.4 mg PO BID [facility] Last Admin: 07/23/17 13:28 Dose: Not Given Medical - PN: A/P - Time Spent With Patient Total time spent is greater than 50% in coordination of care (as documented) at patient's floor/unit and/or counseling patient: - Narrative A/P Narrative: A/P Acute Blood loss anemia: due to fall, and laceration, hb stable. Atrial fibrillation: continue amiodarone 200mg bid for rate control, rate well controlled at present. Pt unable to take po meds at this time due to mental status changes. Coronary artery disease/ Severe Aortic Stenosis/ carotid stenosis/ HTN/ HLD : continue home meds Chf exacerbation : cxr shows improved condition, d/c IV lasix . pt hypernatremic , using d51/2 ns for gentle hydration. Possible PNA: Given mental status, its possible he may have aspirated, but chf is more likely, on zosyn, cxr today stable. Acute on Chr Renal failure: creat is stable at 2.2 monitor, garza placed back in , Advanced Dementia, likely Vascular: H/o ams and agitated behavior, at baseline does not seem to be very cognitive, has some lucid intervals. presently on IM Zyprexa prn, risperidone 1mg bid started, also on divalproex 250mg bid. Head Ct neg, started on IV thiamine, as well as SL morphine for pain management. Wonder if pain from the laceratino is triggering the altered behavour, pt sleeping today. Laceration to arm: s/p sutures, in the ER , some of the sutures have come off, likely to be healed by secondary intention, Dr Gutiérrez following. COPD exacerbation. - On IV steroids, duonebs and zithromax , Obstructive sleep apnea: cpap at night DVT SCD DNR for now after discussion with family very poor prognosis gien advanced dementia, behavorial issues limiting care that can be rendered. Cardiac diet. Pt is not able to tolerate much po, I am hoping that once he wakes up he will be able to tolerate some po diet to get nutrition and meds. Medical - PN: Qual - VTE Deep Vein Thrombosis/Pulmonary Embolism Present on Admission: No
[2017-07-23] MEDS: morphine 20 MG/ML ORAL.CONC SL PRN ×2 (19:49→22:36)
[2017-07-23] MEDS: SIMVASTATIN 20 MG TABLET PO SCH (20:31)
[2017-07-24] MEDS: IPRATROPIUM/ALBUTEROL 3 ML AMPUL.NEB NEB SCH ×6 (02:16→22:55)
[2017-07-24 04:48] LABS: Basophils # (Auto) 0 K/mcL (0.0-0.3); Basophils % (Auto) 0 % (0.0-2.0); Eosinophils # (Auto) 0 K/mcL (0.0-0.7); Eosinophils % (Auto) 0 % (0.0-7.0); Granulocytes % (Auto) 92.8 % (38.0-78.0); Lymphocytes # (Auto) 0.1 K/mcL (1.5-4.8); Mean Cell Volume 94.2 fL (80.0-100.0); Mean Corpuscular HGB Conc 33.9 g/dL (31.0-36.0); Monocytes # (Auto) 0.3 K/mcL (0.1-0.9); Monocytes % (Auto) 5.2 % (1.0-12.0); Platelet Count 192 K/mcL (140-440); RBC 2.97 M/mcL (4.50-5.90); Red Cell Distribution Width 14.6 % (11.5-14.5)
[2017-07-24] MEDS: PIPERACILLIN SODIUM/TAZOBACTAM 2.25 GM in DEXTROSE 5% IN WATER 50 ML IV SCH ×4 (05:26→23:12)
[2017-07-24] MEDS: 0.9 % SODIUM CHLORIDE 10 ML SYRINGE IV SCH ×3 (06:20→22:30)
[2017-07-24 06:32] LABS: ALT/SGPT 19 U/l (0-40); Albumin 3.2 gm/dL (3.2-5.2); Albumin/Globulin Ratio 1.5 (1.0-2.3); Alkaline Phosphatase 55 U/L (39-117); Bilirubin,Direct 0.4 mg/dL (0.0-0.3); Blood Urea Nitrogen 53 mg/dl (8-23); Gamma Glutamyl Transpeptidase 23 U/L (8-61); Uric Acid 9.5 mg/dL (2.5-8.0)
[2017-07-24] MEDS: DEXTROSE 5%-1/2NS W/20MEQ KCL 1,000 ML IV SCH (07:38)
[2017-07-24] MEDS: HEPARIN 5,000 UNIT/ML VIAL SQ SCH ×2 (08:13→20:59)
[2017-07-24] MEDS: methylPREDNISolone SOD SUCC 125 MG/2 ML VIAL IV SCH ×2 (08:15→20:59)
[2017-07-24] MEDS: THIAMINE 100 MG in 0.9 % SODIUM CHLORIDE 50 ML IV SCH (08:18)
[2017-07-24] MEDS: DIVALPROEX 125 MG CAP.SPRINK PO SCH ×2 (08:25→22:28)
[2017-07-24] MEDS: LEVOTHYROXINE 25 MCG TABLET PO SCH (08:26)
[2017-07-24] MEDS: risperiDONE 1 MG TABLET PO SCH ×2 (08:26→22:29)
[2017-07-24] MEDS: OMEPRAZOLE 20 MG CAPSULE PO SCH (09:34)
[2017-07-24] MEDS: ASPIRIN 81 MG TAB.CHEW PO SCH (09:35)
[2017-07-24] MEDS: CITALOPRAM 20 MG TABLET PO SCH (09:35)
[2017-07-24] MEDS: TAMSULOSIN 0.4 MG CAPSULE PO SCH ×2 (09:36→22:29)
[2017-07-24] MEDS: AMIODARONE HCL 200 MG TABLET PO SCH ×2 (09:36→22:28)
[2017-07-24] MEDS: LISINOPRIL 10 MG TABLET PO SCH (09:36)
--- NOTE | 2017-07-24 09:50 | Internal Med Progress Note ---
Medical - PN: Subj Patient information: Note initiated : 07/24/17 at 9:36 am Service Date, if different from initiated Date: [] Patient: Carlos Zuniga 87 y/o M admitted on 07/20/17 for Right Arm Hematoma, Moist Cough/Blood Loss Anemia. Chief Complaint: [] Interval history: Mr. Zuniga is a 87 year old Male with multiple medical comorbidites, dementia, who has been in the ER 3 times over the last 4 days. The patient was in the ER on 07/14/17, that time he had a mechanical fall and I believe he lacerated his arm this bled extensively according to the notes, left arm deep subcutaneous laceration, according to the notes it was 20 cm in length. Required 30 4 sutures. Patient was subsequently discharged. The patient presented to the emergency room again on the same day with symptoms of passing out, was found to be in A. fib with RVR, he was given amiodarone rate improved and then subsequently discharged on p.o. amiodarone. It is my understanding that he was not committed to the hospital because there were no beds available. CT head was done which was negative CT spine was negative. The patient was subsequently seen by the primary care provider who noted the patient had borderline low blood pressure but otherwise appeared stable, blood work was ordered it seems that the patient had a significant drop in his hemoglobin and therefore blood transfusions were ordered as an outpatient for the patient. While receiving blood transfusions, the patient became agitated ripped out the IV access. The patient did not get the full ordered 2 units, her some of the blood infiltrated in the arm, and I am not sure how much blood he totally received. The patient was sent to the emergency room because of his agitated behavior. The patient did not wish to be admitted to the hospital he noted that he was feeling fine, the ED physician noted that the patient does have significant dementia, he did talk with the patient's daughter who noted that the patient would not be in the position to make any medical judgments at this time and the patient if needs blood transfusion should be admitted. The patient was therefore admitted to the hospital for further management. [id number] hematocrit was done and was 26. Labs are pending. The patient did not provide any history to me, he opened his eyes laughed made a joke and went back to sleep, the patient seems was tired, according to the nurse in the ER has not received any sedative medication. Based on the recent blood test, the patient's hemoglobin was 8. 1, a drop from 10.9, platelets 165, INR is 1, patient has worsening renal function, creatinine was 1.8 recently and is 2.7 now. BUN is 40. There is no history of acute GI bleed. The patient has according to the history and extensive bleeding from the site of laceration, on exam he also has extensive bruising on his gluteal region. It is thought that the patient's blood loss is secondary to the recent fall. 07/20 Seen and examined, overnight events noted. Patient had been agitated intermittently throughout the night. He did not get the full blood transfusion as he broke the IV line that was administering blood then he ripped off the IV access. Patient required Haldol and restraints for safety. This morning he was sleeping but was notably short of breath. Exam revealed bilateral wheezing , chest x-ray showed congestion versus possible aspiration pneumonia. Started on IV steroids, IV antibiotics, IV Lasix given. Status changed to inpatient status. Labs show stable hemoglobin. I do not feel the patient needs any more blood transfusions at this point. The patient unfortunately because of his agitation yesterday ripped open the sutures on the left elbow, there is a significant laceration on the left arm, I do not feel that at this point in time there is any point in the suturing this wound, most likely will heal with secondary intention. I will have wound care evaluate the patient. 07/21 Pt seen examined, no acute overnight issues, slept well, this AM again was agitated, confused, and had broken the garza catheter, thep atient cxr is improved today, his wbc count has dropped. on iv abx, IM zyprexa given started on risperidone 1mg bid, also on divalproex labs otherwise stable. wound care consulted for left elbow laceration. Pt seen examined, still quite confused, delirious, agitated was wheezing this AM, IV lasix, duonebs ordreed switched back to IV steroids Plan to get CT head try to see if we can establish contact with family today need to look at goals of care. 07/23 Pt seen examined, overnight started on IV thiamine, and po morphine for pain. The patietn needed garza again, for retention. He has mitts placed on both his hads now, to avoid removal of lines. He has been sleeping today, without any s/o distress He has had a Chest x ray which shows chr copd, no acute findings. His sodium level was up, so started on gentle hydration. I spoke with the 2 daughters, who have the POA, we had planned a conference on phone today, however I did not have the legal document to verify pts wishes, therefore we canceled same. Suzie, will be coming to visit on Monday. Pt will be DNR as per my discussions with the 2 daughters, and its also my recommendation that he be DNR given his overall poor prognosis. Looking at his will I would interpret that given his present condition,worsening dementia, inability to care for self, CPR would not be very helpful. Case management will try to talk with the third POA, the patients son to see if he has any input. 07/24 Pt seen examined, seen last night and again this AM, he remains confused, intermittently allows to be fed needs 1:1, still agitated and aggresive towards nursing staff Pt remains on gentle hydration and steroid, daugthe to be here on monday, overall poor prognosis, because of poor overall condition, mental status. Still need antipsychotics to avoid self harm and harm to care providers, labs stable Pertinent ROS: unable. - Constitutional Vitals: Vital Signs Temp Pulse Resp BP Pulse Ox 97.5 F 76 18 156/68 93 07/24/17 07:34 07/24/17 07:34 07/24/17 07:34 07/24/17 07:34 07/24/17 07:34 Period Temp Pulse Resp BP Sys/Rhodes Pulse Ox Last 24 Hr 97.5 F-99.2 F 54-84 16-20 143-164/53-78 92-100 Intake and Output 07/23/17 07/24/17 07/24/17 21:59 05:59 13:59 Intake Total 168 / 168 1050 / 1050 90 / 90 Output Total 450 / 450 Balance 168 / 168 600 / 600 90 / 90 Weight 164 lb 8 oz Intake & Output: Intake & Output 07/23/17 07/24/17 07/24/17 21:59 05:59 13:59 Intake Total 168 / 168 1050 / 1050 90 / 90 Output Total 450 / 450 Balance 168 / 168 600 / 600 90 / 90 Weight 164 lb 8 oz Intake: IV 50 / 50 1050 / 1050 50 / 50 Dextrose 5%-1/2Ns W/20Meq KCl 1 1000 / 1000 ,000 ml @ 50 mls/hr IV .Q20H [facility] Rx#:[id number] Zosyn 2.25 gm In Dextrose 5% in 50 / 50 50 / 50 50 / 50 Water 50 ml @ 100 mls/hr IV Q6H [facility] Rx#:[id number] Oral 118 / 118 40 / 40 Output: Urine Catheter Amount 450 / 450 Other: Meal applesauce cup Percent of Meal Consumed 50% Feeding Ability Total Assistance Exam: Constitutional; Afebrile, intermittently agitated, agrresive, not in distress Eyes- No icterus, , Neck- Midline trachea, supple Respiratory system: Air Entry equal on both sides, no wheezing today, not in resp distress, uses cpap while sleeping. CVS- Rate rhythm regular, S1,S2 heard, no gallop, no rub. Abdomen- Soft nontender abdomen, no organomegaly, no tenderness, no guarding or rigidity, [employer]- AOOx 0, moving all extremities, no gross focal deficit noted. Medical - PN: Obj Da - Labs CBC & Chem 7: 07/24/17 03:40 07/24/17 05:50 Labs: Abnormal Lab Results 07/24/17 07/24/17 07/23/17 05:50 03:40 03:40 RBC 2.97 L Hgb 9.5 L Hct 28.0 L RDW 14.6 H Gran % 92.8 H Lymph % (Auto) 2.0 L Lymph # (Auto) 0.1 L Sodium 147 H 148 H Carbon Dioxide 31 H BUN 53 H 56 H Creatinine 2.1 H 2.1 H Glucose 146 H 158 H Uric Acid 9.5 H 9.8 H Calcium 8.5 L Magnesium 2.6 H Total Bilirubin 1.3 H 1.4 H Direct Bilirubin 0.4 H 0.4 H Lactate Dehydrogenase 348 H 349 H Total Protein 5.4 L 5.4 L Globulin 2.0 L 07/23/17 07/22/17 07/22/17 03:40 03:50 03:50 RBC 3.08 L 3.10 L Hgb 9.6 L 9.9 L Hct 29.2 L 29.6 L RDW Gran % 93.4 H 90.4 H Lymph % (Auto) 2.5 L 3.2 L Lymph # (Auto) 0.1 L 0.2 L Sodium Carbon Dioxide BUN 59 H Creatinine 2.2 H Glucose 118 H Uric Acid 10.4 H Calcium 8.5 L Magnesium Total Bilirubin 1.5 H Direct Bilirubin 0.4 H Lactate Dehydrogenase 318 H Total Protein 5.6 L Globulin Meds: Medications Albuterol/Ipratropium (Duoneb) 3 ml NEB Q4HRT [facility] Last Admin: 07/24/17 07:20 Dose: 3 ml Amiodarone HCl (Cordarone) 200 mg PO BID [facility] Last Admin: 07/23/17 20:31 Dose: 200 mg Aspirin (Aspirin) 81 mg PO DAILY [facility] Last Admin: 07/24/17 09:35 Dose: Not Given Citalopram Hydrobromide (Celexa) 10 mg PO QDAY [facility] Last Admin: 07/24/17 09:35 Dose: Not Given Divalproex Sodium (Depakote Sprinkles) 250 mg PO BID [facility] Last Admin: 07/24/17 08:25 Dose: 250 mg Heparin Sodium (Porcine) (Heparin) 5,000 unit SQ Q12 [facility] Last Admin: 07/24/17 08:13 Dose: 5,000 unit Gentamicin Sulfate 40 mg/Clindamycin Phosphate 300 mg/Bacitracin 25,000 unit/ Sodium Chloride 503 mls @ 0 mls/hr IRR Q24H [facility] PRN Reason: As Directed Last Admin: 07/23/17 13:30 Dose: 50 mls/hr Piperacillin Sod/Tazobactam (Sod 2.25 gm/ Dextrose) 50 mls @ 100 mls/hr IV Q6H [facility] Last Infusion: 07/24/17 06:27 Dose: Infused Thiamine HCl 100 mg/ Sodium (Chloride) 51 mls @ 50 mls/hr IV DAILY [facility] Stop: 07/28/17 10:02 Last Admin: 07/24/17 08:18 Dose: 50 mls/hr Potassium Chloride/Dextrose/Sod Cl (Dextrose 5%-1/2ns W/20meq Kcl) 1,000 mls @ 50 mls/hr IV .Q20H [facility] Stop: 07/24/17 23:59 Last Admin: 07/24/17 07:38 Dose: 50 mls/hr Levothyroxine Sodium (Synthroid) 25 mcg PO ACB [facility] Last Admin: 07/24/17 08:26 Dose: 25 mcg Lisinopril (Zestril) 10 mg PO QDAY [facility] Last Admin: 07/23/17 13:29 Dose: Not Given Methylprednisolone Sodium Succinate (Solu-Medrol) 62.5 mg IV Q12 [facility] Last Admin: 07/24/17 08:15 Dose: 62.5 mg Morphine Sulfate (Morphine) 2 mg SL Q2HP PRN PRN Reason: Pain Last Admin: 07/23/17 22:36 Dose: 2 mg Naloxone HCl (Narcan) 0.1 mg IV Q2MIN PRN PRN Reason: Opiate Reversal Olanzapine (Zyprexa) 10 mg IM Q12HP PRN PRN Reason: Agitation Last Admin: 07/23/17 17:06 Dose: 10 mg Omeprazole (Prilosec) 20 mg PO ACB [facility] Last Admin: 07/24/17 09:34 Dose: Not Given Ondansetron HCl (Zofran Odt) 4 mg SL Q4HP PRN PRN Reason: Nausea And Vomiting Risperidone (Risperdal) 1 mg PO BID [facility] Last Admin: 07/24/17 08:26 Dose: 1 mg Simvastatin (Zocor) 20 mg PO HS [facility] Last Admin: 07/23/17 20:31 Dose: 20 mg Sodium Chloride (Saline Flush) 10 ml IV Q8 [facility] Last Admin: 07/24/17 06:20 Dose: Not Given Tamsulosin HCl (Flomax) 0.4 mg PO BID [facility] Last Admin: 07/23/17 20:30 Dose: 0.4 mg Medical - PN: A/P - Time Spent With Patient Total time spent is greater than 50% in coordination of care (as documented) at patient's floor/unit and/or counseling patient: - Narrative A/P Narrative: A/P Acute Blood loss anemia: due to fall, and laceration, hb stable. Atrial fibrillation: continue amiodarone 200mg bid for rate control, rate well controlled at present. Pt unable to take po meds intermittently. Coronary artery disease/ Severe Aortic Stenosis/ carotid stenosis/ HTN/ HLD : continue home meds Chf exacerbation : cxr shows improved condition, d/c IV lasix . pt hypernatremic , using d51/2 ns for gentle hydration. sodium 146 today was 147 yesterday Possible PNA: Given mental status, its possible he may have aspirated, on zosyn , cxr stable. stable oxygen needs, Acute on Chr Renal failure: creat is stable at 2.1 monitor, garza placed back in , Advanced Dementia, likely Vascular: H/o ams and agitated behavior, at baseline does not seem to be very cognitive, has some lucid intervals. presently on IM Zyprexa prn, risperidone 1mg bid started, also on divalproex 250mg bid. Head Ct neg, started on IV thiamine, as well as SL morphine for pain management. Overall very poor prognisis, has had decline over the last few months. Pt MMSE score 22/30 in dec-jan last year, dropped to 14/30 this july a week before admission. He has been falling, and has been more forgetful. Laceration to arm: s/p sutures, in the ER , some of the sutures have come off, likely to be healed by secondary intention, Dr Gutiérrez following. COPD exacerbation. - On IV steroids, duonebs. NO wheeze today. Obstructive sleep apnea: cpap at night DVT SCD DNR for now after discussion with family very poor prognosis given advanced dementia, behavioral issues limiting care that can be rendered. Daugther would be here monday, case management tyring to get in touch with the son natasha. Cardiac diet. when able Medical - PN: Qual - VTE Deep Vein Thrombosis/Pulmonary Embolism Present on Admission: No
[2017-07-24] MEDS: GENTAMICIN SULFATE 40 MG, CLINDAMYCIN 300 MG, BACITRACIN 25,000 UNIT in SODIUM CHLORIDE... IRR SCH (10:40)
[2017-07-24] MEDS ORDERED: MAGNESIUM HYDROXIDE 30 ML ORAL.SUSP PO PRN (15:07)
--- NOTE | 2017-07-24 16:48 | General Surgery Progress Note ---
Subjective Narrative: Note initiated : 07/24/17 at 4:45 pm Service Date, if different from initiated Date: [] Patient: Carlos Zuniga 87 y/o M admitted on 07/20/17 for Right Arm Hematoma, Moist Cough/Blood Loss Anemia. Chief Complaint: [] Progress reviewed with Lupis GR[facility]ES I/C Med Surg floor. Objective Temp Pulse Resp BP Pulse Ox 99 F 65 20 151/64 91 07/24/17 12:00 07/24/17 15:05 07/24/17 15:05 07/24/17 12:00 07/24/17 12:00 AVSS. No changes in wound care LEFT lateral for arm and skin tears both UE. - Additional Data Intake & Output - Last 24 hours: Intake & Output 07/22/17 07/23/17 07/24/17 07/25/17 05:59 05:59 05:59 05:59 Intake Total 590 / 590 561 / 561 1369 / 1369 251 / 251 Output Total 500 / 500 2176 / 2176 900 / 900 400 / 400 Balance 90 / 90 -1615 / -1615 469 / 469 -149 / -149 Weight 170 lb 166 lb 8 oz 164 lb 8 oz - Labs 07/24/17 03:40 07/24/17 05:50 Diabetes panel 07/24/17 07/24/17 Range/Units 03:40 05:50 Sodium TNP 147 H Potassium TNP 4.6 Chloride TNP 107 Carbon Dioxide TNP 30 BUN TNP 53 H Creatinine TNP 2.1 H Glucose TNP 146 H Calcium TNP 8.5 L AST TNP 21 ALT TNP 19 Alkaline Phosphatase TNP 55 Total Protein TNP 5.4 L Albumin TNP 3.2 Triglycerides TNP 91 Calcium panel 07/24/17 07/24/17 Range/Units 03:40 05:50 Calcium TNP 8.5 L Phosphorus TNP 3.4 Albumin TNP 3.2 Pituitary panel 07/24/17 07/24/17 Range/Units 03:40 05:50 Sodium TNP 147 H Potassium TNP 4.6 Chloride TNP 107 Carbon Dioxide TNP 30 BUN TNP 53 H Creatinine TNP 2.1 H Glucose TNP 146 H Calcium TNP 8.5 L Adrenal panel 07/24/17 07/24/17 Range/Units 03:40 05:50 Sodium TNP 147 H Potassium TNP 4.6 Chloride TNP 107 Carbon Dioxide TNP 30 BUN TNP 53 H Creatinine TNP 2.1 H Glucose TNP 146 H Calcium TNP 8.5 L Total Bilirubin TNP 1.3 H AST TNP 21 ALT TNP 19 Alkaline Phosphatase TNP 55 Total Protein TNP 5.4 L Albumin TNP 3.2 Assessment and Plan (1) Wound dehiscence Status: Acute Current Visit: Yes (2) Abscess of skin or subcutaneous tissue Status: Acute Current Visit: No (3) Altered mental status Status: Acute Current Visit: No (4) Atrial fibrillation with RVR Status: Acute Assessment and plan: Assessment: Stable from wound care point of view. No interval changes. Plan: Continue current wound care treatment / dressing changes. Current Visit: No - Time Spent With Patient Total time spent is greater than 50% in coordination of care (as documented) at patient's floor/unit and/or counseling patient:
[2017-07-24] MEDS: SENNOSIDES/DOCUSATE SODIUM 1 TAB TABLET PO SCH ×2 (22:27→22:28)
[2017-07-24] MEDS: SIMVASTATIN 20 MG TABLET PO SCH (22:30)
[2017-07-25] MEDS: IPRATROPIUM/ALBUTEROL 3 ML AMPUL.NEB NEB SCH ×6 (03:26→22:41)
[2017-07-25] MEDS: 0.9 % SODIUM CHLORIDE 10 ML SYRINGE IV SCH ×3 (05:05→21:10)
[2017-07-25] MEDS: PIPERACILLIN SODIUM/TAZOBACTAM 2.25 GM in DEXTROSE 5% IN WATER 50 ML IV SCH ×4 (05:06→23:27)
[2017-07-25 06:21] LABS: Basophils # (Auto) 0 K/mcL (0.0-0.3); Basophils % (Auto) 0 % (0.0-2.0); Eosinophils # (Auto) 0 K/mcL (0.0-0.7); Eosinophils % (Auto) 0 % (0.0-7.0); Granulocytes % (Auto) 93.2 % (38.0-78.0); Lymphocytes # (Auto) 0.2 K/mcL (1.5-4.8); Lymphocytes % (Auto) 2.2 % (15.5-49.0); Mean Cell Volume 96.3 fL (80.0-100.0); Mean Corpuscular HGB Conc 32.5 g/dL (31.0-36.0); Mean Corpuscular Hemoglobin 31.3 pg (26.0-34.0); Monocytes # (Auto) 0.4 K/mcL (0.1-0.9); Monocytes % (Auto) 4.6 % (1.0-12.0); Platelet Count 217 K/mcL (140-440); RBC 3.49 M/mcL (4.50-5.90); Red Cell Distribution Width 14.7 % (11.5-14.5)
[2017-07-25 06:25] LABS: ALT/SGPT 19 U/l (0-40); Albumin 3.6 gm/dL (3.2-5.2); Albumin/Globulin Ratio 1.6 (1.0-2.3); Alkaline Phosphatase 57 U/L (39-117); Bilirubin,Direct 0.4 mg/dL (0.0-0.3); Blood Urea Nitrogen 56 mg/dl (8-23); Gamma Glutamyl Transpeptidase 28 U/L (8-61); Uric Acid 8.4 mg/dL (2.5-8.0)
[2017-07-25] MEDS: predniSONE 20 MG TABLET PO SCH (06:48)
--- NOTE | 2017-07-25 10:18 | Internal Med Progress Note ---
Medical - PN: Subj Patient information: Note initiated : 07/25/17 at 10:13 am Service Date, if different from initiated Date: [] Patient: Carlos Zuniga 87 y/o M admitted on 07/20/17 for Right Arm Hematoma, Moist Cough/Blood Loss Anemia. Chief Complaint: [] Interval history: Mr. Zuniga is a 87 year old Male with multiple medical comorbidites, dementia, who has been in the ER 3 times over the last 4 days. The patient was in the ER on 07/14/17, that time he had a mechanical fall and I believe he lacerated his arm this bled extensively according to the notes, left arm deep subcutaneous laceration, according to the notes it was 20 cm in length. Required 30 4 sutures. Patient was subsequently discharged. The patient presented to the emergency room again on the same day with symptoms of passing out, was found to be in A. fib with RVR, he was given amiodarone rate improved and then subsequently discharged on p.o. amiodarone. It is my understanding that he was not committed to the hospital because there were no beds available. CT head was done which was negative CT spine was negative. The patient was subsequently seen by the primary care provider who noted the patient had borderline low blood pressure but otherwise appeared stable, blood work was ordered it seems that the patient had a significant drop in his hemoglobin and therefore blood transfusions were ordered as an outpatient for the patient. While receiving blood transfusions, the patient became agitated ripped out the IV access. The patient did not get the full ordered 2 units, her some of the blood infiltrated in the arm, and I am not sure how much blood he totally received. The patient was sent to the emergency room because of his agitated behavior. The patient did not wish to be admitted to the hospital he noted that he was feeling fine, the ED physician noted that the patient does have significant dementia, he did talk with the patient's daughter who noted that the patient would not be in the position to make any medical judgments at this time and the patient if needs blood transfusion should be admitted. The patient was therefore admitted to the hospital for further management. [id number] hematocrit was done and was 26. Labs are pending. The patient did not provide any history to me, he opened his eyes laughed made a joke and went back to sleep, the patient seems was tired, according to the nurse in the ER has not received any sedative medication. Based on the recent blood test, the patient's hemoglobin was 8. 1, a drop from 10.9, platelets 165, INR is 1, patient has worsening renal function, creatinine was 1.8 recently and is 2.7 now. BUN is 40. There is no history of acute GI bleed. The patient has according to the history and extensive bleeding from the site of laceration, on exam he also has extensive bruising on his gluteal region. It is thought that the patient's blood loss is secondary to the recent fall. 07/20 Seen and examined, overnight events noted. Patient had been agitated intermittently throughout the night. He did not get the full blood transfusion as he broke the IV line that was administering blood then he ripped off the IV access. Patient required Haldol and restraints for safety. This morning he was sleeping but was notably short of breath. Exam revealed bilateral wheezing , chest x-ray showed congestion versus possible aspiration pneumonia. Started on IV steroids, IV antibiotics, IV Lasix given. Status changed to inpatient status. Labs show stable hemoglobin. I do not feel the patient needs any more blood transfusions at this point. The patient unfortunately because of his agitation yesterday ripped open the sutures on the left elbow, there is a significant laceration on the left arm, I do not feel that at this point in time there is any point in the suturing this wound, most likely will heal with secondary intention. I will have wound care evaluate the patient. 07/21 Pt seen examined, no acute overnight issues, slept well, this AM again was agitated, confused, and had broken the garza catheter, thep atient cxr is improved today, his wbc count has dropped. on iv abx, IM zyprexa given started on risperidone 1mg bid, also on divalproex labs otherwise stable. wound care consulted for left elbow laceration. Pt seen examined, still quite confused, delirious, agitated was wheezing this AM, IV lasix, duonebs ordreed switched back to IV steroids Plan to get CT head try to see if we can establish contact with family today need to look at goals of care. 07/23 Pt seen examined, overnight started on IV thiamine, and po morphine for pain. The patietn needed garza again, for retention. He has mitts placed on both his hads now, to avoid removal of lines. He has been sleeping today, without any s/o distress He has had a Chest x ray which shows chr copd, no acute findings. His sodium level was up, so started on gentle hydration. I spoke with the 2 daughters, who have the POA, we had planned a conference on phone today, however I did not have the legal document to verify pts wishes, therefore we canceled same. Suzie, will be coming to visit on Monday. Pt will be DNR as per my discussions with the 2 daughters, and its also my recommendation that he be DNR given his overall poor prognosis. Looking at his will I would interpret that given his present condition,worsening dementia, inability to care for self, CPR would not be very helpful. Case management will try to talk with the third POA, the patients son to see if he has any input. 07/24 Pt seen examined, seen last night and again this AM, he remains confused, intermittently allows to be fed needs 1:1, still agitated and aggresive towards nursing staff Pt remains on gentle hydration and steroid, daugthe to be here on monday, overall poor prognosis, because of poor overall condition, mental status. Still need antipsychotics to avoid self harm and harm to care providers, labs stable 07/25-patient remains nearly unresponsive. Coffee-ground emesis this morning. On twice-daily IV PPI. Stat hemoglobin. Transfuse if hemoglobin less than 7.5. Further discussion of goals of care with family once patient's daughter arrives. Currently DNR. High risk mortality given progressive degeneration Addendum-POA daughter refused transfer to tertiary Center or GI consult in light of per GI bleed. Family(POA daughter) would want patient to be managed and kept and DNR status. Family contemplating on hospice. Will arrive at the incision in 24 hours. - Constitutional Vitals: Vital Signs Temp Pulse Resp BP Pulse Ox 97.8 F 71 16 189/68 87 L 07/25/17 08:00 07/25/17 08:00 07/25/17 08:00 07/25/17 08:00 07/25/17 08:00 Period Temp Pulse Resp BP Sys/Rhodes Pulse Ox Last 24 Hr 97.3 F-99 F 58-92 12-20 120-189/58-79 84-99 Intake and Output 07/24/17 07/25/17 07/25/17 21:59 05:59 13:59 Intake Total 50 / 50 1050 / 1050 Output Total 200 / 200 475 / 475 Balance -150 / -150 575 / 575 Weight 163 lb Intake & Output: Intake & Output 07/24/17 07/25/17 07/25/17 21:59 05:59 13:59 Intake Total 50 / 50 1050 / 1050 Output Total 200 / 200 475 / 475 Balance -150 / -150 575 / 575 Weight 163 lb Intake: IV 50 / 50 1050 / 1050 Zosyn 2.25 gm In Dextrose 5% in 50 / 50 50 / 50 Water 50 ml @ 100 mls/hr IV Q6H [facility] Rx#:[id number] Oral 0 / 0 Output: Urine Catheter Amount 200 / 200 475 / 475 Other: Meal Dinner Percent of Meal Consumed 0% Exam: Unresponsive state Shallow breathing Intermittent agitation Medical - PN: Obj Da - Labs CBC & Chem 7: 07/25/17 15:32 07/25/17 04:05 Labs: Abnormal Lab Results 07/25/17 07/25/17 07/24/17 04:05 04:05 05:50 RBC 3.49 L Hgb 10.9 L Hct 33.6 L RDW 14.7 H Gran % 93.2 H Lymph % (Auto) 2.2 L Lymph # (Auto) 0.2 L Sodium 148 H 147 H Carbon Dioxide BUN 56 H 53 H Creatinine 1.9 H 2.1 H Glucose 164 H 146 H Uric Acid 8.4 H 9.5 H Calcium 8.5 L Magnesium 2.7 H 2.6 H Total Bilirubin 1.3 H 1.3 H Direct Bilirubin 0.4 H 0.4 H Lactate Dehydrogenase 398 H 348 H Total Protein 5.4 L Globulin 07/24/17 07/23/17 07/23/17 03:40 03:40 03:40 RBC 2.97 L 3.08 L Hgb 9.5 L 9.6 L Hct 28.0 L 29.2 L RDW 14.6 H Gran % 92.8 H 93.4 H Lymph % (Auto) 2.0 L 2.5 L Lymph # (Auto) 0.1 L 0.1 L Sodium 148 H Carbon Dioxide 31 H BUN 56 H Creatinine 2.1 H Glucose 158 H Uric Acid 9.8 H Calcium Magnesium Total Bilirubin 1.4 H Direct Bilirubin 0.4 H Lactate Dehydrogenase 349 H Total Protein 5.4 L Globulin 2.0 L Meds: Medications Albuterol/Ipratropium (Duoneb) 3 ml NEB Q4HRT [facility] Last Admin: 07/25/17 07:19 Dose: 3 ml Amiodarone HCl (Cordarone) 200 mg PO BID [facility] Last Admin: 07/24/17 22:28 Dose: Not Given Aspirin (Aspirin) 81 mg PO DAILY [facility] Last Admin: 07/24/17 09:35 Dose: Not Given Citalopram Hydrobromide (Celexa) 10 mg PO QDAY [facility] Last Admin: 07/24/17 09:35 Dose: Not Given Divalproex Sodium (Depakote Sprinkles) 250 mg PO BID [facility] Last Admin: 07/24/17 22:28 Dose: Not Given Heparin Sodium (Porcine) (Heparin) 5,000 unit SQ Q12 [facility] Last Admin: 07/24/17 20:59 Dose: 5,000 unit Gentamicin Sulfate 40 mg/Clindamycin Phosphate 300 mg/Bacitracin 25,000 unit/ Sodium Chloride 503 mls @ 0 mls/hr IRR Q24H [facility] PRN Reason: As Directed Last Admin: 07/24/17 10:40 Dose: 50 mls/hr Piperacillin Sod/Tazobactam (Sod 2.25 gm/ Dextrose) 50 mls @ 100 mls/hr IV Q6H [facility] Last Admin: 07/25/17 05:06 Dose: 100 mls/hr Thiamine HCl 100 mg/ Sodium (Chloride) 51 mls @ 50 mls/hr IV DAILY [facility] Stop: 07/28/17 10:02 Last Infusion: 07/24/17 09:37 Dose: Infused Sodium Chloride (Sodium Chloride 0.9%) 1,000 mls @ 20 mls/hr IV .Q24H [facility] Levothyroxine Sodium (Synthroid) 25 mcg PO ACB [facility] Last Admin: 07/24/17 08:26 Dose: 25 mcg Lisinopril (Zestril) 10 mg PO QDAY [facility] Last Admin: 07/24/17 09:36 Dose: Not Given Magnesium Hydroxide (Milk Of Magnesia) 30 ml PO DAILYP PRN PRN Reason: Constipation Methylprednisolone Sodium Succinate (Solu-Medrol) 62.5 mg IV Q12 [facility] Last Admin: 07/24/17 20:59 Dose: 62.5 mg Morphine Sulfate (Morphine) 2 mg SL Q2HP PRN PRN Reason: Pain Last Admin: 07/23/17 22:36 Dose: 2 mg Naloxone HCl (Narcan) 0.1 mg IV Q2MIN PRN PRN Reason: Opiate Reversal Olanzapine (Zyprexa) 10 mg IM Q12HP PRN PRN Reason: Agitation Last Admin: 07/23/17 17:06 Dose: 10 mg Omeprazole (Prilosec) 20 mg PO ACB [facility] Last Admin: 07/24/17 09:34 Dose: Not Given Ondansetron HCl (Zofran Odt) 4 mg SL Q4HP PRN PRN Reason: Nausea And Vomiting Last Admin: 07/25/17 03:53 Dose: 4 mg Pantoprazole Sodium (Protonix) 40 mg IV BIDAC KAYLA Risperidone (Risperdal) 1 mg PO BID [facility] Last Admin: 07/24/17 22:29 Dose: Not Given Senna/Docusate Sodium (Senna Plus Tablet) 1 tab PO BID [facility] Last Admin: 07/24/17 22:28 Dose: Not Given Simvastatin (Zocor) 20 mg PO HS [facility] Last Admin: 07/24/17 22:30 Dose: Not Given Sodium Chloride (Saline Flush) 10 ml IV Q8 [facility] Last Admin: 07/25/17 05:05 Dose: 10 ml Tamsulosin HCl (Flomax) 0.4 mg PO BID [facility] Last Admin: 07/24/17 22:29 Dose: Not Given Medical - PN: A/P - Time Spent With Patient Total time spent is greater than 50% in coordination of care (as documented) at patient's floor/unit and/or counseling patient: 15 - 24 minutes - Narrative A/P Narrative: A/P * Acute Blood loss anemia: Coffee-ground emesis .possible upper GI bleed .start IV PPI . Stat hemoglobin. Transfuse as indicated * Atrial fibrillation: continue amiodarone 200mg bid for rate control, rate well controlled at present. Pt unable to take po meds intermittently. * Coronary artery disease/ Severe Aortic Stenosis/ carotid stenosis/ HTN/ HLD : continue home meds * Chf exacerbation : cxr shows improved condition, d/c IV lasix . pt hypernatremic, using d51/2 ns for gentle hydration. sodium 146 today was 147 yesterday * Acute on Chr Renal failure: creat is stable at 2.1 monitor, garza placed back in * Advanced Dementia, likely Vascular: H/o ams and agitated behavior, at baseline does not seem to be very cognitive, has some lucid intervals. presently on IM Zyprexa prn, risperidone 1mg bid started, also on divalproex 250mg bid. Head Ct neg, started on IV thiamine, as well as SL morphine for pain management. Overall very poor prognisis, has had decline over the last few months. Pt MMSE score 22/30 in dec-jan last year, dropped to 14/30 this july a week before admission. He has been falling, and has been more forgetful. * Laceration to arm: s/p sutures, in the ER , some of the sutures have come off , likely to be healed by secondary intention, Dr Gutiérrez following. * COPD exacerbation. - On IV steroids, duonebs. NO wheeze today. * Obstructive sleep apnea: cpap at night * DVT SCD * DNR for now after discussion with family very poor prognosis given advanced dementia, behavioral issues limiting care that can be rendered. Daugther would be here monday, case management tyring to get in touch with the son natasha. Plan * IV PPI/stat hemoglobin * Future goals of care discussions with family as patient continues to deteriorate with high-risk mortality Medical - PN: Qual - VTE Deep Vein Thrombosis/Pulmonary Embolism Present on Admission: No
[2017-07-25] MEDS: PANTOPRAZOLE 40 MG VIAL IV SCH ×2 (10:50→17:55)
[2017-07-25] MEDS: methylPREDNISolone SOD SUCC 125 MG/2 ML VIAL IV SCH ×2 (10:51→21:10)
[2017-07-25] MEDS: THIAMINE 100 MG in 0.9 % SODIUM CHLORIDE 50 ML IV SCH (10:51)
[2017-07-25] MEDS: TAMSULOSIN 0.4 MG CAPSULE PO SCH ×2 (12:27→21:10)
[2017-07-25] MEDS: DIVALPROEX 125 MG CAP.SPRINK PO SCH ×2 (12:27→21:10)
[2017-07-25] MEDS: AMIODARONE HCL 200 MG TABLET PO SCH ×2 (12:27→21:10)
[2017-07-25] MEDS: LEVOTHYROXINE 25 MCG TABLET PO SCH (12:27)
[2017-07-25] MEDS: OMEPRAZOLE 20 MG CAPSULE PO SCH (12:27)
[2017-07-25] MEDS: ASPIRIN 81 MG TAB.CHEW PO SCH (12:27)
[2017-07-25] MEDS: CITALOPRAM 20 MG TABLET PO SCH (12:27)
[2017-07-25] MEDS: LISINOPRIL 10 MG TABLET PO SCH (12:28)
[2017-07-25] MEDS: SENNOSIDES/DOCUSATE SODIUM 1 TAB TABLET PO SCH ×2 (12:28→21:10)
[2017-07-25] MEDS: risperiDONE 1 MG TABLET PO SCH ×2 (12:28→21:10)
[2017-07-25] MEDS ORDERED: ONDANSETRON 4 MG/2 ML VIAL IV PRN (13:54)
[2017-07-25] MEDS ORDERED: ONDANSETRON 4 MG/2 ML VIAL ONE (14:03)
--- NOTE | 2017-07-25 16:29 | General Surgery Progress Note ---
Subjective Narrative: Note initiated : 07/25/17 at 4:26 pm Service Date, if different from initiated Date: [] Patient: Carlos Zuniga 87 y/o M admitted on 07/20/17 for Right Arm Hematoma, Moist Cough/Blood Loss Anemia. Chief Complaint: [] Patient seen. Progress reviewed with Julianne GROVES and Dr. Pena, Hospitalist Physician. Unstable sick patient. Repeated hematemesis, ongoing symptomatic treatment and DNR. GOALS of treatment to be discussed with patient's daughter who will be arriving here soon. No interval changes in wound care / management. Objective Temp Pulse Resp BP Pulse Ox 97.9 F 83 22 189/68 86 L 07/25/17 11:43 07/25/17 15:15 07/25/17 15:15 07/25/17 08:00 07/25/17 11:43 - Additional Data Intake & Output - Last 24 hours: Intake & Output 07/23/17 07/24/17 07/25/17 07/26/17 05:59 05:59 05:59 05:59 Intake Total 561 / 561 1369 / 1369 1401 / 1401 0 / 0 Output Total 2176 / 2176 900 / 900 875 / 875 Balance -1615 / -1615 469 / 469 526 / 526 0 / 0 Weight 166 lb 8 oz 164 lb 8 oz 163 lb 163 lb - Labs 07/25/17 09:30 07/25/17 04:05 Diabetes panel 07/25/17 Range/Units 04:05 Sodium 148 H (133-145) mmol/L Potassium 4.8 (3.3-5.1) mmol/L Chloride 106 (96-108) mmol/L Carbon Dioxide 29 (22-30) mmol/L BUN 56 H (8-23) mg/dl Creatinine 1.9 H (0.7-1.2) mg/dl Glucose 164 H (70-105) mg/dL Calcium 8.7 (8.6-10.4) mg/dl AST 18 (0-37) U/l ALT 19 (0-40) U/l Alkaline Phosphatase 57 (39-117) U/L Total Protein 5.9 (5.9-8.4) gm/dL Albumin 3.6 (3.2-5.2) gm/dL Triglycerides 88 (<150) mg/dl Calcium panel 07/25/17 Range/Units 04:05 Calcium 8.7 (8.6-10.4) mg/dl Phosphorus 4.2 (2.7-4.5) mg/dL Albumin 3.6 (3.2-5.2) gm/dL Pituitary panel 07/25/17 Range/Units 04:05 Sodium 148 H (133-145) mmol/L Potassium 4.8 (3.3-5.1) mmol/L Chloride 106 (96-108) mmol/L Carbon Dioxide 29 (22-30) mmol/L BUN 56 H (8-23) mg/dl Creatinine 1.9 H (0.7-1.2) mg/dl Glucose 164 H (70-105) mg/dL Calcium 8.7 (8.6-10.4) mg/dl Adrenal panel 07/25/17 Range/Units 04:05 Sodium 148 H (133-145) mmol/L Potassium 4.8 (3.3-5.1) mmol/L Chloride 106 (96-108) mmol/L Carbon Dioxide 29 (22-30) mmol/L BUN 56 H (8-23) mg/dl Creatinine 1.9 H (0.7-1.2) mg/dl Glucose 164 H (70-105) mg/dL Calcium 8.7 (8.6-10.4) mg/dl Total Bilirubin 1.3 H (0.0-1.0) mg/dL AST 18 (0-37) U/l ALT 19 (0-40) U/l Alkaline Phosphatase 57 (39-117) U/L Total Protein 5.9 (5.9-8.4) gm/dL Albumin 3.6 (3.2-5.2) gm/dL Assessment and Plan (1) Wound dehiscence Status: Acute Current Visit: Yes (2) Abscess of skin or subcutaneous tissue Status: Acute Current Visit: No (3) Altered mental status Status: Acute Current Visit: No (4) Atrial fibrillation with RVR Status: Acute Assessment and plan: Assessment: Stable from wound care point of view. No interval changes. Plan: Continue current wound care treatment / dressing changes. Current Visit: No - Time Spent With Patient Total time spent is greater than 50% in coordination of care (as documented) at patient's floor/unit and/or counseling patient:
[2017-07-25] MEDS: GENTAMICIN SULFATE 40 MG, CLINDAMYCIN 300 MG, BACITRACIN 25,000 UNIT in SODIUM CHLORIDE... IRR SCH (17:29)
[2017-07-25] MEDS: HEPARIN 5,000 UNIT/ML VIAL SQ SCH (18:08)
[2017-07-25] MEDS: 0.9 % SODIUM CHLORIDE 1,000 ML IV SCH (18:26)
[2017-07-25] MEDS: SIMVASTATIN 20 MG TABLET PO SCH (21:10)
[2017-07-26] MEDS ORDERED: POTASSIUM CHLORIDE 20 MEQ/10 ML VIAL IV ONE (00:40)
[2017-07-26] MEDS: IPRATROPIUM/ALBUTEROL 3 ML AMPUL.NEB NEB SCH ×2 (03:31→06:59)
[2017-07-26 05:07] LABS: Basophils # (Auto) 0 K/mcL (0.0-0.3); Basophils % (Auto) 0 % (0.0-2.0); Eosinophils # (Auto) 0 K/mcL (0.0-0.7); Eosinophils % (Auto) 0 % (0.0-7.0); Granulocytes % (Auto) 94.3 % (38.0-78.0); Lymphocytes # (Auto) 0.1 K/mcL (1.5-4.8); Lymphocytes % (Auto) 0.9 % (15.5-49.0); Mean Cell Volume 96.7 fL (80.0-100.0); Mean Corpuscular HGB Conc 32.5 g/dL (31.0-36.0); Mean Corpuscular Hemoglobin 31.4 pg (26.0-34.0); Monocytes # (Auto) 0.7 K/mcL (0.1-0.9); Monocytes % (Auto) 4.8 % (1.0-12.0); Platelet Count 229 K/mcL (140-440); RBC 3.24 M/mcL (4.50-5.90); Red Cell Distribution Width 14.6 % (11.5-14.5)
[2017-07-26 05:45] LABS: ALT/SGPT 17 U/l (0-40); Albumin/Globulin Ratio 1.4 (1.0-2.3); Alkaline Phosphatase 49 U/L (39-117); Bilirubin,Direct 0.4 mg/dL (0.0-0.3); Blood Urea Nitrogen 90 mg/dl (8-23); Gamma Glutamyl Transpeptidase 23 U/L (8-61); Uric Acid 9.1 mg/dL (2.5-8.0)
[2017-07-26] MEDS: 0.9 % SODIUM CHLORIDE 10 ML SYRINGE IV SCH ×3 (05:59→21:02)
[2017-07-26] MEDS: PIPERACILLIN SODIUM/TAZOBACTAM 2.25 GM in DEXTROSE 5% IN WATER 50 ML IV SCH ×2 (05:59→13:53)
[2017-07-26] MEDS: OMEPRAZOLE 20 MG CAPSULE PO SCH (07:02)
[2017-07-26] MEDS: LEVOTHYROXINE 25 MCG TABLET PO SCH (07:03)
[2017-07-26] MEDS: PANTOPRAZOLE 40 MG VIAL IV SCH (07:05)
[2017-07-26] MEDS ORDERED: LORazepam 2 MG/ML VIAL IV PRN ×2 (10:05→16:27)
[2017-07-26] MEDS: ASPIRIN 81 MG TAB.CHEW PO SCH (10:21)
[2017-07-26] MEDS: AMIODARONE HCL 200 MG TABLET PO SCH (10:21)
[2017-07-26] MEDS: CITALOPRAM 20 MG TABLET PO SCH (10:21)
[2017-07-26] MEDS: TAMSULOSIN 0.4 MG CAPSULE PO SCH (10:22)
[2017-07-26] MEDS: DIVALPROEX 125 MG CAP.SPRINK PO SCH (10:22)
[2017-07-26] MEDS: risperiDONE 1 MG TABLET PO SCH (10:22)
[2017-07-26] MEDS: methylPREDNISolone SOD SUCC 125 MG/2 ML VIAL IV SCH (10:23)
[2017-07-26] MEDS: SENNOSIDES/DOCUSATE SODIUM 1 TAB TABLET PO SCH (10:23)
[2017-07-26] MEDS: THIAMINE 100 MG in 0.9 % SODIUM CHLORIDE 50 ML IV SCH (10:24)
[2017-07-26] MEDS: LISINOPRIL 10 MG TABLET PO SCH (10:24)
[2017-07-26] MEDS ORDERED: IPRATROPIUM/ALBUTEROL 3 ML AMPUL.NEB NEB PRN (10:25)
--- NOTE | 2017-07-26 11:29 | Internal Med Progress Note ---
Medical - PN: Subj Patient information: Note initiated : 07/26/17 at 11:23 am Service Date, if different from initiated Date: [] Patient: Carlos Zuniga 87 y/o M admitted on 07/20/17 for Right Arm Hematoma, Moist Cough/Blood Loss Anemia. Chief Complaint: [] Interval history: Mr. Zuniga is a 87 year old Male with multiple medical comorbidites, dementia, who has been in the ER 3 times over the last 4 days. The patient was in the ER on 07/14/17, that time he had a mechanical fall and I believe he lacerated his arm this bled extensively according to the notes, left arm deep subcutaneous laceration, according to the notes it was 20 cm in length. Required 30 4 sutures. Patient was subsequently discharged. The patient presented to the emergency room again on the same day with symptoms of passing out, was found to be in A. fib with RVR, he was given amiodarone rate improved and then subsequently discharged on p.o. amiodarone. It is my understanding that he was not committed to the hospital because there were no beds available. CT head was done which was negative CT spine was negative. The patient was subsequently seen by the primary care provider who noted the patient had borderline low blood pressure but otherwise appeared stable, blood work was ordered it seems that the patient had a significant drop in his hemoglobin and therefore blood transfusions were ordered as an outpatient for the patient. While receiving blood transfusions, the patient became agitated ripped out the IV access. The patient did not get the full ordered 2 units, her some of the blood infiltrated in the arm, and I am not sure how much blood he totally received. The patient was sent to the emergency room because of his agitated behavior. The patient did not wish to be admitted to the hospital he noted that he was feeling fine, the ED physician noted that the patient does have significant dementia, he did talk with the patient's daughter who noted that the patient would not be in the position to make any medical judgments at this time and the patient if needs blood transfusion should be admitted. The patient was therefore admitted to the hospital for further management. [id number] hematocrit was done and was 26. Labs are pending. The patient did not provide any history to me, he opened his eyes laughed made a joke and went back to sleep, the patient seems was tired, according to the nurse in the ER has not received any sedative medication. Based on the recent blood test, the patient's hemoglobin was 8. 1, a drop from 10.9, platelets 165, INR is 1, patient has worsening renal function, creatinine was 1.8 recently and is 2.7 now. BUN is 40. There is no history of acute GI bleed. The patient has according to the history and extensive bleeding from the site of laceration, on exam he also has extensive bruising on his gluteal region. It is thought that the patient's blood loss is secondary to the recent fall. 07/20 Seen and examined, overnight events noted. Patient had been agitated intermittently throughout the night. He did not get the full blood transfusion as he broke the IV line that was administering blood then he ripped off the IV access. Patient required Haldol and restraints for safety. This morning he was sleeping but was notably short of breath. Exam revealed bilateral wheezing , chest x-ray showed congestion versus possible aspiration pneumonia. Started on IV steroids, IV antibiotics, IV Lasix given. Status changed to inpatient status. Labs show stable hemoglobin. I do not feel the patient needs any more blood transfusions at this point. The patient unfortunately because of his agitation yesterday ripped open the sutures on the left elbow, there is a significant laceration on the left arm, I do not feel that at this point in time there is any point in the suturing this wound, most likely will heal with secondary intention. I will have wound care evaluate the patient. 07/21 Pt seen examined, no acute overnight issues, slept well, this AM again was agitated, confused, and had broken the garza catheter, thep atient cxr is improved today, his wbc count has dropped. on iv abx, IM zyprexa given started on risperidone 1mg bid, also on divalproex labs otherwise stable. wound care consulted for left elbow laceration. Pt seen examined, still quite confused, delirious, agitated was wheezing this AM, IV lasix, duonebs ordreed switched back to IV steroids Plan to get CT head try to see if we can establish contact with family today need to look at goals of care. 07/23 Pt seen examined, overnight started on IV thiamine, and po morphine for pain. The patietn needed garza again, for retention. He has mitts placed on both his hads now, to avoid removal of lines. He has been sleeping today, without any s/o distress He has had a Chest x ray which shows chr copd, no acute findings. His sodium level was up, so started on gentle hydration. I spoke with the 2 daughters, who have the POA, we had planned a conference on phone today, however I did not have the legal document to verify pts wishes, therefore we canceled same. Suzie, will be coming to visit on Monday. Pt will be DNR as per my discussions with the 2 daughters, and its also my recommendation that he be DNR given his overall poor prognosis. Looking at his will I would interpret that given his present condition,worsening dementia, inability to care for self, CPR would not be very helpful. Case management will try to talk with the third POA, the patients son to see if he has any input. 07/24 Pt seen examined, seen last night and again this AM, he remains confused, intermittently allows to be fed needs 1:1, still agitated and aggresive towards nursing staff Pt remains on gentle hydration and steroid, daugthe to be here on monday, overall poor prognosis, because of poor overall condition, mental status. Still need antipsychotics to avoid self harm and harm to care providers, labs stable 07/25-patient remains nearly unresponsive. Coffee-ground emesis this morning. On twice-daily IV PPI. Stat hemoglobin. Transfuse if hemoglobin less than 7.5. Further discussion of goals of care with family once patient's daughter arrives. Currently DNR. High risk mortality given progressive degeneration Addendum-POA daughter refused transfer to tertiary Center or GI consult in light of per GI bleed. Family(POA daughter) would want patient to be managed and kept and DNR status. Family contemplating on hospice. Will arrive at the incision in 24 hours. 07/26- patient's daughter Samantha arrived today. Discussed with Samantha and her . Feels that Carlos should be made comfortable as he has not responded to multiple days of hospitalization and aggressive interventions. She will confer with her sister who shares joint power of consumer attorney with Samantha. Patient has been unresponsive for over 18 hours. Creatinine is up to 2.5. BUN 90 along with upper GI bleed. Imminent . We will initiate palliative care once both POA is in agreement with initiation of comfort care/palliation - Constitutional Vitals: Vital Signs Temp Pulse Resp BP Pulse Ox 98.5 F 67 24 H 92/55 94 07/26/17 06:45 07/26/17 07:12 07/26/17 07:23 07/26/17 06:45 07/26/17 07:23 Period Temp Pulse Resp BP Sys/Rhodes Pulse Ox Last 24 Hr 97.9 F-99.7 F 67-83 16-24 92-145/55-81 78-100 Intake and Output 07/25/17 07/26/17 07/26/17 21:59 05:59 13:59 Intake Total 50 / 50 50 / 50 50 / 50 Output Total 375 / 375 250 / 250 Balance -325 / -325 -200 / -200 50 / 50 Weight 163 lb 8 oz Intake & Output: Intake & Output 07/25/17 07/26/17 07/26/17 21:59 05:59 13:59 Intake Total 50 / 50 50 / 50 50 / 50 Output Total 375 / 375 250 / 250 Balance -325 / -325 -200 / -200 50 / 50 Weight 163 lb 8 oz Intake: IV 50 / 50 50 / 50 50 / 50 Zosyn 2.25 gm In Dextrose 5% in 50 / 50 50 / 50 50 / 50 Water 50 ml @ 100 mls/hr IV Q6H [facility] Rx#:[id number] Oral 0 / 0 0 / 0 Output: Urine Catheter Amount 250 / 250 Void Amount 375 / 375 Other: Meal Lunch Percent of Meal Consumed 0% Feeding Ability Total Assistance # Emeses 2 Exam: Unresponsive Occasional gurgling noted further exam deferred in light of comfort Medical - PN: Obj Da - Labs CBC & Chem 7: 07/26/17 09:36 07/26/17 03:31 Labs: Abnormal Lab Results 07/26/17 07/26/17 07/26/17 09:36 03:31 03:31 WBC 15.1 H RBC 3.24 L Hgb 10.3 L 10.2 L Hct 31.0 L 31.3 L RDW 14.6 H Gran % 94.3 H Lymph % (Auto) 0.9 L Gran # 14.2 H Lymph # (Auto) 0.1 L Sodium 151 H Potassium 5.3 H Chloride 110 H BUN 90 H Creatinine 2.7 H Glucose 154 H Uric Acid 9.1 H Calcium 8.3 L Magnesium 2.8 H Total Bilirubin 1.1 H Direct Bilirubin 0.4 H Lactate Dehydrogenase 307 H Total Protein 5.2 L Albumin 3.0 L 07/25/17 07/25/17 07/25/17 21:44 15:32 09:30 WBC RBC Hgb 10.9 L 11.2 L Hct 32.9 L 33.3 L 33.9 L RDW Gran % Lymph % (Auto) Gran # Lymph # (Auto) Sodium Potassium Chloride BUN Creatinine Glucose Uric Acid Calcium Magnesium Total Bilirubin Direct Bilirubin Lactate Dehydrogenase Total Protein Albumin 07/25/17 07/25/17 07/25/17 09:30 04:05 04:05 WBC RBC 3.49 L Hgb 11.2 L 10.9 L Hct 33.6 L RDW 14.7 H Gran % 93.2 H Lymph % (Auto) 2.2 L Gran # Lymph # (Auto) 0.2 L Sodium 148 H Potassium Chloride BUN 56 H Creatinine 1.9 H Glucose 164 H Uric Acid 8.4 H Calcium Magnesium 2.7 H Total Bilirubin 1.3 H Direct Bilirubin 0.4 H Lactate Dehydrogenase 398 H Total Protein Albumin 07/24/17 07/24/17 05:50 03:40 WBC RBC 2.97 L Hgb 9.5 L Hct 28.0 L RDW 14.6 H Gran % 92.8 H Lymph % (Auto) 2.0 L Gran # Lymph # (Auto) 0.1 L Sodium 147 H Potassium Chloride BUN 53 H Creatinine 2.1 H Glucose 146 H Uric Acid 9.5 H Calcium 8.5 L Magnesium 2.6 H Total Bilirubin 1.3 H Direct Bilirubin 0.4 H Lactate Dehydrogenase 348 H Total Protein 5.4 L Albumin Meds: Medications Albuterol/Ipratropium (Duoneb) 3 ml NEB Q4HP PRN PRN Reason: Shortness Of Breath Or Wheezing Amiodarone HCl (Cordarone) 200 mg PO BID [facility] Last Admin: 07/26/17 10:21 Dose: Not Given Aspirin (Aspirin) 81 mg PO DAILY [facility] Last Admin: 07/26/17 10:21 Dose: Not Given Citalopram Hydrobromide (Celexa) 10 mg PO QDAY [facility] Last Admin: 07/26/17 10:21 Dose: Not Given Divalproex Sodium (Depakote Sprinkles) 250 mg PO BID [facility] Last Admin: 07/26/17 10:22 Dose: Not Given Gentamicin Sulfate 40 mg/Clindamycin Phosphate 300 mg/Bacitracin 25,000 unit/ Sodium Chloride 503 mls @ 0 mls/hr IRR Q24H KAYLA PRN Reason: As Directed Last Admin: 07/25/17 17:29 Dose: 50 mls/hr Piperacillin Sod/Tazobactam (Sod 2.25 gm/ Dextrose) 50 mls @ 100 mls/hr IV Q6H [facility] Last Infusion: 07/26/17 06:30 Dose: Infused Thiamine HCl 100 mg/ Sodium (Chloride) 51 mls @ 50 mls/hr IV DAILY [facility] Stop: 07/28/17 10:02 Last Admin: 07/26/17 10:24 Dose: Not Given Sodium Chloride (Sodium Chloride 0.9%) 1,000 mls @ 20 mls/hr IV .Q24H [facility] Last Admin: 07/25/17 18:26 Dose: 20 mls/hr Levothyroxine Sodium (Synthroid) 25 mcg PO ACB [facility] Last Admin: 07/26/17 07:03 Dose: Not Given Lisinopril (Zestril) 10 mg PO QDAY [facility] Last Admin: 07/26/17 10:24 Dose: Not Given Lorazepam (Ativan) 1 mg IV Q2-4HP PRN PRN Reason: ANXIETY/SEDATION Magnesium Hydroxide (Milk Of Magnesia) 30 ml PO DAILYP PRN PRN Reason: Constipation Methylprednisolone Sodium Succinate (Solu-Medrol) 62.5 mg IV Q12 [facility] Last Admin: 07/26/17 10:23 Dose: Not Given Morphine Sulfate (Morphine) 2 mg SL Q2HP PRN PRN Reason: Pain Last Admin: 07/23/17 22:36 Dose: 2 mg Morphine Sulfate (Morphine) 4 mg IV Q2HP PRN PRN Reason: PAIN LEVEL > 6 Last Admin: 07/26/17 10:16 Dose: 2 mg Naloxone HCl (Narcan) 0.1 mg IV Q2MIN PRN PRN Reason: Opiate Reversal Olanzapine (Zyprexa) 10 mg IM Q12HP PRN PRN Reason: Agitation Last Admin: 07/23/17 17:06 Dose: 10 mg Omeprazole (Prilosec) 20 mg PO ACB [facility] Last Admin: 07/26/17 07:02 Dose: Not Given Ondansetron HCl (Zofran Odt) 4 mg SL Q4HP PRN PRN Reason: Nausea And Vomiting Last Admin: 07/25/17 03:53 Dose: 4 mg Ondansetron HCl (Zofran) 4 mg IV Q4HP PRN PRN Reason: Nausea And Vomiting Pantoprazole Sodium (Protonix) 40 mg IV BIDAC [facility] Last Admin: 07/26/17 07:05 Dose: 40 mg Risperidone (Risperdal) 1 mg PO BID [facility] Last Admin: 07/26/17 10:22 Dose: Not Given Senna/Docusate Sodium (Senna Plus Tablet) 1 tab PO BID [facility] Last Admin: 07/26/17 10:23 Dose: Not Given Simvastatin (Zocor) 20 mg PO HS [facility] Last Admin: 07/25/17 21:10 Dose: Not Given Sodium Chloride (Saline Flush) 10 ml IV Q8 [facility] Last Admin: 07/26/17 05:59 Dose: Not Given Tamsulosin HCl (Flomax) 0.4 mg PO BID [facility] Last Admin: 07/26/17 10:22 Dose: Not Given Medical - PN: A/P - Time Spent With Patient Total time spent is greater than 50% in coordination of care (as documented) at patient's floor/unit and/or counseling patient: 25 - 35 minutes - Narrative A/P Narrative: A/P * Unresponsive state, imminent . Discuss with POA daughter Samantha. Will likely initiate comfort care. * Acute Blood loss anemia: Coffee-ground emesis .possible upper GI bleed .on IV PPI . No further interventions per family * Acute renal failure-creatinine 2.5 and worsening. No further interventions per family * Aspiration pneumonia-worsening clinically * Hyperkalemia-no further interventions per family * Atrial fibrillation: Rate controlled * Coronary artery disease/ Severe Aortic Stenosis/ carotid stenosis/ HTN/ HLD : continue home meds * Chf exacerbation : Status post diagnosis. * Acute on Chr Renal failure: creat is stable at 2.1 monitor, garza placed back in * Advanced Dementia, likely Vascular: H/o ams and agitated behavior, at baseline does not seem to be very cognitive, has some lucid intervals. presently on IM Zyprexa prn, risperidone 1mg bid started, also on divalproex 250mg bid. Head Ct neg, started on IV thiamine, as well as SL morphine for pain management. Overall very poor prognisis, has had decline over the last few months. Pt MMSE score 22/30 in dec-jan last year, dropped to 14/30 this july a week before admission. He has been falling, and has been more forgetful. * Laceration to arm: s/p sutures, in the ER , some of the sutures have come off , likely to be healed by secondary intention, Dr Gutiérrez following. * Obstructive sleep apnea * DVT SCD * DNR Plan * Family conference * Palliation * DC all aggressive interventions Medical - PN: Qual - VTE Deep Vein Thrombosis/Pulmonary Embolism Present on Admission: No
[2017-07-26] MEDS: GENTAMICIN SULFATE 40 MG, CLINDAMYCIN 300 MG, BACITRACIN 25,000 UNIT in SODIUM CHLORIDE... IRR SCH (13:54)
[2017-07-26] MEDS ORDERED: ONDANSETRON 4 MG/2 ML VIAL IV PRN (16:27)
[2017-07-26] MEDS ORDERED: LACTOPEROXI/GLUC OXID/POT THIO 1 EACH GEL..EA. TOPICAL PRN (16:27)
[2017-07-26] MEDS ORDERED: OLANZapine 10 MG VIAL IM PRN (16:27)
[2017-07-26] MEDS ORDERED: morphine 20 MG/ML ORAL.CONC SL PRN (16:27)
[2017-07-26] MEDS ORDERED: ONDANSETRON ODT 4 MG TABLET SL PRN (16:27)
[2017-07-26] MEDS: 0.9 % SODIUM CHLORIDE 1,000 ML IV SCH (17:26)
[2017-07-26] MEDS: DOCUSATE SODIUM 100 MG CAPSULE PO SCH (21:02)
[2017-07-27] MEDS: 0.9 % SODIUM CHLORIDE 10 ML SYRINGE IV SCH ×3 (06:33→13:36)
[2017-07-27] MEDS: DOCUSATE SODIUM 100 MG CAPSULE PO SCH (08:29)
--- NOTE | 2017-07-27 18:17 | Discharge Summary ---
Medical - DS: Prov Patient information: Note initiated : 07/27/17 at 6:15 pm Service Date, if different from initiated Date: [] Patient: Carlos Zuniga 87 y/o M admitted on 07/20/17 for Right Arm Hematoma, Moist Cough/Blood Loss Anemia. Chief Complaint: [] Date of admission: 07/20/17 08:07 Discharge date: 07/27/17 Primary care physician: Anurag Browning Consults: 07/19/17 19:30 Consult to Physician [CONS] Stat Comment: Consulting Provider: Adele Gandara Reason For Exam: Physician to Consult 07/20/17 04:07 Consult to Physician [CONS] Routine Comment: Multiple skin tears/wounds Consulting Provider: Damian Gutiérrez Reason For Exam: Physician to Consult Medical - DS: Meds - Discharge Medications Active and Home Medications: Home Medications cyanocobalamin (vit B-12) 1,000 mcg/mL injection solution 1,000 mcg IM QMONTH # 30 ml 07/01/16 [Rx Confirmed 07/19/17 Last Taken Unknown] levothyroxine 25 mcg tablet 25 mcg PO QDAY #90 tab 08/08/16 [Rx Confirmed Last Taken Unknown] citalopram 20 mg tablet 10 mg PO QDAY #60 tab 01/06/17 [Rx Confirmed 07/19/17 Last Taken Unknown] omeprazole 20 mg capsule,delayed release 20 mg PO ACB #30 cap 01/16/17 [Rx Confirmed 07/19/17 Last Taken Unknown] simvastatin 20 mg tablet 20 mg PO QDAY #90 tab 01/16/17 [Rx Confirmed 07/19/17 Last Taken Unknown] CPAP and supplies 1 unit DAILY 03/09/17 [History Confirmed 07/18/17 Last Taken Unknown] Tamsulosin [Flomax] 0.4 mg PO BID #60 cap 03/15/17 [Rx Confirmed 07/19/17 Last Taken Unknown] fluticasone 100 mcg-umeclid 62.5 mcg-vilant 25 mcg powd for inhalation 1 inh INHALATION QDAY #60 each 04/03/17 [Rx Confirmed 07/19/17 Last Taken Unknown] ipratropium bromide 0.03 % nasal spray 2 spray INTRANASAL BID-TID PRN 05/01/17 [ History Confirmed 07/19/17 Last Taken Unknown] aspirin 81 mg tablet,delayed release 81 mg PO QDAY 05/02/17 [History Confirmed 07/19/17 Last Taken Unknown] bisacodyl 10 mg rectal suppository 10 mg [place] QDAY PRN 05/02/17 [History Confirmed 07/19/17 Last Taken Unknown] cholecalciferol (vitamin D3) 2,000 unit capsule 2,000 unit PO QDAY #30 cap 05/02 [Rx Confirmed 07/19/17 Last Taken Unknown] magnesium hydroxide 400 mg/5 mL oral suspension 30 ml PO ONCE PRN ml 06/07/17 [ History Confirmed 07/19/17 Last Taken Unknown] sodium phosphates 19 gram-7 gram/118 mL enema 118 ml [place] ONCE PRN 06/07/17 [ History Confirmed 07/19/17 Last Taken Unknown] ipratropium-albuterol 0.5 mg-3 mg(2.5 mg base)/3 mL nebulization soln 3 ml INHALATION Q4H PRN #360 ml 06/15/17 [Rx Confirmed 07/19/17 Last Taken Unknown] risperidone 0.25 mg tablet 0.25 mg PO QDAY PRN #30 tab 07/14/17 [Rx Confirmed Last Taken Unknown] amiodarone 200 mg tablet 200 mg PO BID tab 07/18/17 [History Confirmed Last Taken Unknown] lisinopril 10 mg tablet 10 mg PO QDAY #60 tab 07/18/17 [Rx Confirmed 07/19/17 Last Taken Unknown] furosemide 40 mg tablet 40 mg PO .QOD #60 tab 07/19/17 [Rx Confirmed 07/19/17 Last Taken Unknown] Medical - DS: Hosp Hospital course: Cause of * Cardio respiratory arrest Events leading to * Aspiration pneumonia-worsening clinically * Unresponsive state, imminent . * Acute Blood loss anemia secondary to upper GI bleed * Acute renal failure * Hyperkalemia Brief hospital course Mr. Zuniga is a 87 year old Male with multiple medical comorbidites, dementia, who has been in the ER 3 times over the last 4 days. The patient was in the ER on 07/14/17, that time he had a mechanical fall and I believe he lacerated his arm this bled extensively according to the notes, left arm deep subcutaneous laceration, according to the notes it was 20 cm in length. Required 30 4 sutures. Patient was subsequently discharged. The patient presented to the emergency room again on the same day with symptoms of passing out, was found to be in A. fib with RVR, he was given amiodarone rate improved and then subsequently discharged on p.o. amiodarone. It is my understanding that he was not committed to the hospital because there were no beds available. CT head was done which was negative CT spine was negative. The patient was subsequently seen by the primary care provider who noted the patient had borderline low blood pressure but otherwise appeared stable, blood work was ordered it seems that the patient had a significant drop in his hemoglobin and therefore blood transfusions were ordered as an outpatient for the patient. While receiving blood transfusions, the patient became agitated ripped out the IV access. The patient did not get the full ordered 2 units, her some of the blood infiltrated in the arm, and I am not sure how much blood he totally received. The patient was sent to the emergency room because of his agitated behavior. The patient did not wish to be admitted to the hospital he noted that he was feeling fine, the ED physician noted that the patient does have significant dementia, he did talk with the patient's daughter who noted that the patient would not be in the position to make any medical judgments at this time and the patient if needs blood transfusion should be admitted. The patient was therefore admitted to the hospital for further management. [id number] hematocrit was done and was 26. Labs are pending. The patient did not provide any history to me, he opened his eyes laughed made a joke and went back to sleep, the patient seems was tired, according to the nurse in the ER has not received any sedative medication. Based on the recent blood test, the patient's hemoglobin was 8. 1, a drop from 10.9, platelets 165, INR is 1, patient has worsening renal function, creatinine was 1.8 recently and is 2.7 now. BUN is 40. There is no history of acute GI bleed. The patient has according to the history and extensive bleeding from the site of laceration, on exam he also has extensive bruising on his gluteal region. It is thought that the patient's blood loss is secondary to the recent fall. 07/20 Seen and examined, overnight events noted. Patient had been agitated intermittently throughout the night. He did not get the full blood transfusion as he broke the IV line that was administering blood then he ripped off the IV access. Patient required Haldol and restraints for safety. This morning he was sleeping but was notably short of breath. Exam revealed bilateral wheezing , chest x-ray showed congestion versus possible aspiration pneumonia. Started on IV steroids, IV antibiotics, IV Lasix given. Status changed to inpatient status. Labs show stable hemoglobin. I do not feel the patient needs any more blood transfusions at this point. The patient unfortunately because of his agitation yesterday ripped open the sutures on the left elbow, there is a significant laceration on the left arm, I do not feel that at this point in time there is any point in the suturing this wound, most likely will heal with secondary intention. I will have wound care evaluate the patient. 07/21 Pt seen examined, no acute overnight issues, slept well, this AM again was agitated, confused, and had broken the garza catheter, thep atient cxr is improved today, his wbc count has dropped. on iv abx, IM zyprexa given started on risperidone 1mg bid, also on divalproex labs otherwise stable. wound care consulted for left elbow laceration. Pt seen examined, still quite confused, delirious, agitated was wheezing this AM, IV lasix, duonebs ordreed switched back to IV steroids Plan to get CT head try to see if we can establish contact with family today need to look at goals of care. 07/23 Pt seen examined, overnight started on IV thiamine, and po morphine for pain. The patietn needed garza again, for retention. He has mitts placed on both his hads now, to avoid removal of lines. He has been sleeping today, without any s/o distress He has had a Chest x ray which shows chr copd, no acute findings. His sodium level was up, so started on gentle hydration. I spoke with the 2 daughters, who have the POA, we had planned a conference on phone today, however I did not have the legal document to verify pts wishes, therefore we canceled same. Suzie, will be coming to visit on Monday. Pt will be DNR as per my discussions with the 2 daughters, and its also my recommendation that he be DNR given his overall poor prognosis. Looking at his will I would interpret that given his present condition,worsening dementia, inability to care for self, CPR would not be very helpful. Case management will try to talk with the third POA, the patients son to see if he has any input. 07/24 Pt seen examined, seen last night and again this AM, he remains confused, intermittently allows to be fed needs 1:1, still agitated and aggresive towards nursing staff Pt remains on gentle hydration and steroid, daugthe to be here on monday, overall poor prognosis, because of poor overall condition, mental status. Still need antipsychotics to avoid self harm and harm to care providers, labs stable 07/25-patient remains nearly unresponsive. Coffee-ground emesis this morning. On twice-daily IV PPI. Stat hemoglobin. Transfuse if hemoglobin less than 7.5. Further discussion of goals of care with family once patient's daughter arrives. Currently DNR. High risk mortality given progressive degeneration Addendum-POA daughter refused transfer to tertiary Center or GI consult in light of per GI bleed. Family(POA daughter) would want patient to be managed and kept and DNR status. Family contemplating on hospice. Will arrive at the incision in 24 hours. 07/26- patient's daughter Samantha arrived today. Discussed with Samantha and her . Feels that Carlos should be made comfortable as he has not responded to multiple days of hospitalization and aggressive interventions. She will confer with her sister who shares joint power of energy attorney with Samantha. Patient has been unresponsive for over 18 hours. Creatinine is up to 2.5. BUN 90 along with upper GI bleed. Imminent . We will initiate palliative care once both POA is in agreement with initiation of comfort care/palliation 07/27-patient this afternoon with progressive hypoxic respiratory failure and eventual cessation of breathing and cardiac activity. Family members were informed of patient's demise. Discharge diagnosis: . - Time Spent with Patient Total time spent providing and/or coordinating discharge services: Medical - DS: Exam - Constitutional Vitals: Vital Signs Pulse Pulse Resp Pulse Ox 07/27/17 06:52 97 07/27/17 06:40 70 7 L 97 07/27/17 03:27 62 8 L 07/27/17 00:42 70 12 07/27/17 00:01 68 10 L 07/26/17 23:05 62 14 07/26/17 21:34 48 L 12 07/26/17 20:39 95 Intake and Output 07/27/17 07/27/17 07/27/17 05:59 13:59 21:59 Intake Total 0 / 0 Output Total 150 / 150 Balance -150 / -150 Intake: Oral 0 / 0 Output: Urine Catheter Amount 150 / 150 Medical - DS: A/P - Patient/Caregiver Discharge Instructions Activity: other () Diet: Regular Diet () - Follow up Plan Follow up with: Jack Browning MD [Primary Care Provider] - Disposition: Prognosis: Rehab Potential: Undetermined I certify that the patient requires SNF services: No Overall status at discharge: other Medical - DS: Qual - VTE Deep Vein Thrombosis/Pulmonary Embolism Present on Admission: No
== END 2017-07-27 20:05 | disposition expired | DRG 178 ==
LOC: ED 17:49 → ICU 17:49 → MEDSUR 07-21 19:15
PROVIDERS: ADMIT Internal Medicine; ATTEND Internal Medicine